=== PATIENT | female | born 1955 | race Caucasian/White ===

== ENCOUNTER 2020-03-28 12:29 | Outpatient (REF) | payer MEDICARE, MEDICAID, SELFPAY | END 2020-03-28 12:30 | disposition home or self-care (01) | LOC: HO.LAB 12:29 | PROVIDERS: Visit Provider Internal Medicine | DX: Z20.828 Contact with and (suspected) exposure to other viral communicable diseases (principal) | CPT/HCPCS: 87635 ==

== ENCOUNTER 2020-07-10 12:52 | Outpatient (REF) | payer MEDICARE, MEDICAID, SELFPAY ==
--- NOTE | ~2020-07-10 | US_ITS ---
EXAMINATION: COLOR-FLOW DUPLEX IMAGING OF THE BILATERAL LOWER EXTREMITY ARTERIAL SYSTEM. VELOCITY MEASUREMENTS THROUGHOUT THE FEMORAL ARTERIES WITH ANKLE-BRACHIAL PERIPHERAL ARTERIAL TESTING. CLINICAL INFORMATION: This is a 65-year-old female with hypertension, diabetes, peripheral vascular disease. Interventional Radiologist: Enzo Mcdonald M.D., F.S.I.R., FTrC.R. RIGHT FEMORAL RUNOFF VELOCITIES: The right common femoral artery measures 101 cm/s and monophasic. The right profunda femoral artery is 370 cm/s and is biphasic with a hemodynamically significant stenosis.. Right proximal superficial femoral artery measures 290 cm/s and monophasic with a severe hemodynamically significant stenosis.. Mid superficial femoral artery is occluded. Distal right superficial femoral artery is occluded. Right popliteal velocity measures 59 cm/s and is monophasic with moderate stenosis.. The posterior tibial artery velocity measures 62 cm/s and was monophasic with moderate stenosis.. The right ankle-brachial index is 0.56. Incidental note is made of free fluid adjacent to the knee joint. LEFT FEMORAL RUNOFF VELOCITIES: The left common femoral artery measures 165 cm/s and triphasic. The left profunda femoral artery is 299 cm/s and is triphasic with a moderate stenosis. Left proximal superficial femoral artery measures 147 cm/s and monophasic with moderate stenosis. Mid superficial femoral artery is 250 cm/s and monophasic with a severe stenosis.. Distal left superficial femoral artery measures 122 cm/s and is monophasic with a moderate stenosis.. Left popliteal velocity measures 126 cm/s and is monophasic with moderate stenosis. The posterior tibial artery velocity measures 56 cm/s and was monophasic with mild stenosis. The left ankle-brachial index is 0.60. US/US STEPHEN complete IMPRESSION: 1. There is a high-grade stenosis in the proximal right superficial femoral artery. There is a high-grade stenosis in the right profunda femoral artery. The mid and distal right superficial femoral artery are occluded. There is collateral reconstitution of the popliteal artery. Free fluid is seen adjacent to the right knee joint. 2. There is a hemodynamically significant high-grade stenosis in the left profunda femoral artery. There is a high-grade hemodynamically significant stenosis in the mid left superficial femoral artery.
--- NOTE | ~2020-07-10 | US_ITS ---
EXAMINATION: COLOR-FLOW DUPLEX IMAGING OF THE BILATERAL LOWER EXTREMITY ARTERIAL SYSTEM. VELOCITY MEASUREMENTS THROUGHOUT THE FEMORAL ARTERIES WITH ANKLE-BRACHIAL PERIPHERAL ARTERIAL TESTING. CLINICAL INFORMATION: This is a 65-year-old female with hypertension, diabetes, peripheral vascular disease. Interventional Radiologist: Enzo Mcdonald M.D., F.S.I.R., FYumiko.[email or web address]. RIGHT FEMORAL RUNOFF VELOCITIES: The right common femoral artery measures 101 cm/s and monophasic. The right profunda femoral artery is 370 cm/s and is biphasic with a hemodynamically significant stenosis.. Right proximal superficial femoral artery measures 290 cm/s and monophasic with a severe hemodynamically significant stenosis.. Mid superficial femoral artery is occluded. Distal right superficial femoral artery is occluded. Right popliteal velocity measures 59 cm/s and is monophasic with moderate stenosis.. The posterior tibial artery velocity measures 62 cm/s and was monophasic with moderate stenosis.. The right ankle-brachial index is 0.56. Incidental note is made of free fluid adjacent to the knee joint. LEFT FEMORAL RUNOFF VELOCITIES: The left common femoral artery measures 165 cm/s and triphasic. The left profunda femoral artery is 299 cm/s and is triphasic with a moderate stenosis. Left proximal superficial femoral artery measures 147 cm/s and monophasic with moderate stenosis. Mid superficial femoral artery is 250 cm/s and monophasic with a severe stenosis.. Distal left superficial femoral artery measures 122 cm/s and is monophasic with a moderate stenosis.. Left popliteal velocity measures 126 cm/s and is monophasic with moderate stenosis. The posterior tibial artery velocity measures 56 cm/s and was monophasic with mild stenosis. The left ankle-brachial index is 0.60. US/US arterial duplex LE BI IMPRESSION: 1. There is a high-grade stenosis in the proximal right superficial femoral artery. There is a high-grade stenosis in the right profunda femoral artery. The mid and distal right superficial femoral artery are occluded. There is collateral reconstitution of the popliteal artery. Free fluid is seen adjacent to the right knee joint. 2. There is a hemodynamically significant high-grade stenosis in the left profunda femoral artery. There is a high-grade hemodynamically significant stenosis in the mid left superficial femoral artery.
== END 2020-07-10 12:53 | disposition home or self-care (01) ==
LOC: HO.US 12:52
PROVIDERS: PCP Family Medicine; Visit Provider Surgery Vascular Surgery
DX: I73.9 Peripheral vascular disease, unspecified (principal)
CPT/HCPCS: 93923; 93925

== ENCOUNTER 2020-07-26 14:29 | Outpatient (REF) | payer MEDICARE, MEDICAID, SELFPAY | END 2020-07-26 14:30 | disposition home or self-care (01) | LOC: HO.LAB 14:29 | PROVIDERS: Visit Provider Internal Medicine | DX: Z20.822 Contact with and (suspected) exposure to COVID-19 (principal) | CPT/HCPCS: 36415; C9803; U0003; U0005 ==

== ENCOUNTER → 2020-08-01 09:52 | Outpatient (BNVA) | payer MEDICARE, MEDICAID, SELFPAY | PROVIDERS: Visit Provider Surgery Vascular Surgery | DX: I73.9 Peripheral vascular disease, unspecified (principal) | CPT/HCPCS: 99212 ==

== ENCOUNTER 2020-08-03 13:34 | Outpatient (REF) | payer MEDICARE, MEDICAID, SELFPAY | END 2020-08-03 13:35 | disposition home or self-care (01) | LOC: HO.LAB 13:34 | PROVIDERS: Visit Provider Internal Medicine | DX: Z20.822 Contact with and (suspected) exposure to COVID-19 (principal) | CPT/HCPCS: 36415; C9803; U0003; U0005 ==

== ENCOUNTER 2020-09-08 09:34 | Emergency (ER) | payer MEDICARE, MEDICAID, SELFPAY ==
--- NOTE | ~2020-09-08 | CT_ITS ---
EXAMINATION: CT ABDOMEN AND PELVIS WITHOUT CONTRAST CLINICAL INFORMATION: Leg pain lower abdominal pain. Kidney stones. COMPARISON: CT scan the abdomen and pelvis September 2017 TECHNIQUE: Multidetector volumetric imaging was performed from the superior aspect of the liver through the pubic symphysis. Sagittal and coronal reformatted images were obtained on the technologist's workstation. This CT examination was performed using dose optimization techniques as appropriate, variously including the following: *Automated exposure control *Adjustment of mA and/or kV according to patient size (this includes techniques or standardized protocols for targeted exams where dose is matched to indication/reason for exam; i.e. extremities or head) *Use of iterative reconstruction technique DLP: 475 mGy-cm FINDINGS: LUNG BASES: The visualized lung bases are unremarkable. LIVER, GALLBLADDER, AND BILIARY TREE: The liver is normal in size, shape, and attenuation. No focal hepatic lesion or biliary ductal dilatation is present. The gallbladder is unremarkable with no evidence of radiopaque gallstones, gallbladder wall thickening, or obvious pericholecystic inflammatory changes. PANCREAS: Unremarkable. SPLEEN: Unremarkable. ADRENAL GLANDS: Unremarkable. KIDNEYS AND URETERS: There is no hydronephrosis no masses. BLADDER: Unremarkable. GASTROINTESTINAL TRACT: The small and large bowel are unremarkable. The appendix is unremarkable. ABDOMINAL WALL: No significant hernia is appreciated. LYMPH NODES: Normal. VASCULAR: There is prominent calcific atherosclerotic changes throughout unchanged. PELVIC VISCERA: Unremarkable. OSSEOUS STRUCTURES: Multilevel spondylosis of lumbar sacral spine unchanged. There is calcification of the hamstring tendons likely reflecting hydroxyapatite deposition disease unchanged. CT/CT abdomen pelvis wo con IMPRESSION: No acute abnormality or change. Small right renal calculi versus vascular calcification unchanged. Calcific atherosclerotic disease. Spondylosis of lumbar sacral spine. 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
[2020-09-08 10:59] LABS: MANUAL DIFF FLAG NO
[2020-09-08 11:00] LABS: Basophils Percent Auto 0.5 % (0-2); Eosinophils Absolute Auto 0.1 X10*3/uL (0.0-0.4); Eosinophils Percent Auto 1.3 % (0-4); Hemoglobin 12.7 g/dl (12.0-16.0); Imm Gran Abs Auto 0.03 X10*3/uL (0.00-0.03); Imm Gran Pct Auto 0.5 % (0.0-0.4); Lymphocytes Absolute Auto 1.9 X10*3/uL (1.2-4.9); Lymphocytes Percent Auto 29.6 % (20-40); Mean Corpuscular HGB Conc 33.4 g/dl (31.0-35.0); Mean Corpuscular Hemoglobin 30.6 pg (27.0-33.0); Mean Corpuscular Volume 91.6 fL (80-98); Mean Platelet Volume 10.4 fL (9.4-12.3); Monocytes Absolute Auto 0.6 X10*3/uL (0.1-1.2); Monocytes Percent Auto 8.6 % (2-11); Neutrophils Absolute Auto 3.8 X10*3/uL (2.0-8.3); Neutrophils Percent Auto 59.5 % (45-73); Platelet Count 216 X10*3/uL (160-400); Red Blood Count 4.15 X10*6/uL (4.20-5.50); Red Cell Distribution Width 12.4 % (11.0-16.0); White Blood Count 6.4 X10*3/uL (4.8-10.8)
--- NOTE | 2020-09-08 11:07 | ED_ITS ---
HPI - Abdominal Pain General Chief Complaint: Abdominal Pain Stated Complaint: BACK AND LOWER ABD PAIN Time Seen by Provider: 09/08/20 11:03 Source: patient Mode of arrival: ambulatory Limitations: no limitations History of Present Illness HPI narrative: 65 y/o female with history of HTN, PAD, history of kidney stones in the past who presents with 4 days of low back pain, flank pain that radiates to her bilateral lower abdomen and suprpubic area. She denies urinary symptoms, fever, chills, nausea, vomiting, diarrhea or constipation. She had a BM today that was normal. She just returned from [place] 4 days ago. She denies heavy lifting or injury to her back. She last had a kidney stone several years ago and states this does not feel the same. She has called her doctor 3 days in a row for advise with no return call so she came to the ER for further evaluation. MD elicited complaint: abdominal pain and flank pain Pertinent past history: kidney stones Onset (ago): day(s) (4) Location: RLQ, LLQ, L flank, R flank and suprapubic Severity: moderate Quality: aching Radiation: LLQ, RLQ and suprapubic Exacerbating factors: movement Relieving factors: rest Context: foreign travel and history of similar episodes Associated symptoms: denies other symptoms Related Data Home Medications Medication Instructions Recorded Confirmed aspirin 81 mg tablet,delayed 81 mg PO DAILY 08/01/20 release atorvastatin 20 mg tablet 20 mg PO DAILY 08/01/20 fenofibrate 160 mg tablet 160 mg PO DAILY 08/01/20 glipizide 5 mg tablet 5 mg PO DAILY 08/01/20 hydrochlorothiazide 25 mg tablet 25 mg PO DAILY 08/01/20 omeprazole magnesium 20 mg 20 mg PO DAILY 08/01/20 tablet,delayed release cyanocobalamin (vitamin B-12) 1 tab PO DAILY 09/08/20 hydralazine 25 mg PO BID 09/08/20 losartan 100 mg PO DAILY 09/08/20 metformin 1,000 mg PO BID 09/08/20 nifedipine 30 mg PO BID 09/08/20 potassium citrate 1 tab PO BID 09/08/20 propranolol 120 mg PO DAILY 09/08/20 Allergies Allergy/AdvReac Type Severity Reaction Status Date / Time No Known Allergies Allergy Mild NOT Verified 08/01/20 09:54 APPLICABLE Review of Systems Review of Systems Constitutional: No Fever, No Chills ENT/Mouth: No sore throat, No Rhinorrhea, No Swallowing Difficulty Cardiovascular: No Chest Pain, No SOB, No Orthopnea, No Edema Respiratory: No Cough, No Sputum, No Wheezing, No dyspnea Gastrointestinal: No Nausea, No Vomiting, No Diarrhea, + abdominal Pain, No Hematochezia, No Melena Genitourinary: No Dysuria, No Urinary Frequency, No Hematuria Musculoskeletal: No joint pain, + Myalgias Skin: No Skin Lesions, No rash Neuro: No Weakness, No Numbness, No Dizziness, No Headache Psych: No Anxiety/Panic, No Depression Heme/Lymph: No Bruising, No Lymphadenopathy Endocrine: No Polyuria, No Polydipsia Physical Exam Vital Signs: Vital Signs: Last Vital Signs Temp 97.9 F 09/08/20 11:08 Pulse 79 09/08/20 11:41 Resp 14 09/08/20 11:41 BP 134/74 09/08/20 11:41 Pulse Ox 98 09/08/20 11:41 Body Mass Index 13.2 Appearance: Alert. Oriented X3. No acute distress. Eyes: Pupils equal, round and reactive to light. ENT: Pharynx normal. Neck: Normal inspection. Neck supple. CVS: Normal heart rate and rhythm. Pulses normal. Respiratory: No respiratory distress. Breath sounds normal. Abdomen: Soft with bilateral lower abdominal tenderness, suprapubic tenderness. +BS x4. Bilateral CVA and flank tenderness L>R Skin: Skin warm and dry. Normal skin color. Normal skin turgor. No rashes. Extremities: No lower extremity edema. Negative Ministerio's sign. Neuro: Oriented X 3. No motor deficit. No sensory deficit. Course Course Course Narrative: 65 y/o female presenting with 4 days of lower back pain that radiates to the lower abdomen. No urinary symptoms, fever, chills, no nausea, vomiting or diarrhea. Will get basic lab workup and urinalysis. Concern for possible kidney stones, UTI, pyelonephritis, verses musculoskeletal pain. She is asymptomatically hypertensive with BP 200/80's on arrival. She denies chest pain, headache, vision changes. She states her BP is always high and she took her BP meds this morning, she does not know what she is on. Will hold off on treating for now given she is asympomatic. Will repeat BP soon. Reevaluation(s) Reevaluation #1: BP repeated 1/2 hour after patient in the ER and significantly improved. Lab workup is unremarkable, possible mild vs early UTI. With her suprapubic tenderness will plan to treat until urine culture returns. CT scan did not show any abnormalities to explain her back pain - likely musculoskeletal in nature. Management discussed and pateint encouraged to f/u with her PCP on Friday. She is stable for discharge. MDM - Abdominal Pain Lab Data Result diagrams: 09/08/20 10:42 09/08/20 10:42 Labs: Lab Results 09/08/20 09/08/20 09/08/20 Range/Units 10:42 10:42 10:42 WBC 6.4 (4.8-10.8) X10*3/uL RBC 4.15 L (4.20-5.50) X10*6/uL Hgb 12.7 (12.0-16.0) g/dl Hct 38.0 (37-47) % MCV 91.6 (80-98) fL MCH 30.6 (27.0-33.0) pg MCHC 33.4 (31.0-35.0) g/dl RDW 12.4 (11.0-16.0) % Plt Count 216 (160-400) X10*3/uL MPV 10.4 (9.4-12.3) fL Immature Gran % (Auto) 0.5 H (0.0-0.4) % Neut % (Auto) 59.5 (45-73) % Lymph % (Auto) 29.6 (20-40) % [place] % (Auto) 8.6 (2-11) % Eos % (Auto) 1.3 (0-4) % Baso % (Auto) 0.5 (0-2) % Lymph # (Auto) 1.9 (1.2-4.9) X10*3/uL [place] # (Auto) 0.6 (0.1-1.2) X10*3/uL Eos # (Auto) 0.1 (0.0-0.4) X10*3/uL Baso # (Auto) 0.0 (0.0-0.2) X10*3/uL Abs Immat Gran (auto) 0.03 (0.00-0.03) X10*3/uL Absolute Neuts (auto) 3.8 (2.0-8.3) X10*3/uL Absolute Nucleated RBC 0.000 (0.0-0.012) X10*3/uL Nucleated RBC % (auto) 0.0 (0.0-0.2) /100WBC Sodium 137 (135-145) mmol/L Potassium 4.3 (3.3-5.1) mmol/L Chloride 99 (96-108) mmol/L Carbon Dioxide 28 (22-29) mmol/L Anion Gap 14 (12-20) BUN 18 H (9-16) mg/dL Creatinine 0.68 (0.5-1.4) mg/dL Estim Creat Clear Calc 39.6 Estimated GFR > 60 Random Glucose 232 H (60-115) mg/dL Calcium 9.4 (8.4-10.2) mg/dL Urine Color YELLOW Urine Appearance CLEAR Urine pH 5.5 (5.0-8.0) Ur Specific [place] 1.025 (1.005-1.025) Urine Protein NEG (NEG-TRACE) MG/DL Urine Glucose (UA) 250 H (NEG) MG/DL Urine Ketones NEG (NEG) MG/DL Urine Blood NEG (NEG) Urine Nitrite NEG (NEG) Ur Leukocyte Esterase TRACE H (NEG) Urine RBC 0 (0) /HPF Urine WBC 1-4 (0-4) /HPF Ur Squamous Epith Cells TRACE /LPF Urine Bacteria NONE /LPF Urine Mucus TRACE /LPF Discharge Plan Discharge Clinical Impression: Acute UTI Back strain Qualifiers: Encounter type: initial encounter Qualified Code(s): S39.012A - Strain of muscle, fascia and tendon of lower back, initial encounter Patient Disposition: Home, Self-Care Instructions: Urinary Tract Infection in Women (ED), Low Back Strain (ED), Lower Back Exercises (ED) Additional Instructions: Your urine tested showed possible infection, you are being started on ant ibiotics until your urine culture returns. Your CT scan did not show any causes of your back pain - your pain is likely muscular in nature. No bending, lifting or twisting. Use ice several times per day for 20 minutes at a time for the next 48 hours and then change to heat. Take medications as prescribed to help with pain and discomfort. Follow up with your Primary Care Doctor this week. If your pain worsens, if you develop new numbness, tingling, weakness, loss of function or incontinence call 911 or come back to the ER right away for evaluation. Prescriptions: No Action nifedipine 30 mg tablet extended release 24hr 30 mg PO BID RF: 0 cyanocobalamin (vitamin B-12) 1,000 mcg tablet 1 tab PO DAILY RF: 0 hydralazine 25 mg tablet 25 mg PO BID RF: 0 propranolol 120 mg capsule,extended release 24 hr 120 mg PO DAILY RF: 0 losartan 100 mg tablet 100 mg PO DAILY RF: 0 metformin 500 mg tablet extended release 24 hr 1,000 mg PO BID RF: 0 potassium citrate 15 mEq tablet extended release 1 tab PO BID RF: 0 PMFSH Past Medical History Attestation statement: The following information was validated with the patient. Medical History Cerebrovascular accident HTN (hypertension) Non-cardiac chest pain Type 2 diabetes mellitus Surgical History History of hysterectomy Hx of colonoscopy Status post angioplasty Family History Family History Father No problems noted. Mother Diabetes Brother Diabetes Brother Diabetes Sister Diabetes Daughter No problems noted. Daughter No problems noted. Son No problems noted. Son No problems noted. Social History Social History Alcohol intake: never Smoking Status: Former smoker Tobacco Type: Cigarette Smoked in Last 30 Days: No Use of substances other than those prescribed or required for medical reasons: No Advance Directives: Yes Advance Directives Information Provided: Yes Advance Directives on File: No
[2020-09-08 11:08] VITALS: BP 204/83; PULSE 90; RESP 16; TEMP 36.6; O2SAT 99; BMI 13.2
[2020-09-08 11:11] LABS: Glucose Urine UA 250 MG/DL (NEG); Leukocyte Esterase Urine TRACE (NEG); Nitrite Urine NEG (NEG); PH 5.5 (5.0-8.0); Specific Gravity - Urine 1.025 (1.005-1.025); UACC Culture Trigger YES; Urine Blood NEG (NEG); Urine Ketones NEG (NEG); Urine Protein NEG (NEG-TRACE)
[2020-09-08 11:15] LABS: Color Urine YELLOW
[2020-09-08 11:16] LABS: Appearance Urine CLEAR
[2020-09-08 11:23] LABS: Mucus Urine TRACE /LPF; RBC Urine 0 /HPF (0); Squamous Epithelial Cell Urine TRACE /LPF
[2020-09-08 11:29] LABS: Anion Gap 14 (12-20); Blood Urea Nitrogen 18 mg/dL (9-16); Calcium 9.4 mg/dL (8.4-10.2); Carbon Dioxide 28 mmol/L (22-29); Chloride 99 mmol/L (96-108); Creatinine Clr Calc Pharmacy 39.6; Estimated Glomerular Filt Rate > 60; Glucose Random 232 mg/dL (60-115); Potassium 4.3 mmol/L (3.3-5.1); Sodium 137 mmol/L (135-145)
[2020-09-08] MEDS: Acetaminophen 325 MG TABLET 975 MG PO (11:34)
[2020-09-08 11:41] VITALS: BP 134/74; PULSE 79; RESP 14; O2SAT 98
== END 2020-09-08 13:41 | disposition home or self-care (01) ==
PROVIDERS: Emergency Provider Emergency Medicine; PCP Family Medicine
DX: S39.012A Strain of muscle, fascia and tendon of lower back, initial encounter (principal); R10.32 Left lower quadrant pain; N39.0 Urinary tract infection, site not specified; I10 Essential (primary) hypertension; X58.XXXA Exposure to other specified factors, initial encounter; Y93.9 Activity, unspecified; Y92.9 Unspecified place or not applicable; Y99.9 Unspecified external cause status; Z79.899 Other long term (current) drug therapy; Z79.82 Long term (current) use of aspirin; Z87.891 Personal history of nicotine dependence
CPT/HCPCS: 36415; 74176; 80048; 81001; 81003; 85025; 87086; 99284

== ENCOUNTER → 2020-10-16 12:40 | Outpatient (BNVA) | payer MEDICARE, MEDICAID, SELFPAY | PROVIDERS: PCP Family Medicine; Visit Provider Internal Medicine | DX: Z13.89 Encounter for screening for other disorder (principal) | CPT/HCPCS: Q3014 ==

== ENCOUNTER 2020-10-17 11:54 | Outpatient (REF) | payer MEDICARE, MEDICAID, SELFPAY | END 2020-10-17 11:55 | disposition home or self-care (01) | LOC: HO.LAB 11:54 | PROVIDERS: Visit Provider Internal Medicine | DX: Z20.822 Contact with and (suspected) exposure to COVID-19 (principal) | CPT/HCPCS: C9803; U0003; U0005 ==

== ENCOUNTER → 2020-12-14 08:42 | Outpatient (BNVA) | payer MEDICARE, MEDICAID, SELFPAY | PROVIDERS: PCP Family Medicine; Visit Provider Internal Medicine | DX: E11.65 Type 2 diabetes mellitus with hyperglycemia (principal); E78.1 Pure hyperglyceridemia; I10 Essential (primary) hypertension; E78.5 Hyperlipidemia, unspecified; Z79.84 Long term (current) use of oral hypoglycemic drugs; Z79.899 Other long term (current) drug therapy | CPT/HCPCS: 82947; 83036; 99212 ==

== ENCOUNTER 2021-01-16 15:28 | Emergency (ER) | payer MEDICARE, MEDICAID, SELFPAY ==
[2021-01-16 16:43] VITALS: BP 117/71; PULSE 87; RESP 18; TEMP 36.4; O2SAT 97; BMI 29.2
--- NOTE | 2021-01-16 17:27 | ED_ITS ---
HPI - Extremity Problem General Chief complaint: Extremity Injury, Upper Stated complaint: shoulder pain Time Seen by Provider: 01/16/21 17:27 Source: patient Mode of arrival: ambulatory Limitations: no limitations History of Present Illness HPI Narrative: 65 y/o female presenting to the ER from home c/o acute on chronic nontraumatic left sided posterior shoulder pain. She reports this is a chronic problem and she usually takes Flexeril for the pain but she ran out of it. She denies any new injury. No chest pain, SOB or radiation of pain. The pain is aching in nature and in the back of her left shoulder, worse with movement. She still has full ROM of her shoulder it is just painful to row backward. MD Complaint: joint paint Onset (ago): day(s) Pain Consistency: intermittent Location: left and upper extremity Severity scale (1-10): 5 Quality: aching Radiation: none Relieving factors: medication Exacerbating factors: range of motion Associated symptoms: denies other symptoms Related Data Home Medications Medication Instructions Recorded Confirmed aspirin 81 mg tablet,delayed 81 mg PO DAILY 08/01/20 12/14/20 release atorvastatin 20 mg tablet (Lipitor) 20 mg PO BEDTIME 08/01/20 12/14/20 fenofibrate 160 mg tablet 160 mg PO BEDTIME 08/01/20 12/14/20 glipizide 5 mg tablet 5 mg PO DAILY 08/01/20 12/14/20 hydrochlorothiazide 25 mg tablet 25 mg PO DAILY 08/01/20 12/14/20 omeprazole magnesium 20 mg 20 mg PO DAILY 08/01/20 12/14/20 tablet,delayed release (Prilosec OTC) cyanocobalamin (vitamin B-12) 1 tab PO DAILY 09/08/20 12/14/20 1,000 mcg tablet hydralazine 25 mg tablet 25 mg PO BID 09/08/20 12/14/20 losartan 100 mg tablet 100 mg PO DAILY 09/08/20 12/14/20 metformin 500 mg tablet,extended 1,000 mg PO BID 09/08/20 12/14/20 release 24 hr nifedipine 30 mg tablet,extended 30 mg PO BID 09/08/20 12/14/20 release 24 hr potassium citrate 15 mEq (1,620 1 tab PO BID 09/08/20 12/14/20 mg) tablet,extended release propranolol 120 mg capsule,24 120 mg PO DAILY 09/08/20 12/14/20 hr,extended release blood sugar diagnostic (FreeStyle #10 ea 12/14/20 12/14/20 Lite Strips) blood-glucose meter (FreeStyle #1 ea 12/14/20 12/14/20 Lite Meter) lancets 28 gauge (FreeStyle #100 ea 12/14/20 12/14/20 Lancets) Previous Rx's Medication Instructions Recorded cefuroxime axetil 250 mg tablet 250 mg PO BID #10 tab 09/08/20 ibuprofen 600 mg tablet 600 mg PO Q8H PRN #10 tab 09/08/20 cyclobenzaprine 10 mg tablet 10 mg PO TID PRN #14 tab 01/16/21 ibuprofen 600 mg tablet 600 mg PO Q8H PRN #14 tab 01/16/21 lidocaine 5 % topical patch 1 patch TOPICAL DAILY #15 ea 01/16/21 (Lidoderm) Allergies Allergy/AdvReac Type Severity Reaction Status Date / Time No Known Allergies Allergy Mild NOT Verified 01/16/21 16:43 APPLICABLE Review of Systems Review of Systems: Constitutional: No Fever, No Chills Cardiovascular: No Chest Pain, No SOB Respiratory: No Cough Gastrointestinal: No Nausea, No Vomiting Musculoskeletal: + joint pain, + Myalgias Skin: No Skin Lesions, No rash Neuro: No Weakness, No Numbness Heme/Lymph: No Bruising PMFSH Past Medical History Medical History Cerebrovascular accident HLD (hyperlipidemia) HTN (hypertension) Hypertriglyceridemia Non-cardiac chest pain Type 2 diabetes mellitus Vitamin D deficiency Surgical History History of hysterectomy Hx of colonoscopy Status post angioplasty Family History Family History Father Heart disease Mother Diabetes Hypertension High cholesterol Renal failure Brother Diabetes Brother Diabetes Sister Diabetes Social History Social History Alcohol intake: never Patient Tobacco Use Status: Former Tobacco user Advance Directives: No Advance Directives Information Provided: No Physical Exam 2 Vital Signs: Vital Signs: Last Vital Signs Temp 97.6 F 01/16/21 16:43 Pulse 87 01/16/21 16:43 Resp 18 01/16/21 16:43 BP 117/71 01/16/21 16:43 Pulse Ox 97 01/16/21 16:43 Body Mass Index 29.2 Appearance: Alert. Oriented X3. No acute distress. HEENT: normal inspection CVS: Normal heart rate and rhythm. Pulses normal. Respiratory: No respiratory distress. Lung CTAB Skin: Skin warm and dry. Normal skin color. Normal skin turgor. No rashes. Extremities: normal left shoulder inspection. mild tenderness posteriorly, normal palpation of the AC joint, normal passive ROM. no crepitus palpable. Neuro: Oriented X 3. No motor deficit. No sensory deficit. Course Course Course Narrative: 65 y/o female presenting wtih acute on chronic posterior left sided shoulder pain, worse with movement. No SOB or chest pain. She has been trying to f/u with her PCP but no answer. Will give short course of flexeril re- fill and have her follow up with PCP. Stable for d/c home with supportive care. Critical Care Time Critical Care Time Critical Care Time: No Discharge Plan Discharge Clinical Impression: Chronic left shoulder pain Patient Disposition: Home, Self-Care Instructions: Shoulder Pain (ED) Additional Instructions: Take the prescribed medications as needed for pain. Continue to follow up with your doctor. If you develop new or worsening symptoms call 911 or come back to the ER for further evaluation. Prescriptions: New cyclobenzaprine 10 mg tablet 10 mg PO TID PRN (Reason: muscle spasm) Qty: 14 RF: 0 ibuprofen 600 mg tablet 600 mg PO Q8H PRN (Reason: pain) Qty: 14 RF: 0 lidocaine [Lidoderm] 5 % adhesive patch,medicated 1 patch topical DAILY Qty: 15 RF: 0 No Action nifedipine 30 mg tablet extended release 24hr 30 mg PO BID RF: 0 cyanocobalamin (vitamin B-12) 1,000 mcg tablet 1 tab PO DAILY RF: 0 hydralazine 25 mg tablet 25 mg PO BID RF: 0 propranolol 120 mg capsule,extended release 24 hr 120 mg PO DAILY RF: 0 losartan 100 mg tablet 100 mg PO DAILY RF: 0 metformin 500 mg tablet extended release 24 hr 1,000 mg PO BID RF: 0 potassium citrate 15 mEq tablet extended release 1 tab PO BID RF: 0 cefuroxime axetil 250 mg tablet 250 mg PO BID Qty: 10 RF: 0 ibuprofen 600 mg tablet 600 mg PO Q8H PRN (Reason: pain) Qty: 10 RF: 0 (DME) blood-glucose meter [FreeStyle Lite Meter] Kit See Rx Instructions .ROUTE .MEDSUPPLY Qty: 1 RF: 0 (DME) FreeStyle Lite Strips Strip See Rx Instructions .ROUTE .MEDSUPPLY Qty: 10 RF: 0 (DME) lancets [FreeStyle Lancets] 28 gauge misc See Rx Instructions .ROUTE .MEDSUPPLY Qty: 100 RF: 0 aspirin 81 mg tablet,delayed release (DR/EC) 81 mg PO DAILY RF: 0 omeprazole magnesium [Prilosec OTC] 20 mg tablet,delayed release (DR/EC) 20 mg PO DAILY RF: 0 atorvastatin [Lipitor] 20 mg tablet 20 mg PO BEDTIME RF: 0 fenofibrate 160 mg tablet 160 mg PO BEDTIME RF: 0 hydrochlorothiazide 25 mg tablet 25 mg PO DAILY RF: 0 glipizide 5 mg tablet 5 mg PO DAILY RF: 0 Interventions: ED Discharge Assessment Last Done: 01/16/21 18:47 Discharge Date/Time: 01/16/21 18:48
== END 2021-01-16 18:48 | disposition home or self-care (01) ==
PROVIDERS: Emergency Provider Emergency Medicine; PCP Family Medicine
DX: G89.29 Other chronic pain (principal); M25.512 Pain in left shoulder; E11.9 Type 2 diabetes mellitus without complications; I10 Essential (primary) hypertension; E78.5 Hyperlipidemia, unspecified; Z79.82 Long term (current) use of aspirin; Z79.899 Other long term (current) drug therapy; Z79.84 Long term (current) use of oral hypoglycemic drugs; Z79.02 Long term (current) use of antithrombotics/antiplatelets
CPT/HCPCS: 99281; 99282; 99283

== ENCOUNTER 2021-01-25 08:48 | Outpatient (REF) | payer MEDICARE, MEDICAID, SELFPAY ==
--- NOTE | ~2021-01-25 | US_ITS ---
EXAMINATION: NONINVASIVE ASSESSMENT OF THE ARTERIES OF BOTH LOWER EXTREMITIES WITH PVR EXAM AND BILATERAL LOWER EXTREMITY DUPLEX CLINICAL INFORMATION: Peripheral vascular disease. TECHNIQUE: Ankle pulse volume recordings, ankle pressure measurements and ankle brachial indices were obtained of the lower extremity arterial system bilaterally in addition to duplex Doppler techniques with wave form analysis and measurement of velocities in the common femoral, profunda femoral, superficial femoral, popliteal and tibial arteries. The study was performed only at rest. COMPARISON: None FINDINGS: a) AT REST: RIGHT LE. The right ankle-brachial index is: 0.57 2. Right ankle pressure: Decreased 3. Right ankle PVR waveform: Dampened 4. Right direct duplex Doppler findings: There is atherosclerotic disease with vessel wall calcification. There is diffuse narrowing of the SFA. The right mid SFA is occluded. The right distal SFA reconstitutes via collateral. * Common femoral artery: 101 cm/s, Diastolic flow reversal: No. Monophasic. * Superficial femoral artery (proximal, mid, distal): 319, occluded, 61 cm/s, Diastolic flow reversal: No. Monophasic. Increased peak systolic velocity in the proximal profunda measuring 608 and severe proximal profunda stenosis. * Popliteal artery: 50 cm/s, Diastolic flow reversal: No. Monophasic. * Posterior tibial artery: 23 cm/s, Diastolic flow reversal: No. Monophasic. * There is a small right Chisholm's cyst measures 1.7 x 3.5 x 1.2 cm. LEFT LE. The left ankle-brachial index is: 0.65 2. Left ankle pressure: Decreased 3. Left ankle PVR waveform: Dampened 4. Left direct duplex Doppler findings: There is atherosclerotic disease with vessel wall calcification. The left SFA is diffusely narrowed. There are multiple collateral vessels seen adjacent to the left SFA. The popliteal artery is diffusely narrowed. * Common femoral artery: 154 cm/s, Diastolic flow reversal: Yes. Biphasic. * Superficial femoral artery (proximal, mid, distal): 195, 93 and 91 cm/s, Diastolic flow reversal: No. Monophasic. * Popliteal artery: 91 cm/s, Diastolic flow reversal: No. Monophasic. * Posterior tibial artery: 24 cm/s, Diastolic flow reversal: No. Monophasic. STEPHEN Reference: * >0.97-1.25 = normal - no significant arterial disease * 0.75-0.96 = mild peripheral arterial disease * 0.5-0.74 = moderate peripheral arterial disease * <0.50 = severe peripheral arterial disease US/US arterial duplex LE BI IMPRESSION: Right: Diffusely narrowed right SFA. Right mid SFA occlusion. Reconstituted right distal SFA via collateral. Right proximal profunda stenosis. The right STEPHEN is 0.57 suggestive of moderate obstructive atherosclerotic disease. Right Chisholm's cyst. Left: Diffusely narrowed left SFA and multiple adjacent collateral vessels with monophasic flow. Diffusely narrowed popliteal artery with monophasic flow. The left STEPHEN is 0.65 suggestive of moderate obstructive atherosclerotic disease.
== END 2021-01-25 08:49 | disposition home or self-care (01) ==
LOC: HO.US 08:48
PROVIDERS: Visit Provider Surgery Vascular Surgery
DX: I70.213 Atherosclerosis of native arteries of extremities with intermittent claudication, bilateral legs (principal)
CPT/HCPCS: 93923; 93925

== ENCOUNTER → 2021-02-01 09:41 | Outpatient (BNVA) | payer MEDICARE, MEDICAID, SELFPAY | PROVIDERS: PCP Family Medicine; Visit Provider Surgery Vascular Surgery | DX: I73.9 Peripheral vascular disease, unspecified (principal) | CPT/HCPCS: 99212 ==

== ENCOUNTER 2021-08-27 08:47 | Outpatient (REF) | payer MEDICARE, MEDICAID, SELFPAY ==
--- NOTE | 2021-08-27 16:53 | MHC.AU.ANR ---
Adult Audiological Evaluation Date of Visit: 08/27/21 [employer] Head Used: Cambodian- By Phone Reason for Appointment: Audiological evaluation due to concern for decreased hearing. Ms. Vega states that she noticed a decrease in her hearing in her right ear over the past few months. She was recently seen by her PCP and was found to have impacted cerumen in the right ear that was removed with irrigation and Debrox earwax drops. Ms. Vega states that her hearing has improved since cerumen was removed. She denies any further concerns for her ears or hearing. Does patient feel they have a hearing loss?: No, not currently. Has hearing been tested previously?: No Ear History: Family History of Hearing Loss?: Yes: [place] (sobrinas) History of Ear Wax Buildup: Right Ear Bothersome Tinnitus/Ringing/Noises in Ears: Right Ear Medical History: Medical History: Diabetes, High Blood Pressure, Stroke Medical History (Other): Tremor, hypercholesterolemia, osteoporosis, PVD Medication List: nifedipine, hydralazine HCl, potassium citrate, Lovaza, aspirin, amlodipine besylate, acetaminophen, hydrochlorothiazide, Inderal [place], losartan potassium, Lipitor, cyanocobalamin, glipizide, metformin HCl, omeprazole, fenofibrate Otoscopy: Right Ear: Unremarkable Left Ear: Unremarkable Tympanometry: Tympanometry performed due to: To assess integrity of the middle ear system Right Ear: Normal Middle Ear System (Type A) Left Ear: Normal Middle Ear System (Type A) Hearing Evaluation: Transducer(s) Used: Insert Earphones Method: Conventional Audiometry Stimuli Used: Pure Tones Right Ear: Description of Hearing: Normal hearing from 250-8000 Hz. Left Ear: Description of Hearing: Normal hearing from 250-8000 Hz. Speech Recognition Threshold (SRT): Method Used: Recorded Lists Stimuli Used: Cambodian Trisyllable Words Right Ear: 25 dBHL Left Ear: 25 dBHL Word Discrimination: Method: Recorded Lists Word Lists Used: NU-6 Right Ear: 92% at 65 dBHL Left Ear: 96% at 65 dBHL Interpretation of Results: Today's evaluation indicates normal hearing bilaterally in the presence of clear ear canals and normal middle-ear function. Recommendations: No further audiological action is indicated at this time. Audiological re-evaluation if changes are noted. Diagnosis: Primary Diagnosis: H93.293 Abnormal Auditory Perception Services Performed: Services Performed: Pure Tone- Air (CPT 24376) Speech Audiometry Threshold, with Speech Recognition (CPT 69320) Tympanometry (CPT 31878) Signature: Provider: Marija De Los Santos, CCC-A
== END 2021-08-27 08:48 | disposition home or self-care (01) ==
LOC: HO.SH 08:47
PROVIDERS: Visit Provider Family Medicine
DX: Z01.118 Encounter for examination of ears and hearing with other abnormal findings (principal); H93.293 Other abnormal auditory perceptions, bilateral
CPT/HCPCS: 92552; 92556; 92567

== ENCOUNTER 2021-09-11 07:31 | Outpatient (REF) | payer MEDICARE, MEDICAID, SELFPAY ==
--- NOTE | ~2021-09-11 | MM_ITS ---
EXAMINATION: BONE DENSITOMETRY CLINICAL INDICATION: Osteoporosis. COMPARISON: Previous BD dated 10/21/2014 and baseline BD dated 02/17/2009. TECHNIQUE: Using a [employer] DXA System (software version: 13.1) manufactured by [employer], dual-energy x-ray absorptiometry was performed of the lumbar spine and left hip. The images are of good technical quality. Summary results are attached. FINDINGS: AP SPINE L1-L4: Current: BMD 0.735 g/cm2, Z-score -2.1, T-score -3.7, osteoporosis, 3.7% increase from previous, 9.6% decrease from baseline (<5% change is not significant). Prior: BMD 0.709 g/cm2. Baseline: BMD 0.813 g/cm2. LEFT FEMUR, NECK: Current: BMD 0.533 g/cm2, Z-score -2.1, T-score -3.6, osteoporosis. Prior: BMD 0.748 g/cm2. Baseline: BMD 0.788 g/cm2. LEFT FEMUR, TOTAL: Current: BMD 0.711 g/cm2, Z-score -1.1, T-score -2.4, osteopenia, 16.8% decrease from previous, 21.8% decrease from baseline (<5% change is not significant). Prior: BMD 0.855 g/cm2. Baseline: BMD 0.909 g/cm2. IDENTIFIED RISK FACTORS: Early menopause, osteoporosis, rheumatoid arthritis, secondary osteoporosis, Thiazide. HISTORY OF FRACTURE: None listed. MEDICATIONS: Calcium, vitamin D. MM/XR DEXA axial skeleton IMPRESSION: 1. DIAGNOSIS: Osteoporosis based on the lowest T-score value of -3.7 in the lumbar spine applying World Health Organization criteria. 2. 10-YEAR FRACTURE RISK PREDICTION, FRAX: According to the guidelines, FRAX calculation should only be performed on patients in the osteopenia bone density category. Therefore, FRAX was not performed on this patient. 3. Treatment Recommendations: NOF guidelines recommend consideration for treatment in postmenopausal women and men age 50 and older presenting with the following: -A hip or vertebral (clinical or morphometric) fracture. -T-score less than or equal to -2.5 at the femoral neck or spine after appropriate evaluation to exclude secondary causes. -Low bone mass at the hip or spine and a 10-year fracture probability by FRAX of greater than or equal to 3% for hip fracture or greater than or equal to 20% for major osteoporotic fracture based on the [place] adapted WHO algorithm. 4. Other Recommendations: All treatment decisions require clinical judgment and consideration of individual patient factors, including patient preferences, comorbidities, previous drug use, risk factors not captured in the FRAX model (e.g. frailty, falls, vitamin D deficiency, increased bone turnover, interval significant decline in bone density) and possible under or overestimation of fracture risk by FRAX. Additional medical evaluation for secondary cause of low bone mineral density may be appropriate. FUTURE SCAN RECOMMENDATION: People with diagnosed cases of osteoporosis or at high risk for fracture should have regular bone mineral density tests. For patients eligible for Medicare, routine testing is allowed once every 2 years. The testing frequency can be increased to one year for patients who have rapidly progressing disease, those who are receiving or discontinuing medical therapy to restore bone mass, or have additional risk factors.
--- NOTE | ~2021-09-11 | MM_ITS ---
EXAMINATION: MM SCREENING DIGITAL BREAST TOMOSYNTHESIS, BILATERAL CLINICAL INFORMATION: Screening. Asymptomatic. The lifetime risk of breast cancer based on the Tyrer-Cuzick Model is 5%. COMPARISON: Mammography: 04/16/2018, 04/21/2017 TECHNIQUE: Digital breast tomosynthesis is performed in both the craniocaudal and mediolateral oblique views along with computer-aided detection (CAD). Synthesized 2D images are generated from the tomosynthesis. FINDINGS: There are scattered areas of fibroglandular density (ACR BI-RADS breast composition Category b). There are no significant masses, abnormal calcifications, or other abnormalities. Breast tissue borders on predominantly fatty. Parenchymal pattern is similar to prior exams. No significant changes. MM/MM tomosynthesis screening BI IMPRESSION: No mammographic evidence of malignancy. ASSESSMENT: BI-RADS 1: Negative RECOMMENDATION: Routine annual mammography screening. This patient's information was entered into a reminder system with a target due date for their next mammogram.
== END 2021-09-11 07:32 | disposition home or self-care (01) ==
LOC: HO.MAMMO 07:31
PROVIDERS: Visit Provider Family Medicine
DX: Z12.31 Encounter for screening mammogram for malignant neoplasm of breast (principal); Z13.820 Encounter for screening for osteoporosis; M81.0 Age-related osteoporosis without current pathological fracture; Z78.0 Asymptomatic menopausal state
CPT/HCPCS: 77063; 77067; 77080

== ENCOUNTER 2021-09-14 10:28 | Outpatient (REF) | payer MEDICARE, MEDICAID, SELFPAY ==
--- NOTE | ~2021-09-14 | XR_ITS ---
EXAMINATION: XR CERVICAL SPINE XR SHOULDER, RIGHT XR SHOULDER, LEFT CLINICAL INFORMATION: Pain. COMPARISON: 10/21/2016 and 10/06/2014. TECHNIQUE: 2 views of the left shoulder, 2 views of the right shoulder, and 5-view cervical spine. FINDINGS: 2 views of the right shoulder do not demonstrate any evidence of acute fracture or dislocation. Glenohumeral joint is maintained with mild spurring. There are pit erosions seen about the site of insertion of suprascapular ligament. There is question of a few calcifications versus artifact on AP view just lateral to the acromium and which could be related to calcific tendinitis or bursitis. There is mild degenerative change of the acromioclavicular joint. On the 2 provided views of the left shoulder no definite acute fracture or dislocation is seen, however, there appears to be some deformity of the left humeral head on axillary view as well as what appears to be a possible healed fracture of the greater tuberosity and an old fracture is not excluded. There is some spurring of the glenohumeral joint. There is some mild degenerative change involving the left acromioclavicular joint. No abnormal prevertebral soft tissue swelling is seen with the cervical spine. No acute cervical spine fracture is seen. There is spurring seen anteriorly C3 through C7. There is some narrowing of the C5-C6 disc space. No significant bony encroachment on the neural foramina seen. XR/XR shoulder LT min 2V IMPRESSION: No acute cervical spine fracture. Spondylosis as described. Mild degenerative change of the right shoulder with question of calcific tendinitis or bursitis as described. Degenerative change of the left shoulder with question old greater tuberosity fracture. This is a limited two-view study.
--- NOTE | ~2021-09-14 | XR_ITS ---
EXAMINATION: XR CERVICAL SPINE XR SHOULDER, RIGHT XR SHOULDER, LEFT CLINICAL INFORMATION: Pain. COMPARISON: 10/21/2016 and 10/06/2014. TECHNIQUE: 2 views of the left shoulder, 2 views of the right shoulder, and 5-view cervical spine. FINDINGS: 2 views of the right shoulder do not demonstrate any evidence of acute fracture or dislocation. Glenohumeral joint is maintained with mild spurring. There are pit erosions seen about the site of insertion of suprascapular ligament. There is question of a few calcifications versus artifact on AP view just lateral to the acromium and which could be related to calcific tendinitis or bursitis. There is mild degenerative change of the acromioclavicular joint. On the 2 provided views of the left shoulder no definite acute fracture or dislocation is seen, however, there appears to be some deformity of the left humeral head on axillary view as well as what appears to be a possible healed fracture of the greater tuberosity and an old fracture is not excluded. There is some spurring of the glenohumeral joint. There is some mild degenerative change involving the left acromioclavicular joint. No abnormal prevertebral soft tissue swelling is seen with the cervical spine. No acute cervical spine fracture is seen. There is spurring seen anteriorly C3 through C7. There is some narrowing of the C5-C6 disc space. No significant bony encroachment on the neural foramina seen. XR/XR cervical spine min 6V IMPRESSION: No acute cervical spine fracture. Spondylosis as described. Mild degenerative change of the right shoulder with question of calcific tendinitis or bursitis as described. Degenerative change of the left shoulder with question old greater tuberosity fracture. This is a limited two-view study.
== END 2021-09-14 10:29 | disposition home or self-care (01) ==
LOC: HO.LAB 10:28
PROVIDERS: PCP Family Medicine; Visit Provider Family Medicine
DX: G89.29 Other chronic pain (principal); M54.2 Cervicalgia; M25.511 Pain in right shoulder; M25.512 Pain in left shoulder
CPT/HCPCS: 72052; 73030

== ENCOUNTER 2021-10-02 07:36 | Emergency (ER) | payer MEDICARE, MEDICAID, SELFPAY ==
--- NOTE | ~2021-10-02 | XR_ITS ---
EXAMINATION: XR CHEST CLINICAL INFORMATION: COVID positive. COMPARISON: 09/11/2018 chest radiographs. TECHNIQUE: Frontal view of the chest was obtained. FINDINGS: Mild increased markings are seen in the right infrahilar region. The lungs otherwise clear. The heart and mediastinal structures are unremarkable. XR/XR chest 1V IMPRESSION: Mild increased markings in right infrahilar region have the appearance of normal vasculature, similar to the previous study. No definitive acute abnormality. If symptoms persist or worsen, short-term repeat follow-up, preferably with PA and lateral views is recommended to assess for more acute change.
[2021-10-02 07:40] VITALS: BP 178/93; PULSE 113; RESP 20; TEMP 37.8; O2SAT 98; BMI 28.3
[2021-10-02 08:10] LABS: IDNOW Serial# 16C4AD1C; Influenza A Negative (Negative)
[2021-10-02 08:11] LABS: COVID-19 Test Positive (Negative); Influenza B2 Negative (Negative)
[2021-10-02] MEDS: Acetaminophen 325 MG TABLET 650 MG PO (09:19)
--- NOTE | 2021-10-02 09:29 | ED_ITS ---
HPI - General Adult General Chief complaint: General Medical Stated complaint: Fever/Body aches/Headache Time Seen by Provider: 10/02/21 08:26 Source: patient Mode of arrival: ambulatory History of Present Illness HPI narrative: 66-year-old female with a past medical history of CVA, HLD, HTN, dm, vitamin-D deficiency, presenting to the ED complaining of subjective fever, chills, body aches, myalgias, & dry cough x2 days. Admits to sick contacts. Denies CP, SOB, ear pain, sore throat, pedal edema, calf pain, recent travel Onset (ago): day(s) Related Data Home Medications Medication Instructions Recorded Confirmed aspirin 81 mg tablet,delayed 81 mg PO DAILY 08/01/20 12/14/20 release atorvastatin 20 mg tablet (Lipitor) 20 mg PO BEDTIME 08/01/20 12/14/20 fenofibrate 160 mg tablet 160 mg PO BEDTIME 08/01/20 12/14/20 glipizide 5 mg tablet 5 mg PO DAILY 08/01/20 12/14/20 hydrochlorothiazide 25 mg tablet 25 mg PO DAILY 08/01/20 12/14/20 omeprazole magnesium 20 mg 20 mg PO DAILY 08/01/20 12/14/20 tablet,delayed release (Prilosec OTC) cyanocobalamin (vitamin B-12) 1 tab PO DAILY 09/08/20 12/14/20 1,000 mcg tablet hydralazine 25 mg tablet 25 mg PO BID 09/08/20 12/14/20 losartan 100 mg tablet 100 mg PO DAILY 09/08/20 12/14/20 metformin 500 mg tablet,extended 1,000 mg PO BID 09/08/20 12/14/20 release 24 hr nifedipine 30 mg tablet,extended 30 mg PO BID 09/08/20 12/14/20 release 24 hr potassium citrate 15 mEq (1,620 1 tab PO BID 09/08/20 12/14/20 mg) tablet,extended release propranolol 120 mg capsule,24 120 mg PO DAILY 09/08/20 12/14/20 hr,extended release blood sugar diagnostic (FreeStyle #10 ea 12/14/20 12/14/20 Lite Strips) blood-glucose meter (FreeStyle #1 ea 12/14/20 12/14/20 Lite Meter) lancets 28 gauge (FreeStyle #100 ea 12/14/20 12/14/20 Lancets) Previous Rx's Medication Instructions Recorded cefuroxime axetil 250 mg tablet 250 mg PO BID #10 tab 09/08/20 ibuprofen 600 mg tablet 600 mg PO Q8H PRN #10 tab 09/08/20 cyclobenzaprine 10 mg tablet 10 mg PO TID PRN #14 tab 01/16/21 ibuprofen 600 mg tablet 600 mg PO Q8H PRN #14 tab 01/16/21 lidocaine 5 % topical patch 1 patch TOPICAL DAILY #15 ea 01/16/21 (Lidoderm) Allergies Allergy/AdvReac Type Severity Reaction Status Date / Time No Known Allergies Allergy Mild NOT Verified 02/01/21 09:59 APPLICABLE Review of Systems Review of Systems: Constitutional: + Fever, No Chills ENT/Mouth: No Ear Pain, No Nasal Congestion, No Sinus Pain, No Hoarseness, No sore throat, No Rhinorrhea, No Swallowing Difficulty Cardiovascular: No Chest Pain, No SOB Respiratory: + Cough, No Sputum, No Wheezing Gastrointestinal: No Nausea, No Vomiting, No Diarrhea, No Constipation, No Abdominal pain Genitourinary: No Dysuria, No Urinary Frequency, No Hematuria, No Flank Pain Musculoskeletal: No joint pain, + Myalgias, No Joint Swelling Skin: No Skin Lesions, No rash Neuro: No Weakness, No Numbness, No Paresthesias Yes all other systems are reviewed and are negative [facility] Past Medical History Attestation statement: The following information was validated with the patient. Medical History Cerebrovascular accident HLD (hyperlipidemia) HTN (hypertension) Hypertriglyceridemia Non-cardiac chest pain Type 2 diabetes mellitus Vitamin D deficiency Surgical History History of hysterectomy Hx of colonoscopy Status post angioplasty Family History Family History Father Heart disease Mother Diabetes Hypertension High cholesterol Renal failure Brother Diabetes Brother Diabetes Sister Diabetes Social History Social History Alcohol intake: never Patient Tobacco Use Status: Former Tobacco user Advance Directives: No Physical Exam ED Vital Signs: Vital Signs - 24 hr 10/02/21 07:40 10/02/21 10:15 Temperature 100.1 F 97.4 F Pulse Rate 113 H 102 H Respiratory Rate 20 16 Blood Pressure 178/93 H 150/70 H Pulse Oximetry 98 97 BMI result Body Mass Index 28.3 Const General: cooperative, healthy appearing and no acute distress Orientation/consciousness: patient oriented x3 Limitations: no limitations HENMT Head: Yes normal to inspection and Yes atraumatic Ears: hearing grossly normal bilaterally General nose exam: Normal external nose present Face and sinus: Yes normal facial exam Eyes General: appearance normal, both eyes and all related structures EOM: EOMs intact bilaterally Neck Neck: Yes normal visual inspection and Yes no meningeal signs Resp Effort & Inspection: normal respiratory effort and no respiratory distress Auscultation: clear to auscultation bilaterally, no crackles, no rales, no rhonchi and no wheezes Cardio Rate: regular rate Heart sounds: S1 normal heart sound present and S2 normal heart sound present GI Inspection: Yes normal to inspection Skin Rashes: no rashes Wounds: no wounds Neuro General: patient oriented x3, tone normal and no meningeal signs Gait exam (Neuro): Normal gait present Extrem General: Yes normal to inspection, Yes no pedal edema and Yes no calf tenderness Course Course Course Narrative: -COVID-19 positive XR chest 1V IMPRESSION: Mild increased markings in right infrahilar region have the appearance of normal vasculature, similar to the previous study. No definitive acute abnormality. If symptoms persist or worsen, short-term repeat follow-up, preferably with PA and lateral views is recommended to assess for more acute change. > results discussed with patient in reference librarian including worrisome signs and symptoms and strict return precautions -heart rate improved to 102 with fever reduction. Medical Decision Making [facility] [place] Narrative Medical decision making narrative: 66-year-old female with a past medical history of CVA, HLD, HTN, dm, vitamin-D deficiency, presenting to the ED complaining of subjective fever, chills, body aches, myalgias, & dry cough x2 days. On exam low-grade temp 100.1 degrees, tachycardic likely from fever, NAD/nontoxic appearing, lungs CTA, no pedal edema. Concern for viral syndrome including COVID-19 versus influenza. Rule out pneumonia. Symptoms atypical for ACS or PE Plan: COVID-19/influenza testing, PO Tylenol, CXR Medical Records Medical records reviewed: Yes I reviewed the patient's medical records. Lab Data Lab results reviewed: Yes I reviewed the patient's lab results. Labs: Lab Results 10/02/21 10/02/21 Range/Units 07:45 07:45 COVID-19 (BRIA) Positive A (Negative) COVID-19 Clin Com See Note Influenza Type A (OSCAR) Negative (Negative) Influenza Type B (OSCAR) Negative (Negative) Influenza A & B Note See Note Discharge Plan Discharge Clinical Impression: COVID-19 Patient Disposition: Home, Self-Care Instructions: COVID-19 (Coronavirus Disease 2019) (ED) Additional Instructions: At this time you will be okay for discharge. Please self isolate for 10-14 days. Do not expose yourself to others. You may not go to work or school. Please continue to follow cold instructions and wash your hands frequently. You may take Tylenol / Motrin as directed on the bottle for pain or fever. If you have constant or persistent shortness of breath, fever unresolved with medications, chest pain, or your unable to eat or drink please return to the ED CDC Guidelines for home isolation: - Stay away from others - WEAR A MASK if you are sick AND STAY HOME - Cover your mouth and nose with a tissue when you cough or sneeze. Dispose of tissues in a lined trash can and wash your hands immediately with soap and water for at least 20 seconds. If soap and water are not available, clean hands with alcohol-based hand uptwister tender that contains at least 60% alcohol. - Clean your hands often with soap and water for at least 20 seconds - Avoid touching your eyes, nose and mouth with unwashed hands - Do not share dishes, drinking glasses, cups, eating utensils, towels, or bedding with other people in your home. After using these items, wash them thoroughly with soap and water or put in the stretcher leveler operator. - Clean high-touch surfaces in your isolation area ( sick room and bathroom) every day; let a caregiver clean and disinfect high-touch surfaces in other areas of the home. Clean the area or item with soap and water or another detergent if it is dirty. Then, use a household disinfectant. - Limit contact with pets and animals: If you must care for a pet, wash your hands before and after interacting with them) En joseph momento estar? liza para el chantale. A?slese renzo 10-14 d?as. No te expongas a los dem?s. Es posible que no vaya al trabajo ni a la escuela. Contin?e siguiendo las instrucciones en fr?o y l?vese las manas con frecuencia. Puede abiodun Tylenol/Motrin paula se indica en el frasco para el dolor o la fiebre. Si tiene dificultad para respirar axel o persistente, fiebre que no se resuelve con medicamentos, dolor en el pecho o no puede comer o beber, regrese al servicio de urgencias. Pautas de los CDC para el aislamiento en el hogar: - Mant?ngase alejado de los dem?s. - USE HI MASCARILLA si est? enfermo Y QU?DESE EN CASA - C?brase la boca y la nariz con un pa?uelo desechable al toser o estornudar. Deseche los pa?uelos en un bote de basura forrado y l?vese las manas inmediatamente con agua y jab?n renzo al menos 20 segundos. Si no hay agua y jab?n disponibles, l?vese las manas con un desinfectante para manas a base de alcohol que contenga al menos un 60 % de alcohol. - L?vese las manas con frecuencia con agua y jab?n renzo al menos 20 segundos. - Evite tocarse los ojos, la nariz y la boca con las manas sin hua - No comparta platos, vasos, tazas, utensilios para comer, toallas o ropa de cam a con otras personas en root hogar. Despu?s de usar estos art?culos, l?velos liza con agua y jab?n o col?quelos en el lavavajillas. - Limpie las superficies de alto contacto en root ?nisha de aislamiento ( cuarto de enfermos y ba?o) todos los d?as; permita que un cuidador limpie y desinfecte las superficies de alto contacto en otras ?reas del hogar. Limpie el ?nisha o art?culo con agua y jab?n u otro detergente si est? sucio. Luego, use un desinfectante dom?stico. - Limite el contacto con mascotas y animales: si debe cuidar hi mascota, l?vese las manas antes y despu?s de interactuar con ellos) Prescriptions: No Action cyclobenzaprine 10 mg tablet 10 mg PO TID PRN (Reason: muscle spasm) Qty: 14 0RF ibuprofen 600 mg tablet 600 mg PO Q8H PRN (Reason: pain) Qty: 14 0RF lidocaine [Lidoderm] 5 % adhesive patch,medicated 1 patch topical DAILY Qty: 15 0RF Rx Instructions: leave on most painful area for up to 12 hrs nifedipine 30 mg tablet extended release 24hr 30 mg PO BID 0RF cyanocobalamin (vitamin B-12) 1,000 mcg tablet 1 tab PO DAILY 0RF hydralazine 25 mg tablet 25 mg PO BID 0RF propranolol 120 mg capsule,extended release 24 hr 120 mg PO DAILY 0RF losartan 100 mg tablet 100 mg PO DAILY 0RF metformin 500 mg tablet extended release 24 hr 1,000 mg PO BID 0RF potassium citrate 15 mEq tablet extended release 1 tab PO BID 0RF cefuroxime axetil 250 mg tablet 250 mg PO BID Qty: 10 0RF ibuprofen 600 mg tablet 600 mg PO Q8H PRN (Reason: pain) Qty: 10 0RF (DME) blood-glucose meter [FreeStyle Lite Meter] Kit See Rx Instructions .ROUTE .MEDSUPPLY Qty: 1 0RF Rx Instructions: As directed (DME) FreeStyle Lite Strips Strip See Rx Instructions .ROUTE .MEDSUPPLY Qty: 10 0RF Rx Instructions: As directed (DME) lancets [FreeStyle Lancets] 28 gauge misc See Rx Instructions .ROUTE .MEDSUPPLY Qty: 100 0RF Rx Instructions: As directed aspirin 81 mg tablet,delayed release (DR/EC) 81 mg PO DAILY 0RF omeprazole magnesium [Prilosec OTC] 20 mg tablet,delayed release (DR/EC) 20 mg PO DAILY 0RF atorvastatin [Lipitor] 20 mg tablet 20 mg PO BEDTIME 0RF fenofibrate 160 mg tablet 160 mg PO BEDTIME 0RF hydrochlorothiazide 25 mg tablet 25 mg PO DAILY 0RF glipizide 5 mg tablet 5 mg PO DAILY 0RF Referrals: Mitzi Cantu MD [Primary Care Provider] - 2 weeks (call first) Print Language: Wolof
[2021-10-02 10:15] VITALS: BP 150/70; PULSE 102; RESP 16; TEMP 36.3; O2SAT 97
== END 2021-10-02 11:00 | disposition home or self-care (01) ==
PROVIDERS: Emergency Provider Emergency Medicine; PCP Family Medicine
DX: U07.1 COVID-19 (principal); R50.9 Fever, unspecified; M79.10 Myalgia, unspecified site; I10 Essential (primary) hypertension; R05.9 Cough, unspecified; Z79.899 Other long term (current) drug therapy; Z87.891 Personal history of nicotine dependence
CPT/HCPCS: 71045; 87502; 87635; 99284

== ENCOUNTER 2021-11-02 07:06 | Outpatient (REF) | payer MEDICARE, MEDICAID, SELFPAY ==
--- NOTE | ~2021-11-02 | XR_ITS ---
EXAMINATION: BILATERAL SHOULDER X-RAY CLINICAL INFORMATION: Pain COMPARISON: Previous x-ray August 2021 TECHNIQUE: 3 views of each shoulder FINDINGS: Right: Bone alignment is normal. No fracture or dislocation is seen. There are degenerative changes at the acromioclavicular joint. There are degenerative changes of the greater tuberosity and question of faint adjacent soft tissue calcifications. Left: Bone alignment is normal. No fracture or dislocation is seen. There are degenerative changes at the acromioclavicular joint. There are degenerative changes of the greater tuberosity. Soft tissues are unremarkable. 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 Degenerative changes of the greater tuberosities and question faint adjacent soft tissue calcifications on the right.
--- NOTE | ~2021-11-02 | XR_ITS ---
EXAMINATION: BILATERAL SHOULDER X-RAY CLINICAL INFORMATION: Pain COMPARISON: Previous x-ray August 2021 TECHNIQUE: 3 views of each shoulder FINDINGS: Right: Bone alignment is normal. No fracture or dislocation is seen. There are degenerative changes at the acromioclavicular joint. There are degenerative changes of the greater tuberosity and question of faint adjacent soft tissue calcifications. Left: Bone alignment is normal. No fracture or dislocation is seen. There are degenerative changes at the acromioclavicular joint. There are degenerative changes of the greater tuberosity. Soft tissues are unremarkable. 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 Degenerative changes of the greater tuberosities and question faint adjacent soft tissue calcifications on the right.
== END 2021-11-02 07:07 | disposition home or self-care (01) ==
LOC: HO.HOSX 07:06
PROVIDERS: Visit Provider Physician Assistant
DX: M19.012 Primary osteoarthritis, left shoulder (principal); M75.31 Calcific tendinitis of right shoulder
CPT/HCPCS: 20610; 73030; 99202; J1020

== ENCOUNTER 2022-02-18 09:40 | Outpatient (REF) | payer MEDICARE, MEDICAID, SELFPAY ==
--- NOTE | ~2022-02-18 | US_ITS ---
EXAMINATION: Noninvasive assessment of the bilateral lower extremities with ARTERIAL DUPLEX and ANKLE BRACHIAL INDICES (ABIs). CLINICAL INFORMATION: Peripheral vascular disease TECHNIQUE: Duplex Doppler techniques with waveform analysis and measurement of velocities in the bilateral common femoral, profunda femoris, superficial femoral, popliteal and tibial arteries were performed. Additionally, ankle pulse volume recordings, ankle pressure measurements and ankle brachial indices were obtained of the lower extremity arterial system bilaterally. The study was performed only at rest. COMPARISON: 01/25/2021 FINDINGS: DIRECT DUPLEX DOPPLER FINDINGS: RIGHT LEG: Common femoral artery: 83.8 cm/s, phasicity: Monophasic Profunda femoris artery: 156 cm/s, phasicity: Monophasic Superficial femoral artery (proximal): 105 cm/s, phasicity: Monophasic Superficial femoral artery (mid): Occluded Superficial femoral artery (distal): 68 cm/s, phasicity: Monophasic Popliteal artery: 58.5 cm/s, phasicity: Monophasic Posterior tibial artery: 42.4 cm/s, phasicity: Monophasic Peroneal artery: 41.3 cm/s, phasicity: Monophasic LEFT LEG: Common femoral artery: 165 cm/s, phasicity: Biphasic Profunda femoris artery: 339 cm/s, phasicity: Biphasic Superficial femoral artery (proximal): 70.7 cm/s, phasicity: Monophasic Superficial femoral artery (mid): Occluded Superficial femoral artery (distal): 14.3 cm/s, phasicity: Monophasic Popliteal artery: 118 cm/s, phasicity: Monophasic Posterior tibial artery: 83.1 cm/s, phasicity: Monophasic Peroneal artery: 12.0 cm/s, phasicity: Monophasic ANKLE-BRACHIAL INDEX: Right: 0.6, previously 0.57? Left: 0.52, previously 0.65 ANKLE PRESSURES: Right: PT 99, DP 91 Left: PT?83, DP?85 ANKLE PVR WAVEFORMS: Right: Markedly dampened Left: Markedly dampened US/US arterial duplex LE BI IMPRESSION: Right leg: Stable moderately decreased ankle brachial index. Occlusion of the mid superficial femoral artery which is unchanged compared the prior exam. Reconstituted flow seen in the distal superficial femoral artery via collateral vessels Left leg: Moderately decreased ankle brachial index which is slightly decreased compared to the prior exam. There is no occlusion of the mid to superficial femoral artery. Reconstituted flow seen in the distal superficial femoral artery via collateral vessels STEPHEN Reference: - >1.4 = calcified vessels - 0.9 - 1.4 = normal - no significant arterial disease - 0.7 - 0.89 = mild peripheral arterial disease - 0.51 - 0.69 = moderate peripheral arterial disease - ? 0.50 = severe peripheral arterial disease - < .30 = critical arterial disease
== END 2022-02-18 09:41 | disposition home or self-care (01) ==
LOC: HO.US 09:40
PROVIDERS: Visit Provider Surgery Vascular Surgery
DX: I73.9 Peripheral vascular disease, unspecified (principal)
CPT/HCPCS: 93923; 93925

== ENCOUNTER → 2022-04-02 14:49 | Outpatient (BNVA) | payer MEDICARE, MEDICAID, SELFPAY | PROVIDERS: PCP Family Medicine; Visit Provider Surgery Vascular Surgery | DX: I73.9 Peripheral vascular disease, unspecified (principal) | CPT/HCPCS: 99212 ==

== ENCOUNTER → 2022-07-01 12:27 | Outpatient (BNVA) | payer MEDICARE, MEDICAID, SELFPAY | PROVIDERS: PCP Family Medicine; Visit Provider Physician Assistant | DX: M19.012 Primary osteoarthritis, left shoulder (principal); M75.31 Calcific tendinitis of right shoulder | CPT/HCPCS: 20610; 99212; J1020 ==

== ENCOUNTER 2022-09-25 11:26 | Outpatient (REF) | payer MEDICARE, MEDICAID, SELFPAY ==
--- NOTE | ~2022-09-25 | MM_ITS ---
EXAMINATION: MM SCREENING DIGITAL BREAST TOMOSYNTHESIS, BILATERAL CLINICAL INFORMATION: Screening. Asymptomatic. The lifetime risk of breast cancer based on the Tyrer-Cuzick Model is 5%. COMPARISON: Mammography: 09/11/2021, 04/16/2018, 03/21/2017 TECHNIQUE: Digital breast tomosynthesis is performed in both the craniocaudal and mediolateral oblique views along with computer-aided detection (CAD). Synthesized 2D images are generated from the tomosynthesis. FINDINGS: There are scattered areas of fibroglandular density (ACR BI-RADS breast composition Category b). Breast tissue composition borders on predominantly fatty. Background stromal and fibroglandular densities are similar to prior exams. No developing density or architectural abnormality. There are no significant masses, abnormal calcifications, or other abnormalities. The axilla and skin contours are unremarkable. MM/MM tomosynthesis screening BI IMPRESSION: No mammographic evidence of malignancy. ASSESSMENT: BI-RADS 1: Negative RECOMMENDATION: Routine annual mammography screening. This patient's information was entered into a reminder system with a target due date for their next mammogram.
== END 2022-09-25 11:27 | disposition home or self-care (01) ==
LOC: HO.MAMMO 11:26
PROVIDERS: PCP Family Medicine; Visit Provider Family Medicine
DX: Z12.31 Encounter for screening mammogram for malignant neoplasm of breast (principal)
CPT/HCPCS: 77063; 77067

== ENCOUNTER 2023-02-26 08:26 | Outpatient (AMB) | payer MEDICARE, MEDICAID, SELFPAY ==
--- NOTE | 2023-02-26 08:31 | MHC.OFFVIS ---
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 Intake Note: NPV w/ EKG Personal Insurance Advisor Required: No Accompanied by: Daughter Allergies No Known Allergies Allergy (Mild, Verified 02/26/23 08:34) NOT APPLICABLE Medication List - Last Reconciled 02/26/23 by Gamal Quiñonez MD aspirin 81 mg PO DAILY atorvastatin (Lipitor) 20 mg PO BEDTIME blood sugar diagnostic (FreeStyle Lite Strips) As directed blood-glucose meter (FreeStyle Lite Meter kit) As directed cefuroxime axetil 250 mg PO BID cyanocobalamin (vitamin B-12) 1 tab PO DAILY cyclobenzaprine 10 mg PO TID PRN dulaglutide (Trulicity) mg subcut escitalopram oxalate mg PO fenofibrate 160 mg PO BEDTIME glipizide 5 mg PO DAILY hydralazine 25 mg PO BID hydrochlorothiazide 25 mg PO DAILY ibuprofen 600 mg PO Q8H PRN ibuprofen 600 mg PO Q8H PRN lancets (FreeStyle Lancets) As directed losartan 100 mg PO DAILY metformin ER 1,000 mg PO BID nifedipine ER 30 mg PO BID omeprazole 20 mg PO omeprazole magnesium (Prilosec OTC) 20 mg PO DAILY potassium citrate ER 1 tab PO BID propranolol ER 120 mg PO DAILY HPI HPI Comments History of Present Illness Details Armida has been referred regarding her lipids. She apparently has high triglycerides but we do not have any recent levels to review. Any case, from cardiac she has no history of any coronary disease myocardial infarction or cardiomyopathy. Within limits of her activity, does not have any clear chest pains or shortness of breath or any cardiac symptoms. Seems to have numerous cardiovascular risk factors including diabetes, hypertension and dyslipidemia. She also has peripheral vascular disease involving her lower extremities and goes to vascular surgery. [facility] Medical History Cerebrovascular accident HLD (hyperlipidemia) HTN (hypertension) Hypertriglyceridemia Non-cardiac chest pain Type 2 diabetes mellitus Vitamin D deficiency Surgical History Status post angioplasty Hx of colonoscopy History of hysterectomy Family History Father Heart disease Mother Diabetes Hypertension High cholesterol Renal failure Brother Diabetes Brother Diabetes Sister Diabetes Social History Alcohol intake: never Patient Tobacco Use Status: Former Tobacco user Physical Exam Vital Signs: Last Vital Signs Pulse 87 02/26/23 08:33 BP 112/60 02/26/23 08:33 BMI result Body Mass Index 29.1 Const General: comfortable and no acute distress Orientation/consciousness: patient oriented x3 HEENT Other: Unremarkable Head: Yes normal to inspection Neck Neck: Yes normal visual inspection Chest Chest palpation & inspection: normal inspection of the chest Resp Auscultation: clear to auscultation bilaterally Cardio Palpation: normal PMI Heart sounds: S1 normal heart sound present, S2 normal heart sound present, no gallops, no murmurs and no rubs GI Palpation (GI): Soft to palpation Back/Spine/Pelvis Other: unremarkable Skin General skin exam: no rashes or lesions noted Neuro General: patient oriented x3 Extrem General: Yes normal to inspection Psych Mental Status: mental status grossly normal Office Procedures EKG Details: EKG with sinus rhythm at 87/Min; no significant ST-T changes and otherwise unremarkable. [place]. [id number], Complete Assessment & Plan Assessment & Plan (1) PAD (peripheral artery disease): Comment: Angiogram 01/05/2020- total right SFA occlusion will need fem-pop bypass if clinically required Code(s): I73.9 - Peripheral vascular disease, unspecified (2) Type 2 diabetes mellitus: Code(s): E11.9 - Type 2 diabetes mellitus without complications Qualifiers: Diabetes mellitus snf insulin use: without buttermaker helper use Diabetes mellitus complication status: with hyperglycemia Qualified Code(s): E11.65 - Type 2 diabetes mellitus with hyperglycemia (3) HTN (hypertension): Code(s): I10 - Essential (primary) hypertension Qualifiers: Hypertension type: unspecified Qualified Code(s): I10 - Essential (primary) hypertension (4) HLD (hyperlipidemia): Code(s): E78.5 - Hyperlipidemia, unspecified Qualifiers: Hyperlipidemia type: unspecified Qualified Code(s): E78.5 - Hyperlipidemia, unspecified Plan Baseline EKG unremarkable. Echocardiogram from [facility] 2021 with LVEF of 70-75%; no wall motion abnormalities; no significant valvular pathology. Per vascular note, history of total right SFA occlusion. Multiple vascular risk factors. Will screen her for hemodynamically significant coronary disease with a stress test. Per patient, unable to exercise on the treadmill and hence we can do a pharmacological stress test with Lexiscan. With regard to the question of high triglycerides, will need to be addressed through Endocrine. [facility], she has been followed there till 2020, per last endocrine note. Discussed with daughter who came for appointment. Orders: Orders CA lexiscan stress w yecenia Today I20.9 - Angina pectoris, unspecified NM cardiolite stress test Today R07.2 - Precordial pain Coding Level of Care Code New Pt Level 3 (40539) Diagnoses PAD (peripheral artery disease) I73.9 Type 2 diabetes mellitus with hyperglycemia, without long-term current use of insulin E11.65 Diabetes mellitus buttermaker helper insulin use: without buttermaker helper use Diabetes mellitus complication status: with hyperglycemia Hypertension, unspecified type I10 Hypertension type: unspecified Hyperlipidemia, unspecified hyperlipidemia type E78.5 Hyperlipidemia type: unspecified CPT Codes EKG - CPT: 60851-[id number], Complete ([id number])
[2023-02-26 08:33] VITALS: BP 112/60; PULSE 87; BMI 29.1
== END 2023-02-26 08:56 | disposition home or self-care (01) ==
PROVIDERS: PCP Family Medicine; Visit Provider Internal Medicine
DX: I73.9 Peripheral vascular disease, unspecified (principal); E11.65 Type 2 diabetes mellitus with hyperglycemia; I10 Essential (primary) hypertension; E78.5 Hyperlipidemia, unspecified
CPT/HCPCS: 93010; 99203

== ENCOUNTER → 2023-02-26 08:26 | Outpatient (BNVA) | payer MEDICARE, MEDICAID, SELFPAY | PROVIDERS: PCP Family Medicine; Visit Provider Internal Medicine | DX: I73.9 Peripheral vascular disease, unspecified (principal); I10 Essential (primary) hypertension; E11.65 Type 2 diabetes mellitus with hyperglycemia; E78.5 Hyperlipidemia, unspecified | CPT/HCPCS: 93005 ==

== ENCOUNTER 2023-05-06 13:54 | Outpatient (REF) | payer MEDICARE, MEDICAID, SELFPAY ==
--- NOTE | ~2023-05-06 | US_ITS ---
EXAMINATION: Noninvasive assessment of the bilateral lower extremities with ARTERIAL DUPLEX and ANKLE BRACHIAL INDICES (ABIs). ULTRASOUND AORTA CLINICAL INFORMATION: Peripheral vascular disease TECHNIQUE: Duplex Doppler techniques with waveform analysis and measurement of velocities in the aorta, bilateral common iliac, external iliac common femoral, profunda femoris, superficial femoral, popliteal and tibial arteries were performed. Additionally, ankle pulse volume recordings, ankle pressure measurements and ankle brachial indices were obtained of the lower extremity arterial system bilaterally. The study was performed only at rest. COMPARISON: None FINDINGS: DIRECT DUPLEX DOPPLER FINDINGS: AORTA: Proximal: 2.3 cm in AP diameter, 57 cm/s, biphasic Mid: 1.6 cm in AP diameter, 98 cm/s, biphasic Distal: 1.3 cm in AP diameter, 71 cm/s, biphasic RIGHT LEG: Common iliac artery: 171 cm/s, phasicity: Monophasic External iliac artery: 117 cm/s, phasicity: Monophasic Common femoral artery: 75 cm/s, phasicity: Monophasic Profunda femoris artery: 70 cm/s, phasicity: Monophasic Superficial femoral artery (proximal): 23 cm/s, phasicity: Monophasic Superficial femoral artery (mid): 38 cm/s, phasicity: Monophasic Superficial femoral artery (distal): 23 cm/s, phasicity: Monophasic Popliteal artery: 39 cm/s, phasicity: Monophasic Posterior tibial artery: 17 cm/s, phasicity: Monophasic Peroneal artery: 22 cm/s, phasicity: Monophasic Anterior tibial artery: 24 cm/s, phasicity: Monophasic Dorsalis pedis artery: 17 cm/s, phasicity:Monophasic LEFT LEG: Common femoral artery: 133 cm/s, phasicity: Triphasic Profunda femoris artery: 62 cm/s, phasicity: Biphasic Superficial femoral artery (proximal): 22 cm/s, phasicity: Monophasic Superficial femoral artery (mid): 20 cm/s, phasicity: Monophasic Superficial femoral artery (distal): 42 cm/s, phasicity: Monophasic Popliteal artery: Proximal segment is occluded. Reconstituted flow seen in the distal segment measuring 39 cm/s, phasicity: Monophasic Posterior tibial artery: 17 cm/s, phasicity: Monophasic Peroneal artery: 10 cm/s, phasicity: Monophasic Anterior tibial artery: 28 cm/s, phasicity: Monophasic Dorsalis pedis artery: 16 cm/s, phasicity: Monophasic ANKLE-BRACHIAL INDEX: Right: 0.57, previously 0.6? Left: 0.57, previously 0.52 ANKLE PRESSURES: Right: PT 79, DP 56 Left: PT?79, DP?58 ANKLE PVR WAVEFORMS: Right: Abnormal Left: Abnormal US/US abdominal aortic aneurysm IMPRESSION: Aorta/iliac: Elevated velocity in the right common iliac artery with a dampened arterial waveforms seen distally which could represent a moderate stenosis. Right leg: Severely dampened monophasic waveforms and decreased velocity seen throughout the superficial femoral artery with extensive atherosclerotic plaque likely representing diffuse severe stenosis. Patent but markedly dampened waveforms throughout the runoff vessels. Stable ankle brachial index Left leg: Severely dampened monophasic waveforms decrease velocities throughout the superficial femoral artery with extensive atherosclerotic plaque likely representing diffuse severe stenosis. Short segment occlusion of the proximal popliteal artery with reconstituted flow in the distal segment. Patent but markedly dampened waveforms throughout the runoff vessels. Stable ankle brachial index STEPHEN Reference: - >1.4 = calcified vessels - 0.9 - 1.4 = normal - no significant arterial disease - 0.7 - 0.89 = mild peripheral arterial disease - 0.51 - 0.69 = moderate peripheral arterial disease - ? 0.50 = severe peripheral arterial disease - < .30 = critical arterial disease
== END 2023-05-06 13:55 | disposition home or self-care (01) ==
LOC: HO.US 13:54
PROVIDERS: PCP Family Medicine; Visit Provider Surgery Vascular Surgery
DX: I70.213 Atherosclerosis of native arteries of extremities with intermittent claudication, bilateral legs (principal)
CPT/HCPCS: 76706; 93923; 93925

== ENCOUNTER 2023-10-01 11:48 | Outpatient (REF) | payer MEDICARE, MEDICAID, SELFPAY | END 2023-10-01 11:49 | disposition home or self-care (01) | LOC: HO.MAMMO 11:48 | PROVIDERS: PCP Family Medicine; Visit Provider Family Medicine | DX: Z12.31 Encounter for screening mammogram for malignant neoplasm of breast (principal) | CPT/HCPCS: 77063; 77067 ==

== ENCOUNTER → 2023-10-01 12:00 | Outpatient (BNV) | payer MEDICARE, MEDICAID, SELFPAY | PROVIDERS: PCP Family Medicine; Visit Provider Radiology Diagnostic Radiology | DX: Z12.31 Encounter for screening mammogram for malignant neoplasm of breast (principal) | CPT/HCPCS: 77063; 77067 ==

== ENCOUNTER 2023-10-21 10:02 | Outpatient (REF) | payer MEDICARE, MEDICAID, SELFPAY ==
[2023-10-21 12:10] LABS: Alanine Aminotransferase 17 U/L (0-31); Albumin Level 4.3 g/dL (3.5-5.0); Alkaline Phosphatase 86 U/L (39-117); Anion Gap 16 (12-20); Aspartate Amino Transferase 15 U/L (5-31); Bilirubin Direct 0.1 mg/dL (0.0-0.5); Bilirubin Total 0.3 mg/dL (0.0-1.0); Blood Urea Nitrogen 17 mg/dL (9-16); Calcium 10.2 mg/dL (8.4-10.2); Carbon Dioxide 27 mmol/L (22-29); Chloride 102 mmol/L (96-108); Cholesterol 262 mg/dL (<200); Estimated Glomerular Filt Rate > 60; Glucose Random 218 mg/dL (60-115); HDL Cholesterol 34 mg/dL (>40); Potassium 4.4 mmol/L (3.3-5.1); Sodium 141 mmol/L (135-145); Total Protein 7.8 g/dL (6.5-8.0); Triglycerides 689 mg/dL (<150)
== END 2023-10-21 10:03 | disposition home or self-care (01) ==
LOC: HO.HHCL 10:02
PROVIDERS: Visit Provider Family Medicine
DX: E78.00 Pure hypercholesterolemia, unspecified (principal); I10 Essential (primary) hypertension
CPT/HCPCS: 36415; 80048; 80061; 80076

== ENCOUNTER 2023-10-30 10:34 | Outpatient (AMB) | payer MEDICARE, MEDICAID, SELFPAY ==
--- NOTE | 2023-10-30 10:50 | MHC.OFFVIS ---
Intake Visit Reasons: Overdue Arterial US follow up Intake Note: Patient presens for arterial ultrasound follow up. Performed on 05/06/23. She has no complaints. Accompanied by: Daughter Allergies No Known Allergies Allergy (Mild, Verified 10/30/23 10:52) NOT APPLICABLE HPI HPI Overdue Arterial US follow up: Details: Pleasant 68-year-old female presents for follow-up regarding peripheral vascular disease. She would actually seen us back in 2021 and was scheduled for annual surveillance. She was lost to follow-up. She has known bilateral SFA occlusions. Upon discussion with her she is able to walk 1-2 blocks. She is able to carry out her daily activities. Of note she is being maintained on aspirin and statin PFSH Medical History Vitamin D deficiency Hypertriglyceridemia HLD (hyperlipidemia) Non-cardiac chest pain Cerebrovascular accident HTN (hypertension) Type 2 diabetes mellitus Surgical History Status post angioplasty Hx of colonoscopy History of hysterectomy Family History Father Heart disease Mother Diabetes Hypertension High cholesterol Renal failure Brother Diabetes Brother Diabetes Sister Diabetes Social History Alcohol intake: never Patient Tobacco Use Status: Former Tobacco user Review of Systems Const All systems reviewed & are unremarkable except as noted in HPI and below Reports no additional complaints ENT Reports Normal hearing present Card Denies chest pain, Denies chest pain at rest, Denies chest pain with activity and Denies pedal edema Resp Denies cough GI Denies abdominal pain Musc Denies abnormal gait, Denies muscle cramps and Denies radiating pain into limb Skin/Breast Denies skin ulcer and Denies wounds Neuro Reports Normal hearing present and Denies abnormal gait Psych Reports no additional complaints Physical Exam Const General: cooperative, healthy appearing and comfortable Orientation/consciousness: oriented to person, oriented to place and oriented to time HEENT Head: Yes normal to inspection Neck Neck: Yes normal visual inspection Carotids: no bruits Chest Chest palpation & inspection: normal inspection of the chest Resp Effort & Inspection: normal respiratory effort and able to speak in complete sentences Auscultation: clear to auscultation bilaterally, no crackles, no rales, no rhonchi and no wheezes Cardio Other: Bilateral DP signals Rate: regular rate Rhythm: regular rhythm Heart sounds: S1 normal heart sound present and S2 normal heart sound present Bruits: no carotid bruits Peripheral pulses: Peripheral pulses 2+ throughout GI Inspection: Yes normal to inspection Skin Wounds: no wounds Hair: normal Neuro General: oriented to person, oriented to place and oriented to time Cranial nerves: Yes CN's II-XII intact bilaterally and Yes Normal hearing present Cognition (Neuro): normal cognition Motor exam (neuro): 5/5 motor strength present throughout Extrem Other: venous exam: No significant superficial varicosities or spider telangiectasias, minimal edema General: No clubbing, No cyanosis and No edema Psych Appearance: grossly normal Mental Status: mental status grossly normal Speech and movement: Normal speech and movement present Results Reviewed Results Reviewed: Noninvasive arterial testing dated 05/06/2023 demonstrates bilateral ABIs of 0.57. Written report and images were reviewed. Assessment & Plan Assessment & Plan (1) PAD (peripheral artery disease): Comment: Angiogram 01/05/2020- total right SFA occlusion will need fem-pop bypass if clinically required Code(s): I73.9 - Peripheral vascular disease, unspecified Category: Medical Plan: In short her arterial status appears to be stable at the current time. Will schedule for annual surveillance. We did discuss risk factor modification. Thank you for allowing us to assist in her care. If there are any questions or concerns please do not hesitate to contact us. Orders: Orders US arterial duplex LE BI 1 Year I73.9 - Peripheral vascular disease, unspecified Coding Level of Care Code Est Pt Level 4 (78047) Diagnoses PAD (peripheral artery disease) I73.9
== END 2023-10-30 11:03 | disposition home or self-care (01) ==
PROVIDERS: PCP Family Medicine; Visit Provider Surgery Vascular Surgery
DX: I73.9 Peripheral vascular disease, unspecified (principal)
CPT/HCPCS: 99213

== ENCOUNTER → 2023-10-30 10:34 | Outpatient (BNVA) | payer MEDICARE, MEDICAID, SELFPAY | PROVIDERS: PCP Family Medicine; Visit Provider Surgery Vascular Surgery | DX: I73.9 Peripheral vascular disease, unspecified (principal) | CPT/HCPCS: 99212 ==

== ENCOUNTER 2023-12-17 08:50 | Emergency (ER) | payer MEDICARE, MEDICAID, SELFPAY ==
[2023-12-17] VITALS (7 sets, daily range): BP systolic 128–161; BP diastolic 60–79; PULSE 68–83; RESP 16–18; TEMP 35.4; O2SAT 98; BMI 28.4
--- NOTE | 2023-12-17 | ECG_ITS ---
Test Reason : fall/ dissiness Blood Pressure : / mmHG Vent. Rate : 077 BPM Atrial Rate : 077 BPM P-R Int : 138 ms QRS Dur : 070 ms QT Int : 390 ms P-R-T Axes : 033 -10 016 degrees QTc Int : 441 ms Normal sinus rhythm Normal ECG When compared with ECG of 19-JAN-2015 12:26, No significant change was found Referred By: Generic ED Physician Electronically Signed By:SAÚL INFANTE MD
--- NOTE | 2023-12-17 10:21 | ED_ITS ---
HPI - Fall General Chief Complaint: Fall Stated Complaint: fall Time Seen by Provider: 12/17/23 10:14 Source: patient, RN notes reviewed, old records reviewed and bilingual interpreter (paraguayan) Mode of arrival: ambulatory Limitations: language barrier (paraguayan) History of Present Illness ED Provider: DEVEN PRICE PA-C HPI Narrative: 68-year-old female with past medical history significant for vertigo, hypertension, type 2 diabetes, PID, HDL presents to the emergency department today for evaluation of dizziness which began at 11:00 p.m. last night. She reports getting up out of her bed at 11:00 p.m. to use the bathroom and upon standing up out of bed, suddenly became dizzy. She did not fall to the ground or lose consciousness. She was able to make it to the bathroom and back to her bed. She reports another episode of dizziness upon standing out of bed this morning. Reports walking over to her closet and gently falling to the ground into a pile of clothes. Admits to head strike on a pile of clothes. Denies LOC. Not on AC. Takes 81mg aspirin daily. Patient ambulates with cane at [facility] however was not using her cane at the time of the fall. Her daughter was able to help her up. Denies difficulty ambulating since fall. Admits to history of vertigo and states this feels similar. Dizziness is occasionally exacerbated with head movements. She does not currently take any medications for vertigo. Denies new medications or medication adjustments. Denies headache, vision changes, chest pain, palpitations, sob, calf pain, LE swelling, N/V, abdominal pain, dysuria, hematuria. Denies recent travel or long car rides. seismic interpreter utilized throughout visit to communicate with patient. Related Data Home Medications ?Medication ?Instructions ?Recorded ?Confirmed aspirin 81 mg tablet,delayed 81 mg PO DAILY 08/01/20 02/26/23 release atorvastatin 20 mg tablet (Lipitor) 20 mg PO BEDTIME 08/01/20 02/26/23 fenofibrate 160 mg tablet 160 mg PO BEDTIME 08/01/20 02/26/23 glipizide 5 mg tablet 5 mg PO DAILY 08/01/20 02/26/23 hydrochlorothiazide 25 mg tablet 25 mg PO DAILY 08/01/20 02/26/23 omeprazole magnesium 20 mg 20 mg PO DAILY 08/01/20 02/26/23 tablet,delayed release (Prilosec OTC) cyanocobalamin (vitamin B-12) 1 tab PO DAILY 09/08/20 02/26/23 1,000 mcg tablet hydralazine 25 mg tablet 25 mg PO BID 09/08/20 02/26/23 losartan 100 mg tablet 100 mg PO DAILY 09/08/20 02/26/23 metformin 500 mg tablet,extended 1,000 mg PO BID 09/08/20 02/26/23 release 24 hr nifedipine 30 mg tablet,extended 30 mg PO BID 09/08/20 02/26/23 release 24 hr potassium citrate 15 mEq (1,620 1 tab PO BID 09/08/20 02/26/23 mg) tablet,extended release propranolol 120 mg capsule,24 120 mg PO DAILY 09/08/20 02/26/23 hr,extended release blood sugar diagnostic (FreeStyle #10 ea 12/14/20 12/14/20 Lite Strips) blood-glucose meter (FreeStyle #1 ea 12/14/20 12/14/20 Lite Meter kit) lancets 28 gauge (FreeStyle #100 ea 12/14/20 12/14/20 Lancets) dulaglutide 0.75 mg/0.5 mL mg subcut 04/02/22 02/26/23 subcutaneous pen injector ([facility]) escitalopram oxalate 5 mg tablet mg PO 04/02/22 02/26/23 omeprazole 20 mg capsule,delayed 20 mg PO 02/26/23 02/26/23 release Previous Rx's ?Medication ?Instructions ?Recorded cefuroxime axetil 250 mg tablet 250 mg PO BID #10 tabs 09/08/20 ibuprofen 600 mg tablet 600 mg PO Q8H PRN pain #10 tabs 09/08/20 cyclobenzaprine 10 mg tablet 10 mg PO TID PRN muscle spasm #14 01/16/21 tabs ibuprofen 600 mg tablet 600 mg PO Q8H PRN pain #14 tabs 01/16/21 meclizine 25 mg tablet 25 mg PO BID PRN dizziness 14 days 12/17/23 #28 tabs Allergies Allergy/AdvReac Type Severity Reaction Status Date / Time No Known Allergies Allergy Mild NOT Verified 12/17/23 08:58 APPLICABLE Review of Systems 2 Review of Systems: Constitutional: No fever, chills, fatigue, night sweats, weight changes ENT/Mouth: No ear pain, hearing loss, nasal congestion, sinus pain, rhinorrhea, sore throat Eyes: No eye pain, swelling, redness, vision changes, discharge Cardio: No chest pain, palpitations, WOODSON, orthopnea, peripheral edema Pulm: No SOB, cough, sputum, wheezing, dyspnea, hemoptysis GI: No nausea, vomiting, hematemesis, abdominal pain, diarrhea, constipation, hematochezia, melena : No irregular bleeding, dysuria, frequency, urgency, hesitancy, hematuria, flank pain, urinary flow changes, urinary incontinence or retention MSK: No back pain, neck pain, joint pain, myalgias Skin: No lesions, rashes Neuro: No weakness, numbness, paresthesias, LOC, headache, +dizziness Psych: No anxiety/panic, depression, SI/HI, AH/VH All other systems reviewed and are negative. [facility] Past Medical History Attestation statement: The following information was validated with the patient. Source: old records reviewed and nursing notes reviewed Medical History Vitamin D deficiency Hypertriglyceridemia HLD (hyperlipidemia) Non-cardiac chest pain Cerebrovascular accident HTN (hypertension) Type 2 diabetes mellitus Surgical History Status post angioplasty Hx of colonoscopy History of hysterectomy Family History Family History Father Heart disease Mother Diabetes Hypertension High cholesterol Renal failure Brother Diabetes Brother Diabetes Sister Diabetes Social History Social History Alcohol intake: never Patient Tobacco Use Status: Former Tobacco user Advance Directives: No Advance Directives Information Provided: Yes Physical Exam 2 Vital Signs: Vital Signs: Last Vital Signs Temp 95.8 F L 12/17/23 08:56 Pulse 72 12/17/23 11:55 Resp 16 12/17/23 11:45 BP 161/79 H 12/17/23 11:55 Pulse Ox 98 12/17/23 11:45 O2 Del Method Room Air 12/17/23 11:45 BMI result Body Mass Index 28.4 Patient hypertensive, vitals otherwise WNL. Const: General: cooperative, healthy appearing, comfortable and no acute distress Orientation/consciousness: patient oriented x3 Limitations: no limitations HEENT: Head: Yes normal to inspection, Yes No palpable skull fracture present, Yes normocephalic and Yes atraumatic Ears: hearing grossly normal bilaterally, external ears normal, TM's normal bilaterally, EAC's normal, mastoids normal and no periauricular adenopathy Eyes: General: appearance normal, both eyes and all related structures P upils: Equal, round and reactive pupils present EOM: EOMs intact bilaterally Neck: Neck: Yes normal visual inspection, Yes full ROM, Yes no lymphadenopathy and Yes no meningeal signs Chest: Chest palpation & inspection: normal inspection of the chest and normal palpation of entire chest wall Resp: Effort & Inspection: normal respiratory effort and able to speak in complete sentences Auscultation: clear to auscultation bilaterally Cardio: Rate: regular rate Rhythm: regular rhythm GI: Inspection: Yes normal to inspection Palpation (GI): Soft to palpation and nontender : General: Yes no CVA tenderness Back/Spine/Pelvis: Back: no CVA tenderness Skin: General skin exam: no rashes or lesions noted Neuro: General: patient oriented x3, gait normal, tone normal, moves all extremities, no meningeal signs and no focal motor deficits Cranial nerves: Y es Equal, round and reactive pupils present Gait exam (Neuro): Normal gait present Motor exam (neuro): 5/5 motor strength present throughout and Pronator motor function not present Coordination: [id number] test normal, [id number] test normal and Normal rapid alternating movements of the distal upper extremity present (Neuro) Pupils: Normal pupillary reactivity/response: bilateral Extrem: General: Yes normal to inspection Course Course Course Narrative: 1526-- CBC without leukocytosis or left shift. No anemia. H&H stable. Chemistry without acute electrolyte abnormality requiring intervention. Troponin undetectable. ACS unlikely. EKG showing normal sinus rhythm with a rate of 77 beats per minute, QT 390, QTC 441, no acute ischemic changes or ST elevations. Orthostatic vital signs negative. UA without infection. > on re-evaluation, patient reports improvement in dizziness after recieiving IVF and meclizine. She is ambulating with steady gait to the bathroom. Presentation consistent with vertigo and patient states this feels like her typical vertigo. Plan to discharge her home with meclizine and PCP follow-up. She is agreeable to this. Patient has remained stable throughout ED visit today. Discussed worrisome signs and symptoms and when to return to the ED. All questions answered at this time. Patient is agreeable with disposition and stable for discharge. Medications Administered Discontinued Medications Generic Name Dose Route Start Last Admin Trade Name Freq PRN Reason Stop Dose Admin Sodium Chloride 1,000 mls @ 999 mls/hr 12/17/23 11:00 12/17/23 14:35 Ns IV 12/17/23 12:00 Infused .Q1H1M DANIELE Infusion Meclizine HCl 25 mg 12/17/23 11:16 12/17/23 11:58 Meclizine Hcl 25 Mg Tablet PO 12/17/23 11:17 25 mg ONCE ONE Administration Medical Decision Making Medical Decision Making [facility] Narrative: 68-year-old female with past medical history significant for vertigo, hypertension, type 2 diabetes, PID, HDL presents to the emergency department today for evaluation of dizziness which began at 11:00 p.m. last night. Vital signs stable. She is nontoxic-appearing and in no acute distress. Lying comfortably on exam bed. PERRLA. No palpable skull fracture. Exam nonfocal. Cerebellum intact. RRR. Lungs are CTA bilaterally. No calf tenderness bilaterally. No peripheral edema or JVD. Reproducible dizziness with head movements. no nystagmus noted. Differential diagnosis includes anemia, electrolyte abnormality, orthostatic hypotension, vertigo. Lower suspicion for ACS, arrhythmia. Unlikely PE, DKA, hyper/ hypoglycemia, ICH, CVA/TIA, cerebellar stroke. Plan for labs, UA, trop, ekg, IVF, meclizine, ortho vitals, and re-evaluation. Differential Diagnosis Differential Diagnoses: The differential diagnosis associated with the presentation includes As above Admission/Observation Not indicated Lab Data [facility] Lab Attestation statement: I reviewed the patient's lab results. As above 12/17/23 10:53 12/17/23 10:53 Labs: Lab Results 12/17/23 12/17/23 Range/Units 10:53 14:54 WBC 7.4 (4.8-10.8) X10*3/uL RBC 4.30 (4.20-5.50) X10*6/uL Hgb 13.1 (12.0-16.0) g/dl Hct 38.3 (37.0-47.0) % MCV 89.1 (80.0-98.0) fL MCH 30.5 (27.0-33.0) pg MCHC 34.2 (31.0-35.0) g/dl RDW 12.1 (11.0-16.0) % Plt Count 237 (160-400) X10*3/uL MPV 10.0 (9.4-12.3) fL Immature Gran % (Auto) 0.5 H (0.0-0.4) % Neut % (Auto) 56.0 (45-73) % Lymph % (Auto) 32.6 (20-40) % [place] % (Auto) 8.6 (2-11) % Eos % (Auto) 1.8 (0-4) % Baso % (Auto) 0.5 (0-2) % Lymph # (Auto) 2.4 (1.2-4.9) X10*3/uL [place] # (Auto) 0.6 (0.1-1.2) X10*3/uL Eos # (Auto) 0.1 (0.0-0.4) X10*3/uL Baso # (Auto) 0.0 (0.0-0.2) X10*3/uL Abs Immat Gran (auto) 0.04 H (0.00-0.03) X10*3/uL Absolute Neuts (auto) 4.1 (2.0-8.3) x10*3/uL Absolute Nucleated RBC 0.000 (0.0-0.012) X10*3/uL Nucleated RBC % (auto) 0.0 (0.0-0.2) /100WBC Sodium 135 (135-145) mmol/L Potassium 4.4 (3.3-5.1) mmol/L Chloride 101 (96-108) mmol/L Carbon Dioxide 26 (22-29) mmol/L Anion Gap 12 (12-20) BUN 14 (9-16) mg/dL Creatinine 0.60 (0.5-1.4) mg/dL Estim Creat Clear Calc 71.7 Estimated GFR > 60 Random Glucose 217 H (60-115) mg/dL Calcium 9.5 D (8.4-10.2) mg/dL Total Bilirubin 0.3 (0.0-1.0) mg/dL AST 21 (5-31) U/L ALT 18 (0-31) U/L Alkaline Phosphatase 87 (39-117) U/L Troponin I High Sens < 2.7 (<3.5-17.0) ng/L Total Protein 7.4 (6.5-8.0) g/dL Albumin 4.1 (3.5-5.0) g/dL Urine Color Yellow Urine Appearance Clear Urine pH 6.0 (5.0-9.0) Ur Specific [place] 1.010 (1.005-1.025) Urine Protein Negative (Neg-Trace) mg/dL Urine Glucose (UA) 100 H (Negative) mg/dL Urine Ketones Negative (Negative) mg/dL Urine Blood Negative (Negative) Urine Nitrite Negative (Negative) Ur Leukocyte Esterase Trace H (Negative) Urine RBC 0-2 (0-2) /HPF Urine WBC 0-5 (0-5) /HPF Ur Squamous Epith Cells 0-2 (0-2) /HPF Urine Bacteria None Seen (None Seen) Hyaline Casts 0-2 (0-2) /LPF Independent Interpretation I performed an independent interpretation of an: EKG Interpretation: EKG showing normal sinus rhythm at a rate of 77 beats per minute, QT 390, QTC 441, no acute ischemic changes or ST elevations. Radiology Impression Discussion of test interpretation with radiology: I have reviewed the radiologist's reading. Prescription Management I considered prescription management with: Other (Meclizine) Chronic Conditions Patient?s care impacted by: Other (Vertigo) Social Determinants Patient?s care significantly limited by Social Determinants of Health including: Other Social Determinant of Health Critical Care Time Critical Care Time Critical Care Time: No Discharge Plan Discharge Clinical Impression: Vertigo Patient Disposition: Home, Self-Care Instructions: Vertigo (ED), Dizziness (ED) Additional Instructions: Your blood work today is reassuring. Your urine is negative for infection. Meclizine is a medication that has been sent to your pharmacy to take as needed for dizziness. Make sure you are drinking enough water. Limit sudden head movements as this can worsen dizziness. Follow up with your PCP. Return with new or worsening symptoms. In the case of an emergency call 911. Prescriptions: New meclizine 25 mg tablet 25 mg PO BID PRN (Reason: dizziness) 14 Days Qty: 28 0RF No Action cyclobenzaprine 10 mg tablet 10 mg PO TID PRN (Reason: muscle spasm) Qty: 14 0RF ibuprofen 600 mg tablet 600 mg PO Q8H PRN (Reason: pain) Qty: 14 0RF nifedipine 30 mg tablet extended release 24hr 30 mg PO BID cyanocobalamin (vitamin B-12) 1,000 mcg tablet 1 tab PO DAILY hydralazine 25 mg tablet 25 mg PO BID propranolol 120 mg capsule,extended release 24 hr 120 mg PO DAILY losartan 100 mg tablet 100 mg PO DAILY metformin 500 mg tablet extended release 24 hr 1,000 mg PO BID potassium citrate 15 mEq tablet extended release 1 tab PO BID cefuroxime axetil 250 mg tablet 250 mg PO BID Qty: 10 0RF ibuprofen 600 mg tablet 600 mg PO Q8H PRN (Reason: pain) Qty: 10 0RF (DME) blood-glucose meter [FreeStyle Lite Meter] Kit See Rx Instructions .ROUTE .MEDSUPPLY Qty: 1 Rx Instructions: As directed (DME) FreeStyle Lite Strips Strip See Rx Instructions .ROUTE .MEDSUPPLY Qty: 10 Rx Instructions: As directed (DME) lancets [FreeStyle Lancets] 28 gauge misc See Rx Instructions .ROUTE .MEDSUPPLY Qty: 100 Rx Instructions: As directed aspirin 81 mg tablet,delayed release (DR/EC) 81 mg PO DAILY omeprazole magnesium [Prilosec OTC] 20 mg tablet,delayed release (DR/EC) 20 mg PO DAILY atorvastatin [Lipitor] 20 mg tablet 20 mg PO BEDTIME fenofibrate 160 mg tablet 160 mg PO BEDTIME hydrochlorothiazide 25 mg tablet 25 mg PO DAILY glipizide 5 mg tablet 5 mg PO DAILY escitalopram oxalate 5 mg tablet PO Trulicity 0.75 mg/0.5 mL pen injector subcut omeprazole 20 mg capsule,delayed release(DR/EC) 20 mg PO Referrals: Mitzi Cantu MD [Primary Care Provider] - Print Language: Trinidadian
[2023-12-17 10:59] LABS: MANUAL DIFF FLAG NO
[2023-12-17 11:01] LABS: Basophils Percent Auto 0.5 % (0-2); Eosinophils Absolute Auto 0.1 X10*3/uL (0.0-0.4); Eosinophils Percent Auto 1.8 % (0-4); Hematocrit 38.3 % (37.0-47.0); Hemoglobin 13.1 g/dl (12.0-16.0); Imm Gran Abs Auto 0.04 X10*3/uL (0.00-0.03); Imm Gran Pct Auto 0.5 % (0.0-0.4); Lymphocytes Absolute Auto 2.4 X10*3/uL (1.2-4.9); Lymphocytes Percent Auto 32.6 % (20-40); Mean Corpuscular HGB Conc 34.2 g/dl (31.0-35.0); Mean Corpuscular Hemoglobin 30.5 pg (27.0-33.0); Mean Corpuscular Volume 89.1 fL (80.0-98.0); Monocytes Absolute Auto 0.6 X10*3/uL (0.1-1.2); Monocytes Percent Auto 8.6 % (2-11); Neutrophils Absolute Auto 4.1 x10*3/uL (2.0-8.3); Platelet Count 237 X10*3/uL (160-400); Red Cell Distribution Width 12.1 % (11.0-16.0); White Blood Count 7.4 X10*3/uL (4.8-10.8)
[2023-12-17 11:22] LABS: Alanine Aminotransferase 18 U/L (0-31); Albumin Level 4.1 g/dL (3.5-5.0); Alkaline Phosphatase 87 U/L (39-117); Anion Gap 12 (12-20); Aspartate Amino Transferase 21 U/L (5-31); Bilirubin Total 0.3 mg/dL (0.0-1.0); Blood Urea Nitrogen 14 mg/dL (9-16); Calcium 9.5 mg/dL (8.4-10.2); Carbon Dioxide 26 mmol/L (22-29); Chloride 101 mmol/L (96-108); Creatinine Clr Calc Pharmacy 71.7; Estimated Glomerular Filt Rate > 60; Glucose Random 217 mg/dL (60-115); Potassium 4.4 mmol/L (3.3-5.1); Sodium 135 mmol/L (135-145); Total Protein 7.4 g/dL (6.5-8.0)
[2023-12-17] MEDS: Meclizine HCl 25 MG TABLET PO (11:58)
[2023-12-17] MEDS: 0.9 % Sodium Chloride 1,000 ML 999 ML IV (11:58)
[2023-12-17 14:25] LABS: Troponin-I High Sensitivity < 2.7 ng/L (<3.5-17.0)
[2023-12-17 15:01] LABS: Appearance Urine Clear; Color Urine Yellow; Glucose Urine UA 100 mg/dL (Negative); Leukocyte Esterase Urine Trace (Negative); Nitrite Urine Negative (Negative); UMIC TRIGGER UACC YES; Urine Blood Negative (Negative); Urine Ketones Negative (Negative); Urine Protein Negative (Neg-Trace)
[2023-12-17 15:18] LABS: Bacteria Urine None Seen (None Seen); Hyaline Casts Urine 0-2 /LPF (0-2); RBC Urine 0-2 /HPF (0-2); Squamous Epithelial Cell Urine 0-2 /HPF (0-2); WBC Urine 0-5 /HPF (0-5)
== END 2023-12-17 15:43 | disposition home or self-care (01) ==
PROVIDERS: Physician Assistant Medical; Emergency Provider Emergency Medicine; PCP Family Medicine
DX: R42 Dizziness and giddiness (principal); E11.9 Type 2 diabetes mellitus without complications; I10 Essential (primary) hypertension; E78.5 Hyperlipidemia, unspecified; Z79.82 Long term (current) use of aspirin; Z79.02 Long term (current) use of antithrombotics/antiplatelets; Z79.899 Other long term (current) drug therapy
CPT/HCPCS: 36415; 80053; 81001; 81003; 84484; 85025; 93005; 96360; 96361; 99284

== ENCOUNTER → 2023-12-17 09:03 | Outpatient (BNV) | payer MEDICARE, MEDICAID, SELFPAY | PROVIDERS: Emergency Provider Emergency Medicine; PCP Family Medicine; Visit Provider Internal Medicine Cardiovascular Disease | DX: R42 Dizziness and giddiness (principal) | CPT/HCPCS: 93010 ==

== ENCOUNTER 2024-05-05 10:10 | Outpatient (REF) | payer MEDICARE, MEDICAID, SELFPAY ==
[2024-05-05 11:45] LABS: Alanine Aminotransferase 29 U/L (0-31); Albumin Level 4.2 g/dL (3.5-5.0); Alkaline Phosphatase 92 U/L (39-117); Anion Gap 13 (12-20); Aspartate Amino Transferase 23 U/L (5-31); Bilirubin Direct 0.1 mg/dL (0.0-0.5); Bilirubin Total 0.4 mg/dL (0.0-1.0); Blood Urea Nitrogen 16 mg/dL (9-16); Calcium 9.7 mg/dL (8.4-10.2); Carbon Dioxide 27 mmol/L (22-29); Chloride 98 mmol/L (96-108); Cholesterol 436 mg/dL (<200); Estimated Glomerular Filt Rate > 60; Glucose Random 198 mg/dL (60-115); HDL Cholesterol 33 mg/dL (>40); Potassium 4.2 mmol/L (3.3-5.1); Sodium 134 mmol/L (135-145); Total Protein 7.9 g/dL (6.5-8.0)
[2024-05-05 11:56] LABS: Triglycerides 2296 mg/dL (<150)
[2024-05-05 12:04] LABS: Creatinine Urine 108.59 mg/dL; Microalbum/Creatinine Ratio Ur 105.9 ug/mg cr (<30)
[2024-05-05 12:08] LABS: Estimated Average Glucose 203 mg/dL; Hemoglobin A1C 244.3047 umol/L; Hemoglobin A1c % 8.7 % (<6.0); Total Hemoglobin (HGBA1C) 3431.4194 umol/L
== END 2024-05-05 10:11 | disposition home or self-care (01) ==
LOC: HO.HHCL 10:10
PROVIDERS: Visit Provider Family Medicine
DX: E11.22 Type 2 diabetes mellitus with diabetic chronic kidney disease (principal); N18.30 Chronic kidney disease, stage 3 unspecified; Z79.4 Long term (current) use of insulin
CPT/HCPCS: 36415; 80048; 80061; 80076; 82043; 82570; 83036

== ENCOUNTER 2024-06-08 06:03 | Outpatient (REF) | payer MEDICARE, MEDICAID, SELFPAY ==
--- NOTE | 2024-06-08 | EMG_ITS ---
Left median and ulnar motor and sensory studies were performed. Left radial and sensory study was performed and paraspinal muscles were tested with a needle. IMPRESSION: 1. [id number] left median neuropathy across carpal tunnel. 2. Mild left ulnar neuropathy across cubital tunnel. MD VERONICA Wong/TAVO / [id number]
== END 2024-06-08 06:04 | disposition home or self-care (01) ==
LOC: HO.NEURO 06:03
PROVIDERS: PCP Family Medicine; Visit Provider Family Medicine
DX: R20.0 Anesthesia of skin (principal); E11.22 Type 2 diabetes mellitus with diabetic chronic kidney disease; N18.9 Chronic kidney disease, unspecified
CPT/HCPCS: 95886; 95909

== ENCOUNTER 2024-08-04 10:35 | Outpatient (REF) | payer MEDICARE, MEDICAID, SELFPAY ==
--- OUTSIDE RECORDS SUMMARY | 2024-08-04 12:34 | XMS_ITS | Encounter Summary ---
Author Organization [facility] Address [address] [facility] 7t [place] [address] Care Team Providers Care Plug Making Operator Name Role Phone Mitzi Cantu MD Primary Care Provider +- [phone] Christa Kwan PharmD Unavailable [phone] Zi Cotton MD Unavailable Gamal Quiñonez MD Unavailable [phone] Encounter Details Date Type Department Care Team (Late st Contact Info) Description 02/05/2023 Orders Only [facility] [address] [place] [address] Mitzi Cantu MD [address] [place], [place] [phone] Social History Tobacco Use Types Packs/Day Years Used Date Smoking Tobacco: Never Smokeless Tobacco: Never Alcohol Use Standard Drinks/Week Comments Never 0 (1 standard drink = 0.6 oz pur e alcohol) Depression Answer Date Recorded Patient Health Questionnaire-9 Score 15 12/23/2022 Depression Answer Date Recorded Patient Health Questionnaire-2 Score 6 12/23/2022 Comments Unknown Sex and Gender Information Value Date Recorded Sex Assigned at Female 04/01/2022 10:14 AM EDT Legal Sex Female 10:14 AM EDT Gender Identity Female 04/01/2022 10:14 AM EDT Sexual Orientation Straight 04/01/2022 10 :14 AM EDT documented as of this encounter Plan of Treatment Upcoming Encounters Date Type Department Care Team (Late st Contact Info) Description 11/04/2024 9:30 AM EDT Office Visit [facility] [address] [place] [address], [place] [address] Mitzi Cantu MD [address] [place] [address] documented as of this encounter Goals Goal Patient Goal Type Associated Problems Recent Progress Patient-Stated? Author Hemoglobin A1c < 7 Result Component 9.7(08/04/2024 10:13 AM EST) No Christa Kwan, PharmD documented as of this encounter Visit Diagnoses Not on filedocumented in this encounter Additional Health Concerns Assessment Noted Time PHQ-9 Depression Total Score: 15 023 9:31 AM EDT documented as of this encounter Care Teams Plug Making Operator Relationship Specialty Start Date End Date Mitzi Cantu MD [address] [place] [address] PCP - General Family Medicine 06/02/18 Christa Kwan, PharmD [address] [place] [address] Pharmacist Internal Medicine 07/16/22 Zi Cotton MD [address] [place] [address] Vascular Surgery 04/22/24 Gamal uQiñonez MD [address] 3rd [place] [address] Cardiology 04/28/24 documented as of this encounter
--- OUTSIDE RECORDS SUMMARY | 2024-08-04 12:34 | XMS_ITS | Encounter Summary ---
Author Organization [facility] Address [address] [facility] 7t [place] [address] Care Team Providers Care Assembler Musical Equipment Name Role Phone Mitzi Cantu MD Primary Care Provider +- [phone] Christa Kwan PharmD Unavailable [phone] Zi Cotton MD Unavailable Gamal Quiñonez MD Unavailable [phone] Reason for Visit * Reason Comments Follow-up A1c Encounter Details Date Type Department Care Team (Latest Contact Info) Description 08/04/2024 9:30 AM EST Office Visit [facility] [address] [place], [place] [phone] Mitzi Cantu MD [address] [place], [place] [phone] Hypercholesterolemia (Primary Dx); Type 2 diabetes mellitus with stage 3 chronic kidney disease, with long-term current use of insulin, unspecified whether stage 3a or 3b CKD (CMS/HCC); Stage 2 hypertension; Peripheral vascular disease (CMS/HCC); Major depressive disorder, single episode with psychotic features (CMS/HCC); Overweight; Dietary counseling; Exercise counseling; Type II diabetes mellitus with neurological manifestations (CMS/HCC); Other specified health status Social History Tobacco Use Types Packs/Day Years Used Date Smoking Tobacco: Some Days Cigarettes Passive Smoke Exposure: Never Smokeless Tobacco: Never Alcohol Use Standard Drinks/Week Comments Never 0 (1 standard drink = 0.6 oz pur e alcohol) Depression Answer Date Recorded Patient Health Questionnaire-9 Score 0 02/09/2024 Patient Health Questionnaire-9 Score 0 02/09/2024 Last PHQ-9: Questionnaire Data Not on file 0 02/09/2024 Housing Stability Answer Date Recorded What is your housing situation today? I have herman burks 06/23/[address] you li ve. Do you have problems with any of the following? None of the above 06/23/2023 Food Insecurity Answer Date Recorded Within the past 12 months, y ou worried that your food would run out before you got money to buy more: Never True 06/23/2023 Within the past 12 months,th e food you bought just didn't last and you didn't have enough money to get more: Never True Transportation Answer Date Recorded In the past 12 months, has l ack of transportation kept you from medical appts, meetings, work or from getting things needed for daily living? No 06/23/2023 Utilities Answer Date Recorded In the past 12 months, has t he electric, gas, oil or water company threatened to shut off services in your home? No 06/23/2023 Depression Answer Date Recorded Patient Health Questionnaire-2 Score 0 02/09/2024 Internet Access Answer Date Recorded Internet Access Q1 Yes 07/27/2024 Internet Access Q2 Not on file 07/27/2024 Comments Unknown Sex and Gender Information Value Date Recorded Sex Assigned at Female 04/01/2022 10:14 AM EDT Legal Sex Female 10:14 AM EDT Gender Identity Female 04/01/2022 10:14 AM EDT Sexual Orientation Straight 04/01/2022 10 :14 AM EDT documented as of this encounter Last Filed Vital Signs Vital Sign Reading Time Taken Comments Blood Pressure 134/82 08/04/2024 9:49 AM EST Pulse 99 08/04/2024 9:49 AM EST Temperature 37.2 ??C (98.9 ??F) 08/04/2024 9:49 AM ES T Respiratory Rate 20 08/04/2024 9:49 AM EST Oxygen Saturation 99% 08/04/2024 9:49 AM EST Inhaled Oxygen Concentration - - Weight 65 kg (143 lb 6.4 oz) 08/04/2024 9:49 AM EST Height - - Body Mass Index 28.96 02/09/2024 9:51 AM EDT documented in this encounter Plan of Treatment Upcoming Encounters Date Type Department Care Team (Late st Contact Info) Description 11/04/2024 9:30 AM EDT Office Visit [facility] [address] [place] [address] Mitzi Cantu MD [address] [place] [address] Scheduled Orders Name Type Priority Associated Diagnoses Orde r Schedule Lipid Panel, Standard Lab Routine Hypercholesterolemia Expected: 08/04/2024 (Approximate), Expires: 08/04/2025 Hepatic Function Panel Lab Routine Hypercholesterolemia Expected: 08/04/2024 (Approximate), Expires: 08/04/2025 documented as of this encounter Goals Goal Patient Goal Type Associated Problems Recent Progress Patient-Stated? Author Hemoglobin A1c < 7 Result Component 9.7(08/04/2024 10:13 AM EST) No Christa Kwan, PharmD documented as of this encounter Procedures Procedure Name Priority Date/Time Associated Diagnosis Comments POCT GLYCOSYLATED HEMOGLOBIN (HGB A1C) Routine 08/04/2024 10:13 AM EST Type 2 diabetes mellitus with stage 3 chronic kidney disease, with long-term current use of insulin, unspecified whether stage 3a or 3b CKD (CMS/[facility]) POCT GLUCOSE Routine 08/04/2024 10:13 AM EST Type 2 diabetes mellitus with stage 3 chronic kidney disease, with long-term current use of insulin, unspecified whether stage 3a or 3b CKD ([facility]) documented in this encounter Results * (ABNORMAL) POCT glycosylated hemoglobin (Hgb A1c) (08/04/2024 10:13 AM EST) Hemoglobin A1C 9.7(A) 4.0 - 6.0 % QC Media Lot # [id number] Lot# Expiration Date Blood Capillary blood specimen / Unknown 08/04/2024 10:13 AM EST Mitzi Cantu MD POINT OF CARE TEST ENTER/E DIT ORDERABLES Final Result * (ABNORMAL) POCT glucose manually resulted (08/04/2024 10:13 AM EST) Glucose Blood, POC 206(A) 60 - 200 mg/dL QC Media Lot # [id number] Lot# Expiration Date [id number] Blood Capillary blood specimen / Unknown 08/04/2024 10:13 AM EST Mitzi Cantu MD POINT OF CARE TEST ENTER/E DIT ORDERABLES Final Result documented in this encounter Visit Diagnoses Diagnosis Hypercholesterolemia- Primary Pure hypercholesterolemia Type 2 diabetes mellitus with stage 3 chronic kidney disease, with long-term current use of insulin, unspecified whether stage 3a or 3b CKD ([facility]/HCC) Stage 2 hypertension Peripheral vascular disease ([facility]) Unspecified peripheral vascular disease Major depressive disorder, single episode with psychotic features ([facility]) Overweight Dietary counseling Dietary surveillance and counseling Exercise counseling Type II diabetes mellitus with neurological manifestations ([facility]) Type II or unspecified type diabetes mellitus with neurological manifestations, not stated as uncontrolled Other specified health status documented in this encounter Additional Health Concerns Assessment Noted Time PHQ-9 Depression Total Score: 0 02/09/20 24 9:53 AM EDT documented as of this encounter Care Teams Assembler Musical Equipment Relationship Specialty Start Date End Date Mitzi Cantu MD [address] [place] [address] PCP - General Family Medicine 06/02/18 Christa Kwan PharmD [address] [place] [address] Pharmacist Internal Medicine 07/16/22 Zi Cotton MD [address] [place] [address] Vascular Surgery 04/22/24 Gamal Quiñonez MD [address] 3rd [place] [address] Cardiology 04/28/24 documented as of this encounter
--- OUTSIDE RECORDS SUMMARY | 2024-08-04 12:34 | XMS_ITS | Encounter Summary ---
Author Organization [employer] Address [address] [facility] 7t [place] [address] Care Team Providers Care Ceramic Research Engineer Name Role Phone Mitzi Cantu MD Primary Care Provider +- [phone] Christa Kwan PharmD Unavailable [phone] Zi Cotton MD Unavailable Gamal Quiñonez MD Unavailable [phone] Encounter Details Date Type Department Care Team (Latest Contact Info) Description 08/04/2024 Travel Social History Tobacco Use Types Packs/Day Years [...] Description 11/04/2024 9:30 AM EDT Office Visit [facility] [address] [place] [address] Mitzi Cantu MD [address] [place] [address] documented as of this encounter Goals Goal Patient Goal Type Associated Problems Recent Progress Patient-Stated? Author Hemoglobin A1c < 7 Result Component 9.7(08/04/2024 10:13 AM EST) No Christa Kwan PharmD documented as of this encounter Visit Diagnoses Not on filedocumented in this encounter Additional Health Concerns Assessment Noted Time PHQ-9 Depression Total Score: 0 02/09/20 24 9:53 AM EDT documented as of this encounter Care Teams Ceramic Research Engineer Relationship Specialty Start Date End Date Mitzi Cantu MD [address] [place] [address] PCP - General Family Medicine 06/02/18 Christa Kwan, CrisD [address] [place] [address] Pharmacist Internal Medicine 07/16/22 Zi Cotton MD [address] [place] [address] Vascular Surgery 04/22/24 Gamal Quiñonez MD [address] [place] [address] Cardiology 04/28/24 documented as of this encounter
--- OUTSIDE RECORDS SUMMARY | 2024-08-04 12:34 | XMS_ITS | Encounter Summary ---
Author Organization [facility], Address [address] [facility] [address] [place] [address] Phone Care Team Providers Care Retail Loan Originator Name Role Phone Mitzi Cantu MD Primary Care Provider U christiana Reason for Visit * Reason Comments Med Refill Encounter Details Date Type Department Care Team (Late st Contact Info) Description 02/28/2022 Refill [facility] [address] [place] [phone] Josafat Colón MD [address] [place] [address] Social History Tobacco Use Types Packs/Day Years Used Date Smoking Tobacco: Former Cigarettes Q uit: 11/12/2015 Comments:Smoking History Inf o:Every day Alcohol Use Standard Drinks/Week Comments Yes 0 (1 standard drink = 0.6 oz pure alcohol) Alcoholic Drinks/day: Occasional social drink Comments Unknown Sex and Gender Information Value Date Recorded Sex Assigned at Not on file Legal Sex Female 4:30 PM EST Gender Identity Not on file Sexual Orientation Not on file documented as of this encounter Plan of Treatment Not on file documented as of this encounter Visit Diagnoses Not on filedocumented in this encounter Care Teams Retail Loan Originator Relationship Specialty Start Date End Date Mitzi Cantu MD PCP - General 04/06/19 documented as of this encounter
--- OUTSIDE RECORDS SUMMARY | 2024-08-04 12:34 | XMS_ITS | Clinical Summary ---
Author Organization [facility], Address [address] [place] [address] [place] [address] Phone Care Team Providers Care Fastener Technologist Name Role Phone Mitzi Cantu MD Primary Care Provider U navailable Allergies No known active allergies Medications acetaminophen (TYLENOL) 500 MG tablet Take 1 tablet by mouth 3 (three) times a day Active ASPIRIN 81 PO Take 1 tablet by mouth 1 (one) time each day Active atorvastatin (Lipitor) 20 MG tablet Take 1 tablet by mouth 1 (one) time each day in the evening Active cyclobenzaprin e (FLEXERIL) 10 MG tablet Take 1 tablet by mouth Active fenofibrate (TRIGLIDE) 160 MG tablet Take 1 tablet by mouth 1 (one) time each day Active glipiZIDE (GLUCOTROL) 5 MG tablet Take 1 tablet by mouth 1 (one) time each day Active hydroCHLOROthi azide (HYDRODIURIL) 25 MG tablet Comments: Filled Date: Oct 14 2017 12:00AM Patient Notes: TAKE 1 TABLET EVERY MORNING Duration: 30 8 Active losartan (COZAAR) 100 MG tablet Comments: Filled Date: Oct 14 2017 12:00AM Patient Notes: TAKE 1 TABLET EVERY EVENING Duration: 30 7 Active metFORMIN (GLUCOPHAGE) 500 MG tablet Take 2 tablets by mouth 2 (two) times a day Active omega-3 acid ethyl esters (Lovaza) 1 g capsule Take 1 capsule by mouth 1 (one) time each day Active propranolol XL (InnoPran XL) 120 MG 24 hr capsule Take 1 capsule by mouth 1 (one) time each day Active Omeprazole 20 MG tablet delayed-releas e Comments: Filled Date: Oct 14 2017 12:00AM Patient Notes: TAKE 1 CAPSULE EVERY MORNING NEEDED Duration: 8 Active propranolol LA (Inderal LA) 120 MG 24 hr capsule Take 1 capsule by mouth 1 (one) time each day Active ASPIRIN ADULT LOW STRENGTH 81 MG EC tablet Take 81 mg by mouth 0 Active Cyanocobalamin (B-12) 1000 MCG tablet TAKE 1 TABLET BY MOUTH EVERYDAY AT NOON 0 Active GLIPIZIDE XL 5 MG 24 hr tablet Take 5 mg by mouth 1 (one) time each day with breakfast 0 Active metFORMIN XR (GLUCOPHATE-XR ) 500 MG 24 hr tablet TAKE 2 TABLETS TWICE DAILY IN THE MORNING AND EVENING 0 Active omeprazole (PriLOSEC) [address] capsule Take 20 mg by mouth 0 Active amoxicillin (AMOXIL) 875 MG tablet Take 875 mg by mouth as directed 0 Active NIFEdipine XL (PROCARDIA XL) 30 MG 24 hr tablet Take 1 tablet (30 mg total) by mouth twice a day Do not crush, chew, or split. 60 tablet 11 1 Active hydrALAZINE 25 MG tablet Take 1 tablet (25 mg total) by mouth 2 (two) times a day 60 tablet 11 1 Active Potassium Citrate ER 15 MEQ (1620 MG) tablet controlled-rel ease Take 1 tablet by mouth every morning and evening 60 tablet 5 2 Active atorvastatin (LIPITOR) 80 MG tablet Take 80 mg by mouth at bed time 3 Active Calcium Carb-Cholecalc iferol 600-10 MG-MCG tablet Take 1 tablet by mouth every morning and evening 3 Active Vitamin D High Potency 25 MCG (1000 UT) capsule Take 1,000 Units by mouth 3 Active Trulicity 0.75 MG/0.5ML solution pen-injector INJECT ONE PEN (=0.75MG) SUBCUTANEOUSLY ONCE A WEEK DIRECTED 3 Active escitalopram (LEXAPRO) 5 MG tablet Take 5 mg by mouth 3 Active omega-3 (FISH OIL) 1200 MG capsule Take 2,400 mg by mouth in the morning and 2,400 mg in the evening. 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/06/2019 Essential hypertension 10/06/2019 Family History Medical History Relation Comments Heart disease Father Hypertension Father Diabetes Mother Hypertension Mother Kidney disease Mother Relation Status Comments Father Mother Social History Tobacco Use Types Packs/Day Years [...] on file Sexual Orientation Not on file Last Filed Vital Signs Vital Sign Reading Time Taken Comments Blood Pressure 144/84 12/09/2017 12:00 PM EDT Pulse - - Temperature - - Respiratory Rate - - Oxygen Saturation - - Inhaled Oxygen Concentration - - Weight 68.9 kg (151 lb 12.8 oz) 018 12:00 PM EDT Height 149.9 cm (4' 11 ) 12/09/2017 12: 00 PM EDT Body Mass Index 30.66 12/09/2017 12:00 PM EDT Plan of Treatment Health Maintenance Due Date Last Done Comments Breast Cancer Screening 1954 Colorectal Cancer Screening: Annual FOBT 2003 Colorectal Cancer Screening: Colonoscopy 2003 Colorectal Cancer Screening: Sigmoidoscopy 2003 Pneumococcal Vaccine: 65+ Ye ars (1 of 1 - PCV) 2019 Diabetes: Hemoglobin A1C 08/23/2019 Diabetes: Ophthalmology Exam 08/23/2019 Diabetes: Pedal Pulse Checked 08/23/2019 Diabetes: Sensory Foot Exam 08/23/2019 Diabetes: Visual Foot Exam 08/23/2019 Influenza Vaccine (#1) 2024 Hepatitis B Vaccine Aged Out No longe r eligible based on patient's age to complete this topic Insurance [address] [place] [phone] [place]ICA[place] MEDICARE Care Teams Fastener Technologist Relationship Specialty Start Date End Date Pierce, Mitzi Okeefe MD PCP - General 04/06/19
--- OUTSIDE RECORDS SUMMARY | 2024-08-04 12:34 | XMS_ITS | Encounter Summary ---
Author Organization [employer] Address [address] [facility] 7t [place] [address] Care Team Providers Care Director Of Elementary Education Name Role Phone Mitzi Cantu MD Primary Care Provider + [phone] Christa Kwan PharmD Unavailable [phone] Zi Cotton MD Unavailable Gamal Quiñonez MD Unavailable [phone] Reason for Visit * Reason Onset Date Comments Nurse Triage 07/28/2024 Encounter Details Date Type Department Care Team (Late st Contact Info) Description 07/28/2024 Telephone [facility] MEDICINE [address] [place], [place] [phone] Mitzi Cantu MD [address] [place], [place] [phone] Nurse Triage Social History Tobacco Use Types Packs/Day Years [...] AM EDT documented as of this encounter Miscellaneous Notes * Telephone Encounter - Aury Banuelos RN - 07/28/2024 9:40 AM EST No cinder snapper needed as this abstract writer speaks Guatemalan. Call returned to Armida Menjivar to triage below. Reports having sx of Cough, Sore Throat, Chest Congestion x 1 day. Denies any fever or earpain. Mild APPIAH. Pt has not done home kit for COVID-19. Pt has used OTC tylenol for pain and fever. Per pt BS this morning was in 190s this morning fasting. Has not checked BP. Pt has home kit for COVID-19 and will be doing test later. Pt advised to return call if testkit is positive for telehealth. To seek WIC if wants testing in office along with Flu/RSV to rule out. Reviewed home care measures of rest, pushing fluids and using OTC pain relievers PRN. TO seek ER if having CP, SOB or high fever.Pt agrees. Reviewed WIC operating hours and that wait times vary. Protocol Used: COVID-19 - Diagnosed or Suspected (Adult) Protocol-Based Disposition: Discuss with PCP and Callback by Nurse within 1 Hour Video visit offer not recorded Positive Triage Question: * HIGH RISK patient (e.g., weak immune system, age > 64 years, obesity with BMI of 30 or higher,, chronic lung disease) and COVID symptoms (e.g., cough, fever) (Exceptions: Already seen by doctor or AIR ROUTE CONTROLLER/PA and no new or worsening symptoms.) * All higher-acuity triage questions were negative Care Advice Discussed: * Reassurance and Education - Suspected COVID-19 and Testing Needed * Cough Medicines * Coughing Spells * Pain and Fever Medicines * Reasons To Call Back - Fever over 103 F (39.4 C) - Chest pain or difficulty breathing occurs - You become worse * Telephone Encounter - Nicole Elias - 07/28/2024 9:16 AM EST Symptoms: Cough, Sore Throat, Chest Congestion Outcome: Schedule an urgent appointment (within 4 hours) or talk to a nurse or provider soon Reason: Trouble drinking The caller accepted this outcome. [phone] denied cinder snapper. States my daughter it's here documented in this encounter Plan of Treatment Upcoming Encounters Date Type Department Care Team (Late st Contact Info) Description 11/04/2024 9:30 AM EDT Office Visit [facility] MEDICINE [address] [place] [address] Mitzi Cantu MD [address] [place] [address] documented as of this encounter Goals Goal [...] documented as of this encounter Care Teams Director Of Elementary Education Relationship Specialty Start Date End Date Mitzi Cantu MD [address] [place] [address] PCP - General Family Medicine 06/02/18 Christa Kwan PharmD [address] [place] [address] Pharmacist Internal Medicine 07/16/22 Zi Cotton MD [address] [place] [address] Vascular Surgery 04/22/24 Gamal Quiñonez MD [address] 3rd [place] [address] Cardiology 04/28/24 documented as of this encounter
--- OUTSIDE RECORDS SUMMARY | 2024-08-04 12:34 | XMS_ITS | Encounter Summary ---
Author Organization [employer] Address [address] [facility] 7t [place] [address] Care Team Providers Care Account Review Specialist Name Role Phone Barren, Mitzi RODAS Primary Care Provider +- [phone] Christa Kwan PharmD Unavailable [phone] Zi Cotton MD Unavailable Gamal Quiñonez MD Unavailable [phone] Reason for Visit * Reason Comments Med Refill Encounter Details Date Type Department Care Team (Late st Contact Info) Description 07/15/[address] [facility] MEDICINE [address] [place], [place] [phone] Kailee Velarde MD [address] [place], [place] [phone] History of cardioembolic cerebrovascular accident (CVA); B12 deficiency Social History Tobacco Use Types Packs/Day Years [...] the past 12 months, has t he [employer], gas, oil or water [employer] threatened to shut off services in your home? No 06/23/2023 Depression Answer Date Recorded Patient Health Questionnaire-2 Score 0 02/09/2024 Internet Access Answer Date Recorded Internet Access Q1 I am not sure 02/09/2024 Internet Access Q2 Not on file 02/09/2024 Comments Unknown Sex and Gender Information Value [...] Description 11/04/2024 9:30 AM EDT Office Visit [facility] MEDICINE [address] [place] [address] Mitzi Cantu MD [address] [place] [address] documented as of this encounter Goals Goal Patient Goal Type Associated Problems Recent Progress Patient-Stated? Author Hemoglobin A1c < 7 Result Component 9.7(08/04/2024 10:13 AM EST) No Christa Kwan, PharmD documented as of this encounter Visit Diagnoses Diagnosis History of cardioembolic cerebrovascular accident (CVA) B12 deficiency documented in this encounter Additional Health Concerns Assessment Noted Time PHQ-9 Depression Total Score: 0 02/09/20 24 9:53 AM EDT documented as of this encounter Care Teams Account Review Specialist Relationship Specialty Start Date End Date Mitzi Cantu MD [address] [place] [address] PCP - General Family Medicine 06/02/18 Christa Kwan PharmD [address] [place] [address] Pharmacist Internal Medicine 07/16/22 Zi Cotton MD [address] [place] [address] Vascular Surgery 04/22/24 Gamal Quiñonez MD [address] 3rd [place] [address] Cardiology 04/28/24 documented as of this encounter
--- OUTSIDE RECORDS SUMMARY | 2024-08-04 12:34 | XMS_ITS | Encounter Summary ---
Author Organization [employer] Address [address] [facility] 7t [place] [address] Care Team Providers Care Telecommunicator Name Role Phone [place], Mitzi RODAS Primary Care Provider + [phone] Christa Kwan PharmD Unavailable +[phone]- [phone] Zi Cotton MD Unavailable Gamal Quiñonez MD Unavailable +[phone] Reason for Visit * Reason Comments Med Refill Encounter Details Date Type Department Care Team (Late st Contact Info) Description 05/11/2024 Refill [facility] [address] [place], [place] [phone] Christa Kwan, PharmD [address] [place] [address] Social History Tobacco Use Types Packs/Day Years [...] Description 11/04/2024 9:30 AM EDT Office Visit [facility] [address] [place] [address] Mitzi Cantu MD [address] [place] [address] documented as of this encounter Goals Goal [...] documented as of this encounter Care Teams Telecommunicator Relationship Specialty Start Date End Date Mitzi Cantu MD [address] [place] [address] PCP - General Family Medicine 06/02/18 Christa Kwan, CrisD [address] [place] [address] Pharmacist Internal Medicine 07/16/22 Zi Cotton MD [address] [place] [address] Vascular Surgery 04/22/24 Gamal Quiñonez MD [address] 3rd [place] [address] Cardiology 04/28/24 documented as of this encounter
--- OUTSIDE RECORDS SUMMARY | 2024-08-04 12:34 | XMS_ITS | Encounter Summary ---
Author Organization [employer] Address [address] [facility] 7t [place] [address] Care Team Providers Care Curing Room Worker Name Role Phone Mitzi Cantu MD Primary Care Provider +- [phone] Christa Kwan PharmD Unavailable +1- [phone] Zi Cotton MD Unavailable Gamal Quiñonez MD Unavailable +[phone] Reason for Visit * Reason Comments Pre-visit Planning SDOH Screening negat anamika and Tobacco screening negative Encounter Details Date Type Department Care Team (Late st Contact Info) Description 07/27/2024 Patient Outreach [facility] [address] [place], [place] [phone] Mitzi Cantu MD [address] [place], [place] [phone] Pre-visit Planning (SDOH Screening negative and Tobacco screening negative) Social History Tobacco Use Types Packs/Day Years [...] AM EDT documented as of this encounter Progress Notes * Trixie Gupta - 07/27/2024 10:42 AM EST RODGER De La Torre placed successful outbound call to patient for pre-visit planning. Patient name and confirmed. Patient confirms appt date and time, and has transportation arrangements. Biggest concern for appointment at this time is no concerns. Patient advised to bring to appointment a photo id and insurance card. Appropriate screenings completed in anticipation of appointment. documented in this encounter Plan of Treatment Upcoming Encounters Date Type Department Care Team (Late st Contact Info) Description 11/04/2024 9:30 AM EDT Office Visit [facility] [address] [place] [address] Mitzi Cantu MD [address] [place] [address] documented as of this encounter Goals Goal [...] documented as of this encounter Care Teams Curing Room Worker Relationship Specialty Start Date End Date Mitzi Cantu MD 230 [place] [address] PCP - General Family Medicine 06/02/18 Christa Kwan, PharmD 230 [place] [address] Pharmacist Internal Medicine 07/16/22 Zi Cotton MD [address] [place] [address] Vascular Surgery 04/22/24 Gamal Quiñonez MD [address] 3rd [place] [address] Cardiology 04/28/24 documented as of this encounter
--- OUTSIDE RECORDS SUMMARY | 2024-08-04 12:34 | XMS_ITS | Encounter Summary ---
Author Organization [facility], Address [address] [address] Phone Care Team Providers Care Glass Lined Tank Repairer Name Role Phone Mitzi Cantu MD Primary Care Provider U navailsteven Reason for Visit * Reason Comments Med Refill Encounter Details Date Type Department Care Team (Late st Contact Info) Description 11/30/2021 Refill [facility] [address] [place] [address] Josafat Colón MD [address] [place] [address] [place] [address] Social History Tobacco Use Types [...] on filedocumented in this encounter Care Teams Glass Lined Tank Repairer Relationship Specialty Start Date End Date Mitzi Cantu MD PCP - General 04/06/19 documented as of this encounter
--- OUTSIDE RECORDS SUMMARY | 2024-08-04 12:34 | XMS_ITS | Encounter Summary ---
Author Organization [employer] Address [address] [facility] 7t [place] [address] Care Team Providers Care Internet Marketing Analyst Name Role Phone Mitzi Cantu MD Primary Care Provider + [phone] Christa Kwan PharmD Unavailable [phone]- [phone] Zi Cotton MD Unavailable Gamal Quiñonez MD Unavailable [phone] Reason for Visit * Reason Onset Date Comments Med Refill 08/04/2024 Encounter Details Date Type Department Care Team (Late st Contact Info) Description 08/04/2024 Refill [facility] MED[facility]INE 230 [place], [place] [phone] Mitzi Cantu MD 230 [place], [place] [phone] Stage 2 hypertension Social History Tobacco Use Types Packs/Day Years [...] the past 12 months, has t he [employer] gas, oil or water company threatened to [...] Description 11/04/2024 9:30 AM EDT Office Visit [facility] [address] [place] [address] Mitzi Cantu MD [address] [place] [address] documented as of this encounter Goals Goal Patient Goal Type Associated Problems Recent Progress Patient-Stated? Author Hemoglobin A1c < 7 Result Component 9.7(08/04/2024 10:13 AM EST) No Christa Kwan, PharmD documented as of this encounter Visit Diagnoses Diagnosis Stage 2 hypertension documented in this encounter Additional Health Concerns Assessment Noted Time PHQ-9 Depression Total Score: 0 02/09/20 24 9:53 AM EDT documented as of this encounter Care Teams Internet Marketing Analyst Relationship Specialty Start Date End Date Mitzi Cantu MD [address] [place] [address] PCP - General Family Medicine 1/1/19 Christa Kwan, CrisD [address] [place] [address] Pharmacist Internal Medicine 07/16/22 Zi Cotton MD [address] [place] [address] Vascular Surgery 04/22/24 Gamal Quiñonez MD [address] 3rd [place] [address] Cardiology 04/28/24 documented as of this encounter
--- OUTSIDE RECORDS SUMMARY | 2024-08-04 12:34 | XMS_ITS | Encounter Summary ---
Author Organization [facility], Address [address] [facility] [address] [place] [address] Phone Care Team Providers Care Carpenter Form Name Role Phone Mitzi Cantu MD Primary Care Provider U christiana Reason for Visit * Reason Comments Med Refill Encounter Details Date Type Department Care Team (Late st Contact Info) Description 08/23/2021 Refill [facility] [address] [place] [phone] Josafat Colón MD [address] [place] [address] Social History Tobacco Use Types [...] on filedocumented in this encounter Care Teams Carpenter Form Relationship Specialty Start Date End Date Mitzi Cantu MD PCP - General 04/06/19 documented as of this encounter
--- OUTSIDE RECORDS SUMMARY | 2024-08-04 12:34 | XMS_ITS | Encounter Summary ---
Author Organization [employer] Address 75 [facility] 7t [place] [address] Care Team Providers Care Used Car Make Ready Mechanic Name Role Phone Mitzi Cantu MD Primary Care Provider +- [phone] Christa Kwan PharmD Unavailable [phone]- [phone] Zi Cotton MD Unavailable Gamal Quiñonez MD Unavailable [phone] Encounter Details Date Type Department Care Team (Late st Contact Info) Description 07/21/2024 Telephone [facility] 230 [place], [place] [phone] Mitzi Cantu MD [address] [place] [address] Social History Tobacco Use Types Packs/Day Years [...] encounter Miscellaneous Notes * Telephone Encounter - Latanya Robin - 07/21/2024 10:51 AM EST Placed outbound call to patient for Annual Wellness Visit outreach. Patient's name and were confirmed. Patient educated on the purpose of Medicare Annual Wellness Visits and is agreeable to an appointment with provider. Insurance verified prior to scheduling. Patient scheduled for [facility] appointment on 09/06/24 at 1 PM with Ericka. Patient advised to bring to appointment a photo id and insurance card. Also advised to bring in all medications, including [id number], vitamins, or supplements and any copies of Advance Directives and Health Care Proxy forms. Patient provided with education on contacting the Health Center with any questions or concerns prior to the scheduled appointment. Patient provided with after-hours line for [facility], , which offer night time triage service and option to transfer to application specialist provider if needed. documented in this encounter Plan of Treatment Upcoming Encounters Date Type Department Care Team ([facility] st Contact Info) Description 11/04/2024 9:30 AM EDT Office Visit [facility] [address] [place] [address] Mitzi Cantu MD [address] [place] [address] documented as of this encounter Goals Goal [...] documented as of this encounter Care Teams Used Car Make Ready Mechanic Relationship Specialty Start Date End Date Mitzi Cantu MD [address] [place] [address] PCP - General Family Medicine 06/02/18 Christa Kwan, PharmD [address] [place] [address] Pharmacist Internal Medicine 07/16/22 Zi Cotton MD [address] [place] [address] Vascular Surgery 04/22/24 Gamal Quiñonez MD [address] 3rd [place] [address] Cardiology 04/28/24 documented as of this encounter
--- OUTSIDE RECORDS SUMMARY | 2024-08-04 12:35 | XMS_ITS | Clinical Summary ---
Author Organization [facility] Address [address] [place] [address] Care Team Providers Care Android Ios Developer Name Role Phone Unavailable Primary Care Provider Unavailabl e Social History Tobacco Use Types Packs/Day Years Used Date Smoking Tobacco: Never Assessed Sex and Gender Information Value Date Recorded Sex Assigned at Not on file Gender Identity Not on file Sexual Orientation Not on file Plan of Treatment Not on file
--- OUTSIDE RECORDS SUMMARY | 2024-08-04 12:35 | XMS_ITS | Encounter Summary ---
Author Organization [employer] Address [address] [facility] 7t [place] [address] Care Team Providers Care Drafter Mechanical Name Role Phone Mitzi Cantu MD Primary Care Provider +- [phone] Christa Kwan PharmD Unavailable [phone] Zi Cotton MD Unavailable Gamal Quiñonez MD Unavailable [phone] Reason for Visit * Reason Onset Date Comments Pre-op Exam 11/20/2023 Encounter Details Date Type Department Care Team (Late st Contact Info) Description 11/20/2023 Telephone [facility] MED[facility]INE 230 [place], [place] [phone] Mitzi Cantu MD [address] [place], [place] [phone] Pre-op Exam Social History Tobacco Use Types Packs/Day Years Used Date Smoking Tobacco: Never Smokeless Tobacco: Never Alcohol Use Standard Drinks/Week Comments Never 0 (1 standard drink = 0.6 oz pur e alcohol) Depression Answer Date Recorded Patient Health Questionnaire-9 Score 15 12/23/2022 Housing Stability Answer Date Recorded What is your housing situation today? I have herman sing 06/23/[address] you li [...] encounter Miscellaneous Notes * Telephone Encounter - Kylie Yousif - 11/21/2023 9:48 AM EDT Pt scheduled for pre op appointment on 01/15/24 at 09:30AM with . Appointment reminder letter mailed. * Telephone Encounter - Olinda Hensley - 11/20/2023 8:36 AM EDT Date of Surgery: 02/03/24 Surgical procedure being done: cataract to left eye Type of anesthesia: Local/topical Lab needed: no EKG: no Surgeon's name: Dr. Nora Galicia Facility name: [facility] Surgeon's office number: [phone] Surgeon's office fax number: [phone] Contact name (person you spoke with): Janki Last office note from surgeon requested: Pre-Op notes documented in this encounter Plan of Treatment Upcoming Encounters Date Type Department Care Team ([facility] st Contact Info) Description 11/04/2024 9:30 AM EDT Office Visit [facility] 230 [place] [address] Mitzi Cantu MD [address] [place] [address] documented as of this encounter Goals Goal [...] documented as of this encounter Care Teams Drafter Mechanical Relationship Specialty Start Date End Date Mitzi Cantu MD [address] [place] [address] PCP - General Family Medicine 06/02/18 Christa Kwan, PharmD [address] [place] [address] Pharmacist Internal Medicine 07/16/22 Zi Cotton MD [address] [place] [address] Vascular Surgery 04/22/24 Gamal Quiñonez MD [address] 3rd [place] [address] Cardiology 04/28/24 documented as of this encounter
--- OUTSIDE RECORDS SUMMARY | 2024-08-04 12:35 | XMS_ITS | Encounter Summary ---
Author Organization [facility] Address [address] [facility] 7t [place] [address] Care Team Providers Care Manager Country Name Role Phone Bartholomew, Mitzi RODAS Primary Care Provider + [phone] Christa Kwan PharmD Unavailable Zi Cotton MD Unavailable Gamal Quiñonez MD Unavailable [phone] Reason for Visit * Reason Comments Med Refill Encounter Details Date Type Department Care Team (Late st Contact Info) Description 01/03/2023 Refill [facility]INE 230 [place], [place] [phone] Christa Kwan, PharmD [address] [place] [address] Type II diabetes mellitus with neurological manifestations (CMS/HCC) Social History Tobacco Use Types Packs/Day Years [...] Description 11/04/2024 9:30 AM EDT Office Visit [facility] [address] [facility] [place] [address] Mitzi Cantu MD [address] [facility] [place] [address] documented as of this encounter Goals Goal Patient Goal Type Associated Problems Recent Progress Patient-Stated? Author Hemoglobin A1c < 7 Result Component 9.7(08/04/2024 10:13 AM EST) No Christa Kwan, PharmD documented as of this encounter Visit Diagnoses Diagnosis Type II diabetes mellitus with neurological manifestations ([facility]) Type II or unspecified type diabetes mellitus with neurological manifestations, not stated as uncontrolled documented in this encounter Additional Health Concerns Assessment Noted Time PHQ-9 Depression Total Score: 15 023 9:31 AM EDT documented as of this encounter Care Teams Manager Country Relationship Specialty Start Date End Date Mitzi Cantu MD [address] [facility] [address] PCP - General Family Medicine 06/02/18 Christa Kwan, PharmD [address] [facility] [address] Pharmacist Internal Medicine 07/16/22 Zi Cotton MD [address] [place] [address] Vascular Surgery 04/22/24 Gamal Quiñonez MD [address] 3rd [place] [address] Cardiology 04/28/24 documented as of this encounter
--- OUTSIDE RECORDS SUMMARY | 2024-08-04 12:35 | XMS_ITS | Encounter Summary ---
Author Organization [facility], Address [address] [facility] [address] [place] [address] Phone Care Team Providers Care Statistical Programmer Name Role Phone Mitzi Cantu MD Primary Care Provider U christiana Reason for Visit * Reason Comments Med Refill Encounter Details Date Type Department Care Team (Late st Contact Info) Description 08/19/2021 Refill [facility] [address] [facility] [place] [phone] Josafat Colón MD [address] [place] [address] Social History Tobacco Use Types [...] on filedocumented in this encounter Care Teams Statistical Programmer Relationship Specialty Start Date End Date Mitzi Cantu MD PCP - General 04/06/19 documented as of this encounter
--- OUTSIDE RECORDS SUMMARY | 2024-08-04 12:35 | XMS_ITS | Encounter Summary ---
Author Organization [employer] Address [address] [facility] 7t [place] [address] Care Team Providers Care Safety Attendant Name Role Phone Mitzi Cantu MD Primary Care Provider +- [phone] Christa Kwan PharmD Unavailable [phone]- [phone] Zi Cotton MD Unavailable Gamal Quiñonez MD Unavailable [phone] Encounter Details Date Type Department Care Team (Late st Contact Info) Description 02/06/2024 Abstract [facility] MEDICINE [address] [place], [place] [phone] Mitzi Cantu MD [address] [place], [place] [phone] Social History Tobacco Use Types Packs/Day Years [...] your housing situation today? I have herman vitaliy 06/23/[address] you li [...] Description 11/04/2024 9:30 AM EDT Office Visit [facility] [address] [place] [address] Mitzi Cantu MD [address] [place] [address] documented as of this encounter Goals Goal Patient Goal Type Associated Problems Recent Progress Patient-Stated? Author Hemoglobin A1c < 7 Result Component 9.7(08/04/2024 10:13 AM EST) No Christa Kwan, PharmD documented as of this encounter Procedures Procedure Name Priority Date/Time Associated Diagnosis Comments MAMMOGRAPHY Routine 02/06/2024 3:02 PM EDT documented in this encounter Results * Mammography (02/06/2024 3:02 PM EDT) Mammogram BIRADS 1 Normal, Abnormal, BIRADS 1 , BIRADS 2 Comment:routine annual mamma graphy screening Anatomical Region Laterality Modality Other Historical Provider HEALTH MAINTENANCE Final Result documented in this encounter Visit Diagnoses Not on filedocumented in this encounter Additional Health Concerns Assessment Noted Time PHQ-9 Depression Total Score: 15 023 9:31 AM EDT documented as of this encounter Care Teams Safety Attendant Relationship Specialty Start Date End Date Mitzi Cantu MD [address] [place] [address] PCP - General Family Medicine 06/02/18 Christa Kwan, CrisD [address] [place] [address] Pharmacist Internal Medicine 07/16/22 Zi Cotton MD [address] [place] [address] Vascular Surgery 04/22/24 Gamal Quiñonez MD [address] 3rd [place] [address] Cardiology 04/28/24 documented as of this encounter
--- OUTSIDE RECORDS SUMMARY | 2024-08-04 12:35 | XMS_ITS | Encounter Summary ---
Author Organization [employer] Address [address] [facility] 7t [place] [address] Care Team Providers Care Bus Washer Name Role Phone Mitzi Cantu MD Primary Care Provider + [phone] Christa Kwan PharmD Unavailable [phone] Zi Cotton MD Unavailable Gamal Quiñonez MD Unavailable [phone] Encounter Details Date Type Department Care Team (Late st Contact Info) Description 05/20/2022 Orders Only [facility] [address] [place], [place] [phone] Deepa Henao LPN Social History Tobacco Use Types Packs/Day Years Used Date Smoking Tobacco: Never Assessed Comments Unknown Sex and Gender Information Value [...] 9:30 AM EDT Office Visit [facility] MEDICINE [address] [place] [address] Mitzi Cantu MD [address] [place] [address] documented as of this encounter Visit Diagnoses Not on filedocumented in this encounter Care Teams Bus Washer Relationship Specialty Start Date End Date Mitzi Cantu MD [address] [place] [address] PCP - General Family Medicine 06/02/18 Christa Kwan, Bindu [address] [place] [address] Pharmacist Internal Medicine 07/16/22 Zi Cotton MD [address] [place] [address] Vascular Surgery 04/22/24 Gamal Quiñonez MD [address]rd [place] [address] Cardiology 04/28/24 documented as of this encounter
--- OUTSIDE RECORDS SUMMARY | 2024-08-04 12:35 | XMS_ITS | Encounter Summary ---
Author Organization [employer] Address [address] [facility] 7t [place] [address] Care Team Providers Care Surveillance Agent Name Role Phone Mitzi Cantu MD Primary Care Provider +- [phone] Christa Kwan PharmD Unavailable [phone]- [phone] Zi Cotton MD Unavailable Gamal Quiñonez MD Unavailable [phone] Encounter Details Date Type Department Care Team (Latest Contact Info) Description 12/02/2022 Orders Only [facility] MEDICINE [address] [place], [place] [phone] Mitzi Cantu MD [address] [place] [address] Hypercholesterolemia (Primary Dx) Social History Tobacco Use Types Packs/Day Years Used Date Smoking Tobacco: Never Smokeless Tobacco: Never Alcohol Use Standard Drinks/Week Comments Never 0 (1 standard drink = 0.6 oz pur e alcohol) PHQ-2 Answer Date Recorded Patient Health Questionnaire-2 Score 2 06/11/2022 Comments Unknown Sex and Gender Information Value Date Recorded Sex Assigned at Female 04/01/2022 10:14 AM EDT Legal Sex Female 10:14 AM EDT Gender Identity Female 04/01/2022 10:14 AM EDT Sexual Orientation Straight 04/01/2022 10 :14 AM EDT COVID-19 Exposure Response Date Recorded In the last 10 days, have yo u been in contact with someone who was confirmed or suspected to have Coronavirus/COVID-19? No / Unsure 11/07/2022 9:50 AM EDT documented as of this encounter Plan of Treatment Upcoming Encounters Date Type Department Care Team (Late st Contact Info) Description 11/04/2024 9:30 AM EDT Office Visit [facility] MEDICINE [address] [place] [address] Mitzi Cantu MD [address] [place] [address] documented as of this encounter Goals Goal Patient Goal Type Associated Problems Recent Progress Patient-Stated? Author Hemoglobin A1c < 7 Result Component 9.7(08/04/2024 10:13 AM EST) No Christa Kwan, PharmD documented as of this encounter Visit Diagnoses Diagnosis Hypercholesterolemia- Primary Pure hypercholesterolemia documented in this encounter Additional Health Concerns Assessment Noted Time PHQ-9 Depression Total Score: 5 06/11/19 23 10:23 AM EST documented as of this encounter Care Teams Surveillance Agent Relationship Specialty Start Date End Date Mitzi Cantu MD [address] [place] [address] PCP - General Family Medicine 06/02/18 Christa Kwan, PharmD [address] [place] [address] Pharmacist Internal Medicine 07/16/22 Zi Cotton MD [address] [place] [address] Vascular Surgery 04/22/24 Gamal Quiñonez MD [address]rd [place] [address] Cardiology 04/28/24 documented as of this encounter
--- OUTSIDE RECORDS SUMMARY | 2024-08-04 12:35 | XMS_ITS | Clinical Summary ---
Author Organization [employer] Address [address] [place] [address] [address] [place] [address] Care Team Providers Care Marine Engineering Professor Name Role Phone Mitzi Cantu MD Primary Care Provider [phone] Christa Kwan PharmD Unavailable [phone] Zi Cotton MD Unavailable Gamal Quiñonez MD Unavailable [phone] Allergies Active Allergy Reactions Criticality Noted Date Comments Gregor Inhibitors Cough 08/02/2010 Medications * This document contains information received from the source organization and may not represent a complete record from that organization. NIFEdipine XL (Procardia XL) 30 MG 24 hr tabletIndications: Stage 2 hypertension TAKE 1 TABLET BY MOUTH TWICE DAILY IN THE MORNING AND IN THE EVENING 180 tablet 3 12/11/19 24 Active Calcium Carb-Cholecalcifer ol 600-10 MG-MCG tabletIndications: Age related osteoporosis, unspecified pathological fracture presence TAKE 1 TABLET BY MOUTH TWICE DAILY IN THE MORNING AND IN THE EVENING 60 tablet 11 01/07/20 24 Active hydrALAZINE (Apresoline) 25 MG tabletIndications: Stage 2 hypertension TAKE 1 TABLET BY MOUTH TWICE DAILY IN THE MORNING AND IN THE EVENING WITH FOOD 60 tablet 11 02/04/20 24 Active potassium citrate CR (Urocit-K-15) 15 mEq ER tabletIndications: Hypokalemia TAKE 1 TABLET BY MOUTH TWICE DAILY IN THE MORNING AND IN THE EVENING WITH FOOD 60 tablet 11 03/01/20 24 Active cholecalciferol (D3-1000) 25 MCG (1000 UT) capsuleIndications :Vitamin D deficiency TAKE 1 CAPSULE BY MOUTH EVERY MORNING 90 capsule 3 03/31/20 24 Active hydroCHLOROthiazid e (HYDRODiuril) 25 MG tabletIndications: Stage 2 hypertension Take 1 tablet (25 mg) by mouth Once per day. 90 tablet 3 05/05/20 24 Active losartan (Cozaar) 100 MG tabletIndications: Stage 2 hypertension Take 1 tablet (100 mg) by mouth in the morning. 30 tablet 7 05/05/20 24 Active propranolol LA (Inderal LA) 120 MG 24 hr capsuleIndications :Stage 2 hypertension Take 1 capsule (120 mg) by mouth in the morning. Do not crush, chew, or split. 90 capsule 3 05/05/20 24 Active insulin glargine (Basaglar KwikPen) 100 UNIT/ML penIndications:Typ e 2 diabetes mellitus with stage 3 chronic kidney disease, with long-term current use of insulin, unspecified whether stage 3a or 3b CKD (CMS/HCC) Inject 10 Units under the skin at bedtime. 3 mL 12 05/05/20 24 2024 Active Dulaglutide 1.5 MG/0.5ML solution auto-injectorIndic ations:Type 2 diabetes mellitus with stage 3 chronic kidney disease, with long-term current use of insulin, unspecified whether stage 3a or 3b CKD (CMS/HCC) Inject 0.5 mL (1.5 mg) under the skin 1 (one) time per week. 2 mL 11 05/05/20 24 Active metFORMIN XR (Glucophage-XR) 500 MG 24 hr tabletIndications: Type 2 diabetes mellitus with stage 3 chronic kidney disease, with long-term current use of insulin, unspecified whether stage 3a or 3b CKD (CMS/HCC) Take 2 tablets (1,000 mg) by mouth with evening meal. Do not crush, chew, or split. 120 tablet 11 05/05/20 24 Active latanoprost (Xalatan) 0.005 % ophthalmic solutionIndication s:Dry eyes INSTILL 1 DROP IN EACH EYE EVERY EVENING 03/16/20 24 Active escitalopram (Lexapro) 5 MG tabletIndications: Major depressive disorder, single episode with psychotic features (CMS/HCC) Take 1 tablet (5 mg) by mouth in the morning. 90 tablet 05/05/20 24 Active omeprazole (PriLOSEC) [address] capsuleIndications :Gastroesophageal reflux disease without esophagitis TAKE 1 CAPSULE BY MOUTH EVERY MORNING 30 capsule 11 /16/20 24 Active pen needle 33G x 4 mm miscIndications:Ty pe 2 diabetes mellitus with stage 3 chronic kidney disease, with long-term current use of insulin, unspecified whether stage 3a or 3b CKD (CMS/HCC) USE WITH LANTUS SOLOSTAR ONCE DAILY 100 each 06/15/192025 Active Aspirin Adult Low Strength 81 MG EC tabletIndications: History of cardioembolic cerebrovascular accident (CVA) TAKE 1 TABLET BY MOUTH EVERY MORNING 90 tablet 07/15/19 25 Active cyanocobalamin (Vitamin B-12) 1000 MCG tabletIndications: B12 deficiency TAKE 1 TABLET BY MOUTH EVERYDAY AT NOON 90 tablet 07/15/19 25 Active atorvastatin (Lipitor) 80 MG tabletIndications: Hypercholesterolem ia TAKE 1 TABLET BY MOUTH AT BEDTIME 30 tablet 11 08/05/19 25 Active Icosapent Ethyl (Vascepa) 1 g capsuleIndications :Hypercholesterole michelle TAKE 2 CAPSULES BY MOUTH TWICE DAILY IN THE MORNING AND EVENING WITH MEALS 120 capsule 08/05/19 25 Active fenofibrate (Triglide) 160 MG tabletIndications: Hypercholesterolem ia Take 1 tablet (160 mg) by mouth at bedtime. 30 tablet 08/05/19 25 Active Aspirin Adult Low Strength 81 MG EC tabletIndications: History of cardioembolic cerebrovascular accident (CVA) TAKE 1 TABLET BY MOUTH EVERY MORNING 90 tablet 3 07/23/19 24 2024 Discontinued cyanocobalamin (Vitamin B-12) 1000 MCG tabletIndications: B12 deficiency TAKE 1 TABLET BY MOUTH EVERYDAY AT NOON 90 tablet 07/23/19 24 2024 Discontinued Icosapent Ethyl (Vascepa) 1 g capsuleIndications :Hypercholesterole michelle TAKE 2 CAPSULES BY MOUTH TWICE DAILY IN THE MORNING AND EVENING WITH MEALS 120 capsule 01/07/20 24 2024 Discontinued(R eorder (will not trigger notification to Pharmacy)) fenofibrate (Triglide) 160 MG tabletIndications: Hypercholesterolem ia TAKE 1 TABLET BY MOUTH EVERY EVENING 30 tablet 11 05/17/20 24 2024 Discontinued(R eorder (will not trigger notification to Pharmacy)) atorvastatin (Lipitor) 80 MG tabletIndications: Type II diabetes mellitus with neurological manifestations (CMS/HCC),Hypercho lesterolemia TAKE 1 TABLET BY MOUTH AT BEDTIME 30 tablet 11 06/23/19 25 2024 Discontinued(R eorder (will not trigger notification to Pharmacy)) Active Problems Problem Noted Date Diagnosed Date Exercise counseling 08/04/2024 Dietary counseling 08/04/2024 Bilateral carpal tunnel syndrome 06/14/2024 Overview (06/14/2024): -nerve conduction study 06/2024 IMPRESSION: [id number] left median neuropathy across carpal tunnel. Mild left ulnar neuropathy across cubital tunnel. Encounter for screening mamm ogram for malignant neoplasm of breast 05/05/2024 Overview (05/05/2024): 02/06/24 BIRADS 1, continue routine annual screening -next due 02/05/26 Calcific tendinitis of right shoulder 02/09/2024 Cardiac risk counseling 02/09/2024 Overview (05/05/2024): The 10-year ASCVD risk score (Jerri RENEE, et al., 2019) is: 36.4% Values used to calculate the score: Age: 69 years Sex: Female Is Non- : No Diabetic: Yes Tobacco smoker: Yes Systolic Blood Pressure: 120 mmHg Is BP treated: Yes HDL Cholesterol: 34 mg/dL Total Cholesterol: 262 mg/dL Pt is at severely high risk for cardiac event due to uncontrolled diabetes, familial hypercholesterolemia, hypertension and tobacco use. Will refer to cardiology for further intervention. -referred to Cardiology 02/09/24 -continue atorvastatin 40mg -smoking cessation encouraged Assessment & Plan (05/05/2024 10:04 AM EST): The 10-year ASCVD risk score (Jerri RENEE, et al., 2019) is: 36.4% Values used to calculate the score: Age: 69 years Sex: Female Is Non- : No Diabetic: Yes Tobacco smoker: Yes Systolic Blood Pressure: 120 mmHg Is BP treated: Yes HDL Cholesterol: 34 mg/dL Total Cholesterol: 262 mg/dL Pt is at severely high risk for cardiac event due to uncontrolled diabetes, familial hypercholesterolemia, hypertension and tobacco use. Will refer to cardiology for further intervention. -referred to Cardiology 02/09/24 -continue atorvastatin 40mg -smoking cessation encouraged Assessment & Plan (02/09/2024 10:28 AM EDT): The 10-year ASCVD risk score (Jerri RENEE, et al., 2019) is: 34.8% Values used to calculate the score: Age: 68 years Sex: Female Is Non- : No Diabetic: Yes Tobacco smoker: Yes Systolic Blood Pressure: 120 mmHg Is BP treated: Yes HDL Cholesterol: 34 mg/dL Total Cholesterol: 262 mg/dL Pt is at severely high risk for cardiac event due to uncontrolled diabetes, familial hypercholesterolemia, hypertension and tobacco use. Will refer to cardiology for further intervention. -referred to Cardiology 02/09/24 Numbness of left hand 10/21/2023 Overview (08/04/2024): Had a nerve conduction study ordered in the past for suspected CTS. Still having left hand numbness. -re-ordered nerve conduction study 05/05/24 -nerve conduction study 06/2024 IMPRESSION: [id number] left median neuropathy across carpal tunnel. Mild left ulnar neuropathy across cubital tunnel. Assessment & Plan (05/05/2024 9:56 AM EST): Had a nerve conduction study ordered in the past for suspected CTS. Still having left hand numbness. -re-ordered nerve conduction study 05/05/24 Assessment & Plan (10/21/2023 11:24 AM EDT): CTS? Physical exam positive phalen test I will give her a wrist splint she needs to use it at bed time and during the day as much as possible Nerve test ordered Other specified health status 03/20/2023 Overview (08/04/2024): -next physical exam due after 08/04/2025 -eye care facilitated by mike shields -health care proxy given and filed 02/09/24 Assessment & Plan (02/09/2024 10:20 AM EDT): -next physical exam due after 06/26/2023 -eye care facilitated by mike -dental home is -health care proxy given and filed 02/09/24 Assessment & Plan (04/30/2023 3:36 PM EST): -next physical exam due after 06/26/2023 -eye care facilitated by mike -dental home is Stage 2 hypertension 06/06/2022 Overview (05/05/2024): -Blood pressure is not at goal 05/05/24. Has not taken medications today. -Continue lifestyle modifications -Continue current medications -Last Nephrology note is from 12/09/17. At that time, 24 hour urine collection was normal. Metanephrine came back slightly elevated. They increased Hydralazine to 25 bid. - Renal Doppler US showed some degree of renal artery stenosis. -ordered labs 05/05/24 Assessment & Plan (02/09/2024 10:24 AM EDT): -Blood pressure is at goal. -Continue lifestyle modifications -Continue current medications - Followed by Nephrology. -Last Nephrology note is from 12/09/17. At that time, 24 hour urine collection was normal. Metanephrine came back slightly elevated. They increased Hydralazine to 25 bid. - Renal Doppler US showed some degree of renal artery stenosis. Assessment & Plan (01/15/2024 6:27 PM EDT): - BP not at goal, patient states she did not her morning BP med - advised to take her medications as prescribed - continue working on lifestyle modifications Assessment & Plan (04/30/2023 3:32 PM EST): - Followed by Nephrology. -Last Nephrology note is from 12/09/17. At that time, 24 hour urine collection was normal. Metanephrine came back slightly elevated. They increased Hydralazine to 25 bid. - Renal Doppler US showed some degree of renal artery stenosis. Assessment & Plan (06/06/2022 12:32 PM EST): - Followed by Nephrology. -Last Nephrology note is from 12/09/17. At that time, 24 hour urine collection was normal. Metanephrine came back slightly elevated. They increased Hydralazine to 25 bid. - Renal Doppler US showed some degree of renal artery stenosis. History of cardioembolic cerebrovascular acciden t (CVA) 06/06/2022 Overview (06/06/2022): MRI in 2007 revealed a R lacunar infarct without enhancement. -continue statin, atorvastatin 40mg -continue ASA Assessment & Plan (02/09/2024 9:59 AM EDT): MRI in 2007 revealed a R lacunar infarct without enhancement. -continue statin, atorvastatin 40mg -continue ASA Assessment & Plan (04/30/2023 2:52 PM EST): MRI in 2007 revealed a R lacunar infarct without enhancement. -continue statin, atorvastatin 40mg -continue ASA Assessment & Plan (06/06/2022 12:34 PM EST): MRI in 2007 revealed a R lacunar infarct without enhancement. -continue statin, atorvastatin 40mg -continue ASA Chronic pain of both shoulders 05/31/2022 Overview (02/09/2024): -Chornic -She declined physical therapy, she doesn't want orthopedics for any injections, and she doesn't want anything stronger than Tylenol or a muscle relaxer. -We recommended light stretching. -X-ray on 09/14/21 showed spondylosis , mild degenerative changes of the right shoulder w/ question of calcific tendonitis or brusitis, degenerative changes of the left should w/ question with old tuberosity fracture. -Ortho shceduled 11/02/21 Assessment & Plan (04/30/2023 3:33 PM EST): -She is complaining of bilateral sholuder and neck pain x 4 days. She did not have any injury. -She declined physical therapy, she doesn't want orthopedics for any injections, and she doesn't want anything stronger than Tylenol or a muscle relaxer. -We recommended light stretching. -X-ray on 09/14/21 showed spondylosis , mild degenerative changes of the right shoulder w/ question of calcific tendonitis or brusitis, degenerative changes of the left should w/ question with old tuberosity fracture. -Ortho shceduled 11/02/21 Assessment & Plan (09/26/2022 9:44 AM EDT): -She is complaining of bilateral sholuder and neck pain x 4 days. She did not have any injury. -She declined physical therapy, she doesn't want orthopedics for any injections, and she doesn't want anything stronger than Tylenol or a muscle relaxer. -We recommended light stretching. -X-ray on 09/14/21 showed spondylosis , mild degenerative changes of the right shoulder w/ question of calcific tendonitis or brusitis, degenerative changes of the left should w/ question with old tuberosity fracture. -Ortho shceduled 11/02/21 Vitamin D deficiency 05/31/2022 Major depressive disorder, s tamar episode with psychotic features 05/10/2022 Overview (05/05/2024): Hx Anxiety, poor sleep, mood-congruent hallucinations (door knocking, felt presence of her [id number]). Anxious about medication side effects. After initial diarrhea and APPIAH (r/t anxiety?), she is now tolerating the Lexapro 5 mg once daily with improved mood. Did not discuss hallucinations today. Not sleeping well, might benefit from addition of low-dose melatonin, but deferring any changes for today. Assessment & Plan (02/09/2024 10:29 AM EDT): PMH: DM with neuropathy, severe hypertriglyceridemia, hearing loss, tremor s/p stroke many years ago. Anxiety, poor sleep, mood-congruent hallucinations (door knocking, felt presence of her [id number]-[id number]). Anxious about medication side effects. After initial diarrhea and APPIAH (r/t anxiety?), she is now tolerating the Lexapro 5 mg once daily with improved mood. Did not discuss hallucinations today. Not sleeping well, might benefit from addition of low-dose melatonin, but deferring any changes for today. Assessment & Plan (04/30/2023 2:50 PM EST): PMH: DM with neuropathy, severe hypertriglyceridemia, hearing loss, tremor s/p stroke many years ago. Anxiety, poor sleep, mood-congruent hallucinations (door knocking, felt presence of her fjorzb-ui-tuw). Anxious about medication side effects. After initial diarrhea and APPIAH (r/t anxiety?), she is now tolerating the Lexapro 5 mg once daily with improved mood. Did not discuss hallucinations today. Not sleeping well, might benefit from addition of low-dose melatonin, but deferring any changes for today. Assessment & Plan (09/26/2022 9:43 AM EDT): PMH: DM with neuropathy, severe hypertriglyceridemia, hearing loss, tremor s/p stroke many years ago. Anxiety, poor sleep, mood-congruent hallucinations (door knocking, felt presence of her [id number]-tta). Anxious about medication side effects. After initial diarrhea and APPIAH (r/t anxiety?), she is now tolerating the Lexapro 5 mg once daily with improved mood. Did not discuss hallucinations today. Not sleeping well, might benefit from addition of low-dose melatonin, but deferring any changes for today. Assessment & Plan (06/11/2022 11:48 AM EST): PMH: DM with neuropathy, severe hypertriglyceridemia, hearing loss, tremor s/p stroke many years ago. Presented with Anxiety, poor sleep, mood-congruent hallucinations (door knocking, felt presence of her qcsfwo-fe-hro). She is much improved, depression in remission. At this time she will be referred back to her PCP for further medication management. I would be happy to see her again in the future as needed. She agrees with the plan. B12 deficiency 08/03/2021 Gastroesophageal reflux disease 08/03/2021 Osteoporosis 08/03/2021 Peripheral vascular disease 10/06/2019 Overview (10/31/2023): ABIs 05/06/23 with Zi Cotton MD Aorta/iliac: Elevated velocity in the right common iliac artery with a dampened arterial waveforms seen distally which could represent a moderate stenosis. Right leg: Severely dampened monophasic waveforms and decreased velocity seen throughout the superficial femoral artery with extensive atherosclerotic plaque likely representing diffuse severe stenosis. Patent but markedly dampened waveforms throughout the runoff vessels. Stable ankle brachial index Left leg: Severely dampened monophasic waveforms decrease velocities throughout the superficial femoral artery with extensive atherosclerotic plaque likely representing diffuse severe stenosis. Short segment occlusion of the proximal popliteal artery with reconstituted flow in the distal segment. Patent but markedly dampened waveforms throughout the runoff vessels. Stable ankle brachial index Angiogram 01/05/2020- total right SFA occlusion will need fem-pop bypass if clinically required Seen by [facility] 10/30/23: In short her arterial status appears to be stable at the current time. Will schedule for annual surveillance. We did discuss risk factor modification. Thank you for allowing us to assist in her care. If there are any questions or concerns please do not hesitate to contact us. US arterial duplex LE BI 1 Year I Assessment & Plan (02/09/2024 10:19 AM EDT): ABIs 05/06/23 with Zi Cotton MD Aorta/iliac: Elevated velocity in the right common iliac artery with a dampened arterial waveforms seen distally which could represent a moderate stenosis. Right leg: Severely dampened monophasic waveforms and decreased velocity seen throughout the superficial femoral artery with extensive atherosclerotic plaque likely representing diffuse severe stenosis. Patent but markedly dampened waveforms throughout the runoff vessels. Stable ankle brachial index Left leg: Severely dampened monophasic waveforms decrease velocities throughout the superficial femoral artery with extensive atherosclerotic plaque likely representing diffuse severe stenosis. Short segment occlusion of the proximal popliteal artery with reconstituted flow in the distal segment. Patent but markedly dampened waveforms throughout the runoff vessels. Stable ankle brachial index Angiogram 01/05/2020- total right SFA occlusion will need fem-pop bypass if clinically required Seen by [facility] 10/30/23: In short her arterial status appears to be stable at the current time. Will schedule for annual surveillance. We did discuss risk factor modification. Thank you for allowing us to assist in her care. If there are any questions or concerns please do not hesitate to contact us. US arterial duplex LE BI 1 Year I Mitral valve regurgitation 05/08/2012 Tremor 05/05/2012 Type 2 diabetes mellitus wit h hyperglycemia, with long-term current use of insulin 04/01/2012 Overview (06/14/2024): Diabetes is not controlled. A1C is worse than it was a month ago.(See below) Lab Results Component Value Date HGBA1C 8.7 (H) 05/05/2024 HGBA1C 10.3 (A) 02/09/2024 HGBA1C 10.0 (A) 01/15/2024 Lab Results Component Value Date CREATININE 0.62 05/05/2024 EGFR >60 05/05/2024 MICROALBCREU 105.9 (H) 05/05/2024 LDLCHOLCAL TNP 05/05/2024 -Gregor/Arb: Cozaar 100mg -Statin therapy: Atorvastatin 80mg -Diabetic eye exam: [facility] 11/14/23, preop. -Diabetic foot exam: 02/09/24 -Continue lifestyle modifications -Continue current medications - Metformin ER 500mg take 2 tablets twice daily - Dulaglutide 1.5 MG/0.5ML solution auto-injector Self discontinued Triseba x3 weeks(05/05/24) due to skin irritation. Spoke with [facility] pharmacist and will change Triseba to Basaglar. -Start insulin glargine (Basaglar KwikPen) 100 UNIT/ML pen, nightly 05/05/24 -ordered labs 05/05/24 Assessment & Plan (05/05/2024 10:04 AM EST): Diabetes is not controlled. A1C is worse than it was a month ago.(See below) - Lab Results Component Value Date HGBA1C 10.3 (A) 02/09/2024 HGBA1C 10.0 (A) 01/15/2024 HGBA1C 7.7 (A) 04/30/2023 - Lab Results Component Value Date CREATININE 0.60 12/17/2023 EGFR >60 12/17/2023 LDLCHOLCAL TNP 10/21/2023 -Gregor/Arb: Cozaar 100mg -Statin therapy: Atorvastatin 80mg -Diabetic eye exam: [facility] 11/14/23, preop. -Diabetic foot exam: 02/09/24 -Continue lifestyle modifications -Continue current medications - Metformin ER 500mg take 2 tablets twice daily - Dulaglutide 1.5 MG/0.5ML solution auto-injector Self discontinued Triseba x3 weeks(05/05/24) due to skin irritation. Spoke with [facility] pharmacist and will change Triseba to Basaglar. -Start insulin glargine (Basaglar PremikPen) 100 UNIT/ML pen, nightly 05/05/24 -ordered labs 05/05/24 Assessment & Plan (02/09/2024 10:23 AM EDT): Diabetes is not controlled. A1C is worse than it was a month ago.(See below) - Lab Results Component Value Date HGBA1C 10.3 (A) 02/09/2024 HGBA1C 10.0 (A) 01/15/2024 HGBA1C 7.7 (A) 04/30/2023 - Lab Results Component Value Date CREATININE 0.60 12/17/2023 EGFR >60 12/17/2023 LDLCHOLCAL TNP 10/21/2023 -Gregor/Arb: Cozaar 100mg -Statin therapy: Atorvastatin 80mg -Diabetic eye exam: [facility] 11/14/23, preop. -Diabetic foot exam: 02/09/24 -Continue lifestyle modifications -Continue current medications - Metformin ER 500mg take 2 tablets twice daily - Glipizide ER 5mg once daily - Increase Trulicity from 0.75mg to 1.5mg once weekly 02/09/24 Assessment & Plan (01/15/2024 6:30 PM EDT): - A1C has worsened significantly - Encouraged her to monitor her BG and continue working on lifestyle modifications - Continue current medications as prescribed - Follow up with PCP as scheduled Assessment & Plan (04/30/2023 3:28 PM EST): Diabetes is controlled. - Lab Results Component Value Date HGBA1C 7.7 (H) 11/29/2022 HGBA1C 7.6 (H) 09/13/2022 HGBA1C 7.9 (A) 06/06/2022 -No results found for: POCA1C - Lab Results Component Value Date MICROALBUR 6.8 08/14/2021 CREATININE 0.49 (L) 06/24/2022 -Gregor/Arb: Cozaar 100mg -Statin therapy: Atorvastatin 80mg -Diabetic eye exam: -Diabetic foot exam: 4/17/23 -Continue lifestyle modifications -Continue current medications - Metformin ER 500mg take 2 tablets twice daily - Glipizide ER 5mg once daily - Trulicity 0.75mg once weekly Assessment & Plan (09/26/2022 10:19 AM EDT): Diabetes is controlled. - Lab Results Component Value Date HGBA1C 7.6 (H) 09/13/2022 HGBA1C 7.9 (A) 06/06/2022 - Lab Results Component Value Date MICROALBUR 6.8 08/14/2021 CREATININE 0.49 (L) 06/24/2022 -Changes: -Gregor/Arb: Cozaar 100mg -Statin therapy: Atorvastatin 80mg -Diabetic eye exam: -Diabetic foot exam: 09/26/22 -Continue lifestyle modifications -Continue current medications Hypercholesterolemia 01/08/2012 Overview (08/04/2024): Pt has history of severe hyper triglycerides (>2000) currently we got it as low as 300s but she is not back to 1,550 range. -Seen by geography instructor on 12/14/2020 but referred back to PCP because patient didn't get her labs drawn Lab Results Component Value Date CHOL 436 (H) 05/05/2024 CHOL 262 (H) 10/21/2023 TRIG 2,296 (H) 05/05/2024 TRIG 689 (H) 10/21/2023 TRIG 1,077 (H) 11/29/2022 TRIG 629 (H) 06/24/2022 HDL 33 (L) 05/05/2024 HDL 34 (L) 10/21/2023 LDLCHOLCAL TNP 05/05/2024 LDLCHOLCAL TNP 10/21/2023 -continue lifestyle modification -continue fenofibrate 160mg daily -atorvastatin 80 -Lovaza 1gm 2 tabs bid restarted 08/17/2021 but per pharmacy last filled 2019; will restart 10/31/2021 Assessment & Plan (05/05/2024 10:05 AM EST): Pt has history of severe hyper triglycerides (>2000) currently we got it as low as 300s but she is not back to 1,550 range. -Seen by geography instructor on 12/14/2020 but referred back to PCP because patient didn't get her labs drawn Lab Results Component Value Date CHOL 262 (H) 10/21/2023 TRIG 689 (H) 10/21/2023 TRIG 1,077 (H) 11/29/2022 TRIG 629 (H) 06/24/2022 HDL 34 (L) 10/21/2023 LDLCHOLCAL TNP 10/21/2023 -continue lifestyle modification -continue fenofibrate 160mg daily -atorvastatin increased to 40mg 08/17/2021 -Lovaza 1gm 2 tabs bid restarted 08/17/2021 but per pharmacy last filled 2019; will restart 10/31/2021 Assessment & Plan (02/09/2024 12:05 PM EDT): Pt has history of severe hyper triglycerides (>2000) currently we got it as low as 300s but she is not back to 1,550 range. -Seen by geography instructor on 12/14/2020 but referred back to PCP because patient didn't get her labs drawn Lab Results Component Value Date CHOL 262 (H) 10/21/2023 TRIG 689 (H) 10/21/2023 TRIG 1,077 (H) 11/29/2022 TRIG 629 (H) 06/24/2022 HDL 34 (L) 10/21/2023 LDLCHOLCAL TNP 10/21/2023 -continue lifestyle modification -continue fenofibrate 160mg daily -atorvastatin increased to 40mg 08/17/2021 -Lovaza 1gm 2 tabs bid restarted 08/17/2021 but per pharmacy last filled 2019; will restart 10/31/2021 Assessment & Plan (04/30/2023 5:08 PM EST): Pt has history of severe hyper triglycerides (>2000) currently we got it as low as 300s but she is not back to 1,550 range. -Seen by geography instructor on 12/14/2020 but referred back to PCP because patient didn't get her labs drawn -08/14/21; TC 301; HDL 35; TG 1,282; LDL unable to calculate due to TG being elevated. -continue fenofibrate 160mg daily -atorvastatin increased to 40mg 08/17/2021 -Lovaza 1gm 2 tabs bid restarted 08/17/2021 but per pharmacy last filled 2019; will restart 10/31/2021 Assessment & Plan (06/06/2022 12:33 PM EST): Pt has history of severe hyper triglycerides (>2000) currently we got it as low as 300s but she is not back to 1,550 range. -Seen by geography instructor on 12/14/2020 but referred back to PCP because patient didn't get her labs drawn -08/14/21; TC 301; HDL 35; TG 1,282; LDL unable to calculate due to TG being elevated. -continue fenofibrate 160mg daily -atorvastatin increased to 40mg 08/17/2021 -Lovaza 1gm 2 tabs bid restarted 08/17/2021 but per pharmacy last filled 2019; will restart 10/31/2021 Resolved Problems Problem Noted Date Diagnosed Date Resolved Date Type 2 diabetes mellitus wit h hyperglycemia, without long-term current use of insulin 06/15/2024 06/15/2024 Type 2 diabetes mellitus wit h stage 3 chronic kidney disease, with long-term current use of insulin, unspecified whether stage 3a or 3b CKD 06/15/2024 06/15/2024 Diabetes due to underlying c ondition w oth circulatory comp 04/30/2023 02/09/2024 Cerumen debris on tympanic m embrane of right ear 04/30/2023 02/09/2024 Overview (04/30/2023): ear wax drops for left ear Assessment & Plan (04/30/2023 4:00 PM EST): ear wax drops for left ear Hypertrophic toe 09/26/2022 05/05/2024 Assessment & Plan (09/26/2022 10:17 AM EDT): Toenails cut today. 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 Therapist and psychiatrist offered. Assessment & Plan (02/09/2024 12:07 PM EDT): Denies suicidial or homacidial ideation. Therapist and psychiatrist offered. Assessment & Plan (12/23/2022 10:08 AM EDT): Assessment: Armida was engaged with active reflective listening and open-ended questions. Assessed symptoms, risks, and social supports with direct questions. Discussed current symptoms intensity and frequency. Emotions were normalized and validated. She was not able to identified coping mechanisms But identify her son as protective factors. Provided psychoeducation around Coping mechanisms to manage depression and anxiety sxs. Discussed OP therapy and Medication Management. Provided education around integrated medicine and the options of follow up BE's as needed. Provided contact information should questions or concerns arise. Plan: Armida will engage in effective coping mechanisms to manage anxiety and depressive sxs. She will be referred to OP services. Patient with lack of motivation, feeling depressed, insomnia, over eating at times, low self-esteem, passive thoughts w/o plan or intention, feeling anxious, trouble relaxing, restlessness, irritability and fearfulness, nightmares, avoidance of people and topics. She denies SI, HI, AVH or self-harm at this time. Armida lives with her son, who is currently hospitalized. She reported hx of trauma in childhood, but didn't want to talk about it. Hx of MH services at [facility], case ws closed because she missed appts.. Patient will benefit from Ind. Therapy and Med. management. At this time Armida Vega meets criteria for Visit Diagnoses: Problem List Items Addressed This Visit Other Depression, unspecified Patient ready to address current needs Yes Strengths include willing to seek help PLAN: 1. Follow up with [facility]: Not recommended for follow-up 2. Patient goal is to engage in MH services 3. Behavioral Recommendations a. Ind. Therapy b. Med. Management c. Use of coping Mechanisms provided. Encounters Date Type Department Care Team Description 08/04/2024 9:30 AM EST Office Visit [facility] [address] [place] [phone] Mitzi Cantu MD Hypercholesterolemia (Primary Dx); Type 2 diabetes mellitus with stage 3 chronic kidney disease, with long-term current use of insulin, unspecified whether stage 3a or 3b CKD ([facility]); Stage 2 hypertension; Peripheral vascular disease ([facility]); Major depressive disorder, single episode with psychotic features ([facility]); Overweight; Dietary counseling; Exercise counseling; Type II diabetes mellitus with neurological manifestations ([facility]); Other specified health status 08/04/2024 Refill [facility] [address] [place] [address] Mitzi Cantu MD Stage 2 hypertension 08/04/2024 Travel 07/28/2024 Telephone [facility] [address] [place] [address] Mitzi Cantu MD Nurse Triage 07/27/2024 Patient Outreach [address] [address] Mitzi Cantu MD Pre-visit Planning (SDOH Screening negative and Tobacco screening negative) 07/21/2024 Telephone [facility] [address] [place] [phone] Mitzi Cantu MD 07/15/2024 Refill [facility] [address] [place] [address] Kailee Velarde MD History of cardioembolic cerebrovascular accident (CVA); B12 deficiency 06/23/2024 Refill [facility] [address] [place] [address] Mitzi Cantu MD Type II diabetes mellitus with neurological manifestations ([facility]); Hypercholesterolemia 06/10/2024 Telephone [facility] [address] [place] [phone] Stepan Alex MA July05/16/2024 Refill [facility] [address] [place] [address] Mitzi Cantu MD Hypercholesterolemia; Gastroesophageal reflux disease without esophagitis 05/11/2024 Refill [facility] [address] [place] [address] Christa Kwan, PharmD 05/11/2024 Telephone [facility] [address] [place] [address] Mitzi Cantu MD NERVE CONDUCTION ORDER 05/11/2024 Refill [facility] [address] [place] [address] Christa Kwan, PharmD from Last 3 Months Immunizations Name Administration Dates Next Due Influenza High-dose Quadriva lent Preservative Free 03/08/2022 Influenza Injectable Quadriv alant Preservative Free IIV4 MDCK 10/31/2021 Influenza injectable quadriv alent IIV4 with preservative 04/16/2018 Influenza injectable quadriv alent preservative free 03/13/2017,03/26/2016,03/16/2015,10/06 Influenza, IIV3, injectable 10/25/2009, 9,02/27/2007 Influenza, Split (incl. karen fied surface antigen) 02/17/2013,04/01/2012 Pneumococcal Conjugate PCV 20 01/09/2022 Pneumococcal Polysaccharide PPSV23 03/16/2015, TD (adult), 2 Lf tetanus tox oid, preservative free, adsorbed 10/25/2009 Tdap 04/01/2012 Zoster, Recombinant 01/09/2022,10/31/2021 Zoster, live 10/06/2014 Family History Medical History Relation Name Comments Heart disease Father Alcohol abuse Son Hyperlipidemia Son Pancreatitis Son traumatic brain injury Son Relation Name Status Comments Father Son Social History Tobacco Use Types Packs/Day Years Used Date Smoking Tobacco: Some Days Cigarettes Passive Smoke Exposure: Never Smokeless Tobacco: Never Tobacco Cessation:Ready to Q uit: Not Asked; Counseling Given: Not Answered Alcohol Use Standard Drinks/Week Comments Never 0 [...] Orientation Straight 04/01/2022 10 :14 AM EDT Last Filed Vital Signs Vital Sign Reading [...] 6.4 oz) 08/04/2024 9:49 AM EST Height 149.9 cm (4' 11 ) 02/09/2024 9:51 AM EDT Body Mass Index 28.96 02/09/2024 9:51 AM EDT Plan of Treatment Upcoming Encounters Date Type Department Care Team (Late st Contact Info) Description 11/04/2024 9:30 AM EDT Office Visit [facility] [address] [place] [address] Mitzi Cantu MD [address] [place] [address] Health Maintenance Due Date Last Done Comments CT Colonography 1954 FIT DNA/Cologuard 1954 FIT 1954 FOBT 1955 Sigmoidoscopy 1954 Diabetes: Hemoglobin A1C 11/04/2024 025, 05/05/2024, 02/09/2024, Additional history exists Influenza Vaccine (#1) 2024 , 10/31/2021, 04/16/2018, Additional history exists Postponed from 02/01/2024 (Patient Refused) DTaP/Tdap/Td Vaccines (2 - Td or Tdap) 02/08/2025 04/01/2012, 10/25/2009 Postponed from 04/01/2022 (Patient Refused) Depression Screening 02/08/2025 02/09/2024, 02/09/20 24 Diabetes: Foot Exam 02/08/2025 02/09/2024, 02/09/2024, 02/09/2024, Additional history exists RSV Patients and Patients Aged 60 years or older (1 - Risk 60-74 years 1-dose series) 02/08/2025 Postponed from 2014 (Patient Refused) Lipid Panel 05/05/2025 05/05/2024, 05/2 06/2023, 11/29/2022, Additional history exists Tobacco Screening 05/05/2025 05/05/2024 SDOH Screening 07/27/2025 07/27/2024 Alcohol/Substance Use Screening 08/04/2025 08/04/2024 Eye Exam 11/13/2025 11/14/2023 Mammogram 02/05/2026 02/06/2024, 05/0 06/2023, 09/25/2022, Additional history exists Colonoscopy 10/31/2028 10/31/2018 Colorectal Cancer Screening 10/31/2028 COVID-19 Vaccine Discontinued 05/16/2021, , 08/04/2020 Pneumococcal Vaccine: 50+ Years Completed 01/09/2022, 03/16/2015, 02/24/2006 Zoster Vaccines Completed 01/09/2022, 06/06/2021, 10/06/2014 Hepatitis C Screening Completed 06/24/2022 HIB Vaccines Aged Out No longer eligi ble based on patient's age to complete this topic HPV Vaccines Aged Out No longer eligi ble based on patient's age to complete this topic Hepatitis A Vaccines Aged Out No long er eligible based on patient's age to complete this topic Hepatitis B Vaccines Aged Out No long er eligible based on patient's age to complete this topic IPV Vaccines Aged Out No longer eligi ble based on patient's age to complete this topic Meningococcal Vaccine Aged Out No oneyda sandra eligible based on patient's age to complete this topic RSV under 20 months Aged Out No longe r eligible based on patient's age to complete this topic Rotavirus Vaccines Aged Out No longer eligible based on patient's age to complete this topic Goals Goal Patient Goal Type Associated Problems Recent Progress Patient-Stated? Author Hemoglobin A1c < 7 Result Component 9.7(08/04/2024 10:13 AM EST) Christa Snow, Bindu Procedures Procedure Name Priority Date/Time Associated Diagnosis Comments POCT GLYCOSYLATED HEMOGLOBIN (HGB A1C) Routine 08/04/2024 10:13 AM EST Type 2 diabetes mellitus with stage 3 chronic kidney disease, with long-term current use of insulin, unspecified whether stage 3a or 3b CKD (CMS/HCC) POCT GLUCOSE Routine 08/04/2024 10:13 AM EST Type 2 diabetes mellitus with stage 3 chronic kidney disease, with long-term current use of insulin, unspecified whether stage 3a or 3b CKD (CMS/HCC) LIPID PANEL, STANDARD Routine 05/05/2024 10:15 AM EST Type 2 diabetes mellitus with stage 3 chronic kidney disease, with long-term current use of insulin, unspecified whether stage 3a or 3b CKD (CMS/HCC) MAMMOGRAPHY Routine 02/06/2024 3:02 PM EDT DIABETES EYE EXAM Routine 11/14/2023 3:26 PM EDT HEPATITIS C VIRAL RNA, QUANTITATIVE, REAL-TIME PCR Routine 06/24/2022 8:19 AM EST Routine screening for STI (sexually transmitted infection) HM COLONOSCOPY Routine 10/31/2018 12:37 PM EDT from Last 3 Months or Most Recently Relevant to Health Maintenance Results * (ABNORMAL) POCT glycosylated hemoglobin (Hgb A1c) (08/04/2024 10:13 AM EST) Hemoglobin A1C 9.7(A) 4.0 - 6.0 % QC Media Lot # [id number] Lot# Expiration Date Blood Capillary blood specimen / Unknown 08/04/2024 10:13 AM EST Mitzi Cantu MD POINT OF CARE TEST ENTER/E DIT ORDERABLES Final Result * (ABNORMAL) POCT glucose manually resulted (08/04/2024 10:13 AM EST) Pathologist [facility] Glucose Blood, POC 206(A) 60 - 200 mg/dL QC Media Lot # [id number] Lot# Expiration Date [id number] Blood Capillary blood specimen / Unknown 08/04/2024 10:13 AM EST Mitzi Cantu MD POINT OF CARE TEST ENTER/E DIT ORDERABLES Final Result * (ABNORMAL) Lipid Panel, Standard (05/05/2024 10:15 AM EST) Triglycerides 2,296(H) <150 mg/dL [facility] Comment:Slight Lipemia.Thor able Triglyceride: less than 150 mg/dLBorderline High Triglyceride 150-199 mg/dLHigh Triglyceride: 200-499 mg/dLVery High Triglyceride: greater than or equal to 5OO mg/dL Cholesterol 436(H) <200 mg/dL [facility] Comment:Desirable Cholestero l: less than 200 mg/dLBorderline High Cholesterol: 200-239 mg/dLHigh Cholesterol: greater than 239 mg/dL LDL Cholesterol Calculated TNP <100 mg/dL [facility] Comment:Unable to calculate the LDL. The formula of Friedwald,Negrete, and Ruddy is only valid if the triglycerides areless than 400 mg/dl. HDL Cholesterol 33(L) >40 mg/dL [facility] Comment:Desirable HDL: great er than 40 mg/dL Note: This HDL assay may give artificially low results in patients with liver disease. Blood Venous blood specimen / Unknown 05/05/2024 10:15 AM EST 05/05/2024 11:09 AM EST Mitzi Cantu MD LAB BLOOD ORDERABLES Final Result [facility] [address] [place] [phone] * Mammography (02/06/2024 3:02 PM EDT) Pathologist [facility] Mammogram BIRADS 1 Normal, Abnormal, BIRADS 1 , BIRADS 2 Comment:routine annual mamma graphy screening Anatomical Region Laterality Modality Other Historical Provider MD HEALTH MAINTENANCE Final Result * Diabetes Eye Exam (11/14/2023 3:26 PM EDT) [facility] Eye Exam Normal Normal Comment:follow up one year Historical Provider MD HEALTH MAINTENANCE Final Result * Hepatitis C Viral RNA, Quantitative, Real-Time PC (06/24/2022 8:19 AM EST) [facility] HCV RNA, QN Real Time PCR <15 NOT DETECTED NOT DETECTED IU/mL [email or web address] [facility] HCV RNA QN Real Time PCR <1.18 NOT DETECTED NOT DETECTED Log IU/mL [email or web address] Comment: This test was performed using Real-Time Polymerase Chain Reaction. Reportable Range: 15 IU/mL to 100,000,000 IU/mL (1.18 Log IU/mL to 8.00 Log IU/mL). ?? The analytical performance characteristics of this assay have been determined by [email or web address]. The modifications have not been cleared or approved by the FDA. This assay has been validated pursuant to the CLIA regulations and is used for clinical purposes. ?? For more information on this test, go to: http://education.[employer].Loku/faq/TKS63x1 (This link is being provided for informational/ educational purposes only.) 06/24/2022 8:19 AM EST 06/24/2022 8:19 AM EST Narrative [facility] - 06/27/2022 5:25 PM EST FASTING:YES FASTING: YES Mitzi Cantu MD LAB BLOOD ORDERABLES Final Result [facility] [address], [place] [address] [email or web address] [facility] [address] [facility], ([address]) [place] [address] * Hm Colonoscopy (10/31/2018 12:37 PM EDT) Mitzi Cantu MD HEALTH MAINTENANCE Final R esult from Last 3 Months or Most Recently Relevant to Health Maintenance Insurance STANDARD MEDICARE * Guarantor: Armida Olmstead Account Type Relation to Patient Date of Phone Billing Address Personal/Family Self [address] Advance Directives Documents on File Type Date Recorded Patient Crew Leader Expl anation Advance Directives and Living Will 02/09/2024 Health Care Proxy 02/09/24 Care Teams Marine Engineering Professor Relationship Specialty Start Date End Date [place], MD Mitzi [address] [place] [address] PCP - General Family Medicine 06/02/18 Christa Kwan, CrisD [address] [place] [phone] Pharmacist Internal Medicine 07/16/22 Zi Cotton MD [address] [place] [address] Vascular Surgery 04/22/24 Gamal Quiñonez MD [address] [place] [address] Cardiology 04/28/24
--- OUTSIDE RECORDS SUMMARY | 2024-08-04 12:35 | XMS_ITS | Encounter Summary ---
Author Organization [facility] Address [address] [facility] [facility] [address] [place] [address] Care Team Providers Care Carpentry Specialist Name Role Phone OsborneMitzi layne MD Primary Care Provider + [phone] Christa Kwan PharmD Unavailable Zi Cottno MD Unavailable Gamal Quiñonez MD Unavailable [phone] Reason for Visit * Reason Comments Med Refill Encounter Details Date Type Department Care Team (Late st Contact Info) Description 05/20/2022 Refill [facility] [address] [place], [place] [phone] Christa Kwan PharmD [address] [place] [address] Type II diabetes mellitus with neurological manifestations (CMS/HCC) (Primary Dx) Social History Tobacco Use Types [...] encounter Miscellaneous Notes * Telephone Encounter - Christa Kwan PharmD - 05/21/2022 12:58 PM EST Approving, but needs appt for additional refills. documented in this encounter Plan of Treatment Upcoming Encounters Date Type Department Care Team (Late st Contact Info) Description 11/04/2024 9:30 AM EDT Office Visit [facility] [address] [place] [address] Mitzi Cantu MD [address] [place] [address] documented as of this encounter Visit Diagnoses Diagnosis Type II diabetes mellitus with neurological manifestations (CMS/HCC)- Primary Type II or unspecified type diabetes mellitus with neurological manifestations, not stated as uncontrolled documented in this encounter Care Teams Carpentry Specialist Relationship Specialty Start Date End Date Mitzi Cantu MD [address] [place] [address] PCP - General Family Medicine 06/02/18 Christa Kwan PharmD [address] [place] [address] Pharmacist Internal Medicine 07/16/22 Zi Cotton MD [address] [place] [address] Vascular Surgery 04/22/24 Gamal Quiñonez MD [address] [place] [address] Cardiology 04/28/24 documented as of this encounter
[2024-08-04 12:55] LABS: Alanine Aminotransferase 31 U/L (0-31); Albumin Level 4.2 g/dL (3.5-5.0); Alkaline Phosphatase 101 U/L (39-117); Aspartate Amino Transferase 22 U/L (5-31); Bilirubin Direct < 0.2 mg/dL (0.0-0.5); Bilirubin Total 0.2 mg/dL (0.0-1.0); Cholesterol 318 mg/dL (<200); HDL Cholesterol 28 mg/dL (>40); Total Protein 8.2 g/dL (6.5-8.0)
[2024-08-04 13:05] LABS: Triglycerides 1575 mg/dL (<150)
== END 2024-08-04 10:36 | disposition home or self-care (01) ==
LOC: HO.HHCL 10:35
PROVIDERS: Visit Provider Family Medicine
DX: E78.00 Pure hypercholesterolemia, unspecified (principal)
CPT/HCPCS: 36415; 80061; 80076

== ENCOUNTER 2024-11-01 10:46 | Outpatient (REF) | payer MEDICARE, MEDICAID, SELFPAY ==
--- NOTE | ~2024-11-01 | US_ITS ---
EXAMINATION: US NONINVASIVE ASSESSMENT OF THE LOWER EXTREMITY WITH ARTERIAL DUPLEX AND ANKLE BRACHIAL INDICES (ABIS) CLINICAL INFORMATION: COMPARISON: None available. TECHNIQUE: Duplex Doppler techniques with waveform analysis and measurement of velocities in the common femoral, profunda femoris, superficial femoral, popliteal and tibial arteries were performed. In addition, ankle pulse volume recordings, ankle pressure measurements and ankle brachial indices were obtained of the lower extremity arterial system. The study was performed only at rest. FINDINGS: NONINVASIVE ASSESSMENT OF THE ARTERIES OF BILATERAL LOWER EXTREMITIES WITH ABIs: RIGHT LEG: Ankle-brachial index: 0.58 Segmental BP: PT = 89 DP = 95 Ankle PVR: Abnormal monophasic waveforms. LEFT LEG: Ankle-brachial index: 0.52 Segmental DAP: PT = 86 DP = 75 Left ankle PVR: Abnormal, monophasic waveforms. STEPHEN Reference: 0.9 - 1.4 = normal - no significant arterial disease 0.7 - 0.89 = mild peripheral arterial disease 0.51 - 0.69 = moderate peripheral arterial disease 0.50 = severe peripheral arterial disease FINDINGS: Atheromatous Plaque: Extensive bilateral atheromatous plaque identified. RIGHT FEMORAL RUNOFF VELOCITIES: The right common femoral artery measures 41 cm/s and monophasic. (Findings suggest right iliac inflow stenosis) The right profunda femoral artery is 614 cm/s and is monophasic. (High-grade stenosis) The right proximal superficial femoral artery measures 19.4 cm/s and monophasic. The right mid superficial femoral artery is occluded. The right distal right superficial femoral artery is occluded. The right popliteal velocity measures 23.7 cm/s and is monophasic. More distally it is occluded. The right posterior tibial artery velocity measures 15 cm/s and is monophasic. LEFT FEMORAL RUNOFF VELOCITIES: The left common femoral artery measures 125 cm/s and biphasic. (Possible left iliac inflow stenosis) The left profunda femoral artery is 236 cm/s and is biphasic. (High-grade stenosis) The left proximal superficial femoral artery is occluded. The left mid superficial femoral artery is occluded. The left distal right superficial femoral artery is occluded. The left popliteal velocity measures 110 cm/s and is monophasic. The left posterior tibial artery velocity measures 20.1 cm/s and is monophasic. US/US arterial duplex BI w/ STEPHEN IMPRESSION: 1. Findings suggesting inflow disease into the RIGHT common femoral artery. 2. High-grade stenosis at the proximal superficial femoral/profunda femoral artery junction, with newly acquired occlusion of the mid and distal RIGHT superficial femoral artery. It appears the RIGHT profunda femoral artery is supplying the more distal popliteal and tibial arteries. The distal RIGHT popliteal artery appears occluded as well. 3. Abnormal bilateral ABIs, with abnormal monophasic waveforms bilaterally. 4. The LEFT proximal, mid, and distal superficial femoral artery are newly occluded. It appears the left profunda femoral artery is supplying the more distal popliteal and tibial arteries. Electronically signed by: Brien Noel MD 11/09/2024 09:46 AM EDT
--- OUTSIDE RECORDS SUMMARY | 2024-11-01 11:50 | XMS_ITS | Encounter Summary ---
Author Organization [facility], Address [address] [address] Phone Care Team Providers Care Assistant Professor Of Biology Name Role Phone Mitzi Cantu MD Primary Care Provider U navailsteven Reason for Visit * Reason Comments Med Refill Encounter Details Date Type Department Care Team (Late st Contact Info) Description 11/30/2021 Refill [facility] [address] [place] [address] Josafat Colón MD [address] [place] [address] [place] [address] Social History Tobacco Use Types [...] on filedocumented in this encounter Care Teams Assistant Professor Of Biology Relationship Specialty Start Date End Date Mitzi Cantu MD PCP - General 04/06/19 documented as of this encounter
== END 2024-11-01 10:47 | disposition home or self-care (01) ==
LOC: HO.US 10:46
PROVIDERS: PCP Family Medicine; Visit Provider Surgery Vascular Surgery
DX: I73.9 Peripheral vascular disease, unspecified (principal)
CPT/HCPCS: 93922; 93925

== ENCOUNTER → 2024-11-01 10:48 | Outpatient (BNV) | payer MEDICARE, MEDICAID, SELFPAY | PROVIDERS: PCP Family Medicine; Visit Provider Radiology Diagnostic Radiology | DX: I73.9 Peripheral vascular disease, unspecified (principal) | CPT/HCPCS: 93922; 93925 ==

== ENCOUNTER 2024-11-22 09:42 | Emergency (ER) | payer MEDICARE, MEDICAID, SELFPAY ==
--- NOTE | ~2024-11-22 | US_ITS ---
EXAMINATION: Noninvasive assessment of the left lower extremity. CLINICAL INFORMATION: Occluded left superficial femoral artery. Status post angioplasty dated 01/05/2020. TECHNIQUE: Duplex Doppler techniques with waveform analysis and measurement of velocities in the left common femoral, profunda femoris, superficial femoral, popliteal and tibial arteries were performed. The study was performed only at rest. COMPARISON: November 01, 2024. FINDINGS: DIRECT DUPLEX DOPPLER FINDINGS: Calcified plaques. LEFT LEG: Common femoral artery: 169 cm/s, phasicity: Biphasic Profunda femoris artery: 295 cm/s, phasicity: Biphasic. Superficial femoral artery (proximal): No color Doppler flow. Superficial femoral artery (mid): No color Doppler flow. Superficial femoral artery (distal): No color Doppler flow. Popliteal artery: 173 cm/s, phasicity: Monophasic. Posterior tibial artery: 16 cm/s, phasicity: Monophasic. Peroneal artery: 9 cm/s, phasicity: Monophasic. Anterior tibial artery: 10 cm/s, phasicity: Monophasic. Dorsalis pedis artery: 14 cm/s, phasicity: Monophasic. US/US arterial duplex LE LT IMPRESSION: Left leg: Chronic/old occluded superficial femoral artery. Severe Inflow disease from the popliteal to the dorsalis pedis arteries. No gross change. Electronically signed by: David Floyd MD 11/22/2024 12:56 PM EDT
--- NOTE | ~2024-11-22 | US_ITS ---
EXAMINATION: US TRIPLEX LOWER EXTREMITY, LEFT CLINICAL INFORMATION: Left calf pain. COMPARISON: None available. TECHNIQUE: Color-flow triplex imaging with spectral analysis and compression Doppler were performed on the left lower extremity. FINDINGS: Respiratory variation, normal compression and augmented flow are noted throughout the left lower extremity. The visualized common femoral vein, superficial femoral vein, profunda femoral vein, popliteal vein and midcalf peroneal and posterior tibial venous segments show no evidence of deep venous thrombosis. There is no Chisholm's cyst. Reactive appearing left groin lymph node noted. US/US venous duplex LE LT IMPRESSION: No evidence of deep venous thrombosis involving the left lower extremity. Electronically signed by: Brien Noel MD 11/22/2024 12:40 PM EDT
[2024-11-22 09:47] VITALS: BP 147/69; PULSE 110; RESP 18; TEMP 36.3; O2SAT 98; BMI 27.7
--- OUTSIDE RECORDS SUMMARY | 2024-11-22 10:53 | XMS_ITS | Encounter Summary ---
Author Organization [employer] Address [address] [place] [address] 7[address] [place] [address] Care Team Providers Care Gas Appliance Servicer Helper Name Role Phone Mitzi Cantu MD Primary Care Provider [phone]- [phone] Christa Kawn PharmD Unavailable [phone] Zi Cotton MD Unavailable Gamal Quiñonez MD Unavailable [phone] Encounter Details Date Type Department Care Team (Late st Contact Info) Description 02/05/2023 Orders Only [facility] [address] [place] [id number] Mitzi Cantu MD [address] [place] [id number] Social History Tobacco Use Types Packs/Day Years [...] Care Team (Late st Contact Info) Description 11/29/2024 9:30 AM EDT Medication Management [facility] [address] [place] [address], [place] [address] Christa Kwan PharmD [address] [place] [address] documented as of this encounter Goals Goal Patient Goal Type Associated Problems Recent Progress Patient-Stated? Author Hemoglobin A1c < 7 Result Component 9.7(11/04/2024 9:25 AM EDT) No Christa Kwan, PharmD documented as of this encounter Visit Diagnoses Not on filedocumented in this encounter Additional Health Concerns Assessment Noted Time PHQ-9 Depression Total Score: 15 023 9:31 AM EDT documented as of this encounter Care Teams Gas Appliance Servicer Helper Relationship Specialty Start Date End Date Mitzi Cantu MD [address] [place] [address] PCP - General Family Medicine 06/02/18 Christa Kwan, PharmD [address] [place] [address] Pharmacist Internal Medicine 07/16/22 Zi Cotton MD [address] [place] [address] Vascular Surgery 04/22/24 Gamal Quiñonez MD [address] [place] [address] Cardiology 04/28/24 documented as of this encounter
--- NOTE | 2024-11-22 11:21 | ED.GENADULT ---
HPI - General Adult General Chief complaint: Extremity Injury, Lower Stated complaint: L Leg Pain Time Seen by Provider: 11/22/24 10:27 Source: patient Mode of arrival: ambulatory Limitations: no limitations History of Present Illness ED Provider: Jaren Gibson HPI narrative: 6-year-old female history of diabetes, hypertension high cholesterol presents to ED for chronic left hip to left foot pain, whole extremity pain that has been off and on for awhile. Yesterday she had another pain exacerbation. Patient denies any falling, swelling, redness, back pain, urinary/bowel incontinence, fever, chills, recent long travel, recent trauma, chest pain, or shortness of breath Related Data Home Medications ?Medication ?Instructions ?Recorded ?Confirmed aspirin 81 mg tablet,delayed 81 mg PO DAILY 08/01/20 02/26/23 release atorvastatin 20 mg tablet (Lipitor) 20 mg PO BEDTIME 08/01/20 02/26/23 fenofibrate 160 mg tablet 160 mg PO BEDTIME 08/01/20 02/26/23 glipizide 5 mg tablet 5 mg PO DAILY 08/01/20 02/26/23 hydrochlorothiazide 25 mg tablet 25 mg PO DAILY 08/01/20 02/26/23 omeprazole magnesium 20 mg 20 mg PO DAILY 08/01/20 02/26/23 tablet,delayed release (Prilosec OTC) cyanocobalamin (vitamin B-12) 1 tab PO DAILY 09/08/20 02/26/23 1,000 mcg tablet hydralazine 25 mg tablet 25 mg PO BID 09/08/20 02/26/23 losartan 100 mg tablet 100 mg PO DAILY 09/08/20 02/26/23 metformin 500 mg tablet,extended 1,000 mg PO BID 09/08/20 02/26/23 release 24 hr nifedipine 30 mg tablet,extended 30 mg PO BID 09/08/20 02/26/23 release 24 hr potassium citrate 15 mEq (1,620 1 tab PO BID 09/08/20 02/26/23 mg) tablet,extended release propranolol 120 mg capsule,24 120 mg PO DAILY 09/08/20 02/26/23 hr,extended release blood sugar diagnostic (FreeStyle #10 ea 12/14/20 12/14/20 Lite Strips) blood-glucose meter (FreeStyle #1 ea 12/14/20 12/14/20 Lite Meter kit) lancets 28 gauge (FreeStyle #100 ea 12/14/20 12/14/20 Lancets) dulaglutide 0.75 mg/0.5 mL mg subcut 04/02/22 02/26/23 subcutaneous [facility] escitalopram oxalate 5 mg tablet mg PO 04/02/22 02/26/23 omeprazole 20 mg capsule,delayed 20 mg PO 02/26/23 02/26/23 release Previous Rx's ?Medication ?Instructions ?Recorded cefuroxime axetil 250 mg tablet 250 mg PO BID #10 tabs 09/08/20 ibuprofen 600 mg tablet 600 mg PO Q8H PRN pain #10 tabs 09/08/20 cyclobenzaprine 10 mg tablet 10 mg PO TID PRN muscle spasm #14 01/16/21 tabs ibuprofen 600 mg tablet 600 mg PO Q8H PRN pain #14 tabs 01/16/21 meclizine 25 mg tablet 25 mg PO BID PRN dizziness 14 days 12/17/23 #28 tabs Allergies Allergy/AdvReac Type Severity Reaction Status Date / Time No Known Allergies Allergy Mild NOT Verified 11/22/24 09:49 APPLICABLE Review of Systems Review of Systems: left lower extremity pain Yes all other systems are reviewed and are negative PMFSH Past Medical History Medical History Vitamin D deficiency Hypertriglyceridemia HLD (hyperlipidemia) Non-cardiac chest pain Cerebrovascular accident HTN (hypertension) Type 2 diabetes mellitus Surgical History Status post angioplasty Hx of colonoscopy History of hysterectomy Family History Family History Father Heart disease Mother Diabetes Hypertension High cholesterol Renal failure Brother Diabetes Brother Diabetes Sister Diabetes Social History Social History Alcohol intake: never Patient Tobacco Use Status: Former Tobacco user Physical Exam ED Vital Signs: Vital Signs - 24 hr 11/22/24 09:47 11/22/24 12:32 11/22/24 15:01 Temperature 97.3 F 98.2 F 98.5 F Pulse Rate 110 H 92 96 Respiratory Rate 18 18 18 Blood Pressure 147/69 H 143/76 H 140/71 H Pulse Oximetry 98 96 97 Oxygen Delivery Method Room Air Room Air Room Air 11/22/24 15:07 Temperature 98.5 F Pulse Rate 96 Respiratory Rate 18 Blood Pressure 140/71 H Pulse Oximetry 97 Oxygen Delivery Method Room Air BMI result Body Mass Index 27.7 Const General: cooperative, healthy appearing, comfortable, no acute distress, well developed, alert, awake and Physically active Orientation/consciousness: patient oriented x3 [facility] Head: Yes normal to inspection, Yes No palpable skull fracture present, Yes normocephalic and Yes atraumatic Eyes General: appearance normal, both eyes and all related structures Neck Neck: Yes normal visual inspection, Yes full ROM, Yes no lymphadenopathy, Yes no meningeal signs, Yes trachea midline, Yes supple, No anterior neck swelling and No tender Chest Chest palpation & inspection: normal inspection of the chest and normal palpation of entire chest wall Resp Effort & Inspection: normal respiratory effort and able to speak in complete sentences Auscultation: clear to auscultation bilaterally Cardio Jugular venous distension: no JVD Heart sounds: S1 normal heart sound present and S2 normal heart sound present GI Inspection: Yes normal to inspection Palpation (GI): Soft to palpation, not firm, nontender, no guarding and not rigid General: Yes no CVA tenderness Back/Spine/Pelvis Back: no CVA tenderness and No back tenderness Skin General skin exam: no rashes or lesions noted and elasticity normal Neuro General: patient oriented x3, gait normal, tone normal, moves all extremities, Normal light touch and pain sensation, no meningeal signs, no focal motor deficits, CN's II-XI intact bilaterally and normal sensation to monofilament Extrem General: Yes normal to inspection, Yes full ROM and Yes capillary refill normal Upper/lower leg/hip images:  1. positive for tenderness on palpation. Negative for ecchymosis, crepitus, erythema, swelling, abrasion, red streaks, or deformity. Rest of extremity normal. Motor/neuro/vascular exam intact Ankle/foot/toe images:  1. Positive for tenderness on palpation. Negative for erythema, ecchymosis, crepitus, red streaks, bluish black discoloration, rash, lesions, or deformity. Rest of extremity normal. Motor/neuro/vascular exam intact Psych Appearance: grossly normal, well kempt and not disheveled Medical Decision Making Medical Decision Making MDM Narrative: 6-year-old female history of diabetes hypertension presents to ED for chronic left lower extremity exacerbation solids as cramping pain. Pulmonary review his chart patient has history of peripheral arterial disease and had a left lower extremity ultrasound shows some new arterial occlusion. Will send patient for repeat ultrasound left lower extremity to make sure there is no worsening signs of peripheral arterial disease. Also some venous ultrasound shows no DVT. No need for x-ray not suspecting any fracture no ecchymosis deformity or recent trauma. Presently no labs indicated. 1:17pm: Patient's venous ultrasound negative for DVT. 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 Case, physical exam and images were discussed with Dr. Cotton of vascular surgery who states patient can be discharged and follow-up outpatient. Patient informed to continue taking her aspirin and atorvastatin as recommended by Dr. Cotton. Presently no signs of arterial occlusion or emboli. Patient leg is not cold and vascular motor neuro exam intact. Once again Dr. Cotton was informed of this and states patient can be discharged. Patient explained worrisome signs and informed to return to the ED immediately. Not suspecting osteomyelitis, compartment syndrome, fracture, dislocation, lymphangitis, osteomyelitis, necrotizing fasciitis or any other life threatenig etiology.. Differential Diagnosis Differential Diagnoses: The differential diagnosis associated with the presentation includes (Arterial occlusion, peripheral arterial disease) Admission/Observation Consideration of admission/observation: Escalation of care including admission/observation considered Consult Healthcare Provider Management of the patient was discussed with: Head Athletic Trainer (Dr. Cotton) Independent Interpretation I performed an independent interpretation of an: Ultrasound Radiology Impression Discussion of test interpretation with radiology: I have reviewed the radiologist's reading. Independent Historian Clinical information obtained from an independent historian. History obtained from or confirmed by: Other (patient) Prescription Management I considered prescription management with: Pain Medication Discharge Plan Discharge Clinical Impression: Peripheral arterial disease Patient Disposition: Home, Self-Care Instructions: Peripheral Artery Disease (ED) Additional Instructions: Your ultrasound shows occlusion of the left femoral artery. Recommend outpatient follow-up for further evaluation and planning with Dr. Cotton of vascular surgery. Return to the ED immediately for worsening pain, coldness, numbness/tingling, inability to walk, or any other concerning symptoms. Due to being on blood thinner and allergy to percocet you can only take tylenol for pain. EXAMINATION: Noninvasive assessment of the left lower extremity. CLINICAL INFORMATION: Occluded left superficial femoral artery. Status post angioplasty dated 01/05/2020. TECHNIQUE: Duplex Doppler techniques with waveform analysis and measurement of velocities in the left common femoral, profunda femoris, superficial femoral, popliteal and tibial arteries were performed. The study was performed only at rest. COMPARISON: November 01, 2024. FINDINGS: DIRECT DUPLEX DOPPLER FINDINGS: Calcified plaques. LEFT LEG: Common femoral artery: 169 cm/s, phasicity: Biphasic Profunda femoris artery: 295 cm/s, phasicity: Biphasic. Superficial femoral artery (proximal): No color Doppler flow. Superficial femoral artery (mid): No color Doppler flow. Superficial femoral artery (distal): No color Doppler flow. Popliteal artery: 173 cm/s, phasicity: Monophasic. Posterior tibial artery: 16 cm/s, phasicity: Monophasic. Peroneal artery: 9 cm/s, phasicity: Monophasic. Anterior tibial artery: 10 cm/s, phasicity: Monophasic. Dorsalis pedis artery: 14 cm/s, phasicity: Monophasic. US/US arterial duplex LE LT IMPRESSION: Left leg: Chronic/old occluded superficial femoral artery. Severe Inflow disease from the popliteal to the dorsalis pedis arteries. No gross change. Electronically signed by: David Floyd MD 11/22/2024 12:56 PM EDT Prescriptions: No Action cyclobenzaprine 10 mg tablet 10 mg PO TID PRN (Reason: muscle spasm) Qty: 14 0RF ibuprofen 600 mg tablet 600 mg PO Q8H PRN (Reason: pain) Qty: 14 0RF nifedipine 30 mg tablet extended release 24hr 30 mg PO BID cyanocobalamin (vitamin B-12) 1,000 mcg tablet 1 tab PO DAILY hydralazine 25 mg tablet 25 mg PO BID propranolol 120 mg capsule,extended release 24 hr 120 mg PO DAILY losartan 100 mg tablet 100 mg PO DAILY metformin 500 mg tablet extended release 24 hr 1,000 mg PO BID potassium citrate 15 mEq tablet extended release 1 tab PO BID cefuroxime axetil 250 mg tablet 250 mg PO BID Qty: 10 0RF ibuprofen 600 mg tablet 600 mg PO Q8H PRN (Reason: pain) Qty: 10 0RF meclizine 25 mg tablet 25 mg PO BID PRN (Reason: dizziness) 14 Days Qty: 28 0RF (DME) blood-glucose meter [FreeStyle Lite Meter] Kit See Rx Instructions .ROUTE .MEDSUPPLY Qty: 1 Rx Instructions: As directed (DME) FreeStyle Lite Strips Strip See Rx Instructions .ROUTE .MEDSUPPLY Qty: 10 Rx Instructions: As directed (DME) lancets [FreeStyle Lancets] 28 gauge misc See Rx Instructions .ROUTE .MEDSUPPLY Qty: 100 Rx Instructions: As directed aspirin 81 mg tablet,delayed release (DR/EC) 81 mg PO DAILY omeprazole magnesium [Prilosec OTC] 20 mg tablet,delayed release (DR/EC) 20 mg PO DAILY atorvastatin [Lipitor] 20 mg tablet 20 mg PO BEDTIME fenofibrate 160 mg tablet 160 mg PO BEDTIME hydrochlorothiazide 25 mg tablet 25 mg PO DAILY glipizide 5 mg tablet 5 mg PO DAILY escitalopram oxalate 5 mg tablet PO Trulicity 0.75 mg/0.5 mL pen injector subcut omeprazole 20 mg capsule,delayed release(DR/EC) 20 mg PO Referrals: Zi Cotton MD [Physician, Vascular Surgery] - 2 days Referral Note: Chronic left lower extremity pain claudication. Ultrasound shows old femoral artery occlusion. Clinical Impression: Peripheral arterial disease Interventions: ED Discharge Assessment Last Done: 11/22/24 15:07 Discharge Date/Time: 11/22/24 15:08 Print Language: Hungarian
[2024-11-22 12:32] VITALS: BP 143/76; PULSE 92; RESP 18; TEMP 36.8; O2SAT 96
[2024-11-22 15:01] VITALS: BP 140/71; PULSE 96; RESP 18; TEMP 36.9; O2SAT 97
[2024-11-22 15:07] VITALS: BP 140/71; PULSE 96; RESP 18; TEMP 36.9; O2SAT 97
== END 2024-11-22 15:08 | disposition home or self-care (01) ==
PROVIDERS: Emergency Provider Emergency Medicine; PCP Family Medicine
DX: I73.9 Peripheral vascular disease, unspecified (principal); R60.0 Localized edema; M79.605 Pain in left leg; M25.552 Pain in left hip; Z79.899 Other long term (current) drug therapy; Z87.891 Personal history of nicotine dependence
CPT/HCPCS: 93926; 93971; 99284

== ENCOUNTER → 2024-11-22 10:54 | Outpatient (BNV) | payer MEDICARE, MEDICAID, SELFPAY | PROVIDERS: Emergency Provider Emergency Medicine; PCP Family Medicine; Visit Provider Radiology Diagnostic Radiology | DX: M79.662 Pain in left lower leg (principal) | CPT/HCPCS: 93971 ==

== ENCOUNTER 2024-12-09 09:37 | Outpatient (AMB) | payer MEDICARE, MEDICAID, SELFPAY ==
--- NOTE | 2024-12-09 09:42 | A.OFFVIS_ITS ---
Intake Visit Reasons: 1y follow up s/p Arterial US 11/01/24 Intake Note: Patient presents for follow up arterial US performed on 11/01/24. Patient states her left leg hurts. Accompanied by: Daughter Allergies No Known Allergies Allergy (Mild, Verified 12/09/24 09:45) NOT APPLICABLE HPI HPI 1y follow up s/p Arterial US 11/01/24: Details: The patient is a 69-year-old female presenting for follow-up of lower extremity arterial issues. She has known bilateral superficial femoral artery (SFA) occlusions and was most recently seen in the emergency room on November 22 due to severe pain in her legs. The pain is not constant but occurs intermittently, particularly when she is lying down, necessitating elevation of her leg for relief. She can walk a proximally a half a block prior to any significant discomfort. She reports it is left more so than right. Concern here is that it is more of a persistent intermittent pain and she does not note that it is always related to ambulation. The patient has a history of diabetes mellitus for approximately 20 years, which may contribute to her vascular issues. She also has a history of smoking, having quit over 25 years ago, which is relevant to her vascular health. [facility] Medical History Vitamin D deficiency Hypertriglyceridemia HLD (hyperlipidemia) Non-cardiac chest pain Cerebrovascular accident HTN (hypertension) Type 2 diabetes mellitus Surgical History Status post angioplasty Hx of colonoscopy History of hysterectomy Family History Father Heart disease Mother Diabetes Hypertension High cholesterol Renal failure Brother Diabetes Brother Diabetes Sister Diabetes Social History Alcohol intake: never Patient Tobacco Use Status: Former Tobacco user Review of Systems Const All systems reviewed & are unremarkable except as noted in HPI and below Reports no additional complaints ENT Reports Normal hearing present Card Denies chest pain, Denies chest pain at rest, Denies chest pain with activity and Denies pedal edema Resp Denies cough GI Denies abdominal pain Musc Denies abnormal gait, Denies muscle cramps and Denies radiating pain into limb Skin/Breast Denies skin ulcer and Denies wounds Neuro Reports Normal hearing present and Denies abnormal gait Psych Reports no additional complaints Physical Exam Const General: cooperative, healthy appearing and comfortable Orientation/consciousness: oriented to person, oriented to place and oriented to time HEENT Head: Yes normal to inspection Neck Neck: Yes normal visual inspection Carotids: no bruits Chest Chest palpation & inspection: normal inspection of the chest Resp Effort & Inspection: normal respiratory effort and able to speak in complete sentences Auscultation: clear to auscultation bilaterally, no crackles, no rales, no rhonchi and no wheezes Cardio Other: Bilateral DP signals Rate: regular rate Rhythm: regular rhythm Heart sounds: S1 normal heart sound present and S2 normal heart sound present Bruits: no carotid bruits Peripheral pulses: Peripheral pulses 2+ throughout GI Inspection: Yes normal to inspection Skin Wounds: no wounds Hair: normal Neuro General: oriented to person, oriented to place and oriented to time Cranial nerves: Yes CN's II-XII intact bilaterally and Yes Normal hearing present Cognition (Neuro): normal cognition Motor exam (neuro): 5/5 motor strength present throughout Extrem Other: venous exam: No significant superficial varicosities or spider telangiectasias, minimal edema General: No clubbing, No cyanosis and No edema Psych Appearance: grossly normal Mental Status: mental status grossly normal Speech and movement: Normal speech and movement present Results Reviewed Results Reviewed: Noninvasive arterial testing dated 11/22/2024 demonstrates known SFA occlusion. Assessment & Plan Assessment & Plan (1) PAD (peripheral artery disease): Comment: Angiogram 01/05/2020- total right SFA occlusion will need fem-pop bypass if clinically required Code(s): I73.9 - Peripheral vascular disease, unspecified Category: Medical Plan: I discussed with the patient the need for a CT scan to better visualize the blockages in her legs and explained that this would help in planning further treatment. We talked about the scan covering from her abdomen to both legs and the importance of this comprehensive imaging. I also informed her that we would schedule a follow-up appointment to review the scan results and decide on the next steps. Plan Patient was informed and verbally consented to the use of an ambient scribe for clinic note documentation during this visit. Orders: Orders Creatinine Today I73.9 - Peripheral vascular disease, unspecified Blood Urea Nitrogen Today I73.9 - Peripheral vascular disease, unspecified CT angio abd aorta runoff 1 Week I73.9 - Peripheral vascular disease, unspecified Patient Instructions: - Await a call to schedule the CT scan. - Attend the follow-up appointment to discuss the scan results. Coding Level of Care Code Est Pt Level 4 (88652) Complex EM visit Add On G2211 Diagnoses PAD (peripheral artery disease) I73.9
--- OUTSIDE RECORDS SUMMARY | 2024-12-09 10:09 | XMS_ITS | Encounter Summary ---
Author Organization [facility], Address [address] [facility] [address] [place] [address] Phone Care Team Providers Care Mechanical Engineering Advisor Name Role Phone Mitzi Cantu MD Primary Care Provider U christiana Reason for Visit * Reason Comments Med Refill Encounter Details Date Type Department Care Team (Late st Contact Info) Description 02/28/2022 Refill [facility] [address] [place] [id number] Josafat Colón MD [address] [place] [place] [address] Social History Tobacco Use Types [...] on filedocumented in this encounter Care Teams Mechanical Engineering Advisor Relationship Specialty Start Date End Date Mitzi Cantu MD PCP - General 04/06/19 documented as of this encounter
--- OUTSIDE RECORDS SUMMARY | 2024-12-09 10:09 | XMS_ITS | Patient Health Record ---
Author Organization [facility] Address [address] [place] [address] Care Team Providers Care Wood Repatcher Name Role Phone Mitzi Cantu MD Primary Care Provider Coleen Shaheen Shannon Jr Unavailable [phone] Reason For Referral No Information Plan Of Treatment No Information Insurance Providers Payer Name Payer Address Payer Phone Subscriber Number Group Number Insured Name Patient Relationship to Insured Coverage Start Date Coverage End Date MEDICAID OF [facility] [address] [place] [phone] [id number] REMY BALDWIN Self - patient is the insured
--- OUTSIDE RECORDS SUMMARY | 2024-12-09 10:09 | XMS_ITS | Clinical Summary ---
Author Organization [facility] Address [address] [place] [address] Care Team Providers Care Service Advocate Contact Name Role Phone Unavailable Primary Care Provider Unavailabl e Social History Tobacco Use Types Packs/Day Years Used Date Smoking Tobacco: Never Assessed Sex and Gender Information Value Date Recorded Sex Assigned at Not on file Gender Identity Not on file Sexual Orientation Not on file Plan of Treatment Not on file
--- OUTSIDE RECORDS SUMMARY | 2024-12-09 10:09 | XMS_ITS | Encounter Summary ---
Author Organization [employer] Address [address] [place] [address] 7[address] [place] [address] Care Team Providers Care Marine Structural Designer Name Role Phone Mitzi Cantu MD Primary Care Provider [phone]- [phone] Christa Kwan PharmD Unavailable [phone] Zi Cotton MD Unavailable Gamal Quiñonez MD Unavailable [phone] Encounter Details Date Type Department Care Team (Late st Contact Info) Description 02/05/2023 Orders Only [facility] [address] [place], [place] [id number] Mitzi Cantu MD [address] [place] [address] Social History Tobacco Use Types Packs/Day Years [...] on file documented as of this encounter Goals Goal [...] documented as of this encounter Care Teams Marine Structural Designer Relationship Specialty Start Date End Date Mitzi Cantu MD [address] [place] [address] PCP - General Family Medicine 06/02/18 Christa Kwan, PharmD [address] [place] [address] Pharmacist Internal Medicine 07/16/22 Zi Cotton MD [address] [place] [address] Vascular Surgery 04/22/24 Gamal Quiñonez MD [address] [place] [address] Cardiology 04/28/24 documented as of this encounter
== END 2024-12-09 10:02 | disposition home or self-care (01) ==
LOC: HO.HVS 09:38
PROVIDERS: PCP Family Medicine; Visit Provider Surgery Vascular Surgery
DX: I73.9 Peripheral vascular disease, unspecified (principal)
CPT/HCPCS: 99214; G2211

== ENCOUNTER → 2024-12-09 09:37 | Outpatient (BNVA) | payer MEDICARE, MEDICAID, SELFPAY | PROVIDERS: PCP Family Medicine; Visit Provider Surgery Vascular Surgery | DX: I73.9 Peripheral vascular disease, unspecified (principal) | CPT/HCPCS: 99212 ==

== ENCOUNTER 2024-12-14 10:49 | Emergency (ER) | payer MEDICARE, MEDICAID, SELFPAY ==
[2024-12-14] VITALS (8 sets, daily range): BP systolic 132–161; BP diastolic 64–83; PULSE 67–102; RESP 14–18; TEMP 36.3–36.9; O2SAT 94–98; BMI 28.0
--- NOTE | ~2024-12-14 | CT_ITS ---
CLINICAL HISTORY: Bilateral lower extremity pain R O arterial obstru CT angiogram of the abdomen and pelvis and bilateral lower extremities. 3D/MIP post processing reconstructions were performed. COMPARISON: None provided. FINDINGS: Minimal calcified plaque present along the nonaneurysmal abdominal aorta without significant stenosis. Celiac trunk and visualized branches appear patent. SMA appears widely patent. Calcified plaque present at the origin of the right renal artery causing approximately 50 percent short-segment stenosis. Minimal calcified plaque present at the origin of the left renal artery without significant stenosis. Visualized portions of the DEVORA are patent. Calcified plaque present along the right common, and external iliac arteries without significant stenosis. Multifocal calcified plaque present along the right common femoral artery without significant stenosis. There is occlusion of the mid to distal aspect of the right superficial femoral artery with reconstitution of the popliteal artery, likely through retrograde flow. Right tibioperoneal trunk is patent. There is three-vessel runoff at the level of the right ankle. Visualized portions of the dorsalis pedis artery appears patent. Atherosclerotic plaque present along the left common and external iliac arteries without significant stenosis. Atherosclerotic calcified plaque present along the left common femoral artery without significant stenosis. Left superficial femoral artery is occluded shortly after its origin and throughout its course. There is reconstitution of the left popliteal artery likely through retrograde flow. Tibioperoneal trunk is patent. There is two-vessel runoff of the level of the left ankle of the anterior and posterior tibial arteries. Visualized portions of the dorsalis pedis artery appears patent. Minimal atelectasis along the lung bases. Hepatic steatosis. Normal gallbladder. Normal spleen. Normal pancreas. Normal adrenal glands. Symmetric renal enhancement. No hydronephrosis. Nonobstructing 5 mm right renal calculus. Normal appendix. No bowel obstruction. No mesenteric or retroperitoneal lymphadenopathy. Normal appearance of the urinary bladder. No adnexal mass. [id number] spondylosis. No acute fracture or suspicious bone lesion. IMPRESSION: 1. Occlusion of the left superficial femoral artery throughout its course with reconstitution of the left popliteal artery, likely through retrograde/collateral flow. There is two-vessel runoff of the level of the left ankle. 2. Occlusion of the mid to distal aspect of the right superficial femoral artery with reconstitution of the popliteal artery, likely through retrograde/collateral flow. There is three-vessel runoff at the level of the right ankle. This document has been electronically signed by: Derrick Collazo MD on 12/14/2024 19:20:48
--- NOTE | ~2024-12-14 | XR_ITS ---
EXAMINATION: XR HIP, RIGHT CLINICAL INFORMATION: atraumatic R hip pain COMPARISON: March 13, 2017. TECHNIQUE: AP and oblique views of the right hip. AP pelvis. FINDINGS: Bony pelvis intact. Degenerative changes in the sacroiliac joints and symphysis bodies. Sclerosis along the articular surface of the right acetabulum with asymmetric joint space narrowing. No acute cortical disruption or malalignment, right coxofemoral joint. XR/XR hip RT w [id number] IMPRESSION: Mild osteoarthrosis, right hip. Electronically signed by: David Floyd MD 12/14/2024 12:06 PM EDT
--- NOTE | 2024-12-14 11:08 | ED.GENADULT ---
HPI - General Adult General Chief complaint: Back Pain/Injury Stated complaint: R side back/leg pain Time Seen by Provider: 12/14/24 14:16 Source: patient and family (Daughter) Mode of arrival: ambulatory Limitations: language barrier (The patient is Egyptian-speaking only, daughter speaks Egyptian and Ukrainian. [facility] aerial photograph interpreter was used) History of Present Illness ED Provider: Dr. Gal Good HPI narrative: 69-year-old female with a history of hypertriglyceridemia, hyperlipidemia, noncardiac chest pain, CVA, hypertension, type 2 diabetes mellitus, peripheral artery disease with known bilateral superficial femoral artery occlusions who presents emergency department for evaluation of acute right buttock/hip pain with the pain radiating down her leg to her feet and toes. The pain is constant, sharp in his 03/11. Patient had only minimal relief of her pain with Tylenol. She denied loss of bowel control and states she has had urinary incontinence. She denied weakness but states she is having difficulty walking secondary to the pain in both lower extremities. The patient was seen in the department previously on 11/23/2023 for left hip pain and leg pain. She had a duplex Doppler ultrasound of left lower extremities which revealed chronic/ old occlusions of the superficial femoral artery with severe inflow disease from the popliteal to the dorsal pedis arteries on the left. The patient has since followed up with Dr. Cotton on 12/09/2024 who ordered an outpatient CT aortic angiogram with lower extremity runoff. Related Data Home Medications ?Medication ?Instructions ?Recorded ?Confirmed aspirin 81 mg tablet,delayed 81 mg PO DAILY 08/01/20 02/26/23 release atorvastatin 20 mg tablet (Lipitor) 20 mg PO BEDTIME 08/01/20 02/26/23 fenofibrate 160 mg tablet 160 mg PO BEDTIME 08/01/20 02/26/23 glipizide 5 mg tablet 5 mg PO DAILY 08/01/20 02/26/23 hydrochlorothiazide 25 mg tablet 25 mg PO DAILY 08/01/20 02/26/23 omeprazole magnesium 20 mg 20 mg PO DAILY 08/01/20 02/26/23 tablet,delayed release (Prilosec OTC) cyanocobalamin (vitamin B-12) 1 tab PO DAILY 09/08/20 02/26/23 1,000 mcg tablet hydralazine 25 mg tablet 25 mg PO BID 09/08/20 02/26/23 losartan 100 mg tablet 100 mg PO DAILY 09/08/20 02/26/23 metformin 500 mg tablet,extended 1,000 mg PO BID 09/08/20 02/26/23 release 24 hr nifedipine 30 mg tablet,extended 30 mg PO BID 09/08/20 02/26/23 release 24 hr potassium citrate 15 mEq (1,620 1 tab PO BID 09/08/20 02/26/23 mg) tablet,extended release propranolol 120 mg capsule,24 120 mg PO DAILY 09/08/20 02/26/23 hr,extended release blood sugar diagnostic (FreeStyle #10 ea 12/14/20 12/14/20 Lite Strips) blood-glucose meter (FreeStyle #1 ea 12/14/20 12/14/20 Lite Meter kit) lancets 28 gauge (FreeStyle #100 ea 12/14/20 12/14/20 Lancets) dulaglutide 0.75 mg/0.5 mL mg subcut 04/02/22 02/26/23 subcutaneous pen injector ([facility]) escitalopram oxalate 5 mg tablet mg PO 04/02/22 02/26/23 omeprazole 20 mg capsule,delayed 20 mg PO 02/26/23 02/26/23 release Previous Rx's ?Medication ?Instructions ?Recorded cefuroxime axetil 250 mg tablet 250 mg PO BID #10 tabs 09/08/20 ibuprofen 600 mg tablet 600 mg PO Q8H PRN pain #10 tabs 09/08/20 cyclobenzaprine 10 mg tablet 10 mg PO TID PRN muscle spasm #14 01/16/21 tabs ibuprofen 600 mg tablet 600 mg PO Q8H PRN pain #14 tabs 01/16/21 meclizine 25 mg tablet 25 mg PO BID PRN dizziness 14 days 12/17/23 #28 tabs lidocaine 4 % topical patch 1 patch topical DAILY PRN pain #10 12/14/24 ea morphine 15 mg immediate release 15 mg PO Q6H PRN pain #10 tabs 12/14/24 tablet Allergies Allergy/AdvReac Type Severity Reaction Status Date / Time No Known Allergies Allergy Mild NOT Verified 12/14/24 11:11 APPLICABLE Review of Systems Review of Systems: Yes all other systems are reviewed and are negative [facility] Past Medical History [facility] Narrative: Social history: Patient denies tobacco use but has a former smoker and stopped 10 years ago. She denied alcohol use. Medical History Vitamin D deficiency Hypertriglyceridemia HLD (hyperlipidemia) Non-cardiac chest pain Cerebrovascular accident HTN (hypertension) Type 2 diabetes mellitus Surgical History Status post angioplasty Hx of colonoscopy History of hysterectomy Family History Family History Father Heart disease Mother Diabetes Hypertension High cholesterol Renal failure Brother Diabetes Brother Diabetes Sister Diabetes Social History Social History Alcohol intake: never Patient Tobacco Use Status: Former Tobacco user Smoked in Last 30 Days: Yes Use of substances other than those prescribed or required for medical reasons: No Advance Directives: No Advance Directives Information Provided: Yes Do you have a plan to hurt others: No Plan Physical Exam ED Vital Signs: Vital Signs - 24 hr 12/14/24 11:07 12/14/24 14:07 12/14/24 16:54 Temperature 98.4 F 97.4 F Pulse Rate 102 H 92 Respiratory Rate 18 16 14 Blood Pressure 161/71 H 133/83 Pulse Oximetry 98 97 Oxygen Delivery Method Room Air Room Air 12/14/24 17:56 12/14/24 18:00 12/14/24 18:34 Temperature 97.4 F Pulse Rate 67 79 Respiratory Rate 14 15 14 Blood Pressure 132/64 149/76 H Pulse Oximetry 98 95 Oxygen Delivery Method Room Air Room Air 12/14/24 19:19 Temperature Pulse Rate 85 Respiratory Rate 16 Blood Pressure 148/73 H Pulse Oximetry 94 Oxygen Delivery Method Room Air BMI result Body Mass Index 28.0 Vital signs revealed an elevated heart rate of 106 and elevated blood pressure of 161/70 Exam: General: Awake, alert in no distress Head: Normocephalic, atraumatic EENT: PERRL, Lids normal, sclera normal, conjunctiva normal, nose normal , ears normal, throat without erythema or exudates Neck: Supple, no adenopathy Lung: breath sounds symmetric, no wheezing, rales or rhonchi Chest: symmetric movement, nontender Heart: regular rate and rhythm, normal S1, S2 no murmurs or rubs Abdomen: soft, non-tender, nondistended, normal bowel sounds Back: Tenderness palpation of the right lumbar/sacral paraspinal muscles with no spasm of these muscles. She has no point tenderness over her vertebrae. Patient has negative straight leg raises bilaterally Extremities: no deformities, moves all extremities symmetrically Neuro: Awake, alert, oriented, normal speech, cranial nerves intact, moves all extremities symmetrically Psych: Pleasant, cooperative Course Course Course Narrative: 12/14/24 1109 SHAHNAZ Jacobs This is a Rapid Medical Examination (RME) performed by Petra Castellano PA-C in triage. Full HPI, ROS, assessment and treatment plan per primary provider in the Main ED. Hx: 69 yo F x HTN, HLD, T2DM, PAD here for eval of sharp right hip/buttock pain with numbness down right leg to foot x2 days. no injury/trauma/falls. no back pain red flags. Plan: xrs Medications Administered Discontinued Medications Generic Name Dose Route Start Last Admin Trade Name Freq PRN Reason Stop Dose Admin Sodium Chloride 1,000 mls @ 999 mls/hr 12/14/24 16:06 12/14/24 17:57 Ns IV 12/14/24 17:06 Infused .Q1H1M STA Infusion Iohexol 100 ml 12/14/24 17:59 12/14/24 17:59 Iohexol 350 Mg/Ml 100 Ml Infus..Btl IV 12/14/24 18:00 100 ml ONCE ONE Administration Morphine Sulfate 2 mg 12/14/24 16:06 12/14/24 16:54 Morphine Sulfate 4 Mg/Ml Cartridge IVPUSH 12/14/24 16:07 2 mg ONCE STA Administration Protocol Morphine Sulfate 4 mg 12/14/24 18:13 12/14/24 18:34 Morphine Sulfate 4 Mg/Ml Cartridge IVPUSH 12/14/24 18:14 4 mg ONCE ONE Administration Protocol Medical Decision Making Medical Decision Making [facility] Narrative: 69-year-old female with a history of hypertriglyceridemia, hyperlipidemia, noncardiac chest pain, CVA, hypertension, type 2 diabetes mellitus, peripheral artery disease with known bilateral superficial femoral artery occlusions who presents emergency department for evaluation of acute right buttock/hip pain with the pain radiating down her leg to her feet and toes x2 days. The pain is constant, sharp in his 1010. Patient had only minimal relief of her pain with Tylenol. She denied loss of bowel control and states she has had urinary incontinence. She denied weakness but states she is having difficulty walking secondary to the pain in both lower extremities.The patient was seen in the department previously on 11/23/2023 for left hip pain and leg pain. She had a duplex Doppler ultrasound of left lower extremities which revealed chronic/ old occlusions of the superficial femoral artery with severe inflow disease from the popliteal to the dorsal pedis arteries on the left. The patient has since followed up with Dr. Cotton on 12/09/2024 who ordered an outpatient CT aortic angiogram with lower extremity runoff. Vital signs revealed an elevated heart rate elevated blood pressure. Exam revealed tenderness palpation of the right paraspinal muscles in the lumbar sacral area with a negative straight leg raises bilaterally. Differential diagnosis: ?Includes but is not limited to musculoskeletal pain, sciatica, peripheral artery disease/occlusive disease, urinary tract infection, anemia, electrolyte abnormalities Course: 16:21 Given the patient's negative straight leg raises I am concerned that the patient has pain in her lower extremities secondary to occlusive peripheral artery disease. Therefore I ordered CBC, CMP, CRP, ESR, lactic acid, lipase, PT/INR, PTT, urinalysis, CT angiogram of the abdomen pelvis with lower extremity runoff. Patient is concerned about getting side effects from IV morphine for pain therefore she was ordered to get morphine 2 mg IV . Also ordered normal saline IV x1 L. 18:20 hours My independent interpretation patient's laboratory evaluation is as follows: CBC was normal. Coags were normal. CMP was unremarkable except for an elevated glucose of 215. CRP is elevated at 9.68. CRP was elevated at 56. 20:06 CT angiogram of the abdomen with runoff studies did reveal obstructive disease but no severe obstruction to explain the patient's right leg pain. I did discuss the findings with the patient and the patient's daughter. I did discuss the radiology reading over tiger text with the patient's vascular surgeon, Dr. Cotton and he felt that the findings did not correlate with the patient's lower back pain and right leg findings. He will follow the patient up as an outpatient to discuss further treatment of her PAD. CT scan did reveal [id number] spondylosis. No acute fracture or suspicious bone lesion. This time I suspect that the patient may have inflammation of her spinal nerves causing lumbar radiculopathy. The patient is feeling better after receiving his 2nd dose of morphine 4 mg IV. Patient will be treated for possible lower back pain and sciatica with lidocaine patches, Tylenol and morphine. Patient's was also advised to apply ice for 15 minutes 4 to 6 times a day to try to help reduce the pain. She was given printed and verbal instructions and discharged home. I did emphasize the need for the patient to follow-up with Dr. Cotton. Admission/Observation Consideration of admission/observation: Escalation of care including admission/observation considered (Yes) Lab Data MDM Lab Attestation statement: I reviewed the patient's lab results. 12/14/24 16:39 12/14/24 16:39 Labs: Lab Results 12/14/24 12/14/24 12/14/24 Range/Units 15:30 16:39 18:14 WBC 8.5 (4.8-10.8) X10*3/uL RBC 4.24 (4.20-5.50) X10*6/uL Hgb 12.6 (12.0-16.0) g/dl Hct 35.7 L (37.0-47.0) % MCV 84.2 (80.0-98.0) fL MCH 29.7 (27.0-33.0) pg MCHC 35.3 H (31.0-35.0) g/dl RDW 12.3 (11.0-16.0) % Plt Count 244 (160-400) X10*3/uL MPV 10.0 (9.4-12.3) fL Immature Gran % (Auto) 0.2 (0.0-0.4) % Neut % (Auto) 59.2 (45-73) % Lymph % (Auto) 30.6 (20-40) % Dade % (Auto) 8.7 (2-11) % Eos % (Auto) 0.9 (0-4) % Baso % (Auto) 0.4 (0-2) % Lymph # (Auto) 2.6 (1.2-4.9) X10*3/uL Dade # (Auto) 0.7 (0.1-1.2) X10*3/uL Eos # (Auto) 0.1 (0.0-0.4) X10*3/uL Baso # (Auto) 0.0 (0.0-0.2) X10*3/uL Abs Immat Gran (auto) 0.02 (0.00-0.03) X10*3/uL Absolute Neuts (auto) 5.1 (2.0-8.3) x10*3/uL Absolute Nucleated RBC 0.000 (0.0-0.012) X10*3/uL Nucleated RBC % (auto) 0.0 (0.0-0.2) /100WBC ESR 59 H (0-20) MM/HR PT 12.4 (10.9-12.4) SEC INR 1.1 (0.9-1.1) APTT 30.2 (26.0-36.8) SEC Sodium 138 (135-145) mmol/L Potassium 3.4 (3.3-5.1) mmol/L Chloride 101 (96-108) mmol/L Carbon Dioxide 27 (22-29) mmol/L Anion Gap 13 (12-20) BUN 14 (9-16) mg/dL Creatinine 0.48 L (0.5-1.4) mg/dL Estim Creat Clear Calc 88.0 Estimated GFR > 60 POC Glucose 212 H 189 H (60-115) mg/dL Random Glucose 215 H (60-115) mg/dL Lactic Acid 1.0 (0.5-2.0) mmol/L Calcium 9.4 (8.4-10.2) mg/dL Total Bilirubin 0.2 (0.0-1.0) mg/dL AST 13 (5-31) U/L ALT 19 (0-31) U/L Alkaline Phosphatase 89 (39-117) U/L C-Reactive Protein 9.68 H (< or = 0.50) mg/dL Total Protein 7.2 (6.5-8.0) g/dL Albumin 4.2 (3.5-5.0) g/dL Lipase 47 (8-78) U/L Hold Red Top See Note Independent Interpretation I performed an independent interpretation of an: Plain X-Ray Interpretation: My independent interpretation patient's right hip and pelvis x-ray is as follows: No acute fracture seen Radiology Impression Discussion of test interpretation with radiology: I have reviewed the radiologist's reading. Radiologist Impression: CT angiogram of the abdomen and pelvis and bilateral lower extremities. 3D/MIP post processing reconstructions were performed. IMPRESSION: 1. Occlusion of the left superficial femoral artery throughout its course with reconstitution of the left popliteal artery, likely through retrograde/collateral flow. There is two-vessel runoff of the level of the left ankle. 2. Occlusion of the mid to distal aspect of the right superficial femoral artery with reconstitution of the popliteal artery, likely through retrograde/collateral flow. There is three-vessel runoff at the level of the right ankle. This document has been electronically signed by: Derrick Collazo MD on 12/14/2024 19:20:48 XR hip RT w [id number] IMPRESSION: Mild osteoarthrosis, right hip. Electronically signed by: David Floyd MD 12/14/2024 12:06 PM Critical Care Time Critical Care Time Critical Care Time: Yes Total Critical Care Time: 35 Attestation: Critical Care: The patient was critically ill with a high probability of imminent or life threatening deterioration. I spent greater than 30 minutes of discontinuous time evaluating the patient,delivering critical care at the bedside, discussing and evaluating pertinent data with consultants. Critical care time does not include time spent performing separately billable procedures or teaching. Total time spent performing critical care was 35 minutes. Discharge Plan Discharge Clinical Impression: Acute right lumbar radiculopathy, Peripheral artery disease Patient Disposition: Home, Self-Care Instructions: Peripheral Artery Disease (ED), Lumbar Radiculopathy (ED) Additional Instructions: The x-ray of your hip did reveal mild arthritis of the hip. The CT scan of your abdomen pelvis did reveal narrowing of your arteries in your legs which is consistent with peripheral arterial disease. I did discuss these findings with your vascular surgeon, Dr. Cotton and he did not think that these findings explain your factory in your right leg pain. You most likely have inflammation of the nerves coming on the your right lower back causing the pain that has traveling down your legs. Take Tylenol (acetaminophen) 2 pills every 6 hours as needed for pain. For pain not relieved by ibuprofen or Tylenol take morphine 15 mg pills, 1 pill every 6 hours as needed for pain. This medication will make you sleepy, do not drive or work while taking this medication. Morphine is a narcotic medication and can be addicting. If you are concerned about addiction you can ask the pharmacist for less pills or do not get this prescription filled. Apply a lidocaine patch to your lower back for 12 hours Apply ice for 15 minutes 4 to 6 times a day to your lower back to see if this helps with the pain as well. Continue taking your other pain medications as prescribed by your providers Follow-up with your doctor in [address] Cotton's office for follow-up evaluation to discuss your CT abdominal angiogram results Please return to the emergency department if your symptoms get worse or if you develop any symptoms that are concerning to you. Prescriptions: New morphine 15 mg tablet 15 mg PO Q6H PRN (Reason: pain) Qty: 10 0RF Rx Instructions: Partial Fill upon patient request. lidocaine 4 % adhesive patch,medicated 1 patch topical DAILY PRN (Reason: pain) Qty: 10 0RF No Action cyclobenzaprine 10 mg tablet 10 mg PO TID PRN (Reason: muscle spasm) Qty: 14 0RF ibuprofen 600 mg tablet 600 mg PO Q8H PRN (Reason: pain) Qty: 14 0RF nifedipine 30 mg tablet extended release 24hr 30 mg PO BID cyanocobalamin (vitamin B-12) 1,000 mcg tablet 1 tab PO DAILY hydralazine 25 mg tablet 25 mg PO BID propranolol 120 mg capsule,extended release 24 hr 120 mg PO DAILY losartan 100 mg tablet 100 mg PO DAILY metformin 500 mg tablet extended release 24 hr 1,000 mg PO BID potassium citrate 15 mEq tablet extended release 1 tab PO BID cefuroxime axetil 250 mg tablet 250 mg PO BID Qty: 10 0RF ibuprofen 600 mg tablet 600 mg PO Q8H PRN (Reason: pain) Qty: 10 0RF meclizine 25 mg tablet 25 mg PO BID PRN (Reason: dizziness) 14 Days Qty: 28 0RF (DME) blood-glucose meter [FreeStyle Lite Meter] Kit See Rx Instructions .ROUTE .MEDSUPPLY Qty: 1 Rx Instructions: As directed (DME) FreeStyle Lite Strips Strip See Rx Instructions .ROUTE .MEDSUPPLY Qty: 10 Rx Instructions: As directed (DME) lancets [FreeStyle Lancets] 28 gauge misc See Rx Instructions .ROUTE .MEDSUPPLY Qty: 100 Rx Instructions: As directed aspirin 81 mg tablet,delayed release (DR/EC) 81 mg PO DAILY omeprazole magnesium [Prilosec OTC] 20 mg tablet,delayed release (DR/EC) 20 mg PO DAILY atorvastatin [Lipitor] 20 mg tablet 20 mg PO BEDTIME fenofibrate 160 mg tablet 160 mg PO BEDTIME hydrochlorothiazide 25 mg tablet 25 mg PO DAILY glipizide 5 mg tablet 5 mg PO DAILY escitalopram oxalate 5 mg tablet PO Trulicity 0.75 mg/0.5 mL pen injector subcut omeprazole 20 mg capsule,delayed release(DR/EC) 20 mg PO Print Language: Egyptian
--- NOTE | 2024-12-14 14:23 | PC.NURSE ---
PAtient maori speaking but speaks some andorran. [employer] services utilized. Patient presents to ED c/o right hip pain rated 9/10 non radiating but numbness noted in right toes. Pain started 3 days ago and has become progressively worse. Patient denies injury but states I felt a tear in my right hip . No edema noted, +CMS +ROM although hip is painful on movement. Xray of right hip reveals some osteoarthritis. VSS and up to date. Provider to see patient. Plan of care on going
--- OUTSIDE RECORDS SUMMARY | 2024-12-14 15:26 | XMS_ITS | Encounter Summary ---
Author Organization [facility], Address [address] [facility] [address] [place] [address] Phone Care Team Providers Care General Service Officer Name Role Phone Mitzi Cantu MD Primary Care Provider U christiana Reason for Visit * Reason Comments Med Refill Encounter Details Date Type Department Care Team (Late st Contact Info) Description 02/28/2022 Refill [facility] [address] [id number] Josafat Colón MD [address] [place] [address] Social History Tobacco Use Types [...] on filedocumented in this encounter Care Teams General Service Officer Relationship Specialty Start Date End Date Mitzi Cantu MD PCP - General 04/06/19 documented as of this encounter
--- OUTSIDE RECORDS SUMMARY | 2024-12-14 15:26 | XMS_ITS | Encounter Summary ---
Author Organization [employer] Address [address] [place] [address] [address] [place] [address] Care Team Providers Care Separator Inserter Name Role Phone Mitzi Cantu MD Primary Care Provider [phone]- [phone] Christa Kwan PharmD Unavailable [phone] Zi Cotton MD Unavailable Gamal Quiñonez MD Unavailable [phone] Encounter Details Date Type Department Care Team (Late st Contact Info) Description 02/05/2023 Orders Only [facility] [address] [place], [place] [phone] Mitzi Cantu MD [address] [place] [address] Social History Tobacco Use Types Packs/Day Years [...] documented as of this encounter Care Teams Separator Inserter Relationship Specialty Start Date End Date Mitzi Cantu MD [address] [place] [address] PCP - General Family Medicine 06/02/18 Christa Kwan, PharmD [address] [place] [address] Pharmacist Internal Medicine 07/16/22 Zi Cotton MD [address] [place] [address] Vascular Surgery 04/22/24 Gamal Quiñonez MD [address] [place] [address] Cardiology 04/28/24 documented as of this encounter
--- OUTSIDE RECORDS SUMMARY | 2024-12-14 15:26 | XMS_ITS | Patient Health Record ---
Author Organization [facility] Address [address] [place] [address] Care Team Providers Care Director Mission Name Role Phone Mitzi Cantu MD Primary Care Provider Coleen Shaheen Shannon Jr Unavailable Reason For Referral No Information Plan Of Treatment No Information Insurance Providers Payer Name Payer Address Payer Phone Subscriber Number Group Number Insured Name Patient Relationship to Insured Coverage Start Date Coverage End Date MEDICAID OF [facility] [address] [place] [address] [id number] REMY BALDWIN Self - patient is the insured
--- OUTSIDE RECORDS SUMMARY | 2024-12-14 15:26 | XMS_ITS | Clinical Summary ---
Author Organization [facility] Address [address] [place] [address] Care Team Providers Care Kai [place] Name Role Phone Unavailable Primary Care Provider Unavailabl e Social History Tobacco Use Types Packs/Day Years Used Date Smoking Tobacco: Never Assessed Sex and Gender Information Value Date Recorded Sex Assigned at Not on file Gender Identity Not on file Sexual Orientation Not on file Plan of Treatment Not on file
[2024-12-14 15:34] LABS: Glucose, Whole Blood 212 mg/dL (60-115)
[2024-12-14 16:46] LABS: MANUAL DIFF FLAG NO
[2024-12-14 16:52] LABS: Hematocrit 35.7 % (37.0-47.0); Hemoglobin 12.6 g/dl (12.0-16.0); Imm Gran Abs Auto 0.02 X10*3/uL (0.00-0.03); Imm Gran Pct Auto 0.2 % (0.0-0.4); Lymphocytes Absolute Auto 2.6 X10*3/uL (1.2-4.9); Mean Corpuscular HGB Conc 35.3 g/dl (31.0-35.0); Mean Corpuscular Hemoglobin 29.7 pg (27.0-33.0); Mean Corpuscular Volume 84.2 fL (80.0-98.0); NRBC Abs Auto 0.000 X10*3/uL (0.0-0.012); NRBC Pct Auto 0.0 /100WBC (0.0-0.2); Platelet Count 244 X10*3/uL (160-400); Red Blood Count 4.24 X10*6/uL (4.20-5.50); White Blood Count 8.5 X10*3/uL (4.8-10.8)
[2024-12-14 16:55] LABS: INTERNATIONAL NORM RATIO 1.1 (0.9-1.1); Prothrombin Time 12.4 SEC (10.9-12.4)
[2024-12-14 16:58] LABS: Partial Thromboplastin Time 30.2 SEC (26.0-36.8)
[2024-12-14 17:04] LABS: Alanine Aminotransferase 19 U/L (0-31); Albumin Level 4.2 g/dL (3.5-5.0); Alkaline Phosphatase 89 U/L (39-117); Anion Gap 13 (12-20); Aspartate Amino Transferase 13 U/L (5-31); Blood Urea Nitrogen 14 mg/dL (9-16); Calcium 9.4 mg/dL (8.4-10.2); Carbon Dioxide 27 mmol/L (22-29); Chloride 101 mmol/L (96-108); Creatinine Clr Calc Pharmacy 88.0; Estimated Glomerular Filt Rate > 60; Lipase 47 U/L (8-78); Potassium 3.4 mmol/L (3.3-5.1); Sodium 138 mmol/L (135-145); Total Protein 7.2 g/dL (6.5-8.0)
--- NOTE | 2024-12-14 17:55 | PC.NURSE ---
PAtient at CT scan, awaiting results
[2024-12-14] MEDS: iohexoL 350 MG/ML 100 ML INFUS..BTL IV (17:59)
[2024-12-14 18:19] LABS: Glucose, Whole Blood 189 mg/dL (60-115)
== END 2024-12-14 20:55 | disposition home or self-care (01) ==
PROVIDERS: Emergency Provider Emergency Medicine Emergency Medical Services; PCP Family Medicine
DX: M54.16 Radiculopathy, lumbar region (principal); I73.9 Peripheral vascular disease, unspecified; M25.551 Pain in right hip; R07.9 Chest pain, unspecified; E78.5 Hyperlipidemia, unspecified; E11.9 Type 2 diabetes mellitus without complications; M79.605 Pain in left leg; Z86.73 Personal history of transient ischemic attack (TIA), and cerebral infarction without residual deficits; Z79.899 Other long term (current) drug therapy
CPT/HCPCS: 36415; 73502; 75635; 80053; 82947; 83605; 83690; 85025; 85610; 85652; 85730; 86140; 96361; 96374; 96376; 99285; 99291; J2270; Q9967

== ENCOUNTER → 2024-12-14 11:10 | Outpatient (BNV) | payer MEDICARE, MEDICAID, SELFPAY | PROVIDERS: PCP Family Medicine; Visit Provider Radiology Diagnostic Radiology | DX: I70.203 Unspecified atherosclerosis of native arteries of extremities, bilateral legs (principal); M25.551 Pain in right hip | CPT/HCPCS: 73502 ==

== ENCOUNTER 2024-12-28 08:25 | Outpatient (AMB) | payer MEDICARE, MEDICAID, SELFPAY ==
--- OUTSIDE RECORDS SUMMARY | 2024-12-28 08:37 | XMS_ITS | Clinical Summary ---
Author Organization [facility] Address [address] [place] [address] Care Team Providers Care Tab Machine Operator Name Role Phone Unavailable Primary Care Provider Unavailabl e Social History Tobacco Use Types Packs/Day Years Used Date Smoking Tobacco: Never Assessed Sex and Gender Information Value Date Recorded Sex Assigned at Not on file Gender Identity Not on file Sexual Orientation Not on file Plan of Treatment Not on file
--- OUTSIDE RECORDS SUMMARY | 2024-12-28 08:37 | XMS_ITS | Patient Health Record ---
Author Organization [facility] Address [address] [place] [address] Care Team Providers Care Unload Associate Name Role Phone Mitzi Cantu MD Primary Care Provider Coleen Shaheen Shannon Jr Unavailable Reason For Referral No Information Plan Of Treatment No Information Insurance Providers Payer Name Payer Address Payer Phone Subscriber Number Group Number Insured Name Patient Relationship to Insured Coverage Start Date Coverage End Date MEDICA[employer] OF [facility] [address] [place] [phone] [id number] REMY BALDWIN Self - patient is the insured
--- OUTSIDE RECORDS SUMMARY | 2024-12-28 08:37 | XMS_ITS | Encounter Summary ---
Author Organization [facility], Address [address] [facility] [address] [place] [address] Phone Care Team Providers Care Life Sciences Director Name Role Phone Mitzi Cantu MD Primary Care Provider U christiana Reason for Visit * Reason Comments Med Refill Encounter Details Date Type Department Care Team (Late st Contact Info) Description 02/28/2022 Refill [facility] [address] [place] [phone] Josafat Colón MD [address] [place] [address] Social History Tobacco Use Types [...] on filedocumented in this encounter Care Teams Life Sciences Director Relationship Specialty Start Date End Date Mitzi Cantu MD PCP - General 04/06/19 documented as of this encounter
--- OUTSIDE RECORDS SUMMARY | 2024-12-28 08:37 | XMS_ITS | Encounter Summary ---
Author Organization [facility] [employer] Address [address] [place] [address] [address] [place] [address] Care Team Providers Care Electronic Integrated Systems Mechanic Name Role Phone Mitzi Cantu MD Primary Care Provider [phone]- [phone] Christa Kwan PharmD Unavailable [phone] Zi Cotton MD Unavailable Gamal Quiñonez MD Unavailable [phone] Encounter Details Date Type Department Care Team (Late st Contact Info) Description 02/05/2023 Orders Only [facility] [address] [place] [id number] Mitzi Cantu MD [address] [place] [place] [phone] Social History Tobacco Use Types Packs/Day Years [...] Care Team (Late st Contact Info) Description 03/07/2025 9:45 AM EDT Office Visit [facility] [address] [place] [address], [place] [address] Mitzi Cantu MD [address] [place] [address] documented as of this encounter Goals Goal [...] documented as of this encounter Care Teams Electronic Integrated Systems Mechanic Relationship Specialty Start Date End Date Mitzi Cantu MD [address] [place] [id number] PCP - General Family Medicine 06/02/18 Christa Kwan, PharmD [address] [place] [place] [phone] Pharmacist Internal Medicine 07/16/22 Zi Cotton MD [address] [place] [address] Vascular Surgery 04/22/24 Gamal Quiñonez MD [address] [place] [address] Cardiology 04/28/24 documented as of this encounter
--- NOTE | 2024-12-28 08:58 | MHC.OFFVIS ---
Intake Visit Reasons: Hosp follow up/ CTA follow up 12/14/24 Intake Note: Patient presents for follow up CTA performed on 12/14/24. No complaints. Accompanied by: Daughter Allergies No Known Allergies Allergy (Mild, Verified 12/28/24 08:59) NOT APPLICABLE HPI HPI Hosp follow up/ CTA follow up 12/14/24: Details: The patient is a 69-year-old female presenting for follow-up after an emergency room visit due to severe leg pain. She has known bilateral superficial femoral artery (SFA) occlusions, which were identified during an angiogram performed in 2019. The patient experienced severe pain primarily in the left leg, which later affected the right leg and was associated with back pain. During the emergency room visit, a CT angiogram was performed, and she was discharged with pain medication, although she faced issues obtaining it due to insurance problems. She managed her pain with Tylenol and Advil, and the symptoms improved significantly over a week and a half. The patient has a history of angiograms revealing arterial blockages, and now presents for vascular follow-up. [facility] Medical History Vitamin D deficiency Hypertriglyceridemia HLD (hyperlipidemia) Non-cardiac chest pain Cerebrovascular accident HTN (hypertension) Type 2 diabetes mellitus Surgical History Status post angioplasty Hx of colonoscopy History of hysterectomy Family History Father Heart disease Mother Diabetes Hypertension High cholesterol Renal failure Brother Diabetes Brother Diabetes Sister Diabetes Social History Alcohol intake: never Patient Tobacco Use Status: Former Tobacco user Review of Systems Const All systems reviewed & are unremarkable except as noted in HPI and below Reports no additional complaints ENT Reports Normal hearing present Card Denies chest pain, Denies chest pain at rest, Denies chest pain with activity and Denies pedal edema Resp Denies cough GI Denies abdominal pain Musc Denies abnormal gait, Denies muscle cramps and Denies radiating pain into limb Skin/Breast Denies skin ulcer and Denies wounds Neuro Reports Normal hearing present and Denies abnormal gait Psych Reports no additional complaints Physical Exam Const General: cooperative, healthy appearing and comfortable Orientation/consciousness: oriented to person, oriented to place and oriented to time HEENT Head: Yes normal to inspection Neck Neck: Yes normal visual inspection Carotids: no bruits Chest Chest palpation & inspection: normal inspection of the chest Resp Effort & Inspection: normal respiratory effort and able to speak in complete sentences Auscultation: clear to auscultation bilaterally, no crackles, no rales, no rhonchi and no wheezes Cardio Other: Bilateral DP signals Rate: regular rate Rhythm: regular rhythm Heart sounds: S1 normal heart sound present and S2 normal heart sound present Bruits: no carotid bruits Peripheral pulses: Peripheral pulses 2+ throughout GI Inspection: Yes normal to inspection Skin Wounds: no wounds Hair: normal Neuro General: oriented to person, oriented to place and oriented to time Cranial nerves: Yes CN's II-XII intact bilaterally and Yes Normal hearing present Cognition (Neuro): normal cognition Motor exam (neuro): 5/5 motor strength present throughout Extrem Other: venous exam: No significant superficial varicosities or spider telangiectasias, minimal edema General: No clubbing, No cyanosis and No edema Psych Appearance: grossly normal Mental Status: mental status grossly normal Speech and movement: Normal speech and movement present Results Reviewed Results Reviewed: CT angiogram dated 12/14/2024 was reviewed Assessment & Plan Assessment & Plan (1) PAD (peripheral artery disease): Comment: Angiogram 01/05/2020- total right SFA occlusion will need fem-pop bypass if clinically required Code(s): I73.9 - Peripheral vascular disease, unspecified Category: Medical Plan: At the current time her pain appears to be more musculoskeletal in nature as it did improve with [id number] pain meds. I did review her CT angiogram findings in the progression of arterial disease. At the current time she is stable from a peripheral vascular standpoint. We did discuss risk factor modification. In addition we reviewed her pain management strategy, emphasizing use of Tylenol and Advil, and the need to report any worsening symptoms. In particular I did request that if she is having difficulty ambulating distances we need to know about that. I have taken the liberty of ordering 6 month arterial surveillance ultrasound for her. Thank you for allowing us to assist in her care. If there are any questions or concerns please do not hesitate to contact us. Plan Patient was informed and verbally consented to the use of an ambient scribe for clinic note documentation during this visit. Orders: Orders US arterial duplex LE BI 6 Months I73.9 - Peripheral vascular disease, unspecified Patient Instructions: - Continue taking Tylenol and Advil as needed for pain management. - Schedule a follow-up ultrasound in six months. - Report any worsening of symptoms immediately. Coding Level of Care Code Est Pt Level 4 (37605) Complex EM visit Add On G2211 Diagnoses PAD (peripheral artery disease) I73.9
== END 2024-12-28 09:22 | disposition home or self-care (01) ==
LOC: HO.HVS 08:25
PROVIDERS: PCP Family Medicine; Visit Provider Surgery Vascular Surgery
DX: I73.9 Peripheral vascular disease, unspecified (principal)
CPT/HCPCS: 99214; G2211

== ENCOUNTER → 2024-12-28 08:25 | Outpatient (BNVA) | payer MEDICARE, MEDICAID, SELFPAY | PROVIDERS: PCP Family Medicine; Visit Provider Surgery Vascular Surgery | DX: I73.9 Peripheral vascular disease, unspecified (principal) | CPT/HCPCS: 99212 ==

== ENCOUNTER 2025-01-20 09:22 | Emergency (ER) | payer OTHER, SELFPAY ==
--- NOTE | ~2025-01-20 | US_ITS ---
EXAMINATION: US TRIPLEX LOWER EXTREMITY, LEFT CLINICAL INFORMATION: Calf pain, left lower extremity COMPARISON: None available. TECHNIQUE: Color-flow triplex imaging with spectral analysis and compression Doppler were performed on the left lower extremity. FINDINGS: Respiratory variation, normal compression and augmented flow are demonstrated in the interrogated left common femoral vein, superficial femoral vein, profunda femoral vein, popliteal vein and midcalf peroneal and posterior tibial venous segments . There is no Chisholm's cyst. US/US venous duplex LE IMPRESSION: No acute deep venous thrombosis interrogated veins, left lower extremity. Negative for DVT. Electronically signed by: David Floyd MD 01/20/2025 12:48 PM EDT
--- NOTE | ~2025-01-20 | XR_ITS ---
EXAMINATION: XR HIP, LEFT CLINICAL INFORMATION: pain COMPARISON: None available. TECHNIQUE: AP upright, AP supine, and frog-leg lateral views of the left hip. FINDINGS: Marginal ossified is are present involving both acetabular roofs. There is subtle axial joint space narrowing of both hip joints, greater on the right. There is mild sclerosis involving pubic symphysis joint and pyrophosphate deposition in the pubic symphysis disc SI joints are unremarkable. XR/XR hip LT w PEL1V IMPRESSION: Mild degenerative changes of both hip joints, greater on the right. Pyrophosphate deposition is present in the pubic symphysis joint. Electronically signed by: Bud Rubio MD 01/20/2025 01:13 PM EDT
--- NOTE | ~2025-01-20 | US_ITS ---
EXAMINATION: US NONINVASIVE ASSESSMENT OF THE LEFT LOWER EXTREMITY WITHOUT ARTERIAL DUPLEX AND ANKLE BRACHIAL INDICES (ABIS) CLINICAL INFORMATION: Calf pain, left lower extremity COMPARISON: November 22, 2024 reported chronic/old occluded superficial femoral artery and severe inflow disease. TECHNIQUE: Duplex Doppler techniques with waveform analysis and measurement of velocities in the left common femoral, profunda femoris, superficial femoral, popliteal and tibial arteries were performed. . The study was performed only at rest. FINDINGS: LEFT LOWER EXTREMITY DUPLEX ULTRASOUND: Common femoral artery: No color Doppler flow. Profunda femoris artery: No color Doppler flow. Superficial femoral artery (proximal): No color Doppler flow. Superficial femoral artery (mid): No color Doppler flow.. Superficial femoral artery (distal): No color Doppler flow. Popliteal artery: 55 cm/s. Monophasic waveform. Posterior tibial artery: 18 cm/s. Monophasic waveform. Anterior tibialis artery: 17 cm/s. Monophasic waveform. Peroneal artery: 8 cm/s. Monophasic waveform. Dorsalis base artery: 16 cm/s. Monophasic waveform. US/US arterial duplex LE LT IMPRESSION: Occlusion, left common femoral artery, left superficial femoral artery and likely profunda artery. 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 Overall worsening/new since November 22, 2024. Electronically signed by: David Floyd MD 01/20/2025 12:54 PM EDT
[2025-01-20 09:26] VITALS: BP 140/63; PULSE 101; RESP 18; TEMP 36.3; O2SAT 99; BMI 27.3
--- NOTE | 2025-01-20 10:14 | ED_ITS ---
HPI - General Adult General Chief complaint: Extremity Injury, Lower Stated complaint: l leg pain Time Seen by Provider: 01/20/25 09:49 Source: patient Mode of arrival: ambulatory Limitations: no limitations History of Present Illness ED Provider: Jaren Gibson HPI narrative: 69 yold female with pmh of PAD, Diabies, HTN, and hyperlidemia presents to the ED left lower extremity pain without any trauma. patient states having and thigh pain. Patient denies any swelling, redness, deformity, or stiffness. Patient denies abdominal pain, nausea, vomiting, dysuria, or hematuria. Related Data Home Medications ?Medication ?Instructions ?Recorded ?Confirmed aspirin 81 mg tablet,delayed 81 mg PO DAILY 08/01/20 0 02/26/23 release atorvastatin 20 mg tablet (Lipitor) 20 mg PO BEDTIME 0 08/01/20 02/26/23 fenofibrate 160 mg tablet 160 mg PO BEDTIME 08/01/20 0 02/26/23 glipizide 5 mg tablet 5 mg PO DAILY 08/01/2002/26 hydrochlorothiazide 25 mg tablet 25 mg PO DAILY 02/26/23 omeprazole magnesium 20 mg 20 mg PO DAILY 08/01/20 tablet,delayed release (Prilosec OTC) cyanocobalamin (vitamin B-12) 1 tab PO DAILY 09/08/20 02/26/23 1,000 mcg tablet hydralazine 25 mg tablet 25 mg PO BID 09/08/20 losartan 100 mg tablet 100 mg PO DAILY 09/08/20 metformin 500 mg tablet,extended 1,000 mg PO BID 09/0802/26/23 release 24 hr nifedipine 30 mg tablet,extended 30 mg PO BID 09/08/20 02/26/23 release 24 hr potassium citrate 15 mEq (1,620 1 tab PO BID 09/08/20 02/26/23 mg) tablet,extended release propranolol 120 mg capsule,24 120 mg PO DAILY 09/08/20 02/26/23 hr,extended release blood sugar diagnostic (FreeStyle #10 ea 12/14/20 07/10/20 Lite Strips) blood-glucose meter (FreeStyle #1 ea 12/14/20 12/14/20 Lite Meter kit) lancets 28 gauge (FreeStyle #100 ea 12/14/20 12/14/20 Lancets) dulaglutide 0.75 mg/0.5 mL mg subcut 04/02/22 02/26/23 [facility] escitalopram oxalate 5 mg tablet mg PO 04/02/22 omeprazole 20 mg capsule,delayed 20 mg PO 02/26/23 release Previous Rx's ?Medication ?Instructions ?Recorded cefuroxime axetil 250 mg tablet 250 mg PO BID #10 tabs 09/08/20 ibuprofen 600 mg tablet 600 mg PO Q8H PRN pain #10 t abs 09/08/20 cyclobenzaprine 10 mg tablet 10 mg PO TID PRN muscle s pasm #14 01/16/21 tabs ibuprofen 600 mg tablet 600 mg PO Q8H PRN pain #14 t abs 01/16/21 meclizine 25 mg tablet 25 mg PO BID PRN dizziness 1 4 days 12/17/23 #28 tabs lidocaine 4 % topical patch 1 patch topical DAILY PRN pain #10 12/15/24 ea morphine 15 mg immediate release 15 mg PO Q6H PRN pain #14 tabs 12/15/24 tablet oxycodone 5 mg tablet 5 mg PO TID PRN pain #9 tabs 01/20/25 prednisone 20 mg tablet 40 mg (2 x 20 mg) PO DAILY 5 days 01/20/25 #10 tabs Allergies Allergy/AdvReac Type Severity Reaction Status Date / Time No Known Allergies Allergy Mild NOT Verified 01/20/25 09:26 APPLICABLE Review of Systems 2 Review of Systems: Left lower extremity pain Yes all other systems are reviewed and are negative [facility] Past Medical History Medical History Vitamin D deficiency Hypertriglyceridemia HLD (hyperlipidemia) Non-cardiac chest pain Cerebrovascular accident HTN (hypertension) Type 2 diabetes mellitus Surgical History Status post angioplasty Hx of colonoscopy History of hysterectomy Family History Family History Father Heart disease Mother Diabetes Hypertension High cholesterol Renal failure Brother Diabetes Brother Diabetes Sister Diabetes Social History Social History Alcohol intake: never Patient Tobacco Use Status: Former Tobacco user Physical Exam ED Vital Signs: Vital Signs - 24 hr 01/20/25 09:26 01/20/25 15:51 01/20/25 17:08 Temperature 97.4 F 97.4 F Pulse Rate 101 H 90 90 Respiratory Rate 18 18 18 Blood Pressure 140/63 H 141/72 H 141/72 H Pulse Oximetry 99 97 97 Oxygen Delivery Method Room Air Room Air Room Air BMI result Body Mass Index 27.3 Const General: cooperative, healthy appearing, comfortable, no acute distress, well developed, alert, awake and Physically active [facility] Head: Yes normal to inspection, Yes No palpable skull fracture present, Yes normocephalic and Yes atraumatic Eyes General: appearance normal, both eyes and all related structures Neck Neck: Yes normal visual inspection, Yes full ROM, Yes no lymphadenopathy, Yes no meningeal signs, Yes trachea midline, Yes supple, No anterior neck swelling and No tender Chest Chest palpation & inspection: normal inspection of the chest and normal palpation of entire chest wall Resp Effort & Inspection: normal respiratory effort and able to speak in complete sentences Auscultation: clear to auscultation bilaterally Neuro General: no meningeal signs Medications Administered Discontinued Medications Generic Name Dose Route Start Last Admin Trade Name Freq PRN Reason Stop Dose Admin Acetaminophen 975 mg 01/20/25 10:15 01/20/25 10:40 Acetaminophen 325 Mg Tablet PO 01/20/25 10:16 975 mg ONCE ONE Administration Oxycodone HCl 5 mg 01/20/25 10:15 01/20/25 10:39 Oxycodone Hcl Immed Release 5 Mg Tablet PO 01/20/25 10:16 5 mg ONCE ONE Administration Medical Decision Making Medical Decision Making [facility] Narrative: 6-year-old female presents to ED for left lower extremity pain without any trauma. Patient states some thigh and calf pain. Patient denies any recent long travel recent surgery chest pain shortness of breath or coughing up blood. Labs x-ray arterial venous ultrasound ordered. Venous ultrasound negative for DVT. X-ray showed osteoarthritis. Patient's lower extremity normal temperature and palpable pulses. Arterial ultrasound shows worsening occlusions, but no aterial thrombus. Case was discussed with Dr. Cotton of vascular surgery who states patient can be discharged. Patient will be discharged with narcotics. Not suspecting compartment syndrome, osteomyelitis, cellulitis, thrombus, or any other life-threatening etiology. Patient explained worrisome signs and informed to return to the ED immediately Differential Diagnosis Differential Diagnoses: The differential diagnosis associated with the presentation includes (DVT, arterial occlusion, fracture,) Admission/Observation Consideration of admission/observation: Escalation of care including admission/observation considered Lab Data MDM Lab Attestation statement: I reviewed the patient's lab results. 01/20/25 10:36 01/20/25 10:36 Labs: Lab Results 01/20/25 Range/Units 10:36 WBC 6.1 (4.8-10.8) X10*3/uL RBC 4.24 (4.20-5.50) X10*6/uL Hgb 12.5 (12.0-16.0) g/dl Hct 35.7 L (37.0-47.0) % MCV 84.2 (80.0-98.0) fL MCH 29.5 (27.0-33.0) pg MCHC 35.0 (31.0-35.0) g/dl RDW 12.2 (11.0-16.0) % Plt Count 236 (160-400) X10*3/uL MPV 9.9 (9.4-12.3) fL Immature Gran % (Auto) 0.3 (0.0-0.4) % Neut % (Auto) 57.4 (45-73) % Lymph % (Auto) 31.9 (20-40) % [place] % (Auto) 7.6 (2-11) % Eos % (Auto) 2.1 (0-4) % Baso % (Auto) 0.7 (0-2) % Lymph # (Auto) 1.9 (1.2-4.9) X10*3/uL [place] # (Auto) 0.5 (0.1-1.2) X10*3/uL Eos # (Auto) 0.1 (0.0-0.4) X10*3/uL Baso # (Auto) 0.0 (0.0-0.2) X10*3/uL Abs Immat Gran (auto) 0.02 (0.00-0.03) X10*3/uL Absolute Neuts (auto) 3.5 (2.0-8.3) x10*3/uL Absolute Nucleated RBC 0.000 (0.0-0.012) X10*3/uL Nucleated RBC % (auto) 0.0 (0.0-0.2) /100WBC PT 11.4 (10.9-12.4) SEC INR 1.0 (0.9-1.1) APTT 28.3 (26.7-34.1) SEC Sodium 137 (135-145) mmol/L Potassium 3.5 (3.3-5.1) mmol/L Chloride 99 (96-108) mmol/L Carbon Dioxide 27 (22-29) mmol/L Anion Gap 15 (12-20) BUN 13 (9-16) mg/dL Creatinine 0.53 (0.5-1.4) mg/dL Estim Creat Clear Calc 78.5 Estimated GFR > 60 Random Glucose 196 H (60-115) mg/dL Calcium 9.3 (8.4-10.2) mg/dL Total Bilirubin 0.3 (0.0-1.0) mg/dL AST 17 (5-31) U/L ALT 18 (0-31) U/L Alkaline Phosphatase 86 (39-117) U/L Total Creatine Kinase 23 L (26-140) U/L Total Protein 7.5 (6.5-8.0) g/dL Albumin 4.4 (3.5-5.0) g/dL Independent Interpretation I performed an independent interpretation of an: Plain X-Ray and Ultrasound Radiology Impression Discussion of test interpretation with radiology: I have reviewed the radiologist's reading. Independent Historian Clinical information obtained from an independent historian. History obtained from or confirmed by: Other (patient) Prescription Management I considered prescription management with: Pain Medication Discharge Plan Discharge Clinical Impression: Osteoarthritis, PAD (peripheral artery disease) Patient Disposition: Home, Self-Care Instructions: Osteoarthritis (ED), Peripheral Artery Disease (ED) Additional Instructions: Recommend follow up with the primary care provider and vascular surgeon. Return to the ED immediately for worsening pain of lower extremity, coldness, hotness, swelling, bluish black discoloration, numbness/tingling, paralysis, or any other concerning symptoms. Ordering Physician: Jaren Gibson Date of Service: 01/20/25 Procedure(s): US arterial duplex LE LT Accession Number(s): [id number] cc: Jaren Gibson; Mitzi Cantu MD~ EXAMINATION: US NONINVASIVE ASSESSMENT OF THE LEFT LOWER EXTREMITY WITHOUT ARTERIAL DUPLEX AND ANKLE BRACHIAL INDICES (ABIS) CLINICAL INFORMATION: Calf pain, left lower extremity COMPARISON: November 22, 2024 reported chronic/old occluded superficial femoral artery and severe inflow disease. TECHNIQUE: Duplex Doppler techniques with waveform analysis and measurement of velocities in the left common femoral, profunda femoris, superficial femoral, popliteal and tibial arteries were performed. . The study was performed only at rest. FINDINGS: LEFT LOWER EXTREMITY DUPLEX ULTRASOUND: Common femoral artery: No color Doppler flow. Profunda femoris artery: No color Doppler flow. Superficial femoral artery (proximal): No color Doppler flow. Superficial femoral artery (mid): No color Doppler flow.. Superficial femoral artery (distal): No color Doppler flow. Popliteal artery: 55 cm/s. Monophasic waveform. Posterior tibial artery: 18 cm/s. Monophasic waveform. Anterior tibialis artery: 17 cm/s. Monophasic waveform. Peroneal artery: 8 cm/s. Monophasic waveform. Dorsalis base artery: 16 cm/s. Monophasic waveform. US/US arterial duplex LE LT IMPRESSION: Occlusion, left common femoral artery, left superficial femoral artery and likely profunda artery. 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 Overall worsening/new since November 22, 2024. Electronically signed by: David Floyd MD 01/20/2025 12:54 PM EDT Ordering Physician: Jaren Gibson Date of Service: 01/20/25 Procedure(s): XR hip LT w PEL1V Accession Number(s): [id number] cc: Jaren Gibson; Mitzi Cantu MD~ EXAMINATION: XR HIP, LEFT CLINICAL INFORMATION: pain COMPARISON: None available. TECHNIQUE: AP upright, AP supine, and frog-leg lateral views of the left hip. FINDINGS: Marginal ossified is are present involving both acetabular roofs. There is subtle axial joint space narrowing of both hip joints, greater on the right. There is mild sclerosis involving pubic symphysis joint and pyrophosphate deposition in the pubic symphysis disc SI joints are unremarkable. XR/XR hip LT w PEL1V IMPRESSION: Mild degenerative changes of both hip joints, greater on the right. Pyrophosphate deposition is present in the pubic symphysis joint. Electronically signed by: Bud Rubio MD 01/20/2025 01:13 PM EDT RP Ordering Physician: Jaren Gibson Date of Service: 01/20/25 Procedure(s): US venous duplex LE LT Accession Number(s): [id number] cc: Jaren Gibson; Mitzi Cantu MD~ EXAMINATION: US TRIPLEX LOWER EXTREMITY, LEFT CLINICAL INFORMATION: Calf pain, left lower extremity COMPARISON: None available. TECHNIQUE: Color-flow triplex imaging with spectral analysis and compression Doppler were performed on the left lower extremity. FINDINGS: Respiratory variation, normal compression and augmented flow are demonstrated in the interrogated left common femoral vein, superficial femoral vein, profunda femoral vein, popliteal vein and midcalf peroneal and posterior tibial venous segments . There is no Chisholm's cyst. US/US venous duplex LE LT IMPRESSION: No acute deep venous thrombosis interrogated veins, left lower extremity. Negative for DVT. Electronically signed by: David Floyd MD 01/20/2025 12:48 PM EDT RP Prescriptions: New oxycodone 5 mg tablet 5 mg PO TID PRN (Reason: pain) Qty: 9 0RF Rx Instructions: Partial Fill upon patient request. prednisone 20 mg tablet 40 mg PO DAILY 5 Days Qty: 10 0RF No Action cyclobenzaprine 10 mg tablet 10 mg PO TID PRN (Reason: muscle spasm) Qty: 14 0RF ibuprofen 600 mg tablet 600 mg PO Q8H PRN (Reason: pain) Qty: 14 0RF nifedipine 30 mg tablet extended release 24hr 30 mg PO BID cyanocobalamin (vitamin B-12) 1,000 mcg tablet 1 tab PO DAILY hydralazine 25 mg tablet 25 mg PO BID propranolol 120 mg capsule,extended release 24 hr 120 mg PO DAILY losartan 100 mg tablet 100 mg PO DAILY metformin 500 mg tablet extended release 24 hr 1,000 mg PO BID potassium citrate 15 mEq tablet extended release 1 tab PO BID cefuroxime axetil 250 mg tablet 250 mg PO BID Qty: 10 0RF ibuprofen 600 mg tablet 600 mg PO Q8H PRN (Reason: pain) Qty: 10 0RF meclizine 25 mg tablet 25 mg PO BID PRN (Reason: dizziness) 14 Days Qty: 28 0RF morphine 15 mg tablet 15 mg PO Q6H PRN (Reason: pain) Qty: 14 0RF Rx Instructions: Partial Fill upon patient request. lidocaine 4 % adhesive patch,medicated 1 patch topical DAILY PRN (Reason: pain) Qty: 10 0RF (DME) blood-glucose meter [FreeStyle Lite Meter] Kit See Rx Instructions .ROUTE .MEDSUPPLY Qty: 1 Rx Instructions: As directed (DME) FreeStyle Lite Strips Strip See Rx Instructions .ROUTE .MEDSUPPLY Qty: 10 Rx Instructions: As directed (DME) lancets [FreeStyle Lancets] 28 gauge misc See Rx Instructions .ROUTE .MEDSUPPLY Qty: 100 Rx Instructions: As directed aspirin 81 mg tablet,delayed release (DR/EC) 81 mg PO DAILY omeprazole magnesium [Prilosec OTC] 20 mg tablet,delayed release (DR/EC) 20 mg PO DAILY atorvastatin [Lipitor] 20 mg tablet 20 mg PO BEDTIME fenofibrate 160 mg tablet 160 mg PO BEDTIME hydrochlorothiazide 25 mg tablet 25 mg PO DAILY glipizide 5 mg tablet 5 mg PO DAILY escitalopram oxalate 5 mg tablet PO Trulicity 0.75 mg/0.5 mL pen injector subcut omeprazole 20 mg capsule,delayed release(DR/EC) 20 mg PO Ref[place]: [facility] [Provider Group, Vascular Surgery] - 2 days Referral Note: Claudication ultrasound shows worsening occlusion Clinical Impression: PAD (peripheral artery disease) Mitzi Cantu MD [Primary Care Provider, Family Practice] - 2 days Referral Note: Bilateral hip osteoarthritis, claudication Clinical Impression: Osteoarthritis; PAD (peripheral artery disease) Interventions: ED Discharge Assessment Last Done: 01/20/25 17:08 Discharge Date/Time: 01/20/25 17:11 Print Language: Yi
[2025-01-20] MEDS: oxyCODONE HCl Immed Release 5 MG TABLET PO (10:39)
[2025-01-20 10:41] LABS: MANUAL DIFF FLAG NO
[2025-01-20 10:45] LABS: Hematocrit 35.7 % (37.0-47.0); Hemoglobin 12.5 g/dl (12.0-16.0); Imm Gran Abs Auto 0.02 X10*3/uL (0.00-0.03); Imm Gran Pct Auto 0.3 % (0.0-0.4); Lymphocytes Absolute Auto 1.9 X10*3/uL (1.2-4.9); Mean Corpuscular HGB Conc 35.0 g/dl (31.0-35.0); Mean Corpuscular Hemoglobin 29.5 pg (27.0-33.0); Mean Corpuscular Volume 84.2 fL (80.0-98.0); NRBC Abs Auto 0.000 X10*3/uL (0.0-0.012); NRBC Pct Auto 0.0 /100WBC (0.0-0.2); Platelet Count 236 X10*3/uL (160-400); Red Blood Count 4.24 X10*6/uL (4.20-5.50); White Blood Count 6.1 X10*3/uL (4.8-10.8)
[2025-01-20 10:49] LABS: INTERNATIONAL NORM RATIO 1.0 (0.9-1.1); Prothrombin Time 11.4 SEC (10.9-12.4)
[2025-01-20 10:52] LABS: Partial Thromboplastin Time 28.3 SEC (26.7-34.1)
--- OUTSIDE RECORDS SUMMARY | 2025-01-20 10:56 | XMS_ITS | Clinical Summary ---
Author Organization [facility] Address [address] [place] [address] Care Team Providers Care Cell Reliner Name Role Phone Unavailable Primary Care Provider Unavailabl e Social History Tobacco Use Types Packs/Day Years Used Date Smoking Tobacco: Never Assessed Sex and Gender Information Value Date Recorded Sex Assigned at Not on file Gender Identity Not on file Sexual Orientation Not on file Plan of Treatment Not on file
--- OUTSIDE RECORDS SUMMARY | 2025-01-20 10:56 | XMS_ITS | Patient Health Record ---
Author Organization [facility] Address [address] [place] [address] Care Team Providers Care Medical Claims Specialist Name Role Phone Mitzi Cantu MD Primary Care Provider Coleen Shaheen Shannon Jr Unavailable Reason For Referral No Information Plan Of Treatment No Information Insurance Providers Payer Name Payer Address Payer Phone Subscriber Number Group Number Insured Name Patient Relationship to Insured Coverage Start Date Coverage End Date MEDICAID OF [facility] [address] [place] [phone] [id number] REMY BALDWIN Self - patient is the insured
--- OUTSIDE RECORDS SUMMARY | 2025-01-20 10:56 | XMS_ITS | Encounter Summary ---
Author Organization [facility] Address [address] [place] [address] Care Team Providers Care Flow Coordinator Name Role Phone Mitzi Cantu MD Primary Care Provider [phone]- [phone] Christa Kwan PharmD Unavailable [phone] Zi Cotton MD Unavailable Gamal Quiñonez MD Unavailable [phone] Encounter Details Date Type Department Care Team (Late st Contact Info) Description 01/20/2025 Orders Only GENERIC EXTERNAL DATA DEPARTMENT Provider, Generic External Data Social History Tobacco Use Types Packs/Day Years [...] Description 03/07/2025 9:45 AM EDT Office Visit [facility] [address] [place] [address] Mitzi Cantu MD [address] [place] [address] documented as of this encounter Goals Goal Patient Goal Type Associated Problems Recent Progress Patient-Stated? Author Hemoglobin A1c < 7 Result Component 9.7(11/04/2024 9:25 AM EDT) No Christa Kwan, CrisD documented as of this encounter Procedures Procedure Name Priority Date/Time Associated Diagnosis Comments CBC WITH AUTO DIFFERENTIAL Routine 01/20/2025 10:36 AM EDT APTT Routine 01/20/2025 10:36 AM EDT PROTHROMBIN TIME-INR Routine 01/20/2025 10:36 AM EDT documented in this encounter Results * Partial Thromboplastin Time, Activated (APTT) (01/20/2025 10:36 AM EDT) Partial Thromboplastin Time 28.3 26.7 - 34.1 SEC [facility] 01/20/2025 10:3 6 AM EDT 01/20/2025 10:39 AM EDT Generic External Data Provider LAB BLOOD ORDERAB LES Final Result Performing Organization Address [facility] Co de Phone Number [facility] [address] [place] [phone] * Prothrombin Time-INR (01/20/2025 10:36 AM EDT) Prothrombin Time 11.4 10.9 - 12.4 SEC [facility] INTERNATIONAL NORM RATIO 1.0 0.9 - 1.1 [facility] Comment:INTERNATIONAL NORMAL IZED RATIO (INR) REFERENCE RANGES Reference RangeFor patients not on anticoagulant therapy: 0.9 - 1.1INR ranges for oral anticoagulanttherapy:For prevention and treatment of venous thrombosis and pulmonary embolism: 2.0 - 3.0For acute myocardial infarction with aspirin therapy: 2.0 - 3.0For acute myocardial infarction without aspirin therapy: 3.0 - 4.0For patients with mechanical prosthetic heart valves: 2.5 - 3.5 01/20/2025 10:3 6 AM EDT 01/20/2025 10:39 AM EDT Generic External Data Provider LAB BLOOD ORDERAB LES Final Result Performing Organization Address [facility] de Phone Number [facility] [address] [place] [phone] * (ABNORMAL) CBC auto differential (01/20/2025 10:36 AM EDT) White Blood Count 6.1 4.8 - 10.8 X10*3/uL [facility] Red Blood Count 4.24 4.20 - 5.50 X10*6/uL [facility] Hemoglobin 12.5 12.0 - 16.0 g/dl [facility] Hematocrit 35.7(L) 37.0 - 47.0 % [facility] Mean Corpuscular Volume 84.2 80.0 - 98.0 fL [facility] Mean Corpuscular Hemoglobin 29.5 27.0 - 33.0 pg [facility] Mean Corpuscular HGB Conc 35.0 31.0 - 35.0 g/dl [facility] Red Cell Distribution Width 12.2 11.0 - 16.0 % [facility] Platelet Count 236 160 - 400 X10*3/uL [facility] Mean Platelet Volume 9.9 9.4 - 12.3 fL [facility] Neutrophils Percent Auto 57.4 45 - 73 % [facility] Imm Gran Pct Auto 0.3 0.0 - 0.4 % [facility] Lymphocytes Percent Auto 31.9 20 - 40 % [facility] Monocytes Percent Auto 7.6 2 - 11 % [facility] Eosinophils Percent Auto 2.1 0 - 4 % [facility] Basophils Percent Auto 0.7 0 - 2 % [facility] NRBC Pct Auto 0.0 0.0 - 0.2 /100WBC [facility] Neutrophils Absolute Auto 3.5 2.0 - 8.3 x10*3/uL [facility] Imm Gran Abs Auto 0.02 0.00 - 0.03 X10*3/uL [facility] Lymphocytes Absolute Auto 1.9 1.2 - 4.9 X10*3/uL [facility] Monocytes Absolute Auto 0.5 0.1 - 1.2 X10*3/uL [facility] Eosinophils Absolute Auto 0.1 0.0 - 0.4 X10*3/uL [facility] Basophils Absolute Auto 0.0 0.0 - 0.2 X10*3/uL [facility] NRBC Abs Auto 0.000 0.0 - 0.012 X10*3/uL [facility] 01/20/2025 10:3 6 AM EDT 01/20/2025 10:39 AM EDT us Generic External Data Provider LAB BLOOD ORDERAB LES Final Result [facility] [address] [place] [phone] documented in this encounter Visit Diagnoses Not on filedocumented in this encounter Additional Health Concerns Assessment Noted Time PHQ-9 Depression Total Score: 0 02/09/20 24 9:53 AM EDT documented as of this encounter Care Teams Flow Coordinator Relationship Specialty Start Date End Date Mitzi Cantu MD [address] [place] [address] PCP - General Family Medicine 06/02/18 Christa Kwan, CrisD [address] [place] [address] Pharmacist Internal Medicine 07/16/22 Zi Cotton MD [address] [place] [address] Vascular Surgery 04/22/24 Gamal Quiñonez MD [address] [place] [address] Cardiology 04/28/24 documented as of this encounter
--- OUTSIDE RECORDS SUMMARY | 2025-01-20 10:56 | XMS_ITS | Encounter Summary ---
Author Organization [facility], Address [address] [facility] [address] [place] [address] Phone Care Team Providers Care [employer] [address] Name Role Phone Mitzi Cantu MD Primary Care Provider U christiana Reason for Visit * Reason Comments Med Refill Encounter Details Date Type Department Care Team (Late st Contact Info) Description 02/28/2022 Refill [facility] [address] [place] [phone] Josafat Colón MD [address] [place] [address] Social History Tobacco Use Types [...] on filedocumented in this encounter Care Teams [employer] Relationship Specialty Start Date End Date Mitzi Cantu MD PCP - General 04/06/19 documented as of this encounter
[2025-01-20 11:00] LABS: Alanine Aminotransferase 18 U/L (0-31); Albumin Level 4.4 g/dL (3.5-5.0); Alkaline Phosphatase 86 U/L (39-117); Anion Gap 15 (12-20); Aspartate Amino Transferase 17 U/L (5-31); Blood Urea Nitrogen 13 mg/dL (9-16); Calcium 9.3 mg/dL (8.4-10.2); Carbon Dioxide 27 mmol/L (22-29); Chloride 99 mmol/L (96-108); Creatinine Clr Calc Pharmacy 78.5; Estimated Glomerular Filt Rate > 60; Potassium 3.5 mmol/L (3.3-5.1); Sodium 137 mmol/L (135-145); Total Protein 7.5 g/dL (6.5-8.0)
[2025-01-20 15:51] VITALS: BP 141/72; PULSE 90; RESP 18; O2SAT 97
[2025-01-20 17:08] VITALS: BP 141/72; PULSE 90; RESP 18; TEMP 36.3; O2SAT 97
== END 2025-01-20 17:11 | disposition home or self-care (01) ==
PROVIDERS: Physician Assistant; Emergency Provider Emergency Medicine; PCP Family Medicine
DX: M79.605 Pain in left leg (principal); M19.90 Unspecified osteoarthritis, unspecified site; I10 Essential (primary) hypertension; E11.9 Type 2 diabetes mellitus without complications; I73.9 Peripheral vascular disease, unspecified; Z79.899 Other long term (current) drug therapy
CPT/HCPCS: 36415; 73502; 80053; 82550; 85025; 85610; 85730; 93926; 93971; 99284

== ENCOUNTER → 2025-01-20 10:15 | Outpatient (BNV) | payer MEDICARE, MEDICAID, SELFPAY | PROVIDERS: Emergency Provider Emergency Medicine; PCP Family Medicine; Visit Provider Radiology Diagnostic Radiology | DX: I70.212 Atherosclerosis of native arteries of extremities with intermittent claudication, left leg (principal); I70.92 Chronic total occlusion of artery of the extremities; M79.662 Pain in left lower leg | CPT/HCPCS: 93926; 93971 ==

== ENCOUNTER 2025-02-03 12:50 | Outpatient (AMB) | payer MEDICARE, MEDICAID, SELFPAY ==
--- NOTE | 2025-02-03 12:57 | MHC.OFFVIS ---
Vital Signs 02/03/25 13:00 Height 4 ft 11 in Weight 135 lb BMI 27.3 Intake Visit Reasons: Follow Up ED, PVD Intake Note: Pt is an ED follow up for worsening Left LE pain. Was seen in November 2024, was told to reach out if trouble ambulating. Pain w/ or w/o ambulation. Pain while sleeping. Has cramping in Left LE. Self Pay Representative Required: Yes Accompanied by: Daughter Allergies No Known Allergies Allergy (Mild, Verified 02/03/25 13:05) NOT APPLICABLE HPI HPI Follow Up ED, PVD: Details: Very pleasant 69-year-old female presents for follow-up. She had actually seen us the end of November at that time she was doing fairly well. She has bilateral total SFA occlusions. It seemed to progress shortly thereafter. She has had difficulty ambulating and actually presented to the emergency room on 01/20/2025. She had undergone some noninvasive testing but in general has had significant difficulty walking left more so than right. [facility] Medical History Vitamin D deficiency Hypertriglyceridemia HLD (hyperlipidemia) Non-cardiac chest pain Cerebrovascular accident HTN (hypertension) Type 2 diabetes mellitus Surgical History Status post angioplasty Hx of colonoscopy History of hysterectomy Family History Father Heart disease Mother Diabetes Hypertension High cholesterol Renal failure Brother Diabetes Brother Diabetes Sister Diabetes Social History Alcohol intake: never Patient Tobacco Use Status: Former Tobacco user Review of Systems Const All systems reviewed & are unremarkable except as noted in HPI and below Reports no additional complaints ENT Reports Normal hearing present Card Denies chest pain, Denies chest pain at rest, Denies chest pain with activity and Denies pedal edema Resp Denies cough GI Denies abdominal pain Musc Denies abnormal gait, Denies muscle cramps and Denies radiating pain into limb Skin/Breast Denies skin ulcer and Denies wounds Neuro Reports Normal hearing present and Denies abnormal gait Psych Reports no additional complaints Physical Exam Vital Signs: BMI result Body Mass Index 27.3 Const General: cooperative, healthy appearing and comfortable Orientation/consciousness: oriented to person, oriented to place and oriented to time HEENT Head: Yes normal to inspection Neck Neck: Yes normal visual inspection Carotids: no bruits Chest Chest palpation & inspection: normal inspection of the chest Resp Effort & Inspection: normal respiratory effort and able to speak in complete sentences Auscultation: clear to auscultation bilaterally, no crackles, no rales, no rhonchi and no wheezes Cardio Other: Bilateral DP signals Rate: regular rate Rhythm: regular rhythm Heart sounds: S1 normal heart sound present and S2 normal heart sound present Bruits: no carotid bruits Peripheral pulses: Peripheral pulses 2+ throughout GI Inspection: Yes normal to inspection Skin Wounds: no wounds Hair: normal Neuro General: oriented to person, oriented to place and oriented to time Cranial nerves: Yes CN's II-XII intact bilaterally and Yes Normal hearing present Cognition (Neuro): normal cognition Motor exam (neuro): 5/5 motor strength present throughout Extrem Other: Motor and sensation intact in bilateral lower extremity General: No clubbing, No cyanosis and No edema Psych Appearance: grossly normal Mental Status: mental status grossly normal Speech and movement: Normal speech and movement present Results Reviewed Results Reviewed: Noninvasive testing from 01/20/2025 was reviewed Assessment & Plan Assessment & Plan (1) PAD (peripheral artery disease): Comment: Angiogram 01/05/2020 Code(s): I73.9 - Peripheral vascular disease, unspecified Category: Medical Plan: Patient notes leg pain when walking distances. It appears that her claudication has significantly worsened. Last diagnostic angiogram was 01/05/2020 and will need repeat. I have discussed the pathophysiology of peripheral vascular disease with the patient. I have also discussed risk factor modification. I have reviewed the patient's arterial testing which reveals SFA disease. the patient would benefit from a left leg endovascular peripheral angiogram with possible angioplasty, stent, and/or atherectomy. This has been discussed in detail with the patient along with risks, benefits, and complications. This includes but is not limited to bleeding, infection, heart attack, need for emergent surgical repair, limb ischemia, blood vessel damage, bleeding, puncture, kidney injury, bruising, allergic reaction, and skin reaction. The patient demonstrates a clear understanding. We will schedule for the next appropriate time. Thank you for allowing us to assist in this patient's care. Coding Level of Care Code Est Pt Level 4 (50932) Complex EM visit Add On G2211 Diagnoses PAD (peripheral artery disease) I73.9
[2025-02-03 13:00] VITALS: BMI 27.3
--- OUTSIDE RECORDS SUMMARY | 2025-02-03 14:06 | XMS_ITS | Encounter Summary ---
Author Organization [employer] Address [address] [facility] 7t [place] [address] Care Team Providers Care Utility Mechanic Supervisor Name Role Phone Mitzi Cantu MD Primary Care Provider + [phone] Christa Kwan PharmD Unavailable [phone] Zi Cotton MD Unavailable Gamal Quiñonez MD Unavailable [phone] Encounter Details Date Type Department Care Team (Late st Contact Info) Description 02/02/[address] [facility] [address] [place], [place] [phone] Mitzi Cantu MD [address] [place] [address] Social History Tobacco Use Types Packs/Day Years [...] encounter Miscellaneous Notes * Telephone Encounter - Susi Ly - 02/02/2025 1:42 PM EDT Pharmacy [facility] attempted outreach call on 02/02/25 for CDTM - Diabetes appointment; however, unable to reach patient. LVM for patient to contact Susi Ly at [phone]. documented in this encounter Plan of Treatment Upcoming Encounters Date Type Department Care Team (Late st Contact Info) Description 03/07/2025 9:45 AM EDT Office Visit [facility] [address] [place] [address] Mitzi Cantu MD [address] [place] [address] documented as of this encounter Goals Goal [...] documented as of this encounter Care Teams Utility Mechanic Supervisor Relationship Specialty Start Date End Date Mitzi Cantu MD [address] [place] [address] PCP - General Family Medicine 06/02/18 Christa Kwan, CrisD [address] [place] [address] Pharmacist Internal Medicine 07/16/22 Zi Cotton MD [address] [place] [address] Vascular Surgery 04/22/24 Gamal Quiñonez MD [address] 3rd [place] [address] Cardiology 04/28/24 documented as of this encounter
--- OUTSIDE RECORDS SUMMARY | 2025-02-03 14:06 | XMS_ITS | Clinical Summary ---
Author Organization [facility], Address [address] [place] [address] [place] [address] Phone Care Team Providers Care Brakeshoe Repairer Name Role Phone Mitzi Cantu MD [...] Colorectal Cancer Screening: Sigmoidoscopy 2003 Pneumococcal Vaccine: 50+ Ye ars (1 of 1 - PCV) 2004 Diabetes: Hemoglobin A1C 08/23/2019 Diabetes: Ophthalmology Exam 08/23/2019 Diabetes: Pedal Pulse Checked 08/23/2019 Diabetes: Sensory Foot Exam 08/23/2019 Diabetes: Visual Foot Exam 08/23/2019 Influenza Vaccine (#1) 2025 Hepatitis B Vaccine Aged Out No longe r eligible based on patient's age to complete this topic Insurance [address] [place] [address] Medicaid [place] Medicare Care Teams Brakeshoe Repairer Relationship Specialty Start Date End Date Arrey, Mitzi Okeefe MD PCP - General 04/06/19
--- OUTSIDE RECORDS SUMMARY | 2025-02-03 14:06 | XMS_ITS | Encounter Summary ---
Author Organization [facility], Address [address] [facility] [address] [place] [address] Phone Care Team Providers Care Energy And Sustainability Manager Name Role Phone Mitzi Cantu MD Primary Care Provider U christiana Reason for Visit * Reason Comments Med Refill Encounter Details Date Type Department Care Team (Late st Contact Info) Description 02/28/2022 Refill [facility] [address] [facility] [address] [place] [phone] Josafat Colón MD [address] [place] [address] Social History Tobacco Use Types [...] on filedocumented in this encounter Care Teams Energy And Sustainability Manager Relationship Specialty Start Date End Date Mitzi Cantu MD PCP - General 04/06/19 documented as of this encounter
--- OUTSIDE RECORDS SUMMARY | 2025-02-03 14:06 | XMS_ITS | Encounter Summary ---
Author Organization [employer] Address [address] [place] [address] 7t [place] [address] Care Team Providers Care Municipal Court Magistrate Name Role Phone Mitzi Cantu MD Primary Care Provider + [phone] Christa Kwan PharmD Unavailable [phone] Zi Cotton MD Unavailable Gamal Quiñonez MD Unavailable [phone] Encounter Details Date Type Department Care Team (Late st Contact Info) Description 02/05/2023 Orders Only [facility] [address] [place] [address] Mitzi Cantu MD [address] [place], [place] [phone] Social History Tobacco Use Types Packs/Day Years [...] Description 03/07/2025 9:45 AM EDT Office Visit [facility] [address] [place] [address], [place] [address] Mitzi Cantu MD [address] [place] [address] documented as of this encounter Goals Goal [...] documented as of this encounter Care Teams Municipal Court Magistrate Relationship Specialty Start Date End Date Mitzi Cantu MD [address] [place] [address] PCP - General Family Medicine 06/02/18 Christa Kwan, PharmD [address] [place] [address] Pharmacist Internal Medicine 07/16/22 iZ Cotton MD [address] [place] [address] Vascular Surgery 04/22/24 Gamal Quiñonez MD [address] 3rd [place] [address] Cardiology 04/28/24 documented as of this encounter
--- OUTSIDE RECORDS SUMMARY | 2025-02-03 14:06 | XMS_ITS | Encounter Summary ---
Author Organization [facility], Address [address] [facility] [address] [place] [address] Phone Care Team Providers Care Funeral Home Assistant Name Role Phone Mitzi Cantu MD Primary Care Provider U christiana Reason for Visit * Reason Comments Med Refill Encounter Details Date Type Department Care Team (Late st Contact Info) Description 08/23/2021 Refill [facility] [address] [place] [phone] Josafat Colón MD [address] [place] [address] Social History Tobacco Use Types [...] on filedocumented in this encounter Care Teams Funeral Home Assistant Relationship Specialty Start Date End Date Mitzi Cantu MD PCP - General 04/06/19 documented as of this encounter
--- OUTSIDE RECORDS SUMMARY | 2025-02-03 14:06 | XMS_ITS | Encounter Summary ---
Author Organization [employer] Address [address] [facility] 7t [place] [address] Care Team Providers Care Bezel Cutter Name Role Phone Gibson, Mitzi RODAS Primary Care Provider + [phone] Christa Kwan PharmD Unavailable [phone] Zi Cotton MD Unavailable Gamal Quiñonez MD Unavailable [phone] Reason for Visit * Reason Comments Med Refill Encounter Details Date Type Department Care Team (Late st Contact Info) Description 05/11/2024 Refill [facility] [address] [place], [place] [phone] Christa Kwan, PharmD 230 [place] [address] Social History Tobacco Use Types Packs/Day Years [...] Description 03/07/2025 9:45 AM EDT Office Visit [facility] [address] [place] [address] Mitzi Cantu MD [address] [place] [address] documented as of this encounter Goals Goal [...] documented as of this encounter Care Teams Bezel Cutter Relationship Specialty Start Date End Date Mitzi Cantu MD [address] [place] [address] PCP - General Family Medicine 06/02/18 Christa Kwan, CrisD [address] [place] [address] Pharmacist Internal Medicine 07/16/22 Zi Cotton MD [address] [place] [address] Vascular Surgery 04/22/24 Gamal Quiñonez MD [address] 3rd [place] [address] Cardiology 04/28/24 documented as of this encounter
--- OUTSIDE RECORDS SUMMARY | 2025-02-03 14:06 | XMS_ITS | Encounter Summary ---
Author Organization [email or web address] Address [address] [facility] 7t [place] [address] Care Team Providers Care Glass Breaker Name Role Phone Mitzi Cantu MD Primary Care Provider + [phone] Christa Kwan PharmD Unavailable [phone] Zi Cotton MD Unavailable Gamal Quiñonez MD Unavailable [phone] Reason for Visit * Reason Onset Date Comments Med Refill 08/04/2024 Encounter Details Date Type Department Care Team (Late st Contact Info) Description 08/04/2024 Refill [facility] [address] [place], [place] [phone] Mitzi Cantu MD [address] [place], [place] [phone] Stage 2 hypertension Social History Tobacco Use [...] the past 12 months, has t he [email or web address] gas, oil or water company threatened to [...] Description 03/07/2025 9:45 AM EDT Office Visit [facility] [address] [place] [address] Mitzi Cantu MD [address] [place] [address] documented as of this encounter Goals Goal [...] documented as of this encounter Care Teams Glass Breaker Relationship Specialty Start Date End Date Mitzi Cantu MD [address] [place] [address] PCP - General Family Medicine 06/02/18 Christa Kwan, Bindu [address] [place] [address] Pharmacist Internal Medicine 07/16/22 Zi Cotton MD [address] [place] [address] Vascular Surgery 04/22/24 Gamal Quiñonez MD [address] 3rd [place] [address] Cardiology 04/28/24 documented as of this encounter
--- OUTSIDE RECORDS SUMMARY | 2025-02-03 14:06 | XMS_ITS | Encounter Summary ---
Author Organization [facility], Address [address] [address] Phone Care Team Providers Care Delivery Truck Driver Heavy Name Role Phone Mitzi Cantu MD Primary Care Provider U navailsteven Reason for Visit * Reason Comments Med Refill Encounter Details Date Type Department Care Team (Late st Contact Info) Description 11/30/2021 Refill [facility] [address] [place] [address] Josafat Colón MD [address] [place] [address] [place] [address] Social History Tobacco Use Types [...] on filedocumented in this encounter Care Teams Delivery Truck Driver Heavy Relationship Specialty Start Date End Date Mitzi Cantu MD PCP - General 04/06/19 documented as of this encounter
--- OUTSIDE RECORDS SUMMARY | 2025-02-03 14:07 | XMS_ITS | Encounter Summary ---
Author Organization [employer] Address [address] [place] [address] 7t [place] [address] Care Team Providers Care Tooler Name Role Phone [place], Mitzi RODAS Primary Care Provider + [phone] Christa Kwan PharmD Unavailable Zi Cotton MD Unavailable Gamal Quiñonez MD Unavailable [phone] Reason for Visit * Reason Comments Med Refill Encounter Details Date Type Department Care Team (Late st Contact Info) Description 01/03/2023 Refill [facility] [address] [place], [place] [phone] Christa Kwan, PharmD 230 [place] [address] Type II diabetes mellitus with neurological manifestations [...] Description 03/07/2025 9:45 AM EDT Office Visit [facility] [address] [facility] [place] [address] Mitzi Cantu MD [address] [facility] [place] [address] documented as of this encounter Goals Goal Patient Goal Type Associated Problems Recent Progress Patient-Stated? Author Hemoglobin A1c < 7 Result Component 9.7(11/04/2024 9:25 AM EDT) No Christa Kwan, PharmD documented as of this encounter Visit Diagnoses Diagnosis Type II diabetes mellitus with neurological manifestations ([facility]) Type II or unspecified type diabetes mellitus with neurological manifestations, not stated as uncontrolled documented in this encounter Additional Health Concerns Assessment Noted Time PHQ-9 Depression Total Score: 15 023 9:31 AM EDT documented as of this encounter Care Teams Tooler Relationship Specialty Start Date End Date Mitzi Cantu MD [address] [facility] [place] [address] PCP - General Family Medicine 06/02/18 Christa Kwan, PharmD [address] [facility] [place] [place] [address] Pharmacist Internal Medicine 07/16/22 Zi Cotton MD [address] [place] [address] Vascular Surgery 04/22/24 Gamal Quiñonez MD [address] 3rd [place] [address] Cardiology 04/28/24 documented as of this encounter
--- OUTSIDE RECORDS SUMMARY | 2025-02-03 14:07 | XMS_ITS | Patient Health Record ---
Author Organization [facility] Address [address] [place] [address] Care Team Providers Care Bistro Attendant Name Role Phone Mitzi Cantu MD Primary Care Provider Coleen Shaheen [place] Jr Unavailable [phone] Reason For Referral No Information Plan Of Treatment No Information Insurance Providers Payer Name Payer Address Payer Phone Subscriber Number Group Number Insured Name Patient Relationship to Insured Coverage Start Date Coverage End Date MEDICAID OF [facility] [address] [address] [place] [address] [id number] REMY BALDWIN Self - patient is the insured
--- OUTSIDE RECORDS SUMMARY | 2025-02-03 14:07 | XMS_ITS | Encounter Summary ---
Author Organization [employer] Address [address] [place] [address] 7t [place] [address] Care Team Providers Care Oil Heater Operator Name Role Phone Mitzi Cantu MD Primary Care Provider + [phone] Christa Kwan PharmD Unavailable Zi Cotton MD Unavailable Gamal Quiñonez MD Unavailable [phone] Encounter Details Date Type Department Care Team (Late st Contact Info) Description 05/20/2022 Orders Only [facility] [address] [place], [place] [phone] Deepa Henao LPN Social History Tobacco Use [...] Description 03/07/2025 9:45 AM EDT Office Visit [facility] [address] [place] [address] Mitzi Cantu MD 230 [place] [address] documented as of this encounter Visit Diagnoses Not on filedocumented in this encounter Care Teams Oil Heater Operator Relationship Specialty Start Date End Date Mitzi Cantu MD [address] [place] [address] PCP - General Family Medicine 06/02/18 Christa Kwan, Bindu [address] [place] [address] Pharmacist Internal Medicine 07/16/22 Zi Cotton MD [address] [place] [address] Vascular Surgery 04/22/24 Gamal Quiñonez MD [address] 3rd [place] [address] Cardiology 04/28/24 documented as of this encounter
--- OUTSIDE RECORDS SUMMARY | 2025-02-03 14:07 | XMS_ITS | Clinical Summary ---
Author Organization [facility] [place] Address [address] [place] [address] Care Team Providers Care Steel Engraver Name Role Phone Unavailable Primary Care Provider Unavailabl e Social History Tobacco Use Types Packs/Day Years Used Date Smoking Tobacco: Never Assessed Sex and Gender Information Value Date Recorded Sex Assigned at Not on file Gender Identity Not on file Sexual Orientation Not on file Plan of Treatment Not on file
--- OUTSIDE RECORDS SUMMARY | 2025-02-03 14:07 | XMS_ITS | Encounter Summary ---
Author Organization [facility] Address [address] [facility] 7t [place] [address] Care Team Providers Care Blasting Gang Miner Name Role Phone Mitzi Cantu MD Primary Care Provider + [phone] Christa Kwan PharmD Unavailable [phone] Zi Cotton MD Unavailable Gamal Quiñonez MD Unavailable [phone] Encounter Details Date Type Department Care Team (Late st Contact Info) Description 02/06/2024 Abstract [facility] MEDICINE [address] [place], [place] [phone] Mitzi Cantu MD [address] [place], [place] [phone] Social History Tobacco Use Types Packs/Day Years [...] AM EDT documented as of this encounter Functional Status * Over the past 2 weeks, how often have you been bothered by any of the following problems? Question Answer Date of Assessment Author Patient Health Questionnaire-2 Score 0 0 02/2024 9:53 AM EDT Jannet Cisneros [place] * Over the past 2 weeks, how often have you been bothered by any of the following problems? Question Answer Date of Assessment Author Little interest or pleasure in doing things Not at all 02/09/2024 9:53 AM EDT Jannet Cisneros [place] Feeling down, depressed, or hopeless Not at all 02/09/2024 9:53 AM EDT Jannet Cisneros [place] Trouble falling or staying a sleep, or sleeping too much Not at all 02/09/2024 9:53 AM EDT Jannet Cisneros [place] Feeling tired or having ted le energy Not at all 02/09/2024 9:53 AM EDT Jannet Cisneros [place] Poor appetite or overeating Not at all 02/09/2024 9: 53 AM EDT Jannet Cisneros [place] Feeling bad about yourself - or that you are a failure or have let yourself or your family down Not at all 02/09/2024 9:53 AM EDT Jannet Cisneros MA Trouble concentrating on thi ngs, such as reading the newspaper or watching television Not at all 02/09/2024 9:53 AM EDT Jannet Cisneros MA Moving or speaking so slowly that other people could have noticed? Or the opposite - being so fidgety or restless that you have been moving around a lot more than usual. Not at all 02/09/2024 9:53 AM EDT Jannet Cisneros MA Thoughts that you would be b harman off or hurting yourself in some way Not at all 02/09/2024 9:53 AM EDT Jannet Cisneros MA Patient Health Questionnaire -9 Score 0 02/09/2024 9:53 AM EDT Jannet Cisneros [place] documented as of this encounter Plan of Treatment Upcoming Encounters Date Type Department Care Team (Late st Contact Info) Description 03/07/2025 9:45 AM EDT Office Visit [facility] MEDICINE [address] [place] [id number] Mitzi Cantu MD [address] [place] [address] documented as of this encounter Goals Goal [...] Noted Time PHQ-9 Depression Total Score: 15 07/24/2 023 9:31 AM EDT documented as of this encounter Care Teams Blasting Gang Miner Relationship Specialty Start Date End Date Mitzi Cantu MD [address] [place] [address] PCP - General Family Medicine 06/02/18 Christa Kwan, Bindu [address] [place] [address] Pharmacist Internal Medicine 07/16/22 Zi Cotton MD [address] [place] [address] Vascular Surgery 04/22/24 Gamal Quiñonez MD [address] 3rd [place] [address] Cardiology 04/28/24 documented as of this encounter
--- OUTSIDE RECORDS SUMMARY | 2025-02-03 14:07 | XMS_ITS | Encounter Summary ---
Author Organization [facility] Address [address] [place] [address] 7t [place] [address] Care Team Providers Care Data Processing Operator Name Role Phone Mitzi Cantu MD Primary Care Provider +- [phone] Christa Kwan PharmD Unavailable [phone] Zi Cotton MD Unavailable Gamal Quiñonez MD Unavailable [phone] Encounter Details Date Type Department Care Team (Latest Contact Info) Description 12/02/2022 Orders Only [facility] MEDICINE [address] [place], [place] [phone] Mitzi Cantu MD [address] [place] [address] Hypercholesterolemia (Primary Dx) Social History Tobacco Use [...] Description 03/07/2025 9:45 AM EDT Office Visit [facility] MEDICINE [address] [place] [address] Mitzi Cantu MD [address] [place] [address] documented as of this encounter Goals Goal [...] documented as of this encounter Care Teams Data Processing Operator Relationship Specialty Start Date End Date Mitzi Cantu MD [address] [place] [address] PCP - General Family Medicine 06/02/18 Christa Kwan, PharmD [address] [place] [address] Pharmacist Internal Medicine 07/16/22 Zi Cotton MD [address] [place] [address] Vascular Surgery 04/22/24 Gamal Quiñonez MD [address]rd [place] [address] Cardiology 04/28/24 documented as of this encounter
--- OUTSIDE RECORDS SUMMARY | 2025-02-03 14:07 | XMS_ITS | Encounter Summary ---
Author Organization [employer] [facility] Address [address] [facility] 7t [place] [address] Care Team Providers Care Buyer Liaison Name Role Phone Mitzi Cantu MD Primary Care Provider + [phone] Christa Kwan PharmD Unavailable [phone] Zi Cotton MD Unavailable Gamal Quiñonez MD Unavailable [phone] Reason for Visit * Reason Onset Date Comments Pre-op Exam 11/20/2023 Encounter Details Date Type Department Care Team (Late st Contact Info) Description 11/20/2023 Telephone [facility] MEDICINE [address] [place], [place] [phone] Mitzi Cantu MD [address] [place], [place] [phone] Pre-op Exam Social History Tobacco Use Types [...] [facility] Surgeon's office number: [phone] Surgeon's office fax number: [phone] Contact name (person you spoke with): Janki Last office note from surgeon requested: Pre-Op notes documented in this encounter Plan of Treatment Upcoming Encounters Date Type Department Care Team ([facility] st Contact Info) Description 03/07/2025 9:45 AM EDT Office Visit [facility] MED[facility]INE [address] [place] [address] Mitzi Cantu MD [address] [place] [address] documented as of this encounter Goals Goal [...] documented as of this encounter Care Teams Buyer Liaison Relationship Specialty Start Date End Date Mitzi Cantu MD [address] [place] [address] PCP - General Family Medicine 06/02/18 Christa Kwan, PharmD [address] [place] [address] Pharmacist Internal Medicine 07/16/22 Zi Cotton MD [address] [place] [address] Vascular Surgery 04/22/24 Gamal Quiñonez MD [address]rd [place] [address] Cardiology 04/28/24 documented as of this encounter
--- OUTSIDE RECORDS SUMMARY | 2025-02-03 14:07 | XMS_ITS | Encounter Summary ---
Author Organization [facility] Address [address] [place] [address] 7t [place] [address] Care Team Providers Care Porcelain Buildup Assistant Name Role Phone [place], Mitzi RODAS Primary Care Provider + [phone] Christa Kwan PharmD Unavailable [phone] Zi Cotton MD Unavailable Gamal Quiñonez MD Unavailable [phone] Reason for Visit * Reason Comments Med Refill Encounter Details Date Type Department Care Team (Late st Contact Info) Description 05/20/2022 Refill [facility] MEDICINE [address] [place], [place] [phone] Christa Kwan PharmD [address] [place] [address] Type II diabetes mellitus with neurological manifestations [...] Description 03/07/2025 9:45 AM EDT Office Visit [facility] MEDICINE [address] [place] [address] Mitzi Cantu MD [address] [place] [address] documented as of this encounter Visit Diagnoses Diagnosis 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
--- OUTSIDE RECORDS SUMMARY | 2025-02-03 14:07 | XMS_ITS | Encounter Summary ---
Author Organization [facility], Address [address] [facility] [address] [place] [address] Phone Care Team Providers Care Equal Opportunity Assistant Name Role Phone Mitzi Cantu MD Primary Care Provider U christiana Reason for Visit * Reason Comments Med Refill Encounter Details Date Type Department Care Team (Late st Contact Info) Description 08/19/2021 Refill [facility] [address] [place] [phone] Josafat Colón MD [address] [place] [address] Social History Tobacco Use Types [...] on filedocumented in this encounter Care Teams Equal Opportunity Assistant Relationship Specialty Start Date End Date Mitzi Cantu MD PCP - General 04/06/19 documented as of this encounter
--- OUTSIDE RECORDS SUMMARY | 2025-02-03 14:07 | XMS_ITS | Encounter Summary ---
Author Organization [facility] Address [address] [facility] 7t [place] [address] Care Team Providers Care Orthotic Finish Grinding Technician Name Role Phone Mitzi Cantu MD Primary Care Provider +- [phone] Christa Kwan PharmD Unavailable [phone] Zi Cotton MD Unavailable Gamal Quiñonez MD Unavailable [phone] Reason for Visit * Reason Onset Date Comments Appointment Request 11/29/2024 Encounter Details Date Type Department Care Team (Late st Contact Info) Description 11/29/2024 Telephone [facility] [address] [place], [place] [phone] Mitzi Cantu MD [address] [place] [address] Appointment Request Social History Tobacco Use Types Packs/Day Years [...] encounter Miscellaneous Notes * Telephone Encounter - Jaquan Short - 11/29/2024 8:04 AM EDT Tc from pt requesting a call back to reschdule apt on 11/29. Contact pt at [phone] (bulgarian) documented in this encounter Plan of Treatment Upcoming Encounters Date Type Department Care Team (Late st Contact Info) Description 03/07/2025 9:45 AM EDT Office Visit [facility] MEDICINE [address] [place] [address] Mitzi Cantu MD [address] [place] [address] documented as of this encounter Goals Goal [...] documented as of this encounter Care Teams Orthotic Finish Grinding Technician Relationship Specialty Start Date End Date Mitzi Cantu MD [address] [place] [address] PCP - General Family Medicine 06/02/18 Christa Kwan, PharmD [address] [place] [address] Pharmacist Internal Medicine 07/16/22 Zi Cotton MD [address] [place] [address] Vascular Surgery 04/22/24 Gamal Quiñonez MD [address]rd [place] [address] Cardiology 04/28/24 documented as of this encounter
--- OUTSIDE RECORDS SUMMARY | 2025-02-03 14:07 | XMS_ITS | Clinical Summary ---
Author Organization [employer] Address [address] [place] [address] [address] [place] [address] Care Team Providers Care Operations Assistant Name Role Phone Mitzi Cantu MD Primary Care Provider [phone]- [phone] Christa Kwan PharmD Unavailable Zi Cotton MD Unavailable Gamal Quiñonez MD Unavailable [phone] Allergies Active Allergy Reactions Criticality Noted Date Comments Gregor Inhibitors Cough 08/02/2010 Medications * This document contains information received from the source organization and may not represent a complete record from that organization. Calcium Carb-Cholecalcifero l 600-10 MG-MCG tabletIndications:A ge related osteoporosis, unspecified pathological fracture presence TAKE 1 TABLET BY MOUTH TWICE DAILY IN THE MORNING AND IN THE EVENING 60 tablet 11 4 Active hydrALAZINE (Apresoline) 25 MG tabletIndications:S tage 2 hypertension TAKE 1 TABLET BY MOUTH TWICE DAILY IN THE MORNING AND IN THE EVENING WITH FOOD 60 tablet 11 4 Active potassium citrate CR (Urocit-K-15) 15 mEq ER tabletIndications:H ypokalemia TAKE 1 TABLET BY MOUTH TWICE DAILY IN THE MORNING AND IN THE EVENING WITH FOOD 60 tablet 11 4 Active cholecalciferol (D3-1000) 25 MCG (1000 UT) capsuleIndications: Vitamin D deficiency TAKE 1 CAPSULE BY MOUTH EVERY MORNING 90 capsule 3 4 Active hydroCHLOROthiazide (HYDRODiuril) 25 MG tabletIndications:S tage 2 hypertension Take 1 tablet (25 mg) by mouth Once per day. 90 tablet 3 12/04/202 4 Active losartan (Cozaar) 100 MG tabletIndications:S tage 2 hypertension Take 1 tablet (100 mg) by mouth in the morning. 30 tablet 7 4 Active propranolol LA (Inderal LA) 120 MG 24 hr capsuleIndications: Stage 2 hypertension Take 1 capsule (120 mg) by mouth in the morning. Do not crush, chew, or split. 90 capsule 3 4 Active insulin glargine (Basaglar KwikPen) 100 UNIT/ML penIndications:Type 2 diabetes mellitus with stage 3 chronic kidney disease, with long-term current use of insulin, unspecified whether stage 3a or 3b CKD (CMS/HCC) Inject 10 Units under the skin at bedtime. 3 mL 12 4 05/05/20 25 Active Dulaglutide 1.5 MG/0.5ML solution auto-injectorIndica tions:Type 2 diabetes mellitus with stage 3 chronic kidney disease, with long-term current use of insulin, unspecified whether stage 3a or 3b CKD (CMS/HCC) Inject 0.5 mL (1.5 mg) under the skin 1 (one) time per week. 2 mL 11 4 Active metFORMIN XR (Glucophage-XR) 500 MG 24 hr tabletIndications:T ype 2 diabetes mellitus with stage 3 chronic kidney disease, with long-term current use of insulin, unspecified whether stage 3a or 3b CKD (CMS/HCC) Take 2 tablets (1,000 mg) by mouth with evening meal. Do not crush, chew, or split. 120 tablet 11 4 Active latanoprost (Xalatan) 0.005 % ophthalmic solutionIndications :Dry eyes INSTILL 1 DROP IN EACH EYE EVERY EVENING 4 Active omeprazole (PriLOSEC) [address] capsuleIndications: Gastroesophageal reflux disease without esophagitis TAKE 1 CAPSULE BY MOUTH EVERY MORNING 30 capsule 11 4 Active pen needle 33G x 4 mm miscIndications:Typ e 2 diabetes mellitus with stage 3 chronic kidney disease, with long-term current use of insulin, unspecified whether stage 3a or 3b CKD (CMS/HCC) USE WITH LANTUS SOLOSTAR ONCE DAILY 100 each 11 5 06/15/19 26 Active Aspirin Adult Low Strength 81 MG EC tabletIndications:H istory of cardioembolic cerebrovascular accident (CVA) TAKE 1 TABLET BY MOUTH EVERY MORNING 90 tablet 3 5 Active cyanocobalamin (Vitamin B-12) 1000 MCG tabletIndications:B 12 deficiency TAKE 1 TABLET BY MOUTH EVERYDAY AT NOON 90 tablet 3 5 Active atorvastatin (Lipitor) 80 MG tabletIndications:H ypercholesterolemia TAKE 1 TABLET BY MOUTH AT BEDTIME 30 tablet 11 5 Active Icosapent Ethyl (Vascepa) 1 g capsuleIndications: Hypercholesterolemi a TAKE 2 CAPSULES BY MOUTH TWICE DAILY IN THE MORNING AND EVENING WITH MEALS 120 capsule 11 5 Active fenofibrate (Triglide) 160 MG tabletIndications:H ypercholesterolemia Take 1 tablet (160 mg) by mouth at bedtime. 30 tablet 11 5 Active escitalopram (Lexapro) 5 MG tabletIndications:M ajor depressive disorder, single episode with psychotic features (CMS/HCC) TAKE 1 TABLET BY MOUTH EVERY MORNING 90 tablet 5 Active NIFEdipine XL (Procardia XL) 30 MG 24 hr tabletIndications:S tage 2 hypertension TAKE 1 TABLET BY MOUTH TWICE DAILY IN THE MORNING AND IN THE EVENING 180 tablet 2 5 Active oxyCODONE (Roxicodone) 5 MG immediate release tabletIndications:L eft leg pain Take 1 tablet (5 mg) by mouth if needed in the morning and at bedtime for severe pain for up to 7 days. 14 tablet 5 02/05/20 25 Active Active Problems Problem Noted Date Diagnosed Date Right hip pain 12/15/2024 Overview (12/15/2024): -xray 12/14/24 with specialist IMPRESSION: Mild osteoarthrosis, right hip. Bilateral carpal tunnel syndrome 06/14/2024 Overview (06/14/2024): -nerve conduction study 06/2024 IMPRESSION: Hrzl-ck-iaycwouf left median neuropathy across carpal tunnel. Mild left ulnar neuropathy across cubital tunnel. Encounter for screening mamm ogram for malignant neoplasm of breast 05/05/2024 Overview (05/05/2024): 02/06/24 BIRADS 1, continue routine annual screening -next due 02/05/26 Cardiac risk counseling 02/09/2024 Overview (05/05/2024): The [...] study 05/05/24 -nerve conduction study 06/2024 IMPRESSION: Uqkz-ix-yprzqzrl left median neuropathy across carpal tunnel. Mild [...] ordered Other specified health status 03/20/2023 Overview (11/04/2024): -next comprehensive annual evaluation due after 08/04/2025 -eye care facilitated by [facility] -health care proxy given and filed 02/09/24 Assessment & Plan (08/04/2024 12:49 PM EST): -next physical exam due after 08/04/2025 -eye care facilitated by [facility] -health care proxy given and filed 02/09/24 Assessment & Plan (02/09/2024 10:20 AM EDT): -next physical exam due after 06/26/2023 -eye care facilitated by [facility] is -health care proxy given and filed 02/09/24 Assessment & Plan (04/30/2023 3:36 PM EST): -next physical exam due after 06/26/2023 -eye care facilitated by [facility] is Stage 2 hypertension 06/06/2022 Overview (08/04/2024): -Blood pressure is not at goal 05/05/24. Has not taken medications today. -Continue lifestyle modifications -Continue current medications -Last Nephrology note is from 12/09/17. At that time, 24 hour urine collection was normal. Metanephrine came back slightly elevated. They increased Hydralazine to 25 bid. - Renal Doppler US showed some degree of renal artery stenosis. Assessment & Plan (08/04/2024 12:48 PM EST): -Blood pressure is not at goal 05/05/24. Has not taken medications today. -Continue lifestyle modifications -Continue current medications -Last Nephrology note is from 12/09/17. At that time, 24 hour urine collection was normal. Metanephrine came back slightly elevated. They increased Hydralazine to 25 bid. - Renal Doppler US showed some degree of renal artery stenosis. Assessment & Plan (02/09/2024 10:24 AM EDT): [...] hallucinations (door knocking, felt presence of her zqsnwr-vt-hrs). Anxious about medication side effects. After initial [...] hallucinations (door knocking, felt presence of her zpwzur-sw-ptx). Anxious about medication side effects. After initial [...] hallucinations (door knocking, felt presence of her ejrdck-gu-wuw). Anxious about medication side effects. After initial [...] hallucinations (door knocking, felt presence of her rknqpd-zp-loj). Anxious about medication side effects. After initial [...] hallucinations (door knocking, felt presence of her vvaixf-us-jwi). She is much improved, depression in remission. At this time she will be referred back to her PCP for further medication management. I would be happy to see her again in the future as needed. She agrees with the plan. B12 deficiency 08/03/2021 Gastroesophageal reflux disease 08/03/2021 Osteoporosis 08/03/2021 Peripheral vascular disease 10/06/2019 Overview (01/20/2025): ABIs 05/06/23 with Zi Cotton MD Aorta/iliac: [...] fem-pop bypass if clinically required Seen by [facility] 10/30/23: In short her arterial status appears to be stable at the current time. Will schedule for annual surveillance. We did discuss risk factor modification. Thank you for allowing us to assist in her care. If there are any questions or concerns please do not hesitate to contact us. US arterial duplex LE BI 1 Year -11/09/24 IMPRESSION: 1. Findings suggesting inflow disease into the RIGHT common femoral artery. 2. High-grade stenosis at the proximal superficial femoral/profunda femoral artery junction, with newly acquired occlusion of the mid and distal RIGHT superficial femoral artery. It appears the RIGHT profunda femoral artery is supplying the more distal popliteal and tibial arteries. The distal RIGHT popliteal artery appears occluded as well. 3. Abnormal bilateral ABIs, with abnormal monophasic waveforms bilaterally. 4. The LEFT proximal, mid, and distal superficial femoral artery are newly occluded. It appears the left profunda femoral artery is supplying the more distal popliteal and tibial arteries. Seen in ER for left leg pain, US : IMPRESSION: No evidence of deep venous thrombosis involving the left lower extremity. Left leg: Chronic/old occluded superficial femoral artery. Severe Inflow disease from the popliteal to the dorsalis pedis arteries. No gross change. -note from Dr. Cotton 12/09/24 reviewed, CT ordered -CT angio 12/14/24 IMPRESSION: Occlusion of the left superficial femoral artery throughout its course with reconstitution of the left popliteal artery, likely through retrograde/collateral flow. There is two-vessel runoff of the level of the left ankle. Occlusion of the mid to distal aspect of the right superficial femoral artery with reconstitution of the popliteal artery, likely through retrograde/collateral flow. There is three-vessel runoff at the level of the right ankle. -Note from Dr. Zi Cotton MD 12/28/24 reveiwed -US 01/20/25 US/US arterial duplex LE LT IMPRESSION: Occlusion, left common femoral artery, left superficial femoral artery and likely profunda artery. 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 Overall worsening/new since November 22, 2024. Assessment & Plan (02/09/2024 10:19 AM EDT): [...] fem-pop bypass if clinically required Seen by [facility] 10/30/23: In short her arterial status [...] long-term current use of insulin 04/01/2012 Overview (11/04/2024): Diabetes is not controlled. A1C is worse than it was a month ago.(See below) Lab Results Component Value Date HGBA1C 9.7 (A) 11/04/2024 HGBA1C 9.7 (A) 08/04/2024 HGBA1C 8.7 (H) 05/05/2024 Lab Results Component Value Date CREATININE 0.62 05/05/2024 EGFR >60 05/05/2024 MICROALBCREU 105.9 (H) 05/05/2024 LDLCHOLCAL TNP 08/04/2024 -Gregor/Arb: Cozaar 100mg -Statin therapy: Atorvastatin 80mg -Diabetic eye exam: [facility] 11/14/23, preop. -Diabetic foot exam: 02/09/24 -Continue lifestyle modifications -Continue current medications - Metformin ER 500mg take 2 tablets twice daily - Dulaglutide 1.5 MG/0.5ML solution auto-injector Self discontinued Triseba x3 weeks(05/05/24) due to skin irritation. Spoke with [facility] pharmacist and will change Triseba to Basaglar. -Start insulin glargine (Basaglar KwikPen) 100 UNIT/ML pen, nightly 05/05/24 -it is unclear what she is taking 11/04/24, agrees to return to Collaborative Drug Therapy Managment Program with our PharmD, SUE. Assessment & Plan (11/04/2024 9:32 AM EDT): Diabetes is not controlled. A1C is worse than it was a month ago.(See below) Lab Results Component Value Date HGBA1C 9.7 (A) 11/04/2024 HGBA1C 9.7 (A) 08/04/2024 HGBA1C 8.7 (H) 05/05/2024 Lab Results Component Value Date CREATININE 0.62 05/05/2024 EGFR >60 05/05/2024 MICROALBCREU 105.9 (H) 05/05/2024 LDLCHOLCAL TNP 08/04/2024 -Gregor/Arb: Cozaar 100mg -Statin therapy: Atorvastatin 80mg -Diabetic eye exam: [facility] 11/14/23, preop. -Diabetic foot exam: 02/09/24 -Continue lifestyle modifications -Continue current medications - Metformin ER 500mg take 2 tablets twice daily - Dulaglutide 1.5 MG/0.5ML solution auto-injector Self discontinued Triseba x3 weeks(05/05/24) due to skin irritation. Spoke with [facility] pharmacist and will change Triseba to Basaglar. -Start insulin glargine (Basaglar KwikPen) 100 UNIT/ML pen, nightly 05/05/24 -it is unclear what she is taking 11/04/24, agrees to return to Collaborative Drug Therapy Managment Program with our PharmD, SUE. Assessment & Plan (08/04/2024 12:48 PM EST): Diabetes is not controlled. A1C is worse than it was a month ago.(See below) Lab Results Component Value Date HGBA1C 9.7 (A) 08/04/2024 HGBA1C 8.7 (H) 05/05/2024 HGBA1C 10.3 (A) 02/09/2024 Lab Results Component Value Date CREATININE 0.62 [...] weeks(05/05/24) due to skin irritation. Spoke with [facility] pharmacist and will change Triseba to Basaglar. -Start insulin glargine (Basaglar KwikPen) 100 UNIT/ML pen, nightly 05/05/24 Assessment & Plan (05/05/2024 10:04 AM [...] weeks(05/05/24) due to skin irritation. Spoke with [facility] pharmacist and will change Triseba to Basaglar. [...] 80mg -Diabetic eye exam: -Diabetic foot exam: 09/16/22 -Continue lifestyle modifications -Continue current medications - [...] modifications -Continue current medications Hypercholesterolemia 01/08/2012 Overview (11/04/2024): Pt has history of severe hyper triglycerides (>2000) currently we got it as low as 300s but she is not back to 1,550 range. Lab Results Component Value Date CHOL 318 (H) 08/04/2024 CHOL 436 (H) 05/05/2024 TRIG 1,575 (H) 08/04/2024 TRIG 2,296 (H) 05/05/2024 TRIG 1,077 (H) 11/29/2022 TRIG 629 (H) 06/24/2022 HDL 28 (L) 08/04/2024 HDL 33 (L) 05/05/2024 LDLCHOLCAL TNP 08/04/2024 LDLCHOLCAL TNP 05/05/2024 -Seen by specialists in past including cardiology and most recently funeral location manager on 12/14/2020 but referred back to PCP because patient didn't get her labs drawn. Discussed lipid clinic at [facility]. Pt agrees but would like to wait for her housing situation to improve. -continue lifestyle modification -continue fenofibrate 160mg daily -atorvastatin 80 -Lovaza 1gm 2 tabs bid Assessment & Plan (08/04/2024 12:48 PM EST): Pt has history of severe hyper triglycerides (>2000) currently we got it as low as 300s but she is not back to 1,550 range. Lab Results Component Value Date CHOL 436 (H) 05/05/2024 CHOL 262 (H) 10/21/2023 TRIG 2,296 (H) 05/05/2024 TRIG 689 (H) 10/21/2023 TRIG 1,077 (H) 11/29/2022 TRIG 629 (H) 06/24/2022 HDL 33 (L) 05/05/2024 HDL 34 (L) 10/21/2023 LDLCHOLCAL TNP 05/05/2024 LDLCHOLCAL TNP 10/21/2023 -Seen by specialists in past including cardiology and most recently funeral location manager on 12/14/2020 but referred back to PCP because patient didn't get her labs drawn. Discussed lipid clinic at [facility]. Pt agrees but would like to wait for her housing situation to improve. -continue lifestyle modification -continue fenofibrate 160mg daily -atorvastatin 80 -Lovaza 1gm 2 tabs bid Assessment & Plan (05/05/2024 10:05 AM EST): Pt has history of severe hyper triglycerides (>2000) currently we got it as low as 300s but she is not back to 1,550 range. -Seen by funeral location manager on 12/14/2020 but referred back to PCP [...] not back to 1,550 range. -Seen by funeral location manager on 12/14/2020 but referred back to PCP [...] not back to 1,550 range. -Seen by funeral location manager on 12/14/2020 but referred back to PCP [...] not back to 1,550 range. -Seen by funeral location manager on 12/14/2020 but referred back to PCP [...] Problem Noted Date Diagnosed Date Resolved Date Exercise counseling 08/04/2024 11/05/19 Dietary counseling 08/04/2024 5 Type 2 diabetes mellitus wit h hyperglycemia, without long-term current use of insulin 06/15/2024 06/15/2024 Type 2 diabetes mellitus wit h stage 3 chronic kidney disease, with long-term current use of insulin, unspecified whether stage 3a or 3b CKD 06/15/2024 06/15/2024 Calcific tendinitis of right shoulder 02/09/2024 12/15/2024 Diabetes due to underlying c ondition w [...] Neck pain 05/31/2022 05/05/2024 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 [...] about it. Hx of MH services at [facility], case ws closed because she missed appts.. Patient will benefit from Ind. Therapy and Med. management. At this time Armida Vega meets criteria for Visit Diagnoses: Problem List Items Addressed This Visit Other Depression, unspecified Patient ready to address current needs Yes Strengths include willing to seek help PLAN: 1. Follow up with [facility]: Not recommended for follow-up 2. Patient goal is to engage in MH services 3. Behavioral Recommendations a. Ind. Therapy b. Med. Management c. Use of coping Mechanisms provided. Encounters Date Type Department Care Team Description 02/02/[address] [facility] [address] [place] [phone] Mitzi Cantu MD 01/28/2025 10:40 AM EDT Office Visit [facility] [address] [place] [phone] Deepa Streeter DO Left leg pain (Primary Dx); Peripheral arterial disease (CMS/HCC) 01/28/2025 Travel 01/26/[address] [facility] [address] [place] [address] Mitzi Cantu MD Medication Question; ER Follow-up 01/20/2025 Orders Only GENERIC EXTERNAL DATA DEPARTMENT Provider, Generic External Data Peripheral vascular disease ([facility]/HCC) (Primary Dx) 12/26/[address] [facility] [address] [place] [phone] Mitzi Cantu MD Stage 2 hypertension 12/20/[address] [address] Mitzi Cantu MD March12/15/[address] [address] Mitzi Cantu MD 12/14/2024 Orders Only [facility] External Provider, [facility] Right hip pain (Primary Dx); Peripheral vascular disease (CMS/HCC) 12/01/2024 Refill [facility] [address] [place] [address] Mitzi Cantu MD Major depressive disorder, single episode with psychotic features ([facility]) 11/29/2024 Telephone [facility] [address] [place] [address] Mitzi Cantu MD Appointment Request 11/16/[address] [phone] Mitzi Cantu MD Requesting Call 11/04/2024 9:30 AM EDT Office Visit [address] [address] Mitzi Cantu MD Cardiac risk counseling (Primary Dx); Hypercholesterolemia; Stage 2 hypertension; Type 2 diabetes mellitus with hyperglycemia, with long-term current use of insulin ([facility]); Overweight with body mass index (BMI) of 28 to 28.9 in adult; Dietary counseling; Exercise counseling; Impacted cerumen of right ear 11/04/2024 Travel 11/03/[address] [facility] [address] [place] [phone] Mitzi Cantu MD from Last 3 Months Immunizations Immunization Administration Dates Next Due Influenza High-dose Quadriva [...] Sign Reading Time Taken Comments Blood Pressure 125/76 01/28/2025 10:23 AM EDT Pulse 93 01/28/2025 10:23 AM EDT Temperature 36.8 C (98.2 F) 01/28/2025 10:23 AM EDT Respiratory Rate 18 01/28/2025 10:23 AM EDT Oxygen Saturation 96% 01/28/2025 10:23 AM EDT Inhaled Oxygen Concentration - - Weight 63.5 kg (140 lb) 11/04/2024 9:23 AM EDT Height 149.9 cm (4' 11 ) 02/09/2024 9:51 AM EDT Body Mass Index 28.28 02/09/2024 9:51 AM EDT Plan of Treatment Upcoming Encounters Date Type Department Care Team (Late st Contact Info) Description 03/07/2025 9:45 AM EDT Office Visit [facility] [address] [place] [address] Mitzi Cantu MD [address] [place] [address] Health Maintenance Due Date Last Done Comments CT Colonography 1954 FIT DNA/Cologuard 1954 FIT 1954 FOBT 1954 Sigmoidoscopy 1954 Influenza Vaccine (#1) 2025 2, 10/31/2021, 04/16/2018, Additional history exists Diabetes: Hemoglobin A1C 02/04/2025 025, 08/04/2024, 05/05/2024, Additional history exists DTaP/Tdap/Td Vaccines (2 - Td or Tdap) 02/08/2025 04/01/2012, 10/25/2009 Postponed from 04/01/2022 (Patient Refused) Depression Screening 02/08/2025 02/09/2024, 02/09/20 24 RSV Patients and Patients Aged 60 years or older (1 - Risk 60-74 years 1-dose series) 02/08/2025 Postponed from 2014 (Patient Refused) SDOH Screening 07/27/2025 07/27/2024 Alcohol/Substance Use Screening 08/04/2025 08/04/2024 Diabetes: Foot Exam 08/04/2025 08/04/2024, 08/04/2024, 08/04/2024, Additional history exists Lipid Panel 08/04/2025 08/04/2024, 120 09/2023, 10/21/2023, Additional history exists Eye Exam 11/13/2025 11/14/2023 Tobacco Screening 01/28/2026 01/28/2025 Mammogram 02/05/2026 02/06/2024, 05/0 06/2023, 09/25/2022, Additional history exists Colonoscopy 10/31/2028 10/31/2018 Colorectal Cancer Screening 10/31/2028 COVID-19 Vaccine Discontinued 05/16/2021, , 08/04/2020 Pneumococcal Vaccine: 50+ Years Completed 01/09/2022, 03/16/2015, 02/24/2006 Zoster Vaccines Completed 01/09/2022, 060 06/2021, 10/06/2014 Hepatitis C Screening Completed 06/24/2022 HIB [...] patient's age to complete this topic Meningococcal B Vaccine Aged Out No l onger eligible based on patient's age to complete [...] 7 Result Component 9.7(11/04/2024 9:25 AM EDT) Christa Snow PharmD Procedures Procedure Name Priority Date/Time Associated Diagnosis Comments XR HIP LEFT WITH PELVIS 1 VIEW Routine 01/20/2025 12:01 PM EDT LOWER EXTREMITY VENOUS DUPLEX LEFT Routine 01/20/2025 12:00 PM EDT US ARTERIAL DUPLEX LE LT Routine 01/20/2025 12:00 PM EDT CREATINE KINASE, TOTAL Routine 10:36 AM EDT COMPREHENSIVE METABOLIC PANEL Routine 01/20/2025 10:36 AM EDT APTT Routine 01/20/2025 10:36 AM EDT PROTHROMBIN TIME-INR Routine 01/20/2025 10:36 AM EDT CBC WITH AUTO DIFFERENTIAL Routine 01/20/2025 10:36 AM EDT CTA ABDOMEN AORTA RUNOFF Routine 12/14/2024 7:20 PM EDT GLUCOSE, WHOLE BLOOD Routine 12/14/2024 6:14 PM EDT SED RATE BY MODIFIED WESTERGREN Routine 12/14/2024 4:39 PM EDT LIPASE Routine 12/14/2024 4:39 PM EDT C-REACTIVE PROTEIN Routine 12/14/2024 4: 39 PM EDT COMPREHENSIVE METABOLIC PANEL Routine 12/14/2024 4:39 PM EDT LACTIC ACID Routine 12/14/2024 4:39 PM EDT APTT Routine 12/14/2024 4:39 PM EDT PROTHROMBIN TIME-INR Routine 12/14/2024 4:39 PM EDT CBC WITH AUTO DIFFERENTIAL Routine 12/14/2024 4:39 PM EDT HOLD RED TOP Routine 12/14/2024 4:39 PM EDT GLUCOSE, WHOLE BLOOD Routine 12/14/2024 3:30 PM EDT XR HIP RIGHT WITH PELVIS 1 VIEW Routine 12/14/2024 11:40 AM EDT US ARTERIAL DUPLEX LE LT Routine 11/22/2024 12:07 PM EDT US VENOUS DUPLEX LE LT Routine 11:56 AM EDT HI REMOVAL IMPACTED CERUMEN IRRIGATION/LVG UNILAT Routine 11/04/2024 9:59 AM EDT Impacted cerumen of right ear POCT GLUCOSE Routine 11/04/2024 9:27 AM EDT Type 2 diabetes mellitus with hyperglycemia, with long-term current use of insulin ([facility]) POCT GLYCOSYLATED HEMOGLOBIN (HGB A1C) Routine 11/04/2024 9:25 AM EDT Type 2 diabetes mellitus with hyperglycemia, with long-term current use of insulin ([facility]) LIPID PANEL, STANDARD Routine 08/04/2024 10:38 AM EST Hypercholesterolemi a HM MAMMOGRAPHY Routine 02/06/2024 3:02 PM EDT DIABETES EYE EXAM Routine 11/14/2023 3:26 PM EDT HEPATITIS C VIRAL RNA, QUANTITATIVE, REAL-TIME PCR Routine 06/24/2022 8:19 AM EST Routine screening for STI (sexually transmitted infection) COLONOSCOPY Routine 10/31/2018 12:37 PM EDT from Last 3 Months or Most Recently Relevant to Health Maintenance Results * XR Hip left with Pelvis 1 view (01/20/2025 12:01 PM EDT) Anatomical Region Laterality Modality Lower Extremities, Hip Bilateral Radiograp hic Imaging 01/20/2025 12:0 1 PM EDT Narrative 01/20/2025 1:16 PM EDT [address] [id number] XRay Report Signed Patient: Armida Olmstead MR#: [id number] : 1955 Acct:[id number] Age/Sex: 69 / F ADM Date: 01/20/25 Loc: HO.ED Attending Dr: Ordering Physician: Jaren Gibson Date of Service: 01/20/25 Procedure(s): XR hip LT w PEL1V Accession Number(s): [id number] cc: Jaren Gibson; Mitzi Cantu MD EXAMINATION: XR HIP, LEFT CLINICAL INFORMATION: pain COMPARISON: None available. TECHNIQUE: AP upright, AP supine, and frog-leg lateral views of the left hip. FINDINGS: Marginal ossified is are present involving both acetabular roofs. There is subtle axial joint space narrowing of both hip joints, greater on the right. There is mild sclerosis involving pubic symphysis joint and pyrophosphate deposition in the pubic symphysis disc SI joints are unremarkable. XR/XR hip LT w PEL1V IMPRESSION: Mild degenerative changes of both hip joints, greater on the right. Pyrophosphate deposition is present in the pubic symphysis joint. Electronically signed by: Bud Rubio MD 01/20/2025 01:13 PM EDT Dictated By: Bud Rubio MD Signed By: <Electronically signed by Bud Rubio MD in OV> 01/20/25 1313 DD/ 1201 TD/TT: 01/20/25 1308 Frame Stripper: Procedure Note Elanzoransinamatildater, Image - 01/20/[address] [address] XRay Report Signed Patient: Shaye Olmstead#: Jeannine [id number] : 1955cct:[id number] Age/Sex: 69 / FADM Date: 01/20/25 Loc: HO.ED Attending Dr: Ordering Physician: Jaren Gibson Date of Service: 01/20/25 Procedure(s): XR hip LT w PEL1V Accession Number(s): [id number] cc: Jaren Gibson; Mitzi Cantu MD EXAMINATION: XR HIP, LEFT CLINICAL INFORMATION: pain COMPARISON: None available. TECHNIQUE: AP upright, AP supine, and frog-leg lateral views of the left hip. FINDINGS: Marginal ossified is are present involving both acetabular roofs. There is subtle axial joint space narrowing of both hip joints, greater on the right. There is mild sclerosis involving pubic symphysis joint and pyrophosphate deposition in the pubic symphysis disc SI joints are unremarkable. XR/XR hip LT w PEL1V IMPRESSION: Mild degenerative changes of both hip joints, greater on the right. Pyrophosphate deposition is present in the pubic symphysis joint. Electronically signed by: Bud Rubio MD 01/20/2025 01:13 PM EDT Dictated By: Bud Rubio MD Signed By: <Electronically signed by Bud Rubio MD in OV> 01/20/25 1313 DD/ 1201 TD/TT: 01/20/25 1308 Frame Stripper: us [facility] External Provider IMG XR PROCEDURES Final Result * US ARTERIAL DUPLEX LE LT (01/20/2025 12:00 PM EDT) Only the most recent of2 resultswithin the time period is included. Anatomical Region Laterality Modality Abdomen Ultrasound 01/20/2025 12:0 0 PM EDT Narrative 01/20/2025 12:57 PM EDT [address] [address] Ultrasound Report Signed Patient: Armida Olmstead MR#: [id number] : 1955 Acct:[id number] Age/Sex: 69 / F ADM Date: 01/20/25 Loc: HO.ED Attending Dr: Ordering Physician: Jaren Gibson Date of Service: 01/20/25 Procedure(s): US arterial duplex LE LT Accession Number(s): [id number] cc: Jaren Gibson; Mitzi Cantu MD EXAMINATION: US NONINVASIVE ASSESSMENT OF THE LEFT LOWER EXTREMITY WITHOUT ARTERIAL DUPLEX AND ANKLE BRACHIAL INDICES (ABIS) CLINICAL INFORMATION: Calf pain, left lower extremity COMPARISON: November 22, 2024 reported chronic/old occluded superficial femoral artery and severe inflow disease. TECHNIQUE: Duplex Doppler techniques with waveform analysis and measurement of velocities in the left common femoral, profunda femoris, superficial femoral, popliteal and tibial arteries were performed. . The study was performed only at rest. FINDINGS: LEFT LOWER EXTREMITY DUPLEX ULTRASOUND: Common femoral artery: No color Doppler flow. Profunda femoris artery: No color Doppler flow. Superficial femoral artery (proximal): No color Doppler flow. Superficial femoral artery (mid): No color Doppler flow.. Superficial femoral artery (distal): No color Doppler flow. Popliteal artery: 55 cm/s. Monophasic waveform. Posterior tibial artery: 18 cm/s. Monophasic waveform. Anterior tibialis artery: 17 cm/s. Monophasic waveform. Peroneal artery: 8 cm/s. Monophasic waveform. Dorsalis base artery: 16 cm/s. Monophasic waveform. US/US arterial duplex LE LT IMPRESSION: Occlusion, left common femoral artery, left superficial femoral artery and likely profunda artery. 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 Overall worsening/new since November 22, 2024. Electronically signed by: David Floyd MD 01/20/2025 12:54 PM EDT Dictated By: David De Santiago MD Signed By: <Electronically signed by David Souza MD in OV> 01/20/25 1254 DD/ 1200 TD/TT: 01/20/25 1225 Frame Stripper: Procedure Note Donotuseinterpreter, Image - 01/20/2025 [place] [address] Ultrasound Report Signed Patient: Shaye Olmstead#: M [id number] : 4Acct:[id number] Age/Sex: 69 / FADM Date: 01/20/25 Loc: .ED Attending Dr: Ordering Physician: Jaren Gibosn Date of Service: 01/20/25 Procedure(s): US arterial duplex LE LT Accession Number(s): [id number] cc: Jaren Gibson; Mitzi Cantu MD EXAMINATION: US NONINVASIVE ASSESSMENT OF THE LEFT LOWER EXTREMITY WITHOUT ARTERIAL DUPLEX AND ANKLE BRACHIAL INDICES (ABIS) CLINICAL INFORMATION: Calf pain, left lower extremity COMPARISON: November 22, 2024 reported chronic/old occluded superficial femoral artery and severe inflow disease. TECHNIQUE: Duplex Doppler techniques with waveform analysis and measurement of velocities in the left common femoral, profunda femoris, superficial femoral, popliteal and tibial arteries were performed. . The study was performed only at rest. FINDINGS: LEFT LOWER EXTREMITY DUPLEX ULTRASOUND: Common femoral artery: No color Doppler flow. Profunda femoris artery: No color Doppler flow. Superficial femoral artery (proximal): No color Doppler flow. Superficial femoral artery (mid): No color Doppler flow.. Superficial femoral artery (distal): No color Doppler flow. Popliteal artery: 55 cm/s. Monophasic waveform. Posterior tibial artery: 18 cm/s. Monophasic waveform. Anterior tibialis artery: 17 cm/s. Monophasic waveform. Peroneal artery: 8 cm/s. Monophasic waveform. Dorsalis base artery: 16 cm/s. Monophasic waveform. US/US arterial duplex LE LT IMPRESSION: Occlusion, left common femoral artery, left superficial femoral artery and likely profunda artery. 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 Overall worsening/new since November 22, 2024. Electronically signed by: David Floyd MD 01/20/2025 12:54 PM EDT Dictated By: David De Santiago MD Signed By: <Electronically signed by David Souza MDin OV> 01/20/25 1254 DD/ 1200 TD/TT: 01/20/25 1225 Frame Stripper: us [facility] External Provider IMG US PROCEDURES Final Result * Lower Extremity Venous Duplex (01/20/2025 12:00 PM EDT) 01/20/2025 12:0 0 PM EDT Narrative [facility] - 01/20/2025 12:51 PM EDT [place] [address] Ultrasound Report Signed Patient: Armida Olmstead MR#: [id number] : 1955 Acct:[id number] Age/Sex: 69 / F ADM Date: 01/20/25 Loc: .ED Attending Dr: Ordering Physician: Jaren Gibson Date of Service: 01/20/25 Procedure(s): US venous duplex LE LT Accession Number(s): [id number] cc: Jaren Gibson; Mitzi Cantu MD EXAMINATION: US TRIPLEX LOWER EXTREMITY, LEFT CLINICAL INFORMATION: Calf pain, left lower extremity COMPARISON: None available. TECHNIQUE: Color-flow triplex imaging with spectral analysis and compression Doppler were performed on the left lower extremity. FINDINGS: Respiratory variation, normal compression and augmented flow are demonstrated in the interrogated left common femoral vein, superficial femoral vein, profunda femoral vein, popliteal vein and midcalf peroneal and posterior tibial venous segments . There is no Chisholm's cyst. US/US venous duplex LE LT IMPRESSION: No acute deep venous thrombosis interrogated veins, left lower extremity. Negative for DVT. Electronically signed by: David Floyd MD 01/20/2025 12:48 PM EDT RP Dictated By: David De Santiago MD Signed By: <Electronically signed by David Souza MD in OV> 01/20/25 1248 DD/ 1200 TD/TT: 01/20/25 1225 Frame Stripper: Procedure Note Donotuseinterpreter, Image - 01/20/2025 [place] [address] Ultrasound Report Signed Patient: Shaye Olmstead#: M [id number] : 1955cct:[id number] Age/Sex: 69 / FADM Date: 01/20/25 Loc: .ED Attending Dr: Ordering Physician: Jaren Gibson Date of Service: 01/20/25 Procedure(s): US venous duplex LE LT Accession Number(s): [id number] cc: Jaren Gibson; Mitzi Cantu MD EXAMINATION: US TRIPLEX LOWER EXTREMITY, LEFT CLINICAL INFORMATION: Calf pain, left lower extremity COMPARISON: None available. TECHNIQUE: Color-flow triplex imaging with spectral analysis and compression Doppler were performed on the left lower extremity. FINDINGS: Respiratory variation, normal compression and augmented flow are demonstrated in the interrogated left common femoral vein, superficial femoral vein, profunda femoral vein, popliteal vein and midcalf peroneal and posterior tibial venous segments . There is no Chisholm's cyst. US/US venous duplex LE LT IMPRESSION: No acute deep venous thrombosis interrogated veins, left lower extremity. Negative for DVT. Electronically signed by: David Floyd MD 01/20/2025 12:48 PM EDT RP Dictated By: David De Santiago MD Signed By: <Electronically signed by David Souza MDin OV> 01/20/25 1248 DD/ 1200 TD/TT: 01/20/25 1225 Frame Stripper: [facility] External Provider CV VASC ULAR PROCEDURES Final Result [facility] [address] [place] [address] * (ABNORMAL) CBC auto differential (01/20/2025 10:36 AM EDT) Only the most recent of2 resultswithin the time period is included. White Blood Count 6.1 4.8 - 10.8 X10*3/uL [facility] Red Blood Count 4.24 4.20 - 5.50 X10*6/uL [facility] Hemoglobin 12.5 12.0 - 16.0 g/dl [facility] Hematocrit 35.7(L) 37.0 - 47.0 % [facility] Mean Corpuscular Volume 84.2 80.0 - 98.0 fL [facility] Mean Corpuscular Hemoglobin 29.5 27.0 - 33.0 pg [facility] Mean Corpuscular HGB Conc 35.0 31.0 - 35.0 g/dl [facility] Red Cell Distribution Width 12.2 11.0 - 16.0 % [facility] Platelet Count 236 160 - 400 X10*3/uL [facility] Mean Platelet Volume 9.9 9.4 - 12.3 fL [facility] Neutrophils Percent Auto 57.4 45 - 73 % [facility] Imm Gran Pct Auto 0.3 0.0 - 0.4 % [facility] Lymphocytes Percent Auto 31.9 20 - 40 % [facility] Monocytes Percent Auto 7.6 2 - 11 % [facility] Eosinophils Percent Auto 2.1 0 - 4 % [facility] Basophils Percent Auto 0.7 0 - 2 % [facility] NRBC Pct Auto 0.0 0.0 - 0.2 /100WBC [facility] Neutrophils Absolute Auto 3.5 2.0 - 8.3 x10*3/uL [facility] Imm Gran Abs Auto 0.02 0.00 - 0.03 X10*3/uL [facility] Lymphocytes Absolute Auto 1.9 1.2 - 4.9 X10*3/uL [facility] Monocytes Absolute Auto 0.5 0.1 - 1.2 X10*3/uL [facility] Eosinophils Absolute Auto 0.1 0.0 - 0.4 X10*3/uL [facility] Basophils Absolute Auto 0.0 0.0 - 0.2 X10*3/uL [facility] NRBC Abs Auto 0.000 0.0 - 0.012 X10*3/uL [facility] 01/20/2025 10:3 6 AM EDT 01/20/2025 10:39 AM EDT Generic External Data Provider LAB BLOOD ORDERAB LES Final Result Performing Organization Address City/[facility]/ZIP Co de Phone Number [facility] [address] [place] [phone] * Partial Thromboplastin Time, Activated (APTT) (01/20/2025 10:36 AM EDT) Only the most recent of2 resultswithin the time period is included. Partial Thromboplastin Time 28.3 26.7 - 34.1 SEC [facility] 01/20/2025 10:3 6 AM EDT 01/20/2025 10:39 AM EDT Generic External Data Provider LAB BLOOD ORDERAB LES Final Result Performing Organization Address [facility] Co de Phone Number [facility] [address] [place] [phone] * Prothrombin Time-INR (01/20/2025 10:36 AM EDT) Only the most recent of2 resultswithin the time period is included. Prothrombin Time 11.4 10.9 - 12.4 SEC [facility] INTERNATIONAL NORM RATIO 1.0 0.9 - 1.1 [facility] Comment:INTERNATIONAL NORMAL IZED RATIO [...] ORDERAB LES Final Result Performing Organization Address City/[facility]/ZIP Co de Phone Number [facility] [address] [place] [phone] * (ABNORMAL) Creatine Kinase, Total (01/20/2025 10:36 AM EDT) [facility] Creatine Kinase Total 23(L) 26 - 140 U/L [facility] 01/20/2025 10:3 6 AM EDT 01/20/2025 10:39 AM EDT [employer] External Data Provider LAB BLOOD ORDERAB LES Final Result Performing Organization Address [facility] de Phone Number [facility] [address] [place] [phone] * (ABNORMAL) Comprehensive Metabolic Panel (01/20/2025 10:36 AM EDT) Only the most recent of2 resultswithin the time period is included. [facility] Sodium 137 135 - 145 mmol/L [facility] Potassium 3.5 3.3 - 5.1 mmol/L [facility] Chloride 99 96 - 108 mmol/L [facility] Carbon Dioxide 27 22 - 29 mmol/L [facility] Anion Gap 15 12 - 20 [facility] Urea Nitrogen (BUN) 13 9 - 16 mg/dL [facility] Creatinine, Serum 0.53 0.5 - 1.4 mg/dL [facility] Creatinine Clr Calc Pharmacy 78.5 [facility] Comment:Provided height and weight: 149.86 cm,61.235 kg.eGFR (calculated from the MDRD study equation) and eCrCl(calculated from the Cockcroft-Gault equation) are based ondifferent parameters and may not yield comparable results.If eCrCl result is absurd, please check patient'sheight/weight. Estimated Glomerular Filt Rate >60 [facility] Comment:Chronic Kidney Disea se: Estimated GFR < 60 mL/min/1.21x1Oszyaf Kidney Disease: Estimated GFR < 15 mL/min/1.73m2 Glucose 196(H) 60 - 115 mg/dL [facility] Calcium 9.3 8.4 - 10.2 mg/dL [facility] Bilirubin, Total 0.3 0.0 - 1.0 mg/dL [facility] Aspartate Amino Transferase 17 5 - 31 U/L [facility] Alanine Aminotransferase 18 0 - 31 U/L [facility] Total Protein 7.5 6.5 - 8.0 g/dL [facility] Albumin Level 4.4 3.5 - 5.0 g/dL [facility] Alkaline Phosphatase 86 39 - 117 U/L [facility] 01/20/2025 10:3 6 AM EDT 01/20/2025 10:39 AM EDT us Generic External Data Provider LAB BLOOD ORDERAB LES Final Result Performing Organization Address City/State/[facility] Co de Phone Number [facility] [address] [place] [phone] * CTA Abdomen aorta runoff (12/14/2024 7:20 PM EDT) Anatomical Region Laterality Modality Body, Pelvis, Abdomen Computed T omography 12/14/2024 7:20 PM EDT Narrative 12/14/2024 7:22 PM EDT [address] [address] [address] Scan Report Signed with Nikolas Patient: Armida Vega MR#: [id number] : 1955 Acct:[id number] Age/Sex: 69 / F ADM Date: 12/14/24 Loc: HO.ED Attending Dr: Ordering Physician: Gal Good MD Date of Service: 12/14/24 Procedure(s): CT angio abd aorta runoff Accession Number(s): [id number] cc: Mitzi Cantu MD; Gal Good MD Report Number: [id number]: Total DLP = 310.00 mGy-cm ADDENDUM This document has been electronically signed by: Derrick Collazo MD on 12/14/2024 19:20:48 ADDENDUM: This report was discussed with Gal Good on Dec 14, 2024 19:23:00 EDT. This document has been electronically signed by: Liberty Landers on 12/14/2024 19:23:58 Addendum Dictated By: Derrick Collazo MD Addendum Signed By: <Electronically signed by Derrick Collazo MD in OV> 12/14/241924 Addendum Cosigned By: DD/ TD/TT: 12/14/24 CLINICAL HISTORY: Bilateral lower extremity pain R O arterial obstru CT angiogram of the abdomen and pelvis and bilateral lower extremities. 3D/MIP post processing reconstructions were performed. COMPARISON: None provided. FINDINGS: Minimal calcified plaque present along the nonaneurysmal abdominal aorta without significant stenosis. Celiac trunk and visualized branches appear patent. SMA appears widely patent. Calcified plaque present at the origin of the right renal artery causing approximately 50 percent short-segment stenosis. Minimal calcified plaque present at the origin of the left renal artery without significant stenosis. Visualized portions of the DEVORA are patent. Calcified plaque present along the right common, and external iliac arteries without significant stenosis. Multifocal calcified plaque present along the right common femoral artery without significant stenosis. There is occlusion of the mid to distal aspect of the right superficial femoral artery with reconstitution of the popliteal artery, likely through retrograde flow. Right tibioperoneal trunk is patent. There is three-vessel runoff at the level of the right ankle. Visualized portions of the dorsalis pedis artery appears patent. Atherosclerotic plaque present along the left common and external iliac arteries without significant stenosis. Atherosclerotic calcified plaque present along the left common femoral artery without significant stenosis. Left superficial femoral artery is occluded shortly after its origin and throughout its course. There is reconstitution of the left popliteal artery likely through retrograde flow. Tibioperoneal trunk is patent. There is two-vessel runoff of the level of the left ankle of the anterior and posterior tibial arteries. Visualized portions of the dorsalis pedis artery appears patent. Minimal atelectasis along the lung bases. Hepatic steatosis. Normal gallbladder. Normal spleen. Normal pancreas. Normal adrenal glands. Symmetric renal enhancement. No hydronephrosis. Nonobstructing 5 mm right renal calculus. Normal appendix. No bowel obstruction. No mesenteric or retroperitoneal lymphadenopathy. Normal appearance of the urinary bladder. No adnexal mass. Zqag-zm-[id number] spondylosis. No acute fracture or suspicious bone lesion. IMPRESSION: 1. Occlusion of the left superficial femoral artery throughout its course with reconstitution of the left popliteal artery, likely through retrograde/collateral flow. There is two-vessel runoff of the level of the left ankle. 2. Occlusion of the mid to distal aspect of the right superficial femoral artery with reconstitution of the popliteal artery, likely through retrograde/collateral flow. There is three-vessel runoff at the level of the right ankle. This document has been electronically signed by: Derrick Collazo MD on 12/14/2024 19:20:48 Dictated By: Derrick Collazo MD Signed By: <Electronically signed by Derrick Collazo MD in OV> 12/14/241920 DD/ 19 TD/TT: 12/14/241919 Frame Stripper: Procedure Note Donotuseinterpreter, Image - 12/14/[address] [place] [address] [address] Scan Report Signed with Addenda Patient: Shaye Vega#: [id number] : 4Acct:[id number] Age/Sex: 69 / FADM Date: 12/14/24 Loc: HO.ED Attending Dr: Ordering Physician: Gal Good MD Date of Service: 12/14/24 Procedure(s): CT angio abd aorta runoff Accession Number(s): [id number] cc: Mitzi Cantu MD; Gal Good MD Report Number: [id number]: Total DLP = 310.00 mGy-cm ADDENDUM This document has been electronically signed by: Derrick Collazo MD on 12/14/2024 19:20:48 ADDENDUM: This report was discussed with Gal Good on Dec 14, 2024 19:23:00 EDT. This document has been electronically signed by: Liberty Landers on 12/14/2024 19:23:58 Addendum Dictated By: Derrick Collazo MD Addendum Signed By: <Electronically signed by Derrick Collazo MD in OV> 12/14/241924 Addendum Cosigned By: DD/ TD/TT: 12/14/24 CLINICAL HISTORY: Bilateral lower extremity pain R O arterial obstru CT angiogram of the abdomen and pelvis and bilateral lower extremities. 3D/MIP post processing reconstructions were performed. COMPARISON: None provided. FINDINGS: Minimal calcified plaque present along the nonaneurysmal abdominal aorta without significant stenosis. Celiac trunk and visualized branches appear patent. SMA appears widely patent. Calcified plaque present at the origin of the right renal artery causing approximately 50 percent short-segment stenosis. Minimal calcified plaque present at the origin of the left renal artery without significant stenosis. Visualized portions of the DEVORA are patent. Calcified plaque present along the right common, and external iliac arteries without significant stenosis. Multifocal calcified plaque present along the right common femoral artery without significant stenosis. There is occlusion of the mid to distal aspect of the right superficial femoral artery with reconstitution of the popliteal artery, likely through retrograde flow. Right tibioperoneal trunk is patent. There is three-vessel runoff at the level of the right ankle. Visualized portions of the dorsalis pedis artery appears patent. Atherosclerotic plaque present along the left common and external iliac arteries without significant stenosis. Atherosclerotic calcified plaque present along the left common femoral artery without significant stenosis. Left superficial femoral artery is occluded shortly after its origin and throughout its course. There is reconstitution of the left popliteal artery likely through retrograde flow. Tibioperoneal trunk is patent. There is two-vessel runoff of the level of the left ankle of the anterior and posterior tibial arteries. Visualized portions of the dorsalis pedis artery appears patent. Minimal atelectasis along the lung bases. Hepatic steatosis. Normal gallbladder. Normal spleen. Normal pancreas. Normal adrenal glands. Symmetric renal enhancement. No hydronephrosis. Nonobstructing 5 mm right renal calculus. Normal appendix. No bowel obstruction. No mesenteric or retroperitoneal lymphadenopathy. Normal appearance of the urinary bladder. No adnexal mass. Rhss-jv-lomamyrg spondylosis. No acute fracture or suspicious bone lesion. IMPRESSION: 1. Occlusion of the left superficial femoral artery throughout its course with reconstitution of the left popliteal artery, likely through retrograde/collateral flow. There is two-vessel runoff of the level of the left ankle. 2. Occlusion of the mid to distal aspect of the right superficial femoral artery with reconstitution of the popliteal artery, likely through retrograde/collateral flow. There is three-vessel runoff at the level of the right ankle. This document has been electronically signed by: Derrick Collazo MD on 12/14/2024 19:20:48 Dictated By: Derrick Collazo MD Signed By: <Electronically signed by Derrick Collazo MD in OV> 12/14/241920 DD/ 19 TD/TT: 12/14/241919 Frame Stripper: [facility] External Provider IMG CT PROCEDURES Edited Result - Final * (ABNORMAL) Glucose, Whole Blood (12/14/2024 6:14 PM EDT) Only the most recent of2 resultswithin the time period is included. Pathologist [facility] Glucose, Whole Blood 189(H) 60 - 115 mg/dL [facility] Comment:METER #: [id number] 12/14/2024 6:14 PM EDT 12/14/2024 6:18 PM EDT Generic External Data Provider LAB BLOOD ORDERAB LES Final Result [facility] [address] [place] [phone] * Hold Red (12/14/2024 4:39 PM EDT) Pathologist [facility] Red See Note [facility] Comment:Specimen held untest ed for 24 hours; Call to requestChemistry testing. 12/14/2024 4:39 PM EDT 12/14/2024 4:45 PM EDT Generic External Data Provider LAB BLOOD ORDERAB LES Final Result Performing Organization Address [facility]/ZIP Co de Phone Number [facility] [address] [place], [place] [phone] * (ABNORMAL) Sed Rate by Modified Westergren (12/14/2024 4:39 PM EDT) Erythrocyte Sedimentation Rate 59(H) 0 - 20 MM/HR [facility] Comment:Patients with polycy themia and many hemoglobin abnormalitiesmay have depressed sed rates whereas patients with anemiamay have elevated sed rates. 12/14/2024 4:39 PM EDT 12/14/2024 4:44 PM EDT Generic External Data Provider LAB BLOOD ORDERAB LES Final Result Performing Organization Address [facility] Co de Phone Number [facility] [address] [place] [phone] * (ABNORMAL) C-reactive Protein (12/14/2024 4:39 PM EDT) C Reactive Protein 9.68(H) < or = 0.50 mg/dL [facility] 12/14/2024 4:39 PM EDT 12/14/2024 4:44 PM EDT Generic External Data Provider LAB BLOOD ORDERAB LES Final Result Performing Organization Address [facility] Co de Phone Number [facility] [address] [place] [phone] * Lipase (12/14/2024 4:39 PM EDT) Lipase 47 8 - 78 U/L [facility] 12/14/2024 4:39 PM EDT 12/14/2024 4:44 PM EDT us Generic External Data Provider LAB BLOOD ORDERAB LES Final Result Performing Organization Address [facility] Co de Phone Number [facility] [address] [place] [phone] * Lactic Acid (12/14/2024 4:39 PM EDT) Lactic Acid 1.0 0.5 - 2.0 mmol/L [facility] 12/14/2024 4:39 PM EDT 12/14/2024 4:44 PM EDT Generic External Data Provider LAB BLOOD ORDERAB LES Final Result Performing Organization Address [facility] de Phone Number [facility] [address] [place] [address] [phone] * XR Hip right with Pelvis 1 view (12/14/2024 11:40 AM EDT) Anatomical Region Laterality Modality Lower Extremities, Hip Bilateral Radiograp hic Imaging 12/14/2024 11:4 0 AM EDT Narrative 12/14/2024 12:09 PM EDT [address] [address] XRay Report Signed Patient: Armida Vega MR#: [id number] : 1955 Acct:[id number] Age/Sex: 69 / F ADM Date: 12/14/24 Loc: HO.ED Attending Dr: Ordering Physician: Tenisha Castellano Date of Service: 12/14/24 Procedure(s): XR hip RT w PEL1V Accession Number(s): [id number] cc: Mitzi Cantu MD; Tenisha Castellano EXAMINATION: XR HIP, RIGHT CLINICAL INFORMATION: atraumatic R hip pain COMPARISON: March 13, 2017. TECHNIQUE: AP and oblique views of the right hip. AP pelvis. FINDINGS: Bony pelvis intact. Degenerative changes in the sacroiliac joints and symphysis bodies. Sclerosis along the articular surface of the right acetabulum with asymmetric joint space narrowing. No acute cortical disruption or malalignment, right coxofemoral joint. XR/XR hip RT w [id number] IMPRESSION: Mild osteoarthrosis, right hip. Electronically signed by: David Floyd MD 12/14/2024 12:06 PM EDT RP Dictated By: David De Santiago MD Signed By: <Electronically signed by David Souza MD in OV> 12/14/24 1206 DD/ 1140 TD/TT: 12/14/24 1150 Frame Stripper: Procedure Note Donotuseinterpreter, Image - 12/14/2024 [place] [address] XRay Report Signed Patient: Shaye Vega#: [id number] : 1955cct:[id number] Age/Sex: 69 / FADM Date: 12/14/24 Loc: HO.ED Attending Dr: Ordering Physician: Tenisha Castellano Date of Service: 12/14/24 Procedure(s): XR hip RT w PEL1V Accession Number(s): [id number] cc: Mitzi Cantu MD; Tenisha Castellano EXAMINATION: XR HIP, RIGHT CLINICAL INFORMATION: atraumatic R hip pain COMPARISON: March 13, 2017. TECHNIQUE: AP and oblique views of the right hip. AP pelvis. FINDINGS: Bony pelvis intact. Degenerative changes in the sacroiliac joints and symphysis bodies. Sclerosis along the articular surface of the right acetabulum with asymmetric joint space narrowing. No acute cortical disruption or malalignment, right coxofemoral joint. XR/XR hip RT w [id number] IMPRESSION: Mild osteoarthrosis, right hip. Electronically signed by: David Floyd MD 12/14/2024 12:06 PM EDT RP Dictated By: David De Santiago MD Signed By: <Electronically signed by David Souza MDin OV> 12/14/24 1206 DD/ 1140 TD/TT: 12/14/24 1150 Frame Stripper: us [facility] External Provider IMG XR PROCEDURES Final Result * US VENOUS DUPLEX LE LT (11/22/2024 11:56 AM EDT) Anatomical Region Laterality Modality Abdomen Ultrasound 11/22/2024 11:5 6 AM EDT Narrative 11/22/2024 12:43 PM EDT [place] [address] Ultrasound Report Signed Patient: Armida Vega MR#: [id number] : 1955 Acct:[id number] Age/Sex: 69 / F ADM Date: 11/22/24 Loc: .ED Attending Dr: Ordering Physician: Jaren Gibson Date of Service: 11/22/24 Procedure(s): US venous duplex LE LT Accession Number(s): [id number] cc: Jaren Gibson; Mitzi Cantu MD EXAMINATION: US TRIPLEX LOWER EXTREMITY, LEFT CLINICAL INFORMATION: Left calf pain. COMPARISON: None available. TECHNIQUE: Color-flow triplex imaging with spectral analysis and compression Doppler were performed on the left lower extremity. FINDINGS: Respiratory variation, normal compression and augmented flow are noted throughout the left lower extremity. The visualized common femoral vein, superficial femoral vein, profunda femoral vein, popliteal vein and midcalf peroneal and posterior tibial venous segments show no evidence of deep venous thrombosis. There is no Chisholm's cyst. Reactive appearing left groin lymph node noted. US/US venous duplex LE LT IMPRESSION: No evidence of deep venous thrombosis involving the left lower extremity. Electronically signed by: Brien Noel MD 11/22/2024 12:40 PM EDT Dictated By: Brien Noel MD Signed By: <Electronically signed by Brien Noel MD in OV> 11/22/24 1240 DD/ 1156 TD/TT: 11/22/24 1205 Frame Stripper: Procedure Note Donotuseinterpreter, Image - 11/22/[address] [address] Ultrasound Report Signed Patient: Shaye Vega#: [id number] : 1955cct:[id number] Age/Sex: 69 / FADM Date: 11/22/24 Loc: HO.ED Attending Dr: Ordering Physician: Jaren Gibson Date of Service: 11/22/24 Procedure(s): US venous duplex LE LT Accession Number(s): [id number] cc: Jaren Gibson; Mitzi Cantu MD EXAMINATION: US TRIPLEX LOWER EXTREMITY, LEFT CLINICAL INFORMATION: Left calf pain. COMPARISON: None available. TECHNIQUE: Color-flow triplex imaging with spectral analysis and compression Doppler were performed on the left lower extremity. FINDINGS: Respiratory variation, normal compression and augmented flow are noted throughout the left lower extremity. The visualized common femoral vein, superficial femoral vein, profunda femoral vein, popliteal vein and midcalf peroneal and posterior tibial venous segments show no evidence of deep venous thrombosis. There is no Chisholm's cyst. Reactive appearing left groin lymph node noted. US/US venous duplex LE LT IMPRESSION: No evidence of deep venous thrombosis involving the left lower extremity. Electronically signed by: Brien Noel MD 11/22/2024 12:40 PM EDT Dictated By: Brien Noel MD Signed By: <Electronically signed by Brien Noel MD in OV> 11/22/24 1240 DD/ 1156 TD/TT: 11/22/24 1205 Frame Stripper: [facility] External Provider IMG US PROCEDURES Final Result * HI REMOVAL IMPACTED CERUMEN IRRIGATION/LVG UNILAT (11/04/2024 9:59 AM EDT) Luiza Thompson RN - 11/04/2024 9:59 AM EDT Luiza Souza RN 11/04/2024 10:00 AM Ear Cerumen Removal Date/Time: 11/04/2024 9:59 AM Performed by: Luiza Souza RN Authorized by: Mitzi Cantu MD Consent: Consent obtained: Verbal Consent given by: Patient Risks discussed: Dizziness and incomplete removal Procedure details: Location: R ear Procedure type: irrigation Procedure outcomes: cerumen removed Post-procedure details: Inspection: Ear canal clear Procedure completion: Tolerated Comments: Right ear irrigation completed using a 20mL curve tip syringe filled with 1/2 H2O, 1/2 H2O2 solution. Was able to remove all impacted cerumen. Right tympanic membrane visualized and normal in appearance. Pt tolerated procedure well. Advised to avoid using q-tips in her ears. Never put anything directly inside of the ear as it can push wax further back. Pt verbalized understanding. Mitzi Cantu MD IN CLINIC/BEDSIDE ORDERABL ES Final Result * POCT glucose manually resulted (11/04/2024 9:27 AM EDT) Glucose Blood, POC 146 60 - 200 mg/dL QC Media Lot # [id number] Lot# Expiration Date Blood Capillary blood specimen / Unknown 11/04/2024 9:27 AM EDT Mitzi Cantu MD POINT OF CARE TEST ENTER/E DIT ORDERABLES Final Result * (ABNORMAL) POCT glycosylated hemoglobin (Hgb A1c) (11/04/2024 9:25 AM EDT) Hemoglobin A1C 9.7(A) 4.0 - 6.0 % QC Media Lot # [id number] Lot# Expiration Date Blood Capillary blood specimen / Unknown 11/04/2024 9:25 AM EDT Mitzi Cantu MD POINT OF CARE TEST ENTER/E DIT ORDERABLES Final Result * (ABNORMAL) Lipid Panel, Standard (08/04/2024 10:38 AM EST) Triglycerides 1,575(H) <150 mg/dL [facility] Comment:Slight Lipemia.Thor able Triglyceride: less than 150 mg/dLBorderline High Triglyceride 150-199 mg/dLHigh Triglyceride: 200-499 mg/dLVery High Triglyceride: greater than or equal to 5OO mg/dL Cholesterol 318(H) <200 mg/dL [facility] Comment:Desirable Cholestero l: less than 200 mg/dLBorderline High Cholesterol: 200-239 mg/dLHigh Cholesterol: greater than 239 mg/dL LDL Cholesterol Calculated TNP <100 mg/dL [facility] Comment:Unable to calculate the LDL. The formula of Friedwald,Negrete, and Ruddy is only valid if the triglycerides areless than 400 mg/dl. HDL Cholesterol 28(L) >40 mg/dL [facility] Comment:Desirable HDL: great er than 40 mg/dL Note: This HDL assay may give artificially low results in patients with liver disease. Blood Venous blood specimen / Unknown 08/04/2024 10:38 AM EST 08/04/2024 11:25 AM EST Mitzi Cantu MD LAB BLOOD ORDERABLES Final Result [facility] [address] [place] [address] [phone] * Mammography (02/06/2024 3:02 PM EDT) Mammogram BIRADS 1 Normal, Abnormal, BIRADS 1 , BIRADS 2 Comment:routine annual mamma graphy screening Anatomical Region Laterality Modality Other Historical Provider HEALTH MAINTENANCE Final Result * Diabetes Eye Exam (11/14/2023 3:26 PM EDT) Pathologist [facility] Eye Exam Normal Normal Comment:follow up one year Historical Provider HEALTH MAINTENANCE Final Result * Hepatitis C Viral RNA, Quantitative, Real-Time PC (06/24/2022 8:19 AM EST) Pathologist [facility] HCV RNA, QN Real Time PCR <15 NOT DETECTED NOT DETECTED IU/mL [email or web address] RNA QN Real Time PCR <1.18 NOT DETECTED NOT DETECTED Log IU/mL [facility] [place] [facility] Comment: This test was performed using Real-Time Polymerase Chain Reaction. Reportable Range: 15 IU/mL to 100,000,000 IU/mL (1.18 Log IU/mL to 8.00 Log IU/mL). The analytical performance characteristics of this assay have been determined by [facility]. The modifications have not been cleared or approved by the FDA. This assay has been validated pursuant to the CLIA regulations and is used for clinical purposes. For more information on this test, go to: http://education.[employer]/faq/PHN70d4 (This link is being provided for informational/ educational purposes only.) 06/24/2022 8:19 AM EST 06/24/2022 8:19 AM EST Narrative [facility] - 06/27/2022 5:25 PM EST FASTING:YES FASTING: YES Mitzi Cantu MD LAB BLOOD ORDERABLES Final Result [facility] [address], [place] [address] [facility] [address] [facility], (Nl[address]) [place] [address] * Hm Colonoscopy (10/31/2018 12:37 PM EDT) Mitzi Cantu MD HEALTH MAINTENANCE Final R esult from Last 3 Months or Most Recently Relevant to Health Maintenance Insurance [address] [place], [place] [address] STANDARD MEDICARE Advance Directives Documents on File Type Date Recorded Patient Pharmaceutical Sales Representative Expl anation Advance Directives and Living Will 02/09/2024 Health Care Proxy 02/09/24 Care Teams Operations Assistant Relationship Specialty Start Date End Date [place], MD Mitzi [address] [place] [address] PCP - General Family Medicine 06/02/18 Christa Kwan, CrisD [address] [place] [phone] Pharmacist Internal Medicine 07/16/22 Zi Cotton MD [address] [place] [address] Vascular Surgery 04/22/24 Gamal Quiñonez MD [address] [place] [address] Cardiology 04/28/24
== END 2025-02-03 13:44 | disposition home or self-care (01) ==
LOC: HO.HVS 12:51
PROVIDERS: PCP Family Medicine; Visit Provider Surgery Vascular Surgery
DX: I73.9 Peripheral vascular disease, unspecified (principal)
CPT/HCPCS: 99214; G2211

== ENCOUNTER → 2025-02-03 12:50 | Outpatient (BNVA) | payer OTHER, SELFPAY | PROVIDERS: PCP Family Medicine; Visit Provider Surgery Vascular Surgery | DX: Z09 Encounter for follow-up examination after completed treatment for conditions other than malignant neoplasm (principal); I73.9 Peripheral vascular disease, unspecified | CPT/HCPCS: 99212 ==

== ENCOUNTER 2025-02-09 05:44 | Day surgery (SDC) | payer OTHER, SELFPAY ==
[2025-02-09] VITALS (15 sets, daily range): BP systolic 123–192; BP diastolic 60–85; PULSE 72–90; RESP 12–20; TEMP 36.4–36.6; O2SAT 95–100; BMI 27.8
[2025-02-09 06:39] LABS: Glucose, Whole Blood 263 mg/dL (60-115)
[2025-02-09 07:00] LABS: MANUAL DIFF FLAG NO
[2025-02-09 07:01] LABS: Hematocrit 34.0 % (37.0-47.0); Hemoglobin 12.1 g/dl (12.0-16.0); Imm Gran Abs Auto 0.03 X10*3/uL (0.00-0.03); Imm Gran Pct Auto 0.4 % (0.0-0.4); Lymphocytes Absolute Auto 2.0 X10*3/uL (1.2-4.9); Mean Corpuscular HGB Conc 35.6 g/dl (31.0-35.0); Mean Corpuscular Hemoglobin 30.0 pg (27.0-33.0); Mean Corpuscular Volume 84.2 fL (80.0-98.0); NRBC Abs Auto 0.000 X10*3/uL (0.0-0.012); NRBC Pct Auto 0.0 /100WBC (0.0-0.2); Platelet Count 253 X10*3/uL (160-400); Red Blood Count 4.04 X10*6/uL (4.20-5.50); White Blood Count 7.9 X10*3/uL (4.8-10.8)
[2025-02-09 07:13] LABS: Blood Urea Nitrogen 14 mg/dL (9-16); Creatinine Clr Calc Pharmacy 70.1; Estimated Glomerular Filt Rate > 60
--- NOTE | 2025-02-09 08:49 | P.OP_ITS ---
Operative Note Operative Note Date of Service: 02/09/25 Narrative: Angiogram report from [facility] Preoperative diagnosis: Atherosclerosis of left lower extremity with activity limiting claudication Postoperative diagnosis: Same Procedure: 1. Ultrasound-guided right common femoral access 2. Aortogram with left lower extremity runoff Surgeon:Zi Cotton M.D., FACS, RPVI Leasing Representative:None Anesthesia: Local with moderate conscious sedation. Total intraservice mode rate sedation time was 17 minutes. I monitored the patient's level of consciousness and physiologic status continuously throughout the procedure. Specimens:none Drains:none Estimated blood loss: Less than 10 ml Radiation Dose: 122.4 mGy Implant: None Indications: 69-year-old female who we had been followed for several years regarding claudication has progressively gotten worse. It has gotten to the point where she is having severe difficulty ambulating 50 ft. She now presents for endovascular intervention The patient has signed the informed consent after reviewing risks, complications, benefits, and alternatives previously discussed with the patient. The patient was given the opportunity to ask any additional questions or voice any concerns. All questions were answered to the patient's satisfaction. Procedure in detail: Patient was brought to the angiography suite prior to which a time-out was called for patient identification and site verification. Bilateral groins were prepped and draped in the standard surgical fashion. Under ultrasound guidance right common femoral was punctured with micro puncture needle and wire. Subsequently a precision 5 Ethiopian sheath was then placed. Bentson wire was advanced to the level of the aorta. 5 Ethiopian Flush catheter was brought up and parked at the level of the renal arteries. Aortogram was then undertaken. Catheter was brought down to the level of the iliac bifurcation. Iliacs and runoff was performed through the flush catheter that was parked at the bifurcation and iliacs were visualized. Subsequently the cath eter was then brought in up and over to the left side common femoral. A power injection runoff was then performed through the left common femoral. Multiple orthogonal views were undertaken at the knee and left groin as well. No intervention was indicated. Catheter wire sheath was then removed. A 5 Ethiopian CELT closure device was then placed. Patient tolerated the procedure well. Returned to recovery with stable vitals. Interpretation of films: 1. Ultrasound demonstrates appropriate femoral access site. Vessel was patent with minimal stenosis. Needle entry was visualized. Image of ultrasound was saved. 2. Aortogram demonstrates appropriate caliber aorta. Minimal disease. Appropriate take-off of the renals. 3. Iliac images demonstrate no significant disease but small in caliber 4. Left Leg Common femoral artery: No significant disease Profundus Femoris: No significant disease Superficial femoral artery: Occludes from the origin included all way through Popliteal artery (p1,p2,p3): Reconstitutes at the P1 segment although diminutive P2 segment has high-grade stenosis. Reconstitutes at the below-knee P3 segment Anterior tibial artery: Present patent Peroneal artery: Present and patent Posterior tibial artery: Present and patent Dorsalis pedis/plantar arch: Not visualized Conclusion: 1. Successful diagnostic angiogram. Patient will require fem to below-knee popliteal bypass 2. Anticoagulation status: No change This note is constructed using voice recognition software. While every effort has been made to ensure accuracy, legislators errors may have been included. Thank you for allowing me to participate in the care of your patient. Yours sincerely, Zi Cotton MD, FACS, R.P.V.I.
== END 2025-02-09 10:48 | disposition home or self-care (01) ==
PROVIDERS: PCP Family Medicine; Visit Provider Surgery Vascular Surgery
DX: E11.51 Type 2 diabetes mellitus with diabetic peripheral angiopathy without gangrene (principal); I70.212 Atherosclerosis of native arteries of extremities with intermittent claudication, left leg; R26.2 Difficulty in walking, not elsewhere classified; I10 Essential (primary) hypertension; E55.9 Vitamin D deficiency, unspecified; E78.1 Pure hyperglyceridemia; E78.5 Hyperlipidemia, unspecified; Z79.84 Long term (current) use of oral hypoglycemic drugs; Z79.85 Long-term (current) use of injectable non-insulin antidiabetic drugs; Z86.73 Personal history of transient ischemic attack (TIA), and cerebral infarction without residual deficits; Z98.890 Other specified postprocedural states; Z87.891 Personal history of nicotine dependence
CPT/HCPCS: 36247; 36415; 75630; 76937; 82565; 82947; 84520; 85025; 99152; C1760; C1769; C1887; C1894; J0360; J1644; J2250; J3010; Q9967

== ENCOUNTER → 2025-02-09 05:44 | Outpatient (BNV) | payer OTHER, SELFPAY | PROVIDERS: PCP Family Medicine; Visit Provider Surgery Vascular Surgery | DX: I70.212 Atherosclerosis of native arteries of extremities with intermittent claudication, left leg (principal) | CPT/HCPCS: 36247; 75625; 75710; 76937; 99152 ==

== ENCOUNTER 2025-02-17 12:17 | Outpatient (AMB) | payer OTHER, SELFPAY ==
--- NOTE | 2025-02-17 13:04 | MHC.OFFVIS ---
Intake Visit Reasons: 1 week follow up Angio 02/08/25 Intake Note: Patient presents for 1 week angiogram follow up. Patient is still experiencing pain in the left leg. Accompanied by: Daughter Allergies No Known Allergies Allergy (Mild, Verified 02/17/25 13:07) NOT APPLICABLE HPI HPI 1 week follow up Angio 02/08/25: Details: Very pleasant but poorly controlled diabetic presents for follow-up regarding peripheral vascular disease. She states that her left leg continues to be a source of problems and can walk at 50 ft at most. Of concern is the persistent pain in that leg. She does not really associated that with walking. We did do a diagnostic angiogram and the concern here is that she has a total occlusion that reconstitutes at the below-knee segment. [facility] Medical History Vitamin D deficiency Hypertriglyceridemia HLD (hyperlipidemia) Non-cardiac chest pain Cerebrovascular accident HTN (hypertension) Type 2 diabetes mellitus Surgical History Status post angioplasty Hx of colonoscopy History of hysterectomy Family History Father Heart disease Mother Diabetes Hypertension High cholesterol Renal failure Brother Diabetes Brother Diabetes Sister Diabetes Social History Alcohol intake: never Patient Tobacco Use Status: Former Tobacco user Review of Systems Const All systems reviewed & are unremarkable except as noted in HPI and below Reports no additional complaints ENT Reports Normal hearing present Card Denies chest pain, Denies chest pain at rest, Denies chest pain with activity and Denies pedal edema Resp Denies cough GI Denies abdominal pain Musc Denies abnormal gait, Denies muscle cramps and Denies radiating pain into limb Skin/Breast Denies skin ulcer and Denies wounds Neuro Reports Normal hearing present and Denies abnormal gait Psych Reports no additional complaints Physical Exam Const General: cooperative, healthy appearing and comfortable Orientation/consciousness: oriented to person, oriented to place and oriented to time HEENT Head: Yes normal to inspection Neck Neck: Yes normal visual inspection Carotids: no bruits Chest Chest palpation & inspection: normal inspection of the chest Resp Effort & Inspection: normal respiratory effort and able to speak in complete sentences Auscultation: clear to auscultation bilaterally, no crackles, no rales, no rhonchi and no wheezes Cardio Other: Bilateral DP signals Rate: regular rate Rhythm: regular rhythm Heart sounds: S1 normal heart sound present and S2 normal heart sound present Bruits: no carotid bruits Peripheral pulses: Peripheral pulses 2+ throughout GI Inspection: Yes normal to inspection Skin Wounds: no wounds Hair: normal Neuro General: oriented to person, oriented to place and oriented to time Cranial nerves: Yes CN's II-XII intact bilaterally and Yes Normal hearing present Cognition (Neuro): normal cognition Motor exam (neuro): 5/5 motor strength present throughout Extrem Other: venous exam: No significant superficial varicosities or spider telangiectasias, minimal edema General: No clubbing, No cyanosis and No edema Psych Appearance: grossly normal Mental Status: mental status grossly normal Speech and movement: Normal speech and movement present Assessment & Plan Assessment & Plan (1) PAD (peripheral artery disease): Comment: Angiogram 01/05/2020 02/09/2025 - diagnostic angiogram Code(s): I73.9 - Peripheral vascular disease, unspecified Category: Medical Plan: In short patient is a claudication here. I would like to try to manage her as conservatively as possible. Should she require surgery would be a femoral to below-knee popliteal bypass would be quite extensive. I will start her on cilostazol to see if that improves her walking distance. In addition it would be ideal to get her diabetes under better control. She will follow up with us in a proximally 6 weeks' time. Thank you for allowing us to assist in her care. If there are any questions or concerns please do not hesitate to contact us. Medications: New cilostazol 100 mg PO BID 60 tabs 2RF Coding Level of Care Code Est Pt Level 4 (20642) Diagnoses PAD (peripheral artery disease) I73.9
--- OUTSIDE RECORDS SUMMARY | 2025-02-17 14:29 | XMS_ITS | Encounter Summary ---
Author Organization [employer] Address [address] [place] [address] [address] [place] [address] Care Team Providers Care Trimmer Buffing Wheel Name Role Phone Mitzi Cantu MD Primary Care Provider [phone] Christa Kwan PharmD Unavailable [phone] Zi Cotton MD Unavailable Gamal Quiñonez MD Unavailable [phone] Encounter Details Date Type Department Care Team (Late st Contact Info) Description 02/05/2023 Orders Only [facility] [address] [place] [phone] Mitzi Cantu MD [address] [place] [phone] Social History Tobacco Use Types Packs/Day Years [...] 9:45 AM EDT Office Visit [facility] [address] [place] [address], [place] [address] Mitzi Cantu MD [address] [place] [address] documented as of this encounter Goals Goal [...] documented as of this encounter Care Teams Trimmer Buffing Wheel Relationship Specialty Start Date End Date Mitzi Cantu MD [address] [place] [phone] PCP - General Family Medicine 06/02/18 Christa Kwan, PharmD [address] [place] [phone] Pharmacist Internal Medicine 07/16/22 Zi Cotton MD [address] [place] [address] Vascular Surgery 04/22/24 Gamal Quiñonez MD [address] [place] [address] Cardiology 04/28/24 documented as of this encounter
--- OUTSIDE RECORDS SUMMARY | 2025-02-17 14:29 | XMS_ITS | Encounter Summary ---
Author Organization [facility], Address [address] [facility] [address] [place] [address] Phone Care Team Providers Care Sales Order Specialist Name Role Phone Mitzi Cantu MD Primary Care Provider U christiana Reason for Visit * Reason Comments Med Refill Encounter Details Date Type Department Care Team (Late st Contact Info) Description 02/28/2022 Refill [facility] [address] [place] [phone] Josafat Colón MD [address] [place] [address] Social History Tobacco Use Types [...] on filedocumented in this encounter Care Teams Sales Order Specialist Relationship Specialty Start Date End Date Mitzi Cantu MD PCP - General 04/06/19 documented as of this encounter
--- OUTSIDE RECORDS SUMMARY | 2025-02-17 14:30 | XMS_ITS | Clinical Summary ---
Author Organization [employer] Address [address] [place] [address] [address] [place] [address] Care Team Providers Care Cement Crusher Operator Name Role Phone Mitzi Cantu MD Primary Care Provider [phone] Christa Kwan PharmD Unavailable [phone] Zi Cotton MD Unavailable Gamal Quiñonez MD Unavailable [phone] Allergies Active Allergy Reactions Criticality Noted Date Comments Gregor Inhibitors Cough 08/02/2010 Medications * This document contains information received from the source organization and may not represent a complete record from that organization. Calcium Carb-Cholecalcifer ol 600-10 MG-MCG tabletIndications: Age related osteoporosis, unspecified pathological fracture presence TAKE 1 TABLET BY MOUTH TWICE DAILY IN THE MORNING AND IN THE EVENING 60 tablet 11 01/07/20 24 Active potassium citrate CR (Urocit-K-15) 15 [...] 1 (one) time per week. 2 mL 05/05/20 24 Active metFORMIN XR (Glucophage-XR) 500 [...] EACH EYE EVERY EVENING 03/16/20 24 Active omeprazole (PriLOSEC) [address] capsuleIndications :Gastroesophageal reflux disease without esophagitis TAKE 1 CAPSULE BY MOUTH EVERY MORNING 30 capsule 11 05/17/20 24 Active pen needle 33G x 4 [...] BY MOUTH EVERY MORNING 90 tablet 3 07/15/19 25 Active cyanocobalamin (Vitamin B-12) 1000 MCG tabletIndications: B12 deficiency TAKE 1 TABLET BY MOUTH EVERYDAY AT NOON 90 tablet 3 07/15/19 25 Active atorvastatin (Lipitor) 80 MG [...] by mouth at bedtime. 30 tablet 11 08/05/19 25 Active escitalopram (Lexapro) 5 MG tabletIndications: Major depressive disorder, single episode with psychotic features (CMS/HCC) TAKE 1 TABLET BY MOUTH EVERY MORNING 90 tablet 12/02/19 25 Active NIFEdipine XL (Procardia XL) 30 MG 24 hr tabletIndications: Stage 2 hypertension TAKE 1 TABLET BY MOUTH TWICE DAILY IN THE MORNING AND IN THE EVENING 180 tablet 2 12/28/19 25 Active hydrALAZINE (Apresoline) 25 MG tabletIndications: Stage 2 hypertension Take 1 tablet (25 mg) by mouth 2 times daily. 60 tablet 11 02/09/20 25 Active hydrALAZINE (Apresoline) 25 MG tabletIndications: Stage 2 hypertension TAKE 1 TABLET BY MOUTH TWICE DAILY IN THE MORNING AND IN THE EVENING WITH FOOD 60 tablet 11 02/04/20 24 2024 Discontinued(R eorder (will not trigger notification to Pharmacy)) oxyCODONE (Roxicodone) 5 MG immediate release tabletIndications: Left leg pain Take 1 tablet (5 mg) by mouth if needed in the morning and at bedtime for severe pain for up to 7 days. 14 tablet 01/29/20 25 2024 Active Problems Problem Noted Date Diagnosed Date Right hip pain 12/15/2024 Overview (12/15/2024): -xray 12/14/24 with specialist IMPRESSION: Mild osteoarthrosis, right hip. Bilateral carpal tunnel syndrome 06/14/2024 Overview (06/14/2024): -nerve conduction study 06/2024 IMPRESSION: Msjz-la-mdltfhle left median neuropathy across carpal tunnel. Mild [...] study 05/05/24 -nerve conduction study 06/2024 IMPRESSION: Rmer-wf-umjekvax left median neuropathy across carpal tunnel. Mild [...] after 08/04/2025 -eye care facilitated by mike lashonda -health care proxy given and filed 02/09/24 Assessment & Plan (02/09/2024 10:20 AM EDT): -next physical exam due after 06/26/2023 -eye care facilitated by mike [facility] is -health care proxy given and filed 02/09/24 Assessment & Plan (04/30/2023 3:36 PM EST): -next physical exam due after 06/26/2023 -eye care facilitated by mike -dental home is Stage 2 hypertension 06/06/2022 Overview (08/04/2024): [...] hallucinations (door knocking, felt presence of her zbyptd-gj-pmy). Anxious about medication side effects. After initial [...] hallucinations (door knocking, felt presence of her inbwwq-di-ojv). Anxious about medication side effects. After initial [...] hallucinations (door knocking, felt presence of her jaklxs-ee-bgj). Anxious about medication side effects. After initial [...] hallucinations (door knocking, felt presence of her iycuci-lv-pby). Anxious about medication side effects. After initial [...] hallucinations (door knocking, felt presence of her uobwqh-uh-fuf). She is much improved, depression in remission. At this time she will be referred back to her PCP for further medication management. I would be happy to see her again in the future as needed. She agrees with the plan. B12 deficiency 08/03/2021 Gastroesophageal reflux disease 08/03/2021 Osteoporosis 08/03/2021 Peripheral vascular disease 10/06/2019 Overview (02/09/2025): ABIs 05/06/23 with Zi Cotton MD Aorta/iliac: [...] artery. Overall worsening/new since November 22, 2024. -note from Dr. Cotton 02/04/25 the patient would benefit from a left leg endovascular peripheral angiogram with possible angioplasty, stent, and/or atherectomy. This was done 02/09/25 and Conclusion: Successful diagnostic angiogram. Patient will require fem to below- knee popliteal bypass Anticoagulation status: No change Assessment & Plan (02/09/2024 10:19 AM EDT): [...] weeks(05/05/24) due to skin irritation. Spoke with [facility] pharmacist and will change Triseba to Basaglar. [...] weeks(05/05/24) due to skin irritation. Spoke with [facility] pharmacist and will change Triseba to Basaglar. [...] weeks(05/05/24) due to skin irritation. Spoke with [facility] pharmacist and will change Triseba to Basaglar. [...] weeks(05/05/24) due to skin irritation. Spoke with [facility] pharmacist and will change Triseba to Basaglar. [...] in past including cardiology and most recently jeweler apprentice on 12/14/2020 but referred back to PCP because patient didn't get her labs drawn. Discussed lipid clinic at [facility]. Pt agrees but would like to wait [...] in past including cardiology and most recently jeweler apprentice on 12/14/2020 but referred back to PCP because patient didn't get her labs drawn. Discussed lipid clinic at [facility]. Pt agrees but would like to wait for her housing situation to improve. -continue lifestyle modification -continue fenofibrate 160mg daily -atorvastatin 80 -Lovaza 1gm 2 tabs bid Assessment & Plan (05/05/2024 10:05 AM EST): Pt has history of severe hyper triglycerides (>2000) currently we got it as low as 300s but she is not back to 1,550 range. -Seen by jeweler apprentice on 12/14/2020 but referred back to PCP [...] not back to 1,550 range. -Seen by jeweler apprentice on 12/14/2020 but referred back to PCP [...] not back to 1,550 range. -Seen by jeweler apprentice on 12/14/2020 but referred back to PCP [...] not back to 1,550 range. -Seen by jeweler apprentice on 12/14/2020 but referred back to PCP [...] Exercise counseling 08/04/2024 11/05/19 Dietary counseling 08/04/2024 Type 2 diabetes mellitus wit h hyperglycemia, [...] about it. Hx of MH services at [facility], case ws closed because she missed appts.. Patient will benefit from Ind. Therapy and Med. management. At this time Armida Vega meets criteria for Visit Diagnoses: Problem List Items Addressed This Visit Other Depression, unspecified Patient ready to address current needs Yes Strengths include willing to seek help PLAN: 1. Follow up with [facility]: Not recommended for follow-up 2. Patient goal is to engage in MH services 3. Behavioral Recommendations a. Ind. Therapy b. Med. Management c. Use of coping Mechanisms provided. Encounters Date Type Department Care Team Description 02/09/2025 Orders Only GENERIC EXTERNAL DATA DEPARTMENT Provider, Generic External Data 02/08/2025 Refill [facility] [address] [place] [address] [phone] Mitzi Cantu MD Stage 2 hypertension 02/07/2025 Refill [facility] [address] [place] [address] [phone] Mitzi Cantu MD Stage 2 hypertension 02/02/2025 Telephone [facility] [address] [place] [address] [phone] Mitzi Cantu MD 01/28/2025 10:40 AM EDT Office Visit [facility] [address] [place] [address] [phone] Deepa Streeter DO Left leg pain (Primary Dx); Peripheral arterial disease ([facility]) 01/28/2025 Travel 01/26/2025 Telephone [facility] [address] [place] [address] [phone] Mitzi Cantu MD Medication Question; ER Follow-up 01/20/2025 Orders Only GENERIC EXTERNAL DATA DEPARTMENT Provider, Generic External Data Peripheral vascular disease ([facility]) (Primary Dx) 12/26/2024 Refill [facility] [address] [place] [address] [phone] Mitzi Cantu MD Stage 2 hypertension 12/20/2024 Telephone [facility] [address] [place] [address] [phone] Mitzi Canut MD March12/15/2024 Telephone [facility] [address] [place] [address] [phone] Mitzi Cantu MD 12/14/2024 Orders Only [facility] External Provider, [facility] Right hip pain (Primary Dx); Peripheral vascular disease (CMS/HCC) 12/01/2024 Refill [facility] [address] [place] [address] Mitzi Cantu MD Major depressive disorder, single episode with psychotic features ([facility]) 11/29/2024 Telephone [facility] [address] [place] [address] Mitzi Cantu MD Appointment Request from Last 3 Months Immunizations Immunization Administration [...] Description 03/07/2025 9:45 AM EDT Office Visit [facility] [address] [place] [address] Mitzi Cantu MD [address] [place] [address] Health Maintenance Due Date Last Done Comments CT Colonography 1955 FIT DNA/Cologuard 1955 FIT 1955 FOBT 1955 Sigmoidoscopy 1955 RSV Patients and Patients Aged 60 years or older (1 - Risk 60-74 years 1-dose series) 2014 DTaP/Tdap/Td Vaccines (2 - Td or Tdap) 04/01/2022 04/01/2012, 10/25/2009 Influenza Vaccine (#1) 2025 , 10/31/2021, 04/16/2018, Additional history exists Diabetes: Hemoglobin A1C 02/04/2025 025, 08/04/2024, 05/05/2024, Additional history exists Depression Screening 02/08/2025 02/09/2024, 02/09/20 24 SDOH Screening 07/27/2025 07/27/2024 Alcohol/Substance Use Screening 08/04/2025 08/04/2024 Diabetes: Foot Exam 08/04/2025 08/04/2024, 08/04/2024, 08/04/2024, Additional history exists Lipid Panel 08/04/2025 08/04/2024, 1209/2023, 10/21/2023, Additional history exists Eye Exam 11/13/2025 11/14/2023 Tobacco Screening 01/28/2026 01/28/2025 Mammogram 02/05/2026 02/06/2024, 05/0 06/2023, 09/25/2022, Additional history exists Colonoscopy 10/31/2028 10/31/2018 Colorectal Cancer Screening 10/31/2028 COVID-19 Vaccine Discontinued 05/16/2021, , 08/04/2020 Pneumococcal Vaccine: 50+ Years Completed 01/09/2022, 03/16/2015, 02/24/2006 Zoster Vaccines Completed 01/09/2022, 0 06/2021, 10/06/2014 Hepatitis C Screening Completed 06/24/2022 [...] Procedure Name Priority Date/Time Associated Diagnosis Comments CREATININE, SERUM Routine 02/09/2025 6:5 6 AM EDT UREA NITROGEN (BUN) Routine 02/09/2025 6 :56 AM EDT CBC WITH AUTO DIFFERENTIAL Routine 02/09/2025 6:56 AM EDT GLUCOSE, WHOLE BLOOD Routine 02/09/2025 6:35 AM EDT XR HIP LEFT WITH PELVIS 1 VIEW [...] DUPLEX LE LT Routine 11:56 AM EDT POCT GLYCOSYLATED HEMOGLOBIN (HGB A1C) Routine 11/04/2024 9:25 AM EDT Type 2 diabetes mellitus with hyperglycemia, with long-term current use of insulin ([facility]) LIPID PANEL, STANDARD Routine 08/04/2024 10:38 AM EST Hypercholesterolemi a HM MAMMOGRAPHY Routine 02/06/2024 3:02 PM EDT HM DIABETES EYE EXAM Routine 11/14/2023 3:26 PM EDT HEPATITIS C VIRAL RNA, QUANTITATIVE, REAL-TIME PCR Routine 06/24/2022 8:19 AM EST Routine screening for STI (sexually transmitted infection) COLONOSCOPY Routine 10/31/2018 12:37 PM EDT from Last 3 Months or Most Recently Relevant to Health Maintenance Results * Creatinine, Serum (02/09/2025 6:56 AM EDT) Creatinine, Serum 0.60 0.5 - 1.4 mg/dL [facility] Creatinine Clr Calc Pharmacy 70.1 [facility] Comment:Provided height and weight: 149.86 cm,62.5 kg.eGFR (calculated from the MDRD study equation) and eCrCl(calculated from the Cockcroft-Gault equation) are based ondifferent parameters and may not yield comparable results.If eCrCl result is absurd, please check patient'sheight/weight. Estimated Glomerular Filt Rate >60 [facility] Comment:Chronic Kidney Disea se: Estimated GFR < 60 mL/min/1.22g0Nnotlx Kidney Disease: Estimated GFR < 15 mL/min/1.73m2 02/09/2025 6:56 AM EDT 02/09/2025 6:58 AM EDT us Generic External Data Provider LAB BLOOD ORDERAB LES Final Result [facility] [address] [place] [phone] [phone] * (ABNORMAL) CBC auto differential (02/09/2025 6:56 AM EDT) Only the most recent of3 resultswithin the time period is included. White Blood Count 7.9 4.8 - 10.8 X10*3/uL [facility] Red Blood Count 4.04(L) 4.20 - 5.50 X10*6/uL [facility] Hemoglobin 12.1 12.0 - 16.0 g/dl [facility] Hematocrit 34.0(L) 37.0 - 47.0 % [facility] Mean Corpuscular Volume 84.2 80.0 - 98.0 fL [facility] Mean Corpuscular Hemoglobin 30.0 27.0 - 33.0 pg [facility] Mean Corpuscular HGB Conc 35.6(H) 31.0 - 35.0 g/dl [facility] Red Cell Distribution Width 12.0 11.0 - 16.0 % [facility] Platelet Count 253 160 - 400 X10*3/uL [facility] Mean Platelet Volume 9.5 9.4 - 12.3 fL [facility] Neutrophils Percent Auto 65.6 45 - 73 % [facility] Imm Gran Pct Auto 0.4 0.0 - 0.4 % [facility] Lymphocytes Percent Auto 24.8 20 - 40 % [facility] Monocytes Percent Auto 6.9 2 - 11 % [facility] Eosinophils Percent Auto 1.8 0 - 4 % [facility] Basophils Percent Auto 0.5 0 - 2 % [facility] NRBC Pct Auto 0.0 0.0 - 0.2 /100WBC [facility] Neutrophils Absolute Auto 5.2 2.0 - 8.3 x10*3/uL [facility] Imm Gran Abs Auto 0.03 0.00 - 0.03 X10*3/uL [facility] Lymphocytes Absolute Auto 2.0 1.2 - 4.9 X10*3/uL [facility] Monocytes Absolute Auto 0.6 0.1 - 1.2 X10*3/uL [facility] Eosinophils Absolute Auto 0.1 0.0 - 0.4 X10*3/uL [facility] Basophils Absolute Auto 0.0 0.0 - 0.2 X10*3/uL [facility] NRBC Abs Auto 0.000 0.0 - 0.012 X10*3/uL [facility] 02/09/2025 6:56 AM EDT 02/09/2025 6:58 AM EDT us Generic External Data Provider LAB BLOOD ORDERAB LES Final Result Performing Organization Address [facility] de Phone Number [facility] [address] [place] [phone] * BUN (Blood Urea Nitrogen) (02/09/2025 6:56 AM EDT) Urea Nitrogen (BUN) 14 9 - 16 mg/dL [facility] 02/09/2025 6:56 AM EDT 02/09/2025 6:58 AM EDT Generic External Data Provider LAB BLOOD ORDERAB LES Final Result Performing Organization Address [facility] de Phone Number [facility] [address] [place] [address] [phone] * (ABNORMAL) Glucose, Whole Blood (02/09/2025 6:35 AM EDT) Only the most recent of3 resultswithin the time period is included. Glucose, Whole Blood 263(H) 60 - 115 mg/dL [facility] Comment:METER #: [id number] 02/09/2025 6:35 AM EDT 02/09/2025 6:38 AM EDT Generic External Data Provider LAB BLOOD ORDERAB LES Final Result Performing Organization Address [facility] de Phone Number [facility] [address] [place] [phone] * XR Hip left with Pelvis 1 view (01/20/2025 12:01 PM EDT) Anatomical Region Laterality Modality Lower Extremities, Hip Bilateral Radiograp hic Imaging 01/20/2025 12:0 1 PM EDT Narrative 01/20/2025 1:16 PM EDT [address] [address] XRay Report Signed Patient: Armida Olmstead MR#: [id number] : 1955 Acct:[id number] Age/Sex: 69 / F ADM Date: 01/20/25 Loc: HO.ED Attending Dr: Ordering Physician: Jaren Gibson Date of Service: 01/20/25 Procedure(s): XR hip LT w PEL1V Accession Number(s): [id number] cc: Jaren Gibson; Mitzi Cantu MD EXAMINATION: [...] Bud Rubio MD 01/20/2025 01:13 PM EDT RP Dictated By: Bud Rubio MD Signed By: <Electronically signed by Bud Rubio MD in OV> 01/20/25 1313 DD/ 1201 TD/TT: 01/20/25 1308 Assistant Technician: Procedure Note Donotuseinterpreter, Image - 01/20/[address] [address] XRay Report Signed Patient: Collins OlmsteadR#: M [id number] : 1955cct:[id number] Age/Sex: 69 / FADM Date: 01/20/25 Loc: HO.ED Attending Dr: Ordering Physician: Jaren Gibson Date of Service: 01/20/25 Procedure(s): XR hip LT w PEL1V Accession Number(s): [id number] cc: Jaren Gibson; Mitzi Cantu MD EXAMINATION: [...] 01/20/25 1313 DD/ 1201 TD/TT: 01/20/25 1308 Assistant Technician: [facility] External Provider IMG XR PROCEDURES Final Result * US ARTERIAL DUPLEX LE LT (01/20/2025 12:00 PM EDT) Only the most recent of2 resultswithin the time period is included. Anatomical Region Laterality Modality Abdomen Ultrasound 01/20/2025 12:0 0 PM EDT Narrative 01/20/2025 12:57 PM EDT [address] [address] Ultrasound Report Signed Patient: Armida Olmstead MR#: [id number] : 1955 Acct:[id number] Age/Sex: 69 / F ADM Date: 01/20/25 Loc: HO.ED Attending Dr: Ordering Physician: Jaren Gibson Date of Service: 01/20/25 Procedure(s): US arterial duplex LE LT Accession Number(s): [id number] cc: Jaren Gibson; Mitzi Cantu MD EXAMINATION: [...] 01/20/25 1254 DD/ 1200 TD/TT: 01/20/25 1225 Assistant Technician: Procedure Note Donotuseinterpreter, Image - 01/20/[address] [address] Ultrasound Report Signed Patient: Shaye Olmstead#: M [id number] : 4Acct:[id number] Age/Sex: 69 / FADM Date: 01/20/25 Loc: .ED Attending Dr: Ordering Physician: Jaren Gibson Date of Service: 01/20/25 Procedure(s): US arterial duplex LE LT Accession Number(s): [id number] cc: Jaren Gibson; Mitzi Cantu MD EXAMINATION: [...] 01/20/25 1254 DD/ 1200 TD/TT: 01/20/25 1225 Assistant Technician: [facility] External Provider IMG US PROCEDURES Final Result * Lower Extremity Venous Duplex (01/20/2025 12:00 PM EDT) 01/20/2025 12:0 0 PM EDT Narrative [facility] - 01/20/2025 12:51 PM EDT [address] [address] Ultrasound Report Signed Patient: Armida Olmstead MR#: Jeannine [id number] : 1955 Acct:[id number] Age/Sex: 69 / F ADM Date: 01/20/25 Loc: HO.ED Attending Dr: Ordering Physician: Jaren Gibson Date of Service: 01/20/25 Procedure(s): US venous duplex LE LT Accession Number(s): [id number] cc: Jaren Gibson; Mitzi Cantu MD EXAMINATION: [...] David Floyd MD 01/20/2025 12:48 PM EDT Dictated By: David De Santiago MD Signed By: <Electronically signed by David Souza MD in OV> 01/20/25 1248 DD/ 1200 TD/TT: 01/20/25 1225 Assistant Technician: Procedure Note Donotuseinterpreter, Image - 01/20/[address] [address] Ultrasound Report Signed Patient: Collins OlmsteadR#: Jeannine [id number] : 4Acct:[id number] Age/Sex: 69 / FADM Date: 01/20/25 Loc: HO.ED Attending Dr: Ordering Physician: Jaren Gibson Date of Service: 01/20/25 Procedure(s): US venous duplex LE LT Accession Number(s): [id number] cc: Jaren Gibson; Mitzi Cantu MD EXAMINATION: [...] 01/20/25 1248 DD/ 1200 TD/TT: 01/20/25 1225 Assistant Technician: [facility] External Provider CV VASC ULAR PROCEDURES Final Result Performing Organization Address [facility] Co de Phone Number [facility] [address] [place] [address] [phone] * Partial Thromboplastin Time, Activated (APTT) (01/20/2025 10:36 AM EDT) Only the most recent of2 resultswithin the time period is included. Partial Thromboplastin Time 28.3 26.7 - 34.1 SEC [facility] 01/20/2025 10:3 6 AM EDT 01/20/2025 10:39 AM EDT Generic External Data Provider LAB BLOOD ORDERAB LES Final Result Performing Organization Address City/[facility] Co de Phone Number [facility] [address] [place] [phone] * Prothrombin Time-INR (01/20/2025 10:36 AM EDT) Only the most recent of2 resultswithin the time period is included. [facility] Prothrombin Time 11.4 10.9 - 12.4 SEC [facility] INTERNATIONAL NORM RATIO 1.0 0.9 - 1.1 [facility] Comment:INTERNATIONAL NORMAL IZED RATIO [...] Provider LAB BLOOD ORDERAB LES Final Result [facility] [address] [place] [phone] * (ABNORMAL) Creatine Kinase, Total (01/20/2025 10:36 AM EDT) [facility] Creatine Kinase Total 23(L) 26 - 140 U/L [facility] 01/20/2025 10:3 6 AM EDT 01/20/2025 10:39 AM EDT Generic External Data Provider LAB BLOOD ORDERAB LES Final Result Performing Organization Address City/[facility]/ZIP Co de Phone Number [facility] [address] [place] [phone] * (ABNORMAL) Comprehensive Metabolic Panel (01/20/2025 10:36 AM EDT) Only the most recent of2 resultswithin the time period is included. [facility] Sodium 137 135 - 145 mmol/L [facility] Potassium 3.5 3.3 - 5.1 mmol/L [facility] Chloride 99 96 - 108 mmol/L [facility] Carbon Dioxide 27 22 - 29 mmol/L [facility] Anion Gap 15 12 - 20 [facility] Urea Nitrogen (BUN) 13 9 - 16 mg/dL [facility] Creatinine, Serum 0.53 0.5 - 1.4 mg/dL [facility] Creatinine Clr Calc Pharmacy 78.5 [facility] Comment:Provided height and weight: 149.86 cm,61.235 kg.eGFR (calculated from the MDRD study equation) and eCrCl(calculated from the Cockcroft-Gault equation) are based ondifferent parameters and may not yield comparable results.If eCrCl result is absurd, please check patient'sheight/weight. Estimated Glomerular Filt Rate >60 [facility] Comment:Chronic Kidney Disea se: Estimated GFR < 60 mL/min/1.72j6Uxjcgo Kidney Disease: Estimated GFR < 15 mL/min/1.73m2 Glucose 196(H) 60 - 115 mg/dL [facility] Calcium 9.3 8.4 - 10.2 mg/dL [facility] Bilirubin, Total 0.3 0.0 - 1.0 mg/dL [facility] Aspartate Amino Transferase 17 5 - 31 U/L [facility] Alanine Aminotransferase 18 0 - 31 U/L [facility] Total Protein 7.5 6.5 - 8.0 g/dL [facility] Albumin Level 4.4 3.5 - 5.0 g/dL [facility] Alkaline Phosphatase 86 39 - 117 U/L [facility] 01/20/2025 10:3 6 AM EDT 01/20/2025 10:39 AM EDT us Generic External Data Provider LAB BLOOD ORDERAB LES Final Result [facility] [address] [place] [phone] * CTA Abdomen aorta runoff (12/14/2024 7:20 PM EDT) Anatomical Region Laterality Modality Body, Pelvis, Abdomen Computed T omography 12/14/2024 7:20 PM EDT Narrative 12/14/2024 7:22 PM EDT [address] [address] [address] Scan Report Signed with Addenda Patient: Armida Vega MR#: [id number] : 1955 Acct:[id number] Age/Sex: 69 / F ADM Date: 12/14/24 Loc: .ED Attending Dr: Ordering Physician: Gal Good MD Date of Service: 12/14/24 Procedure(s): CT angio abd aorta runoff Accession Number(s): [id number] cc: Mitzi Cantu MD; Gal Good MD Report Number: [id number]: Total DLP = 310.00 mGy-cm ADDENDUM This [...] of the urinary bladder. No adnexal mass. Ljaw-jn-ibohxzug spondylosis. No acute fracture or suspicious bone [...] in OV> 12/14/241920 DD/ 19 TD/TT: 12/14/241919 Assistant Technician: Procedure Note Donotuseinterpreter, Image - 12/14/[address] [address] [address] Scan Report Signed with Addenda Patient: Shaye Vega#: [id number] : 1955cct:[id number] Age/Sex: 69 / FADM Date: 12/14/24 Loc: .ED Attending Dr: Ordering Physician: Gal Good MD Date of Service: 12/14/24 Procedure(s): CT angio abd aorta runoff Accession Number(s): [id number] cc: Mitzi Cantu MD; Gal Good MD Report Number: [id number]: Total DLP = 310.00 mGy-cm ADDENDUM This [...] of the urinary bladder. No adnexal mass. Ohvo-dp-tlalbdtf spondylosis. No acute fracture or suspicious bone [...] in OV> 12/14/241920 DD/ 19 TD/TT: 12/14/241919 Assistant Technician: us [facility] External Provider IMG CT PROCEDURES Edited Result - Final * Hold Red (12/14/2024 4:39 PM EDT) Hold Red See Note [facility] Comment:Specimen held untest ed for 24 hours; Call to requestChemistry testing. 12/14/2024 4:39 PM EDT 12/14/2024 4:45 PM EDT us Generic External Data Provider LAB BLOOD ORDERAB LES Final Result Performing Organization Address [facility] Co de Phone Number [facility] [address] [place] [phone] * (ABNORMAL) Sed Rate by Modified Westergren (12/14/2024 4:39 PM EDT) Erythrocyte Sedimentation Rate 59(H) 0 - 20 MM/HR [facility] Comment:Patients with polycy themia and many hemoglobin abnormalitiesmay have depressed sed rates whereas patients with anemiamay have elevated sed rates. 12/14/2024 4:39 PM EDT 12/14/2024 4:44 PM EDT Generic External Data Provider LAB BLOOD ORDERAB LES Final Result Performing Organization Address [facility] Co nv Phone Number [facility] [address] [place] [phone] * (ABNORMAL) C-reactive Protein (12/14/2024 4:39 PM EDT) C Reactive Protein 9.68(H) < or = 0.50 mg/dL [facility] 12/14/2024 4:39 PM EDT 12/14/2024 4:44 PM EDT Generic External Data Provider LAB BLOOD ORDERAB LES Final Result Performing Organization Address [facility] Co de Phone Number [facility] [address] [place] [phone] * Lipase (12/14/2024 4:39 PM EDT) Lipase 47 8 - 78 U/L [facility] 12/14/2024 4:39 PM EDT 12/14/2024 4:44 PM EDT Generic External Data Provider LAB BLOOD ORDERAB LES Final Result Performing Organization Address [facility] Co de Phone Number [facility] [address] [place] [phone] * Lactic Acid (12/14/2024 4:39 PM EDT) Lactic Acid 1.0 0.5 - 2.0 mmol/L [facility] 12/14/2024 4:39 PM EDT 12/14/2024 4:44 PM EDT us Generic External Data Provider LAB BLOOD ORDERAB LES Final Result Performing Organization Address [facility] de Phone Number [facility] [address] [place] [phone] * XR Hip right with Pelvis 1 view (12/14/2024 11:40 AM EDT) Anatomical Region Laterality Modality Lower Extremities, Hip Bilateral Radiograp hic Imaging 12/14/2024 11:4 0 AM EDT Narrative 12/14/2024 12:09 PM EDT [address] [address] XRay Report Signed Patient: Armida Vega MR#: [id number] : 1955 Acct:[id number] Age/Sex: 69 / F ADM Date: 12/14/24 Loc: HO.ED Attending Dr: Ordering Physician: Tenisha Castellano Date of Service: 12/14/24 Procedure(s): XR hip RT w PEL1V Accession Number(s): [id number] cc: Mitzi Cantu MD; Tenisha Castellano EXAMINATION: [...] 12/14/24 1206 DD/ 1140 TD/TT: 12/14/24 1150 Assistant Technician: Procedure Note Donotuseinterpreter, Image - 12/14/2024 [place] [address] XRay Report Signed Patient: Shaye Vega#: [id number] : 4Acct:[id number] Age/Sex: 69 / FADM Date: 12/14/24 Loc: HO.ED Attending Dr: Ordering Physician: Tenisha Castellano Date of Service: 12/14/24 Procedure(s): XR hip RT w PEL1V Accession Number(s): [id number] cc: Mitzi Cantu MD; Tenisah Castellano EXAMINATION: XR HIP, RIGHT CLINICAL INFORMATION: [...] 12/14/24 1206 DD/ 1140 TD/TT: 12/14/24 1150 Assistant Technician: [facility] External Provider IMG XR PROCEDURES Final Result * US VENOUS DUPLEX LE LT (11/22/2024 11:56 AM EDT) Anatomical Region Laterality Modality Abdomen Ultrasound 11/22/2024 11:5 6 AM EDT Narrative 11/22/2024 12:43 PM EDT [address] [address] Ultrasound Report Signed Patient: Armida Vega MR#: [id number] : 1955 Acct:[id number] Age/Sex: 69 / F ADM Date: 11/22/24 Loc: .ED Attending Dr: Ordering Physician: Jaren Gibson Date of Service: 11/22/24 Procedure(s): US venous duplex LE LT Accession Number(s): [id number] cc: Jaren Gibson; Mitzi Cantu MD EXAMINATION: [...] 11/22/24 1240 DD/ 1156 TD/TT: 11/22/24 1205 Assistant Technician: Procedure Note Donotuseinterpreter, Image - 11/22/[address] [address] Ultrasound Report Signed Patient: Shaye Vega#: [id number] : 1955cct:[id number] Age/Sex: 69 / FADM Date: 11/22/24 Loc: .ED Attending Dr: Ordering Physician: Jaren Gibson Date of Service: 11/22/24 Procedure(s): US venous duplex LE LT Accession Number(s): [id number] cc: Jaren Gibson; Mitzi Cantu MD EXAMINATION: [...] 11/22/24 1240 DD/ 1156 TD/TT: 11/22/24 1205 Assistant Technician: [facility] External Provider IMG US PROCEDURES Final Result * (ABNORMAL) POCT glycosylated hemoglobin (Hgb A1c) (11/04/2024 9:25 AM EDT) Hemoglobin A1C 9.7(A) 4.0 - 6.0 % QC Media Lot # [id number] Lot# Expiration Date Blood Capillary blood specimen / Unknown 11/04/2024 9:25 AM EDT Mitzi Cantu MD POINT OF CARE TEST ENTER/E DIT ORDERABLES Final Result * (ABNORMAL) Lipid Panel, Standard (08/04/2024 10:38 AM EST) Triglycerides 1,575(H) <150 mg/dL [facility] Comment:Slight Lipemia.Thor able Triglyceride: less than 150 mg/dLBorderline High Triglyceride 150-199 mg/dLHigh Triglyceride: 200-499 mg/dLVery High Triglyceride: greater than or equal to 5OO mg/dL Cholesterol 318(H) <200 mg/dL [facility] Comment:Desirable Cholestero l: less than 200 mg/dLBorderline High Cholesterol: 200-239 mg/dLHigh Cholesterol: greater than 239 mg/dL LDL Cholesterol Calculated TNP <100 mg/dL [facility] Comment:Unable to calculate the LDL. The formula of Friedwald,Negrete, and Ruddy is only valid if the triglycerides areless than 400 mg/dl. HDL Cholesterol 28(L) >40 mg/dL [facility] Comment:Desirable HDL: great er than 40 mg/dL Note: This HDL assay may give artificially low results in patients with liver disease. Blood Venous blood specimen / Unknown 08/04/2024 10:38 AM EST 08/04/2024 11:25 AM EST Mitzi Cantu MD LAB BLOOD ORDERABLES Final Result [facility] [address] [place] [phone] * Mammography (02/06/2024 3:02 PM EDT) Mammogram BIRADS 1 Normal, Abnormal, BIRADS 1 , BIRADS 2 Comment:routine annual mamma graphy screening Anatomical Region Laterality Modality Other Historical Provider HEALTH MAINTENANCE Final Result * Diabetes Eye Exam (11/14/2023 3:26 PM EDT) Eye Exam Normal Normal Comment:follow up one year Historical Provider HEALTH MAINTENANCE Final Result * Hepatitis C Viral RNA, Quantitative, Real-Time PC (06/24/2022 8:19 AM EST) HCV RNA, QN Real Time PCR <15 NOT DETECTED NOT DETECTED IU/mL [facility] [employer] [place] [employer] HCV RNA QN Real Time PCR <1.18 NOT DETECTED NOT DETECTED Log IU/mL [facility] Comment: This test was performed using Real-Time Polymerase Chain Reaction. Reportable Range: 15 IU/mL to 100,000,000 IU/mL (1.18 Log IU/mL to 8.00 Log IU/mL). The analytical performance characteristics of this assay have been determined by [facility] [employer]. The modifications have not been cleared or approved by the FDA. This assay has been validated pursuant to the CLIA regulations and is used for clinical purposes. For more information on this test, go to: http://education.Internet REIT/faq/IKE05g5 (This link is being provided for informational/ educational purposes only.) 06/24/2022 8:19 AM EST 06/24/2022 8:19 AM EST Narrative [facility] - 06/27/2022 5:25 PM EST FASTING:YES FASTING: YES Mitzi Cantu MD LAB BLOOD ORDERABLES Final Result [facility] [address], [place] [address] [facility] [address] [facility], ([address]) [place] [address] * Hm Colonoscopy (10/31/2018 12:37 PM EDT) Mitzi Cantu MD HEALTH MAINTENANCE Final R esult from Last 3 Months or Most Recently Relevant to Health Maintenance [place] [address] [address] STANDARD MEDICARE Advance Directives Documents on File Type Date Recorded Patient Sales And Leasing Consultant Expl anation Advance Directives and Living Will 02/09/2024 Health Care Proxy 02/09/24 Care Teams Cement Crusher Operator Relationship Specialty Start Date End Date Pepe, MD Mitzi [address] [place] [address] PCP - General Family Medicine 06/02/18 Christa Kwan, Bindu [address] [place] [address] Pharmacist Internal Medicine 07/16/22 Zi Cotton MD [address] [place] [address] Vascular Surgery 04/22/24 Gamal Quiñonez MD [address] 3rd [place] [address] Cardiology 04/28/24
--- OUTSIDE RECORDS SUMMARY | 2025-02-17 14:30 | XMS_ITS | Encounter Summary ---
Author Organization [facility], Address [address] [facility] [address] [place] [address] Phone Care Team Providers Care Hygiene Teacher Name Role Phone Mitzi Cantu MD Primary Care Provider U christiana Reason for Visit * Reason Comments Med Refill Encounter Details Date Type Department Care Team (Late st Contact Info) Description 08/23/2021 Refill [facility] [address] [place] [phone] Josafat Colón MD [address] [place] [address] Social History Tobacco Use Types [...] on filedocumented in this encounter Care Teams Hygiene Teacher Relationship Specialty Start Date End Date Mitzi Cantu MD PCP - General 04/06/19 documented as of this encounter
--- OUTSIDE RECORDS SUMMARY | 2025-02-17 14:30 | XMS_ITS | Encounter Summary ---
Author Organization [employer] Address [address] [place] [address] 7t [place] [address] Care Team Providers Care Rehabilitation Consultant Name Role Phone [place], Mitzi RODAS Primary Care Provider + [phone] Christa Kwan PharmD Unavailable Zi Cotton MD Unavailable Gamal Quiñonez MD Unavailable [phone] Reason for Visit * Reason Comments Med Refill Encounter Details Date Type Department Care Team (Late st Contact Info) Description 01/03/2023 Refill [facility] [address] [place], [place] [phone] Christa Kwan, PharmD [address] [place] [address] Type II diabetes mellitus with neurological manifestations [...] Description 03/07/2025 9:45 AM EDT Office Visit [facility] [address] [facility] [place] [address] Mitzi Cantu MD [address] [place] [address] documented as of this encounter Goals Goal Patient Goal Type Associated Problems Recent Progress Patient-Stated? Author Hemoglobin A1c < 7 Result Component 9.7(11/04/2024 9:25 AM EDT) No Christa Kwan, PharmD documented as of this encounter Visit Diagnoses Diagnosis Type II diabetes mellitus with neurological manifestations ([facility]) Type II or unspecified type diabetes mellitus with neurological manifestations, not stated as uncontrolled documented in this encounter Additional Health Concerns Assessment Noted Time PHQ-9 Depression Total Score: 15 023 9:31 AM EDT documented as of this encounter Care Teams Rehabilitation Consultant Relationship Specialty Start Date End Date Mitzi Cantu MD [address] [facility] [place] [address] PCP - General Family Medicine 06/02/18 Christa Kwan, PharmD [address] [facility] [place] [address] Pharmacist Internal Medicine 07/16/22 Zi Cotton MD [address] [place] [address] Vascular Surgery 04/22/24 Gamal Quiñonez MD [address] 3rd [place] [address] Cardiology 04/28/24 documented as of this encounter
--- OUTSIDE RECORDS SUMMARY | 2025-02-17 14:30 | XMS_ITS | Clinical Summary ---
Author Organization [facility] Address [address] [place] [address] Care Team Providers Care Apns Name Role Phone Unavailable Primary Care Provider Unavailabl e Social History Tobacco Use Types Packs/Day Years Used Date Smoking Tobacco: Never Assessed Sex and Gender Information Value Date Recorded Sex Assigned at Not on file Gender Identity Not on file Sexual Orientation Not on file Plan of Treatment Not on file
--- OUTSIDE RECORDS SUMMARY | 2025-02-17 14:30 | XMS_ITS | Encounter Summary ---
Author Organization [employer] Address [address] [facility] 7t [place] [address] Care Team Providers Care Coin Machine Assembler Name Role Phone [place], Mitzi RODAS Primary Care Provider + [phone] Christa Kwan PharmD Unavailable [phone] Zi Cotton MD Unavailable Gamal Quiñonez MD Unavailable [phone] Reason for Visit * Reason Comments Med Refill Encounter Details Date Type Department Care Team (Late st Contact Info) Description 05/11/2024 Refill [facility] [address] [place], [place] [phone] Christa Kwan, PharmD [address] [place] [address] Social History Tobacco Use Types Packs/Day Years [...] Description 03/07/2025 9:45 AM EDT Office Visit [facility] [address] [place] [address] Mitzi Cantu MD [address] [place] [address] documented as of this encounter Goals Goal [...] documented as of this encounter Care Teams Coin Machine Assembler Relationship Specialty Start Date End Date Mitzi Cantu MD [address] [place] [address] PCP - General Family Medicine 06/02/18 Christa Kwan, CrisD [address] [place] [address] Pharmacist Internal Medicine 07/16/22 Zi Cotton MD [address] [place] [address] Vascular Surgery 04/22/24 Gamal Quiñonez MD [address] 3rd [place] [address] Cardiology 04/28/24 documented as of this encounter
--- OUTSIDE RECORDS SUMMARY | 2025-02-17 14:30 | XMS_ITS | Encounter Summary ---
Author Organization [employer] Address [address] [facility] 7t [place] [address] Care Team Providers Care Rn Internal Medicine Name Role Phone Mitzi Cantu MD Primary Care Provider + [phone] Christa Kwan PharmD Unavailable [phone] Zi Cotton MD Unavailable Gamal Quiñonez MD Unavailable [phone] Reason for Visit * Reason Onset Date Comments Med Refill 08/04/2024 Encounter Details Date Type Department Care Team (Late st Contact Info) Description 08/04/[address] [facility] [address] [place], [place] [phone] Mitzi Cantu MD [address] [place], [place] [phone] Stage 2 hypertension Social History Tobacco Use [...] the past 12 months, has t he [employer], gas, oil or water company threatened to [...] 03/07/2025 9:[address] EDT [address] [facility] [address] [place] [address] Mitzi Cantu MD [address] [place] [address] documented as of this encounter Goals Goal [...] documented as of this encounter Care Teams Rn Internal Medicine Relationship Specialty Start Date End Date Mitzi Cantu MD [address] [place] [address] PCP - General Family Medicine 06/02/18 Christa Kwan, Bindu [address] [place] [address] Pharmacist Internal Medicine 07/16/22 Zi Cotton MD [address] [place] [address] Vascular Surgery 04/22/24 Gamal Quiñonez MD [address] 3rd [place] [address] Cardiology 04/28/24 documented as of this encounter
--- OUTSIDE RECORDS SUMMARY | 2025-02-17 14:30 | XMS_ITS | Encounter Summary ---
Author Organization [employer] Address [address] [facility] 7t [place] [address] Care Team Providers Care University Librarian Name Role Phone Mitzi Cantu MD Primary Care Provider + [phone] Christa Kwan PharmD Unavailable [phone] Zi Cotton MD Unavailable Gamal Quiñonez MD Unavailable [phone] Reason for Visit * Reason Comments Med Refill Encounter Details Date Type Department Care Team (Late st Contact Info) Description 02/07/2025 Refill [facility] [address] [place], [place] [phone] Mitzi Cantu MD [address] [place], [place] [phone] Stage 2 hypertension Social History Tobacco Use [...] Description 03/07/2025 9:45 AM EDT Office Visit [facility] [address] [place] [address] Mitzi Cantu MD [address] [place] [address] documented as of this encounter Goals Goal [...] documented as of this encounter Care Teams University Librarian Relationship Specialty Start Date End Date Mitzi Cantu MD [address] [place] [address] PCP - General Family Medicine 06/02/18 Christa Kwan, CrisD [address] [place] [address] Pharmacist Internal Medicine 07/16/22 Zi Cotton MD [address] [place] [address] Vascular Surgery 04/22/24 Gamal Quiñonez MD [address] 3rd [place] [address] Cardiology 04/28/24 documented as of this encounter
--- OUTSIDE RECORDS SUMMARY | 2025-02-17 14:30 | XMS_ITS | Encounter Summary ---
Author Organization [employer] Address [address] [place] [address] 7t [place] [address] Care Team Providers Care Trim Attacher Name Role Phone Mitzi Cantu MD Primary Care Provider + [phone] Christa Kwan PharmD Unavailable Zi Cotton MD Unavailable Gamal Quiñonez MD Unavailable [phone] Encounter Details Date Type Department Care Team (Late st Contact Info) Description 05/20/2022 Orders Only [facility] [address] [place], [place] [phone] Deepa Henao LPN Social History Tobacco Use [...] Description 03/07/2025 9:45 AM EDT Office Visit [facility] [address] [place] [address] Mitzi Cantu MD [address] [place] [address] documented as of this encounter Visit Diagnoses Not on filedocumented in this encounter Care Teams Trim Attacher Relationship Specialty Start Date End Date Mitzi Cantu MD [address] [place] [address] PCP - General Family Medicine 06/02/18 Christa Kwan, Bindu [address] [place] [address] Pharmacist Internal Medicine 07/16/22 Zi Cotton MD [address] [place] [address] Vascular Surgery 04/22/24 Gamal Quiñonez MD [address] 3rd [place] [address] Cardiology 04/28/24 documented as of this encounter
--- OUTSIDE RECORDS SUMMARY | 2025-02-17 14:30 | XMS_ITS | Encounter Summary ---
Author Organization [employer] Address [address] [place] [address] 7t [place] [address] Care Team Providers Care Broomcorn Grader Name Role Phone [place], Mitzi RODAS Primary Care Provider + [phone] Christa Kwan PharmD Unavailable [phone] Zi Cotton MD Unavailable Gamal Quiñonez MD Unavailable [phone] Reason for Visit * Reason Comments Med Refill Encounter Details Date Type Department Care Team (Late st Contact Info) Description 05/20/2022 Refill [facility] [address] [place], [place] [phone] Christa Kwan PharmD [address] [place] [address] Type II diabetes mellitus with neurological manifestations [...] Description 03/07/2025 9:45 AM EDT Office Visit [facility] [address] [place] [address] Mitzi Cantu MD [address] [place] [address] documented as of this encounter Visit Diagnoses Diagnosis Type II diabetes mellitus with neurological manifestations (CMS/HCC)- Primary Type II or unspecified type diabetes mellitus with neurological manifestations, not stated as uncontrolled documented in this encounter Care Teams Broomcorn Grader Relationship Specialty Start Date End Date Mitzi Cantu MD [address] [place] [address] PCP - General Family Medicine 06/02/18 Christa Kwan PharmD [address] [place] [address] Pharmacist Internal Medicine 07/16/22 Zi Cotton MD [address] [place] [address] Vascular Surgery 04/22/24 Gamal Quiñonez MD [address] 3rd [place] [address] Cardiology 04/28/24 documented as of this encounter
--- OUTSIDE RECORDS SUMMARY | 2025-02-17 14:30 | XMS_ITS | Encounter Summary ---
Author Organization [employer] Address [address] [place] [address] 7t [place] [address] Care Team Providers Care Home Appraiser Name Role Phone Mitzi Cantu MD Primary Care Provider +- [phone] Christa Kwan PharmD Unavailable [phone] Zi Cotton MD Unavailable Gamal Quiñonez MD Unavailable [phone] Encounter Details Date Type Department Care Team (Latest Contact Info) Description 12/02/2022 Orders Only [facility] [address] [place], [place] [phone] Mitzi Cantu MD [address] [place] [address] Hypercholesterolemia (Primary Dx) Social History Tobacco Use [...] Description 03/07/2025 9:45 AM EDT Office Visit [facility] [address] [place] [address] Mitzi Cantu MD [address] [place] [address] documented as of this encounter Goals Goal [...] documented as of this encounter Care Teams Home Appraiser Relationship Specialty Start Date End Date Mitzi Cantu MD [address] [place] [address] PCP - General Family Medicine 06/02/18 Christa Kwan, PharmD [address] [place] [address] Pharmacist Internal Medicine 07/16/22 Zi Cotton MD [address] [place] [address] Vascular Surgery 04/22/24 Gamal Quiñonez MD [address] 3rd [place] [address] Cardiology 04/28/24 documented as of this encounter
--- OUTSIDE RECORDS SUMMARY | 2025-02-17 14:30 | XMS_ITS | Clinical Summary ---
Author Organization [facility], Address [address] [place] [address] [place] [address] Phone Care Team Providers Care Pastrycook'S Assistant Name Role Phone Mitzi Cantu MD [...] age to complete this topic Insurance [address] [place] [id number] Medicaid [place] Medicare Care Teams Pastrycook'S Assistant Relationship Specialty Start Date End Date [place], Mitzi Okeefe MD PCP - General 04/06/19
--- OUTSIDE RECORDS SUMMARY | 2025-02-17 14:30 | XMS_ITS | Encounter Summary ---
Author Organization [facility], Address [address] [address] Phone Care Team Providers Care Coal Pulverizer Operator Name Role Phone Mitzi Cantu MD Primary Care Provider U navailsteven Reason for Visit * Reason Comments Med Refill Encounter Details Date Type Department Care Team (Late st Contact Info) Description 11/30/2021 Refill [facility] [address] [place] [address] Josafat Colón MD [address] [place] [address] [place] [address] Social History Tobacco Use Types [...] on filedocumented in this encounter Care Teams Coal Pulverizer Operator Relationship Specialty Start Date End Date Mitzi Cantu MD PCP - General 04/06/19 documented as of this encounter
--- OUTSIDE RECORDS SUMMARY | 2025-02-17 14:30 | XMS_ITS | Encounter Summary ---
Author Organization [employer] Address [address] [facility] 7t [place] [address] Care Team Providers Care Electronic Field Service Engineer Name Role Phone Mitzi Cantu MD Primary Care Provider + [phone] Christa Kwan PharmD Unavailable [phone]- [phone] Zi Cotton MD Unavailable Gamal Quiñonez MD Unavailable [phone] Encounter Details Date Type Department Care Team (Late st Contact Info) Description 02/06/2024 Abstract [facility] [address] [place], [place] [phone] Mitzi Cantu MD 230 [place], [place] [phone] Social History Tobacco Use Types Packs/Day Years [...] Description 03/07/2025 9:45 AM EDT Office Visit [facility] [address] [place] [address] Mitzi Cantu MD 230 [place] [address] documented as of this encounter Goals Goal [...] as of this encounter Care Teams Electronic Field Service Engineer Relationship Specialty Start Date End Date Mitzi Cantu MD 230 [place] [address] PCP - General Family Medicine 06/02/18 Christa Kwan, Bindu [address] [place] [address] Pharmacist Internal Medicine 07/16/22 Zi Cotton MD [address] [place] [address] Vascular Surgery 04/22/24 Gamal Quiñonez MD [address] 3rd [place] [address] Cardiology 04/28/24 documented as of this encounter
--- OUTSIDE RECORDS SUMMARY | 2025-02-17 14:30 | XMS_ITS | Encounter Summary ---
Author Organization [employer] Address [address] [facility] 7t [place] [address] Care Team Providers Care Water Jet Operator Name Role Phone Mitzi Cantu MD Primary Care Provider + [phone] Christa Kwan PharmD Unavailable [phone]- [phone] Zi Cotton MD Unavailable Gamal Quiñonez MD Unavailable [phone] Reason for Visit * Reason Onset Date Comments Pre-op Exam 11/20/2023 Encounter Details Date Type Department Care Team (Late st Contact Info) Description 11/20/2023 Telephone [facility] [address] [place], [place] [phone] Mitzi Cantu MD 230 [place], [place] [phone] Pre-op Exam Social History Tobacco Use Types [...] [facility] Surgeon's office number: [phone] Surgeon's office fax number: [phone] Contact name (person you spoke with): Janki Last office note from surgeon requested: Pre-Op notes documented in this encounter Plan of Treatment Upcoming Encounters Date Type Department Care Team ([facility] st Contact Info) Description 03/07/2025 9:45 AM EDT Office Visit [facility] [address] [place] [address] Mitzi Cantu MD 230 [place] [address] documented as of this encounter Goals Goal [...] documented as of this encounter Care Teams Water Jet Operator Relationship Specialty Start Date End Date Mitzi Cantu MD 230 [place] [address] PCP - General Family Medicine 06/02/18 Christa Kwan, PharmD [address] [place] [address] Pharmacist Internal Medicine 07/16/22 Zi Cotton MD [address] [place] [address] Vascular Surgery 04/22/24 Gamal Quiñonez MD [address] 3rd [place] [address] Cardiology 04/28/24 documented as of this encounter
--- OUTSIDE RECORDS SUMMARY | 2025-02-17 14:30 | XMS_ITS | Encounter Summary ---
Author Organization [facility], Address PO [facility] [address] [place] [address] Phone Care Team Providers Care Judge Clerk Name Role Phone Mitzi Cantu MD Primary Care Provider U christiana Reason for Visit * Reason Comments Med Refill Encounter Details Date Type Department Care Team (Late st Contact Info) Description 08/19/2021 Refill [facility] [address] [place] [phone] Josafat Colón MD [address] [place] [address] Social History Tobacco Use Types [...] on filedocumented in this encounter Care Teams Judge Clerk Relationship Specialty Start Date End Date Mitzi Cantu MD PCP - General 04/06/19 documented as of this encounter
== END 2025-02-17 13:34 | disposition home or self-care (01) ==
LOC: HO.HVS 12:18
PROVIDERS: PCP Family Medicine; Visit Provider Surgery Vascular Surgery
DX: I73.9 Peripheral vascular disease, unspecified (principal)
CPT/HCPCS: 99214

== ENCOUNTER → 2025-02-17 12:17 | Outpatient (BNVA) | payer OTHER, SELFPAY | PROVIDERS: PCP Family Medicine; Visit Provider Surgery Vascular Surgery | DX: E11.51 Type 2 diabetes mellitus with diabetic peripheral angiopathy without gangrene (principal) | CPT/HCPCS: 99212 ==

== ENCOUNTER 2025-03-04 09:05 | Outpatient (REF) | payer OTHER, SELFPAY ==
--- OUTSIDE RECORDS SUMMARY | 2025-03-04 09:30 | XMS_ITS | Encounter Summary ---
Author Organization [facility], Address [address] [address] Phone Care Team Providers Care Turret Lathe Set Up Operator Name Role Phone Mitzi Cantu MD Primary Care Provider U navailsteven Reason for Visit * Reason Comments Med Refill Encounter Details Date Type Department Care Team (Late st Contact Info) Description 11/30/2021 Refill [facility] [address] [place] [address] Josafat Colón MD [address] [place] [address] [place] [address] Social History Tobacco Use Types [...] on filedocumented in this encounter Care Teams Turret Lathe Set Up Operator Relationship Specialty Start Date End Date Mitzi Cantu MD PCP - General 04/06/19 documented as of this encounter
--- OUTSIDE RECORDS SUMMARY | 2025-03-04 09:30 | XMS_ITS | Encounter Summary ---
Author Organization [employer] Address [address] [facility] 7t [place] [address] Care Team Providers Care Wind Instrument Repairer Name Role Phone Mitzi Cantu MD Primary Care Provider + [phone] Christa Kwan PharmD Unavailable [phone] Zi Cotton MD Unavailable Gamal Quiñonez MD Unavailable [phone] Reason for Visit * Reason Comments Pre-visit Planning SDOH was already com pleted Encounter Details Date Type Department Care Team (Late st Contact Info) Description 02/28/2025 Patient Outreach [facility] [address] [place], [place] [phone] Mitzi Cantu MD 230 [place] [address] Pre-visit Planning (SDOH was already completed ) Social History Tobacco Use Types Packs/Day Years [...] as of this encounter Progress Notes * Tashia Javier - 02/28/2025 3:00 PM EDT RODGER Gonzalez placed successful outbound call to patient for pre-visit planning. Patient name and confirmed. Patient confirms appt date and time, and has transportation arrangements. Biggest concern for appointment at this time is pain on legs. Appropriate screenings completed in anticipation of appointment. documented in this encounter Plan of Treatment Upcoming Encounters Date Type Department Care Team (Late st Contact Info) Description 03/07/2025 9:45 AM EDT Office Visit [facility] 230 [place] [address] Mitzi Cantu MD 230 [place] [address] documented as of this encounter Goals Goal Patient Goal Type Associated Problems Recent Progress Patient-Stated? Author Hemoglobin A1c < 7 Result Component 9.7(11/04/2024 9:25 AM EDT) No Christa Kwan, PharmD documented as of this encounter Visit Diagnoses Not on filedocumented in this encounter Additional Health Concerns Assessment Noted Time PHQ-9 Depression Total Score: 0 02/09/20 9:53 AM EDT documented as of this encounter Care Teams Wind Instrument Repairer Relationship Specialty Start Date End Date Mitzi Cantu MD 230 [place] [address] PCP - General Family Medicine 06/02/18 Christa Kwan, PharmD 230 [place] [address] Pharmacist Internal Medicine 07/16/22 Zi Cotton MD [address] [place] [address] Vascular Surgery 04/22/24 Gamal Quiñonez MD [address] 3rd [place] [address] Cardiology 04/28/24 documented as of this encounter
--- OUTSIDE RECORDS SUMMARY | 2025-03-04 09:30 | XMS_ITS | Clinical Summary ---
Author Organization [facility] Address [address] [place] [address] Care Team Providers Care Ruling Technician Name Role Phone Unavailable Primary Care Provider Unavailabl e Social History Tobacco Use Types Packs/Day Years Used Date Smoking Tobacco: Never Assessed Sex and Gender Information Value Date Recorded Sex Assigned at Not on file Gender Identity Not on file Sexual Orientation Not on file Plan of Treatment Not on file
--- OUTSIDE RECORDS SUMMARY | 2025-03-04 09:30 | XMS_ITS | Encounter Summary ---
Author Organization [employer] Address [address] [facility] 7t [place] [address] Care Team Providers Care Yard Crane Operator Name Role Phone Mitzi Cantu MD Primary Care Provider + [phone] Christa Kwan PharmD Unavailable [phone]- [phone] Zi Cotton MD Unavailable Gamal Quiñonez MD Unavailable [phone] Encounter Details Date Type Department Care Team (Late st Contact Info) Description 02/06/2024 Abstract [facility] MEDICINE [address] [place], [place] [phone] Mitzi Cantu MD [address] [place], [place] [phone] Social History Tobacco Use Types Packs/Day Years [...] 9:45 AM EDT Office Visit [facility] [address] [place] [address] Mitzi Cantu MD 230 [place] [address] documented as of this encounter Goals Goal [...] documented as of this encounter Care Teams Yard Crane Operator Relationship Specialty Start Date End Date Mitzi Cantu MD [address] [place] [address] PCP - General Family Medicine 06/02/18 Christa Kwan, Bindu [address] [place] [address] Pharmacist Internal Medicine 07/16/22 Zi Cotton MD [address] [place] [address] Vascular Surgery 04/22/24 Gamal Quiñonez MD [address] 3rd [place] [address] Cardiology 04/28/24 documented as of this encounter
--- OUTSIDE RECORDS SUMMARY | 2025-03-04 09:30 | XMS_ITS | Clinical Summary ---
Author Organization [facility], Address [address] [place] [address] [place] [address] Phone Care Team Providers Care Lumpia Wrapper Maker Name Role Phone Mitzi Cantu MD Primary [...] age to complete this topic Insurance [address] [place] [address] Medicaid [place] Medicare Care Teams Lumpia Wrapper Maker Relationship Specialty Start Date End Date Pepe, Mitzi Okeefe MD PCP - General 04/06/19
--- OUTSIDE RECORDS SUMMARY | 2025-03-04 09:30 | XMS_ITS | Encounter Summary ---
Author Organization [employer] Address [address] [place] [address] 7t [place] [address] Care Team Providers Care Property Master Name Role Phone Lanier, Mitzi RODAS Primary Care Provider + [phone] Christa Kwan PharmD Unavailable Zi Cotton MD Unavailable Gamal Quiñonez MD Unavailable [phone] Reason for Visit * Reason Comments Med Refill Encounter Details Date Type Department Care Team (Late st Contact Info) Description 01/03/2023 Refill [facility] MED[facility]INE 230 [place], [place] [phone] Christa Kwan, PharmD 230 [place] [address] Type II diabetes mellitus with neurological manifestations [...] Description 03/07/2025 9:45 AM EDT Office Visit [facility] 230 [place] [address] Mitzi Cantu MD [address] [place] [address] documented as of this encounter Goals Goal Patient Goal Type Associated Problems Recent Progress Patient-Stated? Author Hemoglobin A1c < 7 Result Component 9.7(11/04/2024 9:25 AM EDT) No Christa Kwan, PharmD documented as of this encounter Visit Diagnoses Diagnosis Type II diabetes mellitus with neurological manifestations (HCC) Type II or unspecified type diabetes mellitus with neurological manifestations, not stated as uncontrolled Type 2 diabetes mellitus with hyperglycemia, with long-term current use of insulin (HCC)- Primary Hypercholesterolemia Pure hypercholesterolemia documented in this encounter Additional Health Concerns Assessment Noted Time PHQ-9 Depression Total Score: 15 023 9:31 AM EDT documented as of this encounter Care Teams Property Master Relationship Specialty Start Date End Date Mitzi Cantu MD 230 [place] [address] PCP - General Family Medicine 06/02/18 Christa Kwan, PharmD [address] [place] [address] Pharmacist Internal Medicine 07/16/22 Zi Cotton MD [address] [place] [address] Vascular Surgery 04/22/24 Gamal Quiñonez MD [address] 3rd [place] [address] Cardiology 04/28/24 documented as of this encounter
--- OUTSIDE RECORDS SUMMARY | 2025-03-04 09:30 | XMS_ITS | Encounter Summary ---
Author Organization [employer] Address [address] [place] [address] 7t [place] [address] Care Team Providers Care Formula Clerk Name Role Phone Mitzi Cantu MD Primary Care Provider +- [phone] Christa Kwan PharmD Unavailable [phone] Zi Cotton MD Unavailable Gamal Quiñonez MD Unavailable [phone] Encounter Details Date Type Department Care Team (Late st Contact Info) Description 02/05/2023 Orders Only [facility] MEDICINE [address] [place] [address] Mitzi Cantu MD 230 [place], [place] [phone] Social History Tobacco Use Types Packs/Day Years [...] Description 03/07/2025 9:45 AM EDT Office Visit [facility] [address] [place] [address], [place] [address] Mitzi Cantu MD 230 [place] [address] documented as of this encounter Goals Goal [...] documented as of this encounter Care Teams Formula Clerk Relationship Specialty Start Date End Date Mitzi Cantu MD [address] [place] [address] PCP - General Family Medicine 06/02/18 Christa Kwan, PharmD [address] [place] [address] Pharmacist Internal Medicine 07/16/22 Zi Cotton MD [address] [place] [address] Vascular Surgery 04/22/24 Gamal Quiñonez MD [address] 3rd [place] [address] Cardiology 04/28/24 documented as of this encounter
--- OUTSIDE RECORDS SUMMARY | 2025-03-04 09:30 | XMS_ITS | Encounter Summary ---
Author Organization [employer] Address [address] [facility] 7t [place] [address] Care Team Providers Care Site Foreman Name Role Phone Brooks, Mitzi RODAS Primary Care Provider + [phone] Christa Kwan PharmD Unavailable [phone] Zi Cotton MD Unavailable Gamal Quiñonez MD Unavailable [phone] Reason for Visit * Reason Comments Med Refill Encounter Details Date Type Department Care Team (Late st Contact Info) Description 05/11/2024 Refill [facility] MEDICINE [address] [place], [place] [phone] Christa Kwan, PharmD 230 [place] [address] Social History Tobacco Use Types Packs/Day Years [...] 03/07/2025 9:45 AM EDT Office Visit [facility] MEDICINE [address] [place] [address] Mitzi Cantu MD [address] [place] [address] documented as of this encounter Goals Goal [...] documented as of this encounter Care Teams Site Foreman Relationship Specialty Start Date End Date Mitzi Cantu MD [address] [place] [address] PCP - General Family Medicine 06/02/18 Christa Kwan, CrisD [address] [place] [address] Pharmacist Internal Medicine 07/16/22 Zi Cotton MD [address] [place] [address] Vascular Surgery 04/22/24 Gamal Quiñonez MD [address] 3rd [place] [address] Cardiology 04/28/24 documented as of this encounter
--- OUTSIDE RECORDS SUMMARY | 2025-03-04 09:30 | XMS_ITS | Encounter Summary ---
Author Organization [employer] Address 75 [facility] 7t [place] [address] Care Team Providers Care Supervisor Furnace Room Name Role Phone Mitzi Cantu MD Primary Care Provider + [phone] Christa Kwan PharmD Unavailable [phone]- [phone] Zi Cotton MD Unavailable Gamal Quiñonez MD Unavailable [phone] Reason for Visit * Reason Onset Date Comments Pre-op Exam 11/20/2023 Encounter Details Date Type Department Care Team (Late st Contact Info) Description 11/20/[address] [facility] MEDICINE 230 [place], [place] [phone] Mitzi Cantu MD [address] [place], [place] [phone] Pre-op Exam Social History Tobacco Use Types [...] [facility] Surgeon's office number: [phone] Surgeon's office fax number: [phone] Contact name (person you spoke with): Janki Last office note from surgeon requested: Pre-Op notes documented in this encounter Plan of Treatment Upcoming Encounters Date Type Department Care Team ([facility] st Contact Info) Description 03/07/2025 9:45 AM EDT Office Visit [facility] MEDICINE [address] [place] [address] Mitzi Cantu MD 230 [place] [address] documented as of this encounter Goals Goal [...] documented as of this encounter Care Teams Supervisor Furnace Room Relationship Specialty Start Date End Date Mitzi Cantu MD 230 [place] [address] PCP - General Family Medicine 06/02/18 Christa Kwan, PharmD [address] [place] [address] Pharmacist Internal Medicine 07/16/22 Zi Cotton MD [address] [place] [address] Vascular Surgery 04/22/24 Gamal Quiñonez MD [address] 3rd [place] [address] Cardiology 04/28/24 documented as of this encounter
--- OUTSIDE RECORDS SUMMARY | 2025-03-04 09:30 | XMS_ITS | Encounter Summary ---
Author Organization [employer] Address [address] [place] [address] 7t [place] [address] Care Team Providers Care Sleep Lab Technologist Name Role Phone Mitzi Cantu MD Primary Care Provider +- [phone] Christa Kwan PharmD Unavailable [phone]- [phone] Zi Cotton MD Unavailable Gamal Quiñonez MD Unavailable [phone] Encounter Details Date Type Department Care Team (Latest Contact Info) Description 12/02/2022 Orders Only [facility] MEDICINE [address] [place], [place] [phone] Mitzi Cantu MD 230 [place] [address] Hypercholesterolemia (Primary Dx) Social History Tobacco Use [...] Office Visit [facility] MEDICINE [address] [place] [address] Mitzi Cantu MD [address] [place] [address] documented as of this encounter Goals Goal Patient Goal Type Associated Problems Recent Progress Patient-Stated? Author Hemoglobin A1c < 7 Result Component 9.7(11/04/2024 9:25 AM EDT) No Christa Kwan, PharmD documented as of this encounter Visit Diagnoses Diagnosis Hypercholesterolemia- Primary Pure hypercholesterolemia Type 2 diabetes mellitus with hyperglycemia, with long-term current use of insulin (HCC)- Primary Hypercholesterolemia Pure hypercholesterolemia documented in this encounter Additional Health Concerns Assessment Noted Time PHQ-9 Depression Total Score: 5 06/11/19 23 10:23 AM EST documented as of this encounter Care Teams Sleep Lab Technologist Relationship Specialty Start Date End Date Mitzi Cantu MD 230 [place] [address] PCP - General Family Medicine 06/02/18 Christa Kwan, PharmD [address] [place] [address] Pharmacist Internal Medicine 07/16/22 Zi Cotton MD [address] [place] [address] Vascular Surgery 04/22/24 Gamal Quiñonez MD [address] 3rd [place] [address] Cardiology 04/28/24 documented as of this encounter
--- OUTSIDE RECORDS SUMMARY | 2025-03-04 09:30 | XMS_ITS | Encounter Summary ---
Author Organization [employer] Address [address] [place] [address] 7t [place] [address] Care Team Providers Care Certified Drug Counselor Name Role Phone Hardin, Mitzi RODAS Primary Care Provider + [phone] Christa Kwan PharmD Unavailable [phone] Zi Cotton MD Unavailable Gamal Quiñonez MD Unavailable [phone] Reason for Visit * Reason Comments Med Refill Encounter Details Date Type Department Care Team (Late st Contact Info) Description 05/20/2022 Refill [facility] MEDICINE 230 [place], [place] [phone] Christa Kwan PharmD 230 [place] [address] Type II diabetes mellitus with neurological manifestations [...] 9:45 AM EDT Office Visit [facility] MEDICINE [address] [place] [address] Mitzi Cantu MD 230 [place] [address] documented as of this encounter Visit Diagnoses Diagnosis 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 Type II or unspecified type diabetes mellitus with neurological manifestations, not stated as uncontrolled Type 2 diabetes mellitus with hyperglycemia, with long-term current use of insulin (HCC)- Primary Hypercholesterolemia Pure hypercholesterolemia documented in this encounter Care Teams Certified Drug Counselor Relationship Specialty Start Date End Date Mitzi Cantu MD 230 [place] [address] PCP - General Family Medicine 06/02/18 Christa Kwan PharmD [address] [place] [address] Pharmacist Internal Medicine 07/16/22 Zi Cotton MD [address] [place] [address] Vascular Surgery 04/22/24 Gamal Quiñonez MD [address] 3rd [place] [address] Cardiology 04/28/24 documented as of this encounter
--- OUTSIDE RECORDS SUMMARY | 2025-03-04 09:30 | XMS_ITS | Patient Health Record ---
Author Organization [facility] Address [address] [place] [address] Care Team Providers Care Hospitality Ambassador Name Role Phone Mitzi Cantu MD Primary Care Provider Coleen Shaheen Shannon Jr Unavailable Reason For Referral No Information Plan Of Treatment No Information Insurance Providers Payer Name Payer Address Payer Phone Subscriber Number Group Number Insured Name Patient Relationship to Insured Coverage Start Date Coverage End Date MEDICAID OF [facility] [address] [place] [address] [id number] REMY BALDWIN Self - patient is the insured
--- OUTSIDE RECORDS SUMMARY | 2025-03-04 09:30 | XMS_ITS | Encounter Summary ---
Author Organization [facility], Address [address] [facility] [address] [place] [address] Phone Care Team Providers Care Typewriter Operator Automatic Name Role Phone Mitzi Cantu MD Primary Care Provider U christiana Reason for Visit * Reason Comments Med Refill Encounter Details Date Type Department Care Team (Late st Contact Info) Description 02/28/2022 Refill [facility] [address] [facility] [phone] Josafat Colón MD [address] [place] [place] [address] Social History Tobacco Use Types [...] on filedocumented in this encounter Care Teams Typewriter Operator Automatic Relationship Specialty Start Date End Date Mitzi Cantu MD PCP - General 04/06/19 documented as of this encounter
--- OUTSIDE RECORDS SUMMARY | 2025-03-04 09:30 | XMS_ITS | Clinical Summary ---
Author Organization [employer] Address [address] [place] [address] [address] [place] [address] Care Team Providers Care Territory Manager General Sales Name Role Phone Mitzi Cantu MD Primary Care Provider [phone] Christa Kwan PharmD Unavailable [phone] Zi Cotton MD Unavailable Gamal Quiñonez MD Unavailable [phone] Allergies Active Allergy Reactions Criticality Noted Date Comments Gregor Inhibitors Cough 08/02/2010 Medications * This document contains information received from the source organization and may not represent a complete record from that organization. potassium citrate CR (Urocit-K-15) 15 mEq ER [...] day. 90 tablet 3 05/05/20 24 Active propranolol LA (Inderal LA) [...] unspecified whether stage 3a or 3b CKD (HCC) Inject 10 Units under the skin at bedtime. 3 mL 05/05/20 24 2024 Active Dulaglutide 1.5 MG/0.5ML solution auto-injectorIndic ations:Type 2 diabetes mellitus with stage 3 chronic kidney disease, with long-term current use of insulin, unspecified whether stage 3a or 3b CKD (HCC) Inject 0.5 mL (1.5 mg) under the skin 1 (one) time per week. 2 mL 05/05/20 24 Active metFORMIN XR (Glucophage-XR) 500 MG 24 hr tabletIndications: Type 2 diabetes mellitus with stage 3 chronic kidney disease, with long-term current use of insulin, unspecified whether stage 3a or 3b CKD (HCC) Take 2 tablets (1,000 mg) by mouth with evening meal. Do not crush, chew, or split. 120 tablet 05/05/20 24 Active latanoprost (Xalatan) 0.005 % ophthalmic solutionIndication s:Dry eyes INSTILL 1 DROP IN EACH EYE EVERY EVENING 03/16/20 24 Active omeprazole (PriLOSEC) [address] capsuleIndications :Gastroesophageal reflux disease without esophagitis TAKE 1 CAPSULE BY MOUTH EVERY MORNING 30 capsule 05/17/20 24 Active pen needle 33G x 4 mm miscIndications:Ty pe 2 diabetes mellitus with stage 3 chronic kidney disease, with long-term current use of insulin, unspecified whether stage 3a or 3b CKD (HCC) USE WITH LANTUS SOLOSTAR ONCE DAILY 100 [...] TABLET BY MOUTH AT BEDTIME 30 tablet 08/05/19 25 Active Icosapent Ethyl (Vascepa) 1 [...] disorder, single episode with psychotic features (CMS/HCC) (HCC) TAKE 1 TABLET BY MOUTH EVERY MORNING [...] daily. 60 tablet 11 02/09/20 25 Active Calcium Carb-Cholecalcifer ol 600-10 MG-MCG tabletIndications: Age related osteoporosis, unspecified pathological fracture presence TAKE 1 TABLET BY MOUTH TWICE DAILY IN THE MORNING AND IN THE EVENING 180 tablet 3 02/24/20 25 Active losartan (Cozaar) 100 MG tabletIndications: Stage 2 hypertension TAKE 1 TABLET BY MOUTH EVERY MORNING 30 tablet 7 03/02/20 25 Active Calcium Carb-Cholecalcifer ol 600-10 MG-MCG tabletIndications: Age related osteoporosis, unspecified pathological fracture presence TAKE 1 TABLET BY MOUTH TWICE DAILY IN THE MORNING AND IN THE EVENING 60 tablet 11 01/07/20 24 2024 Discontinued hydrALAZINE (Apresoline) 25 MG tabletIndications: Stage 2 hypertension TAKE 1 TABLET BY MOUTH TWICE DAILY IN THE MORNING AND IN THE EVENING WITH FOOD 60 tablet 11 02/04/20 24 2024 Discontinued(R eorder (will not trigger notification to Pharmacy)) losartan (Cozaar) 100 MG tabletIndications: Stage 2 hypertension Take 1 tablet (100 mg) by mouth in the morning. 30 tablet 7 05/05/20 24 2024 Discontinued oxyCODONE (Roxicodone) 5 MG immediate release tabletIndications: [...] Overview (06/14/2024): -nerve conduction study 06/2024 IMPRESSION: Jvly-dm-ajcjzhio left median neuropathy across carpal tunnel. Mild [...] study 05/05/24 -nerve conduction study 06/2024 IMPRESSION: Yrkf-od-bldnuotg left median neuropathy across carpal tunnel. Mild [...] due after 06/26/2023 -[facility] -health care proxy given and filed 02/09/24 Assessment & Plan (04/30/2023 3:36 PM EST): -next physical exam due after 06/26/2023 -eye care facilitated by [facility] -[facility] is Stage 2 hypertension 06/06/2022 Overview (08/04/2024): [...] disorder, s tamar episode with psychotic features ([facility]/HCC) 05/10/2022 Overview (05/05/2024): Hx Anxiety, poor sleep, mood-congruent hallucinations (door knocking, felt presence of her kelgqi-ox-abx). Anxious about medication side effects. After initial [...] hallucinations (door knocking, felt presence of her vkufob-nq-oww). Anxious about medication side effects. After initial [...] hallucinations (door knocking, felt presence of her zsdidy-vz-bjb). Anxious about medication side effects. After initial [...] hallucinations (door knocking, felt presence of her mnwckc-gw-dts). Anxious about medication side effects. After initial [...] hallucinations (door knocking, felt presence of her pwmygq-kw-xvi). She is much improved, depression in remission. At this time she will be referred back to her PCP for further medication management. I would be happy to see her again in the future as needed. She agrees with the plan. B12 deficiency 08/03/2021 Gastroesophageal reflux disease 08/03/2021 Osteoporosis 08/03/2021 Peripheral vascular disease 10/06/2019 Overview (02/18/2025): ABIs 05/06/23 with Zi Cotton MD Aorta/iliac: [...] fem-pop bypass if clinically required Seen by [facility] 10/30/23: In short her arterial [...] knee popliteal bypass Anticoagulation status: No change -note from Dr. Cotton 02/18/25 In short patient is a claudication here. I would like to try to manage her as conservatively as possible. Should she require surgery would be a femoral to below-knee popliteal bypass would be quite extensive. I will start her on cilostazol to see if that improves her walking distance. Assessment & Plan (02/09/2024 10:19 AM EDT): [...] fem-pop bypass if clinically required Seen by [facility] 10/30/23: In short her arterial [...] weeks(05/05/24) due to skin irritation. Spoke with [facility] pharmacist and will change Triseba to Basaglar. -Start insulin glargine (Basaglar KwikPen) 100 UNIT/ML pen, nightly 05/05/24 -it is unclear what she is taking 11/04/24, agrees to return to [facility]agment Program with our [facility]. Assessment & Plan (11/04/2024 9:32 AM EDT): [...] to skin irritation. Spoke with [facility] pharmacist and will change Triseba to Basaglar. [...] to skin irritation. Spoke with [facility] pharmacist and will change Triseba to Basaglar. [...] to skin irritation. Spoke with [facility] pharmacist and will change Triseba to Basaglar. [...] in past including cardiology and most recently homeland security program specialist on 12/14/2020 but referred back to PCP because patient didn't get her labs drawn. Discussed lipid clinic at [facility]. Pt agrees but would like to wait [...] in past including cardiology and most recently homeland security program specialist on 12/14/2020 but referred back to PCP because patient didn't get her labs drawn. Discussed lipid clinic at [facility]. Pt agrees but would like to wait for her housing situation to improve. -continue lifestyle modification -continue fenofibrate 160mg daily -atorvastatin 80 -Lovaza 1gm 2 tabs bid Assessment & Plan (05/05/2024 10:05 AM EST): Pt has history of severe hyper triglycerides (>2000) currently we got it as low as 300s but she is not back to 1,550 range. -Seen by homeland security program specialist on 12/14/2020 but referred back to PCP [...] not back to 1,550 range. -Seen by homeland security program specialist on 12/14/2020 but referred back to PCP [...] not back to 1,550 range. -Seen by homeland security program specialist on 12/14/2020 but referred back to PCP [...] not back to 1,550 range. -Seen by homeland security program specialist on 12/14/2020 but referred back to PCP [...] in upper limb 05/05/2012 3 Depression, unspecified 01/08/201202/2024 Overview (02/09/2024): Denies suicidial or homacidial ideation. [...] about it. Hx of MH services at [facility], case ws closed because she missed appts.. Patient will benefit from Ind. Therapy and Med. management. At this time Armida Vega meets criteria for Visit Diagnoses: Problem List Items Addressed This Visit Other Depression, unspecified Patient ready to address current needs Yes Strengths include willing to seek help PLAN: 1. Follow up with [facility]: Not recommended for follow-up 2. Patient goal is to engage in MH services 3. Behavioral Recommendations a. Ind. Therapy b. Med. Management c. Use of coping Mechanisms provided. Encounters Date Type Department Care Team Description 03/02/[address] [facility] [address] [place] [phone] Mitzi Cantu MD 03/02/[address] [facility] [address] [place] [address] [phone] Mitzi Cantu MD Stage 2 hypertension 02/28/2025 Patient Outreach [facility] [address] [place], [place] [phone] Mitzi Canut MD Pre-visit Planning (SDOH was already completed ) 02/22/[address] [facility] [address] [place] [phone] Mitzi Cantu MD Age related osteoporosis, unspecified pathological fracture presence 02/09/2025 Orders Only GENERIC EXTERNAL DATA DEPARTMENT Provider, Generic External Data 02/08/[address] [facility] [address] [place] [phone] Mitzi Cantu MD Stage 2 hypertension 02/07/[address] [facility] [address] [place] [address] [phone] Mitzi Cantu MD Stage 2 hypertension 02/02/[address] [facility] [address] [place] [address] [phone] Mitzi Cantu MD 01/28/2025 10:40 AM EDT Office Visit [facility] [address] [place] [phone] Deepa Streeter DO Left leg pain (Primary Dx); Peripheral arterial disease ([facility]/HCC) 01/28/2025 Travel 01/26/[address] [facility] [address] [place] [phone] Mitzi Cantu MD Medication Question; ER Follow-up 01/20/2025 Orders Only GENERIC EXTERNAL DATA DEPARTMENT Provider, Generic External Data Peripheral vascular disease ([facility]/HCC) (Primary Dx) 12/26/[address] [facility] [address] [place] [address] Mitzi Cantu MD Stage 2 hypertension 12/20/[address] [facility] [address] [place] [address] Mitzi Cantu MD March12/15/[address] [facility] [address] [place] [address] Mitzi Cantu MD 12/14/2024 Orders Only [facility] External Provider, [facility] Right hip pain (Primary Dx); Peripheral vascular disease ([facility]) from Last 3 Months Immunizations Immunization Administration [...] Visit [facility] [address] [place] [address] Mitzi Cantu MD [address] [place] [address] Health Maintenance Due Date Last Done Comments [...] Additional history exists Lipid Panel 08/04/2025 08/04/2024, 09/2023, 10/21/2023, Additional history exists Eye Exam 11/13/2025 11/14/2023 Tobacco Screening 01/28/2026 01/28/2025 Mammogram 02/05/2026 02/06/2024, 06/2023, 09/25/2022, Additional history exists Colonoscopy 10/31/2028 [...] 9.7(11/04/2024 9:25 AM EDT) No Christa Kwan, Bindu Procedures Procedure Name Priority Date/Time Associated [...] 1 VIEW Routine 12/14/2024 11:40 AM EDT POCT GLYCOSYLATED HEMOGLOBIN (HGB A1C) Routine 11/04/2024 9:25 AM EDT Type 2 diabetes mellitus with hyperglycemia, with long-term current use of insulin ([facility]) LIPID PANEL, STANDARD Routine 08/04/2024 10:38 [...] Creatinine, Serum 0.60 0.5 - 1.4 mg/dL [facility] Creatinine Clr Calc Pharmacy 70.1 [facility] Comment:Provided height and weight: 149.86 cm,62.5 kg.eGFR (calculated from the MDRD study equation) and eCrCl(calculated from the Cockcroft-Gault equation) are based ondifferent parameters and may not yield comparable results.If eCrCl result is absurd, please check patient'sheight/weight. Estimated Glomerular Filt Rate >60 [facility] Comment:Chronic Kidney Disea se: Estimated GFR < 60 mL/min/1.59s8Moqmyn Kidney Disease: Estimated GFR < 15 mL/min/1.73m2 02/09/2025 6:56 AM EDT 02/09/2025 6:58 AM EDT us Generic External Data Provider LAB BLOOD ORDERAB LES Final Result [facility] [address] [place] [address] [phone] * (ABNORMAL) CBC auto differential (02/09/2025 6:56 AM EDT) Only the most recent of3 resultswithin the time period is included. White Blood Count 7.9 4.8 - 10.8 X10*3/uL [facility] Red Blood Count 4.04(L) 4.20 - 5.50 X10*6/uL [facility] Hemoglobin 12.1 12.0 - 16.0 g/dl [facility] Hematocrit 34.0(L) 37.0 - 47.0 % [facility] Mean Corpuscular Volume 84.2 80.0 - 98.0 fL [facility] Mean Corpuscular Hemoglobin 30.0 27.0 - 33.0 pg [facility] Mean Corpuscular HGB Conc 35.6(H) 31.0 - 35.0 g/dl [facility] Red Cell Distribution Width 12.0 11.0 - 16.0 % [facility] Platelet Count 253 160 - 400 X10*3/uL [facility] Mean Platelet Volume 9.5 9.4 - 12.3 fL [facility] Neutrophils Percent Auto 65.6 45 - 73 % [facility] Imm Gran Pct Auto 0.4 0.0 - 0.4 % [facility] Lymphocytes Percent Auto 24.8 20 - 40 % [facility] Monocytes Percent Auto 6.9 2 - 11 % [facility] Eosinophils Percent Auto 1.8 0 - 4 % [facility] Basophils Percent Auto 0.5 0 - 2 % [facility] NRBC Pct Auto 0.0 0.0 - 0.2 /100WBC [facility] Neutrophils Absolute Auto 5.2 2.0 - 8.3 x10*3/uL [facility] Imm Gran Abs Auto 0.03 0.00 - 0.03 X10*3/uL [facility] Lymphocytes Absolute Auto 2.0 1.2 - 4.9 X10*3/uL [facility] Monocytes Absolute Auto 0.6 0.1 - 1.2 X10*3/uL [facility] Eosinophils Absolute Auto 0.1 0.0 - 0.4 X10*3/uL [facility] Basophils Absolute Auto 0.0 0.0 - 0.2 X10*3/uL [facility] NRBC Abs Auto 0.000 0.0 - 0.012 X10*3/uL [facility] 02/09/2025 6:56 AM EDT 02/09/2025 6:58 AM EDT Generic External Data Provider LAB BLOOD ORDERAB LES Final Result Performing Organization Address City/[facility]/ZIP Co de Phone Number [facility] [address] [place] [phone] * BUN (Blood Urea Nitrogen) (02/09/2025 6:56 AM EDT) Urea Nitrogen (BUN) 14 9 - 16 mg/dL [facility] 02/09/2025 6:56 AM EDT 02/09/2025 6:58 AM EDT Generic External Data Provider LAB BLOOD ORDERAB LES Final Result Performing Organization Address City/[facility]/ZIP Co de Phone Number [facility] [address] [place] [phone] * (ABNORMAL) Glucose, Whole Blood (02/09/2025 6:35 AM EDT) Only the most recent of3 resultswithin the time period is included. Glucose, Whole Blood 263(H) 60 - 115 mg/dL [facility] Comment:METER #: [id number] 02/09/2025 6:35 AM EDT 02/09/2025 6:38 AM EDT us Generic External Data Provider LAB BLOOD ORDERAB LES Final Result [facility] [address] [place] [phone] * XR Hip left with Pelvis 1 view (01/20/2025 12:01 PM EDT) Anatomical Region Laterality Modality Lower Extremities, Hip Bilateral Radiograp hic Imaging 01/20/2025 12:0 1 PM EDT Narrative 01/20/2025 1:16 PM EDT [address] [address] XRay Report Signed Patient: Armida Olmstead MR#: [id number] : 1955 Acct:[id number] Age/Sex: 69 / F ADM Date: 01/20/25 Loc: HO.ED Attending Dr: Ordering Physician: Jaren Gibson Date of Service: 01/20/25 Procedure(s): XR hip LT w PEL1V Accession Number(s): [id number] cc: Jaren Gibson; Mitzi Cantu MD EXAMINATION: [...] 01/20/25 1313 DD/ 1201 TD/TT: 01/20/25 1308 Service Attendant: Procedure Note Donotuseinterpreter, Image - 01/20/[address] [address] XRay Report Signed Patient: Shaye Olmstead#: M [id number] : 1955cct:[id number] Age/Sex: 69 / FADM Date: 01/20/25 Loc: HO.ED Attending Dr: Ordering Physician: Jaren Gibson Date of Service: 01/20/25 Procedure(s): XR hip LT w PEL1V Accession Number(s): [id number] cc: Jaren Gibson; Mitzi Cantu MD EXAMINATION: [...] 01/20/25 1313 DD/ 1201 TD/TT: 01/20/25 1308 Service Attendant: [facility] External Provider IMG XR PROCEDURES Final Result * US ARTERIAL DUPLEX LE LT (01/20/2025 12:00 PM EDT) Anatomical Region Laterality Modality Abdomen Ultrasound 01/20/2025 12:0 0 PM EDT Narrative 01/20/2025 12:57 PM EDT [place] [address] Ultrasound Report Signed Patient: Armida Olmstead MR#: [id number] : 1955 Acct:[id number] Age/Sex: 69 / F ADM Date: 01/20/25 Loc: .ED Attending Dr: Ordering Physician: Jaren Gibson Date of Service: 01/20/25 Procedure(s): US arterial duplex LE LT Accession Number(s): [id number] cc: Jaren Gibson; Mitzi Cantu MD EXAMINATION: [...] 01/20/25 1254 DD/ 1200 TD/TT: 01/20/25 1225 Service Attendant: Procedure Note Donotuseinterpreter, Image - 01/20/2025 [place] [address] Ultrasound Report Signed Patient: Shaye Olmstead#: Jeannine [id number] : 1955cct:[id number] Age/Sex: 69 / FADM Date: 01/20/25 Loc: HO.ED Attending Dr: Ordering Physician: Jaren Gibson Date of Service: 01/20/25 Procedure(s): US arterial duplex LE LT Accession Number(s): [id number] cc: Jaren Gibson; Mitzi Cantu MD EXAMINATION: [...] David Floyd MD 01/20/2025 12:54 PM EDT RP Dictated By: David De Santiago MD Signed By: <Electronically signed by David Souza MDin OV> 01/20/25 1254 DD/ 1200 TD/TT: 01/20/25 1225 Service Attendant: us [facility] External Provider IMG US PROCEDURES Final Result * Lower Extremity Venous Duplex (01/20/2025 12:00 PM EDT) 01/20/2025 12:0 0 PM EDT Narrative [facility] - 01/20/2025 12:51 PM EDT [address] [address] Ultrasound Report Signed Patient: Armida Olmstead MR#: [id number] : 1955 Acct:[id number] Age/Sex: 69 / F ADM Date: 01/20/25 Loc: .ED Attending Dr: Ordering Physician: Jaren Gibson Date of Service: 01/20/25 Procedure(s): US venous duplex LE LT Accession Number(s): [id number] cc: Jaren Gibson; Mitzi Cantu MD EXAMINATION: [...] 01/20/25 1248 DD/ 1200 TD/TT: 01/20/25 1225 Service Attendant: Procedure Note Silvanater, Image - 01/20/[address] [address] Ultrasound Report Signed Patient: Shaye Olmstead#: M [id number] : 1955cct:[id number] Age/Sex: 69 / FADM Date: 01/20/25 Loc: .ED Attending Dr: Ordering Physician: Jaren Gibson Date of Service: 01/20/25 Procedure(s): US venous duplex LE LT Accession Number(s): [id number] cc: Jaren Gibson; Mitzi Cantu MD EXAMINATION: [...] 01/20/25 1248 DD/ 1200 TD/TT: 01/20/25 1225 Service Attendant: us [facility] External Provider CV VASC ULAR PROCEDURES Final Result [facility] [address] [place] [address] [phone] * Partial Thromboplastin Time, Activated (APTT) (01/20/2025 10:36 AM EDT) Only the most recent of2 resultswithin the time period is included. Partial Thromboplastin Time 28.3 26.7 - 34.1 SEC [facility] 01/20/2025 10:3 6 AM EDT 01/20/2025 10:39 AM EDT Generic External Data Provider LAB BLOOD ORDERAB LES Final Result Performing Organization Address [facility] Co de Phone Number [facility] [address] [place] [phone] * Prothrombin Time-INR (01/20/2025 10:36 AM EDT) Only the most recent of2 resultswithin the time period is included. [facility] Prothrombin Time 11.4 10.9 - 12.4 SEC [facility] INTERNATIONAL NORM RATIO 1.0 0.9 - 1.1 [facility] Comment:INTERNATIONAL NORMAL IZED RATIO (INR) REFERENCE [...] 6 AM EDT 01/20/2025 10:39 AM EDT [employer] External Data Provider LAB BLOOD ORDERAB LES Final Result Performing Organization Address [facility] Co de Phone Number [facility] [address] [place] [phone] * (ABNORMAL) Creatine Kinase, Total (01/20/2025 10:36 AM EDT) Pathologist [facility] Creatine Kinase Total 23(L) 26 - 140 U/L [facility] 01/20/2025 10:3 6 AM EDT 01/20/2025 10:39 AM EDT us Generic External Data Provider LAB BLOOD ORDERAB LES Final Result [facility] [address] [place] [phone] [phone] * (ABNORMAL) Comprehensive Metabolic Panel (01/20/2025 10:36 AM EDT) Only the most recent of2 resultswithin the time period is included. Sodium 137 135 - 145 mmol/L [facility] Potassium 3.5 3.3 - 5.1 mmol/L [facility] Chloride 99 96 - 108 mmol/L [facility] Carbon Dioxide 27 22 - 29 mmol/L [facility] Anion Gap 15 12 - 20 [facility] Urea Nitrogen (BUN) 13 9 - 16 mg/dL [facility] Creatinine, Serum 0.53 0.5 - 1.4 mg/dL [facility] Creatinine Clr Calc Pharmacy 78.5 [facility] Comment:Provided height and weight: 149.86 cm,61.235 kg.eGFR (calculated from the MDRD study equation) and eCrCl(calculated from the Cockcroft-Gault equation) are based ondifferent parameters and may not yield comparable results.If eCrCl result is absurd, please check patient'sheight/weight. Estimated Glomerular Filt Rate >60 [facility] Comment:Chronic Kidney Disea se: Estimated GFR < 60 mL/min/1.08t5Qfodcl Kidney Disease: Estimated GFR < 15 mL/min/1.73m2 Glucose 196(H) 60 - 115 mg/dL [facility] Calcium 9.3 8.4 - 10.2 mg/dL [facility] Bilirubin, Total 0.3 0.0 - 1.0 mg/dL [facility] Aspartate Amino Transferase 17 5 - 31 U/L [facility] Alanine Aminotransferase 18 0 - 31 U/L [facility] Total Protein 7.5 6.5 - 8.0 g/dL [facility] Albumin Level 4.4 3.5 - 5.0 g/dL [facility] Alkaline Phosphatase 86 39 - 117 U/L [facility] 01/20/2025 10:3 6 AM EDT 01/20/2025 10:39 AM EDT us Generic External Data Provider LAB BLOOD ORDERAB LES Final Result [facility] [address] [place] [phone] * CTA Abdomen aorta runoff (12/14/2024 7:20 PM EDT) Anatomical Region Laterality Modality Body, Pelvis, Abdomen Computed T omography 12/14/2024 7:20 PM EDT Narrative 12/14/2024 7:22 PM EDT [place] [address] [address] Scan Report Signed with Addenda Patient: Armida Vega MR#: [id number] : 1955 Acct:[id number] Age/Sex: 69 / F ADM Date: 12/14/24 Loc: .ED Attending Dr: Ordering Physician: Gal Good MD Date of Service: 12/14/24 Procedure(s): CT angio abd aorta runoff Accession Number(s): [id number] cc: Mitzi Cantu MD; Gal Good MD Report Number: [id number]: Total DLP = 310.00 mGy-cm ADDENDUM This [...] of the urinary bladder. No adnexal mass. Syxb-oe-mxwzebid spondylosis. No acute fracture or suspicious bone [...] in OV> 12/14/241920 DD/ 19 TD/TT: 12/14/241919 Service Attendant: Procedure Note Donotuseinterpreter, Image - 12/14/[address] [place] [address] [address] Scan Report Signed with Addenda Patient: Shaye Vega#: [id number] : 1955cct:[id number] Age/Sex: 69 / FADM Date: 12/14/24 Loc: .ED Attending Dr: Ordering Physician: Gal Good MD Date of Service: 12/14/24 Procedure(s): CT angio abd aorta runoff Accession Number(s): [id number] cc: Mitzi Cantu MD; Gal Good MD Report Number: [id number]: Total DLP = 310.00 mGy-cm ADDENDUM This [...] of the urinary bladder. No adnexal mass. Divl-rd-cbuftnxp spondylosis. No acute fracture or suspicious bone [...] in OV> 12/14/241920 DD/ 19 TD/TT: 12/14/241919 Service Attendant: [facility] External Provider IMG CT PROCEDURES Edited Result - Final * Hold Red (12/14/2024 4:39 PM EDT) Hold Red See Note [facility] Comment:Specimen held untest ed for 24 hours; Call to requestChemistry testing. 12/14/2024 4:39 PM EDT 12/14/2024 4:45 PM EDT Generic External Data Provider LAB BLOOD ORDERAB LES Final Result Performing Organization Address [facility] Co de Phone Number [facility] [address] [place] [phone] * (ABNORMAL) Sed Rate by Modified Westergren (12/14/2024 4:39 PM EDT) Erythrocyte Sedimentation Rate 59(H) 0 - 20 MM/HR [facility] Comment:Patients with polycy themia and many hemoglobin abnormalitiesmay have depressed sed rates whereas patients with anemiamay have elevated sed rates. 12/14/2024 4:39 PM EDT 12/14/2024 4:44 PM EDT Generic External Data Provider LAB BLOOD ORDERAB LES Final Result Performing Organization Address [facility]/ZIP Co de Phone Number [facility] [address] [place] [phone] * (ABNORMAL) C-reactive Protein (12/14/2024 4:39 PM EDT) C Reactive Protein 9.68(H) < or = 0.50 mg/dL [facility] 12/14/2024 4:39 PM EDT 12/14/2024 4:44 PM EDT us Generic External Data Provider LAB BLOOD ORDERAB LES Final Result Performing Organization Address [facility] de Phone Number [facility] [address] [place] [phone] * Lipase (12/14/2024 4:39 PM EDT) Lipase 47 8 - 78 U/L [facility] 12/14/2024 4:39 PM EDT 12/14/2024 4:44 PM EDT Generic External Data Provider LAB BLOOD ORDERAB LES Final Result Performing Organization Address [facility] de Phone Number [facility] [address] [place] [phone] * Lactic Acid (12/14/2024 4:39 PM EDT) Lactic Acid 1.0 0.5 - 2.0 mmol/L [facility] 12/14/2024 4:39 PM EDT 12/14/2024 4:44 PM EDT Generic External Data Provider LAB BLOOD ORDERAB LES Final Result Performing Organization Address [facility] de Phone Number [facility] [address] [place] [phone] * XR Hip right with Pelvis 1 view (12/14/2024 11:40 AM EDT) Anatomical Region Laterality Modality Lower Extremities, Hip Bilateral Radiograp hic Imaging 12/14/2024 11:4 0 AM EDT Narrative 12/14/2024 12:09 PM EDT [address] [address] XRay Report Signed Patient: Armida Vega MR#: [id number] : 1955 Acct:[id number] Age/Sex: 69 / F ADM Date: 12/14/24 Loc: HO.ED Attending Dr: Ordering Physician: Tenisha Castellano Date of Service: 12/14/24 Procedure(s): XR hip RT w PEL1V Accession Number(s): [id number] cc: Mitzi Cantu MD; Tenisha Castellano EXAMINATION: [...] 12/14/24 1206 DD/ 1140 TD/TT: 12/14/24 1150 Service Attendant: Procedure Note Donotuseinterpreter, Image - 12/14/2024 [place] [address] XRay Report Signed Patient: Shaye Vega#: [id number] : 1955cct:[id number] Age/Sex: 69 / FADM Date: 12/14/24 Loc: HO.ED Attending Dr: Ordering Physician: Tenisha Castellano Date of Service: 12/14/24 Procedure(s): XR hip RT w PEL1V Accession Number(s): [id number] cc: Mitzi Cantu MD; Tenisha Castellano EXAMINATION: [...] 12/14/24 1206 DD/ 1140 TD/TT: 12/14/24 1150 Service Attendant: [facility] External Provider IMG XR PROCEDURES Final Result * (ABNORMAL) POCT glycosylated hemoglobin (Hgb A1c) (11/04/2024 9:25 AM EDT) Pathologist [facility] Hemoglobin A1C 9.7(A) 4.0 - 6.0 % QC Media Lot # [id number] Lot# Expiration Date ,243 Blood Capillary blood specimen / Unknown 11/04/2024 9:25 AM EDT Mitzi Cantu MD POINT OF CARE TEST ENTER/E DIT ORDERABLES Final Result * (ABNORMAL) Lipid Panel, Standard (08/04/2024 10:38 AM EST) Triglycerides 1,575(H) <150 mg/dL [facility] Comment:Slight Lipemia.Thor able Triglyceride: less than 150 mg/dLBorderline High Triglyceride 150-199 mg/dLHigh Triglyceride: 200-499 mg/dLVery High Triglyceride: greater than or equal to 5OO mg/dL Cholesterol 318(H) <200 mg/dL [facility] Comment:Desirable Cholestero l: less than 200 mg/dLBorderline High Cholesterol: 200-239 mg/dLHigh Cholesterol: greater than 239 mg/dL LDL Cholesterol Calculated TNP <100 mg/dL [facility] Comment:Unable to calculate the LDL. The formula of Friedwald,Negrete, and Ruddy is only valid if the triglycerides areless than 400 mg/dl. HDL Cholesterol 28(L) >40 mg/dL [facility] Comment:Desirable HDL: great er than 40 mg/dL Note: This HDL assay may give artificially low results in patients with liver disease. Blood Venous blood specimen / Unknown 08/04/2024 10:38 AM EST 08/04/2024 11:25 AM EST Mitzi Cantu MD LAB BLOOD ORDERABLES Final Result [facility] [address] [place] [phone] * Mammography (02/06/2024 3:02 PM EDT) Mammogram BIRADS 1 Normal, Abnormal, BIRADS 1 , BIRADS 2 Comment:routine annual mamma graphy screening Anatomical Region Laterality Modality Other Historical Provider MD HEALTH MAINTENANCE Final Result * Diabetes Eye Exam (11/14/2023 3:26 PM EDT) Pathologist [facility] Eye Exam Normal Normal Comment:follow up one year [facility] Provider MD HEALTH MAINTENANCE Final Result * Hepatitis C Viral RNA, Quantitative, Real-Time PC (06/24/2022 8:19 AM EST) Pathologist [facility] HCV RNA, QN Real Time PCR <15 NOT DETECTED NOT DETECTED IU/mL [facility] RNA QN Real Time PCR <1.18 NOT DETECTED NOT DETECTED Log IU/mL [facility] Comment: This test was performed using Real-Time Polymerase Chain Reaction. Reportable Range: 15 IU/mL to 100,000,000 IU/mL (1.18 Log IU/mL to 8.00 Log IU/mL). The analytical performance characteristics of this assay have been determined by [facility]. The modifications have not been cleared or approved by the FDA. This assay has been validated pursuant to the CLIA regulations and is used for clinical purposes. For more information on this test, go to: http://education.[employer]/faq/EPI61v2 (This link is being provided for informational/ educational purposes only.) 06/24/2022 8:19 AM EST 06/24/2022 8:19 AM EST Narrative [facility] - 06/27/2022 5:25 PM EST FASTING:YES FASTING: YES Mitzi aCntu MD LAB BLOOD ORDERABLES Final Result [facility] [address] [facility], [place] [address] [facility] [employer] [address] [facility], ([address]) [place] [address] * Hm Colonoscopy (10/31/2018 12:37 PM EDT) Mitzi Cantu MD HEALTH MAINTENANCE Final R esult from Last 3 Months or Most Recently Relevant to Health Maintenance Insurance STANDARD MEDICARE Advance Directives Documents on File Type Date Recorded Patient Semiconductor Equipment Technician Expl anation Advance Directives and Living Will 02/09/2024 Health Care Proxy 02/09/24 Care Teams Territory Manager General Sales Relationship Specialty Start Date End Date Pepe, MD Mitzi [address] [place] [address] PCP - General Family Medicine 06/02/18 Christa Kwan, CrisD [address] [place] [address] Pharmacist Internal Medicine 07/16/22 Zi Cotton MD [address] [place] [address] Vascular Surgery 04/22/24 Gamal Quiñonez MD [address] 3rd [place] [address] Cardiology 04/28/24
--- OUTSIDE RECORDS SUMMARY | 2025-03-04 09:30 | XMS_ITS | Encounter Summary ---
Author Organization [employer] Address [address] [facility] 7t [place] [address] Care Team Providers Care Grade Teacher Name Role Phone Mitzi Cantu MD Primary Care Provider + [phone] Christa Kwan PharmD Unavailable [phone] Zi Cotton MD Unavailable Gamal Quiñonez MD Unavailable [phone] Reason for Visit * Reason Comments Med Refill Encounter Details Date Type Department Care Team (Late st Contact Info) Description 02/07/2025 Refill [facility] [address] [place], [place] [phone] Mitzi Cantu MD [address] [place], [place] [phone] Stage 2 hypertension Social History Tobacco Use [...] Description 03/07/2025 9:45 AM EDT Office Visit [facility] [address] [place] [phone] Mitzi Cantu MD [address] [place] [phone] documented as of this encounter Goals Goal Patient Goal Type Associated Problems Recent Progress Patient-Stated? Author Hemoglobin A1c < 7 Result Component 9.7(11/04/2024 9:25 AM EDT) No Christa Kwan, PharmD documented as of this encounter Visit Diagnoses Diagnosis Stage 2 hypertension Type 2 diabetes mellitus with hyperglycemia, with long-term current use of insulin (HCC)- Primary Hypercholesterolemia Pure hypercholesterolemia documented in this encounter Additional Health Concerns Assessment Noted Time PHQ-9 Depression Total Score: 0 02/09/20 24 9:53 AM EDT documented as of this encounter Care Teams Grade Teacher Relationship Specialty Start Date End Date Mitzi Cantu MD [address] [place] [address] PCP - General Family Medicine 06/02/18 Christa Kwan PharmD [address] [place] [address] Pharmacist Internal Medicine 07/16/22 Zi Cotton MD [address] [place] [address] Vascular Surgery 04/22/24 Gamal Quiñonez MD [address] 3rd [place] [address] Cardiology 04/28/24 documented as of this encounter
--- OUTSIDE RECORDS SUMMARY | 2025-03-04 09:30 | XMS_ITS | Encounter Summary ---
Author Organization [facility], Address [address] [facility] [address] [place] [address] Phone Care Team Providers Care Scraper Meat Name Role Phone Mitzi Cantu MD Primary Care Provider U christiana Reason for Visit * Reason Comments Med Refill Encounter Details Date Type Department Care Team (Late st Contact Info) Description 08/23/2021 Refill [facility] [address] [place] [phone] Josafat Colón MD [address] [place] [address] Social History Tobacco Use Types [...] on filedocumented in this encounter Care Teams Scraper Meat Relationship Specialty Start Date End Date Mitzi Cantu MD PCP - General 04/06/19 documented as of this encounter
--- OUTSIDE RECORDS SUMMARY | 2025-03-04 09:30 | XMS_ITS | Encounter Summary ---
Author Organization [employer] Address [address] [place] [address] 7t [place] [address] Care Team Providers Care Director Operating Room Name Role Phone Mitzi Cantu MD Primary Care Provider + [phone] Christa Kwan PharmD Unavailable Zi Cotton MD Unavailable Gamal Quiñonez MD Unavailable [phone] Encounter Details Date Type Department Care Team (Late st Contact Info) Description 05/20/2022 Orders Only [facility] MED & PEDS [address] [place], [place] [phone] Deepa Henao LPN Social History Tobacco Use [...] [facility] [address] [place] [address] Mitzi Cantu MD [address] [place] [address] documented as of this encounter Visit Diagnoses Not on filedocumented in this encounter Care Teams Director Operating Room Relationship Specialty Start Date End Date Mitzi Cantu MD [address] [place] [address] PCP - General Family Medicine 06/02/18 Christa Kwan, Bindu [address] [place] [address] Pharmacist Internal Medicine 07/16/22 Zi Cotton MD [address] [place] [address] Vascular Surgery 04/22/24 Gamal Quiñonez MD [address] 3rd [place] [address] Cardiology 04/28/24 documented as of this encounter
--- OUTSIDE RECORDS SUMMARY | 2025-03-04 09:30 | XMS_ITS | Encounter Summary ---
Author Organization [employer] Address [address] [facility] 7t [place] [address] Care Team Providers Care Tamping Machine Operator Name Role Phone Mitzi Cantu MD Primary Care Provider + [phone] Christa Kwan PharmD Unavailable [phone] Zi Cotton MD Unavailable Gamal Quiñonez MD Unavailable [phone] Encounter Details Date Type Department Care Team (Late st Contact Info) Description 03/02/2025 Telephone [facility] [address] [place], [place] [phone] Mitzi Cantu MD [address] [place] [address] Social History Tobacco Use Types Packs/Day Years [...] encounter Miscellaneous Notes * Telephone Encounter - Meghna Hensley MA - 03/02/2025 3:31 PM EDT T/C ma ask pt to do fasting labs prior 03/07 appointment pt agreed * Telephone Encounter - Mitzi Cantu MD - 03/02/2025 3:12 PM EDT Please ask pt to come in for fasting labs before visit on Friday. Thank you. documented in this encounter Plan of Treatment Upcoming Encounters Date Type Department Care Team (Late st Contact Info) Description 03/07/2025 9:45 AM EDT Office Visit [facility] [address] [place], [place] [phone] Mitzi Cantu MD [address] [place] [address] documented as of this encounter Goals Goal [...] documented as of this encounter Care Teams Tamping Machine Operator Relationship Specialty Start Date End Date Mitzi Cantu MD [address] [place] [address] PCP - General Family Medicine 06/02/18 Christa Kwan, PharmD [address] [place] [address] Pharmacist Internal Medicine 07/16/22 Zi Cotton MD [address] [place] [address] Vascular Surgery 04/22/24 Gamal Quiñonez MD [address] 3rd [place] [address] Cardiology 04/28/24 documented as of this encounter
--- OUTSIDE RECORDS SUMMARY | 2025-03-04 09:30 | XMS_ITS | Encounter Summary ---
Author Organization [employer] Address [address] [facility] 7t [place] [address] Care Team Providers Care Instructional Consultant Name Role Phone Mitzi Cantu MD Primary Care Provider + [phone] Christa Kwan PharmD Unavailable [phone] Zi Cotton MD Unavailable Gamal Quiñonez MD Unavailable [phone] Reason for Visit * Reason Onset Date Comments Med Refill 08/04/2024 Encounter Details Date Type Department Care Team (Late st Contact Info) Description 08/04/[address] [facility] [address] [place], [place] [phone] Mitzi Cantu MD [address] [place], [place] [phone] Stage 2 hypertension Social History Tobacco Use [...] the past 12 months, has t he [employer], gas, oil or water company threatened to [...] Description 03/07/2025 9:45 AM EDT Office Visit [facility] [address] [place] [address] Mitzi Cantu MD [address] [place] [address] documented as of this encounter Goals Goal [...] documented as of this encounter Care Teams Instructional Consultant Relationship Specialty Start Date End Date Mitzi Cantu MD [address] [place] [address] PCP - General Family Medicine 06/02/18 Christa Kwan PharmD [address] [place] [address] Pharmacist Internal Medicine 07/16/22 Zi Cotton MD [address] [place] [address] Vascular Surgery 04/22/24 Gamal Quiñonez MD [address]rd [place] [address] Cardiology 04/28/24 documented as of this encounter
--- OUTSIDE RECORDS SUMMARY | 2025-03-04 09:30 | XMS_ITS | Encounter Summary ---
Author Organization [facility], Address [address] [facility] [address] [place] [address] Phone Care Team Providers Care Advisory Intern Name Role Phone Mitzi Cantu MD Primary Care Provider U christiana Reason for Visit * Reason Comments Med Refill Encounter Details Date Type Department Care Team (Late st Contact Info) Description 08/19/2021 Refill [facility] [address] [place] [phone] Josafat Colón MD [address] [place] [address] Social History Tobacco Use [...] on filedocumented in this encounter Care Teams Advisory Intern Relationship Specialty Start Date End Date Mitzi Cantu MD PCP - General 04/06/19 documented as of this encounter
--- OUTSIDE RECORDS SUMMARY | 2025-03-04 09:30 | XMS_ITS | Encounter Summary ---
Author Organization [employer] Address [address] [facility] 7t [place] [address] Care Team Providers Care Trademark Affixer Name Role Phone Mitzi Cantu MD Primary Care Provider + [phone] Christa Kwan PharmD Unavailable [phone] Zi Cotton MD Unavailable Gamal Quiñonez MD Unavailable [phone] Reason for Visit * Reason Comments Med Refill Encounter Details Date Type Department Care Team (Late st Contact Info) Description 03/02/2025 Refill [facility] [address] [place], [place] [phone] Mitzi Cantu MD [address] [place], [place] [phone] Stage 2 hypertension Social History Tobacco Use [...] 9:45 AM EDT Office Visit [facility] [address] [place] [address] Mitzi Cantu MD [address] [place] [address] documented as of this encounter Goals Goal [...] documented as of this encounter Care Teams Trademark Affixer Relationship Specialty Start Date End Date Mitzi Cantu MD [address] [place] [phone] PCP - General Family Medicine 06/02/18 Christa Kwan PharmD [address] [place] [phone] Pharmacist Internal Medicine 07/16/22 Zi Cotton MD [address] [place] [address] Vascular Surgery 04/22/24 Gamal Quiñonez MD [address] 3rd [place] [address] Cardiology 04/28/24 documented as of this encounter
[2025-03-04 12:07] LABS: Alanine Aminotransferase 19 U/L (0-31); Albumin Level 4.6 g/dL (3.5-5.0); Alkaline Phosphatase 85 U/L (39-117); Anion Gap 11 (12-20); Aspartate Amino Transferase 21 U/L (5-31); Blood Urea Nitrogen 20 mg/dL (9-16); Calcium 9.7 mg/dL (8.4-10.2); Carbon Dioxide 30 mmol/L (22-29); Chloride 101 mmol/L (96-108); Cholesterol 278 mg/dL (<200); Estimated Glomerular Filt Rate > 60; HDL Cholesterol 34 mg/dL (>40); Potassium 4.4 mmol/L (3.3-5.1); Sodium 138 mmol/L (135-145); Total Protein 7.7 g/dL (6.5-8.0); Triglycerides 658 mg/dL (<150)
[2025-03-04 12:09] LABS: Total Hemoglobin (HGBA1C) 3623.2100 umol/L
[2025-03-04 12:22] LABS: Microalbum/Creatinine Ratio Ur 50.6 ug/mg cr (<30)
== END 2025-03-04 09:06 | disposition home or self-care (01) ==
LOC: HO.HHCL 09:05
PROVIDERS: PCP Family Medicine; Visit Provider Family Medicine
DX: E11.65 Type 2 diabetes mellitus with hyperglycemia (principal); E78.00 Pure hypercholesterolemia, unspecified; Z79.4 Long term (current) use of insulin
CPT/HCPCS: 36415; 80048; 80061; 80076; 82043; 82570; 83036

== ENCOUNTER 2025-03-08 11:38 | Inpatient (IN) | payer OTHER, SELFPAY ==
--- OUTSIDE RECORDS SUMMARY | 2025-03-07 09:45 | XMS_ITS | Encounter Summary ---
Author Organization [employer] Address [address] [place] [address] [address] [place] [address] Care Team Providers Care Electrical Estimator Name Role Phone Mitzi Cantu MD Primary Care Provider + [phone] Christa Kwan PharmD Unavailable [phone] Zi Cotton MD Unavailable Gamal Quiñonez MD Unavailable [phone] Reason for Referral * Medications - Closed Specialty Diagnoses / Procedures Referred By Contyun t Referred To Contact Diagnoses Type 2 diabetes mellitus with stage 3 chronic kidney disease, with long-term current use of insulin, unspecified whether stage 3a or 3b CKD (HCC) Mitzi Cantu MD [address] [place] [phone] Phone: tel: fax: Referral ID Status Reason Start Date Expiration Date Visits Re quested Visits Authorized [id number] Closed 1 1 Reason for Visit * Reason Comments Follow-up Encounter Details Date Type Department Care Team (Late st Contact Info) Description 03/07/2025 9:45 AM EDT Office Visit [facility] [address], [place] [phone] Mitzi Cantu MD [address] [place] [address] [phone] Type 2 diabetes mellitus with hyperglycemia, with long-term current use of insulin (HCC) (Primary Dx); Hypercholesterolemia; Stage 2 hypertension; Type 2 diabetes mellitus with stage 3 chronic kidney disease, with long-term current use of insulin, unspecified whether stage 3a or 3b CKD (HCC); Tremor; Major depressive disorder, single episode with psychotic features (CMS/HCC) (HCC) Social History Tobacco Use Types Packs/Day Years Used Date Smoking Tobacco: Some Days Cigarettes Passive Smoke Exposure: Never Smokeless Tobacco: Never Alcohol Use Standard Drinks/Week Comments Never 0 (1 standard drink = 0.6 oz pur e alcohol) Depression Answer Date Recorded Patient Health Questionnaire-9 Score 8 03/07/2025 Patient Health Questionnaire-9 Score 8 03/07/2025 Last PHQ-9: Questionnaire Data Not on file 1 Housing Stability Answer Date Recorded What is [...] Date Recorded Patient Health Questionnaire-2 Score 2 03/07/2025 Internet Access Answer Date Recorded Internet Access [...] Sign Reading Time Taken Comments Blood Pressure 132/86 03/07/2025 9:32 AM EDT Pulse 118 03/07/2025 9:32 AM EDT Temperature 37.2 C (98.9 F) 03/07/2025 9:32 AM EDT Respiratory Rate 20 03/07/2025 9:32 AM EDT Oxygen Saturation 96% 03/07/2025 9:32 AM EDT Inhaled Oxygen Concentration - - Weight 63.4 kg (139 lb 12.8 oz) 03/07/2025 9:32 AM EDT Height - - Body Mass Index 28.24 02/09/2024 9:51 AM EDT documented in this encounter Functional Status * Over the past 2 weeks, how often have you been bothered by any of the following problems? Question Answer Date of Assessment Author Patient Health Questionnaire-2 Score 2 10/2024 9:56 AM Trixie Castrejon MA * Little interest or pleasure in doing things Answer Date of Assessment Author Several days 03/07/2025 9:56 AM Marielena Castrejon MA * Feeling down, depressed, or hopeless Answer Date of Assessment Author Several days 03/07/2025 9:56 AM Marielena Castrejon MA * Trouble falling or staying asleep, or sleeping too much Answer Date of Assessment Author Several days 03/07/2025 9:56 AM Marielena Castrejon MA * Feeling tired or having little energy Answer Date of Assessment Author Several days 03/07/2025 9:56 AM Marielena Castrejon MA * Poor appetite or overeating Answer Date of Assessment Author Several days 03/07/2025 9:56 AM Marielena Castrejon MA * Feeling bad about yourself - or that you are a failure or have let yourself or your family down Answer Date of Assessment Author Several days 03/07/2025 9:56 AM Marielena Castrejon MA * Trouble concentrating on things, such as reading the newspaper or watching television Answer Date of Assessment Author Several days 03/07/2025 9:56 AM Marielena Castrejon MA * Moving or speaking so slowly that other people could have noticed? Or the opposite - being so fidgety or restless that you have been moving around a lot more than usual. Answer Date of Assessment Author Not at all 03/07/2025 9:56 AM Marielena Castrejon MA * Thoughts that you would be better off or hurting yourself in some way Answer Date of Assessment Author Several days 03/07/2025 9:56 AM Marielena Castrejon MA * Patient Health Questionnaire-9 Score Answer Date of Assessment Author 8 03/07/2025 9:56 AM Marielena Castrejon MA * Over the last 2 weeks, how often have you been bothered by any of the following problems? Question Answer Date of Assessment Author Feeling nervous, anxious, or on edge 1 10/2024 9:57 AM Trixie Castrejon MA Not being able to stop or co ntrol worrying 2 03/07/2025 9:57 AM Trixie Castrejon MA Worrying too much about diff erent things 1 03/07/2025 9:57 AM Trixie Castrejon MA Trouble relaxing 2 03/07/2025 9:57 AM EDT Trixie Rodriges MA Being so restless that it is hard to sit still 1 03/07/2025 9:57 AM Trixie Castrejon MA Becoming easily annoyed or irritable 1 10/2024 9:57 AM Trixie Castrejon MA Feeling afraid as if somethi ng awful might happen 1 03/07/2025 9:57 AM Trixie Castrejon MA KRISH-7 Total Score 9 03/07/2025 9:57 AM Trixie Castrejon MA documented as of this encounter Patient Instructions * Patient Instructions* Mitzi Cantu MD - 03/07/2025 9:45 AM EDT Care Team Mitzi Cantu MD PCP - General, Family Medicine [phone] Christa Kwan, PharmD Pharmacist, Internal Medicine [phone] CDTM DM *patient removed from CDTM program due to continuous no shows* if patient requests to re-enroll, please send a new referral Zi Cotton MD Vascular Surgery [phone] Gamal Quiñonez MD Cardiology [phone] Follow up in about 3 months (around 06/07/2025) for diabetes and HTN. No future appointments. documented in this encounter Progress Notes * Mitzi Cantu MD - 03/07/2025 9:45 AM EDT Subjective Patient ID: Armida Menjivar is a 69 y.o. female with past medical history of diabetes mellitus type 2, hypertension, osteoporosis, Hx CVA, dyslipidemia, and PAD who presents for follow-up type 2 diabetes and cholesterol. Last seen 11/04/2024. Care complicated by unstable housing. Referred to [facility] with our PharmDSUE again 10/2024 she did not follow up. She is not taking her insulin. Agrees to increase Trulicity to 3mg weekly 03/07/25. She reprots she needs cane, walker, toilet seat for her tremor and deconditioning. We will await CCA to request. Pt has history of severe hyper triglycerides (>2000) currently we got it as low as 300s but she now back in 2,000s. Her son also has high triglycerides and has been hospitalized many times for pancreatitis. We had perused specialists in the past, last time was garden tractor mechanic on 12/14/2020 but she referred back to PCP because he didn't get her labs drawn. She is very compliant with medications.She has had difficulty with communication due to low literacy and Palestinian language speaking. Today we discussed referring her to lipid clinic at [facility] in [place]. I explained she woul dneed to haveregular transportation and it would be important for her to get her labs drawn regularly. She is dealing with serious housing issues. Her landlord is absentee and now she has no water, no flue assistance, no electric assistance. She has been in her place for 18 years but new landlord is not responding. We discussed with pt and daughter Shmuel and they would like a referral but in the spring when the housing issues have improved. Her current regimen is -continue fenofibrate 160mg daily -atorvastatin increased to 80mg -Lovaza 1gm 2 tabs bid restarted Review of Systems Constitutional: Negative for fatigue, fever and unexpected weight change. Respiratory: Negative for cough. Cardiovascular: Negative for chest pain. Gastrointestinal: Negative for abdominal pain. Genitourinary: Negative for difficulty urinating. Objective Visit Vitals BP 132/86 (BP Location: Left arm, Patient Position: Sitting, BP Cuff Size: Adult) Pulse (!) 118 Temp 98.9 ??F (37.2 ??C) (Oral) Resp 20 Body mass index is 28.24 kg/m??. Physical Exam Constitutional: Appearance: Normal appearance. Cardiovascular: Rate and Rhythm: Normal rate and regular rhythm. Pulses: Dorsalis pedis pulses are 2+ on the right side and 2+ on the left side. Heart sounds: Normal heart sounds. Pulmonary: Effort: Pulmonary effort is normal. Breath sounds: Normal breath sounds. Abdominal: Tenderness: There is no abdominal tenderness. Musculoskeletal: Cervical back: Normal range of motion and neck supple. Right foot: No deformity or Charcot foot. Left foot: No deformity or Charcot foot. Feet: Right foot: Protective Sensation: 5 sites tested. 5 sites sensed. Skin integrity: Skin integrity normal. Toenail Condition: Right toenails are normal. Left foot: Protective Sensation: 5 sites tested. 5 sites sensed. Skin integrity: Skin integrity normal. Toenail Condition: Left toenails are normal. Neurological: Mental Status: She is alert. Comments: Tremor at baseline Psychiatric: Behavior: Behavior normal. Lab Results Component Value Date CHOL 278 (H) 03/04/2025 CHOL 318 (H) 08/04/2024 CHOL 436 (H) 05/05/2024 TRIG 658 (H) 03/04/2025 TRIG 1,575 (H) 08/04/2024 TRIG 2,296 (H) 05/05/2024 TRIG 1,077 (H) 11/29/2022 TRIG 629 (H) 06/24/2022 HDL 34 (L) 03/04/2025 HDL 28 (L) 08/04/2024 HDL 33 (L) 05/05/2024 LDLCHOLCAL TNP 03/04/2025 LDLCHOLCAL TNP 08/04/2024 LDLCHOLCAL TNP 05/05/2024 Assessment & Plan Type 2 diabetes mellitus with hyperglycemia, with long-term current use of insulin (HCC) Diabetes is not controlled. A1C is worse than it was a month ago.(See below) Lab Results Component Value Date HGBA1C 9.1 (H) 03/04/2025 HGBA1C 9.7 (A) 11/04/2024 HGBA1C 9.7 (A) 08/04/2024 Lab Results Component Value Date CREATININE 0.60 03/04/2025 EGFR >60 03/04/2025 MICROALBCREU 50.6 (H) 03/04/2025 MICROALBCREU 105.9 (H) 05/05/2024 LDLCHOLCAL TNP 03/04/2025 -Gregor/Arb: Cozaar 100mg -Statin therapy: Atorvastatin 80mg -Diabetic eye exam: [facility] 11/14/23, preop. -Diabetic foot exam: 03/07/25 -Continue lifestyle modifications -Continue current medications Metformin ER 500mg take 2 tablets twice daily Dulaglutide 3MG/0.5ML solution auto-injector increased 06/07/24 - self discontinued glargine (Basaglar KwikPen) 100 UNIT/ML pen, nightly started 05/05/24 has been off since about Dec 2024 Med history: Self discontinued Triseba x3 weeks(05/05/24) due to skin irritation. Spoke with [facility] pharmacist and will change Triseba to Basaglar. -it is unclear what she was taking 11/04/24, agreed to return to [facility] with our PharmD, SUE but cancled Hypercholesterolemia Pt has history of severe hyper triglycerides (>2000) currently we got it as low as 300s but she is not back to 1,550 range. Lab Results Component Value Date CHOL 278 (H) 03/04/2025 CHOL 318 (H) 08/04/2024 TRIG 658 (H) 03/04/2025 TRIG 1,575 (H) 08/04/2024 TRIG 1,077 (H) 11/29/2022 TRIG 629 (H) 06/24/2022 HDL 34 (L) 03/04/2025 HDL 28 (L) 08/04/2024 LDLCHOLCAL TNP 03/04/2025 LDLCHOLCAL TNP 08/04/2024 -Seen by specialists in past including cardiology and most recently garden tractor mechanic on 12/14/2020 but referred back to PCP because patient didn't get her labs drawn. Discussed lipid clinic at [facility]. Pt agrees but would like to wait for her housing situation to improve. -continue lifestyle modification -continue fenofibrate 160mg daily -atorvastatin 80 -Lovaza 1gm 2 tabs bid Stage 2 hypertension -Blood pressure is not at goal 05/05/24. Has not taken medications today. -Continue lifestyle modifications -Continue current medications -Last Nephrology note is from 12/09/17. At that time, 24 hour urine collection was normal. Metanephrine came back slightly elevated. They increased Hydralazine to 25 bid. - Renal Doppler US showed some degree of renal artery stenosis. Type 2 diabetes mellitus with stage 3 chronic kidney disease, with long-term current use of insulin, unspecified whether stage 3a or 3b CKD (HCC) Orders: Dulaglutide (Trulicity) 3 MG/0.5ML solution auto-injector; Inject 3 mg under the skin 1 (one) time per week. pen needle 33G x 4 mm misc; USE WITH LANTUS SOLOSTAR ONCE DAILY Tremor Request DME, will await CCA request. Pt needs cane, walker and toilet seat due to difficulty with ambulation. Major depressive disorder, single episode with psychotic features (CMS/HCC) (HCC) Continue with therapist and psychiatrist. Denies suicidial or homacidial ideation. Dietary Recommendations: Fruits, vegetables, whole grains, protein foods, and fat-free or low-fat dairy products are healthychoices. Eat different types of protein foods in your diet. This can include seafood, lean meats, poultry, beans, peas, lentils, nuts, seeds, soy products, and eggs. Limit foods and beverages higher in added sugars, saturated fat, and sodium. Exercise Recommendations: At least 150 minutes of moderate-intensity physical activity per week, or an equivalent combinationof moderate- and vigorous-intensity activity Follow up in about 3 months (around 06/07/2025) for diabetes and HTN. documented in this encounter Miscellaneous Notes * Assessment & Plan Note - Mitzi Cantu MD - 03/07/2025 9:45 AM EDT Associated Problem(s): Type 2 diabetes mellitus with hyperglycemia, with long- term current use of insulin (HCC) Diabetes is not controlled. A1C is worse than it was a month ago.(See below) Lab Results Component Value Date HGBA1C 9.1 (H) 03/04/2025 HGBA1C 9.7 (A) 11/04/2024 HGBA1C 9.7 (A) 08/04/2024 Lab Results Component Value Date CREATININE 0.60 03/04/2025 EGFR >60 03/04/2025 MICROALBCREU 50.6 (H) 03/04/2025 MICROALBCREU 105.9 (H) 05/05/2024 LDLCHOLCAL TNP 03/04/2025 -Gregor/Arb: Cozaar 100mg -Statin therapy: Atorvastatin 80mg -Diabetic eye exam: [facility] 11/14/23, preop. -Diabetic foot exam: 03/07/25 -Continue lifestyle modifications -Continue current medications Metformin ER 500mg take 2 tablets twice daily Dulaglutide 3MG/0.5ML solution auto-injector increased 06/07/24 - self discontinued glargine (Basaglar KwikPen) 100 UNIT/ML pen, nightly started 05/05/24 has been off since about Dec 2024 Med history: Self discontinued Triseba x3 weeks(05/05/24) due to skin irritation. Spoke with [facility] pharmacist and will change Triseba to Basaglar. -it is unclear what she was taking 11/04/24, agreed to return to [facility] with our PharmD, CDCES but cancled * Assessment & Plan Note - Mitzi Cantu MD - 03/07/2025 9:45 AM EDT Associated Problem(s): Hypercholesterolemia Pt has history of severe hyper triglycerides (>2000) currently we got it as low as 300s but she is not back to 1,550 range. Lab Results Component Value Date CHOL 278 (H) 03/04/2025 CHOL 318 (H) 08/04/2024 TRIG 658 (H) 03/04/2025 TRIG 1,575 (H) 08/04/2024 TRIG 1,077 (H) 11/29/2022 TRIG 629 (H) 06/24/2022 HDL 34 (L) 03/04/2025 HDL 28 (L) 08/04/2024 LDLCHOLCAL TNP 03/04/2025 LDLCHOLCAL TNP 08/04/2024 -Seen by specialists in past including cardiology and most recently garden tractor mechanic on 12/14/2020 but referred back to PCP because patient didn't get her labs drawn. Discussed lipid clinic at [facility]. Pt agrees but would like to wait for her housing situation to improve. -continue lifestyle modification -continue fenofibrate 160mg daily -atorvastatin 80 -Lovaza 1gm 2 tabs bid * Assessment & Plan Note - Mitzi Cantu MD - 03/07/2025 9:45 AM EDT Associated Problem(s): Stage 2 hypertension -Blood pressure is not at goal 05/05/24. Has not taken medications today. -Continue lifestyle modifications -Continue current medications -Last Nephrology note is from 12/09/17. At that time, 24 hour urine collection was normal. Metanephrine came back slightly elevated. They increased Hydralazine to 25 bid. - Renal Doppler US showed some degree of renal artery stenosis. * Assessment & Plan Note - Mitzi Cantu MD - 03/07/2025 9:45 AM EDT Associated Problem(s): Tremor Request DME, will await CCA request. Pt needs cane, walker and toilet seat due to difficulty with ambulation. * Assessment & Plan Note - Mitzi Cantu MD - 03/07/2025 9:45 AM EDT Associated Problem(s): Major depressive disorder, single episode with psychotic features (CMS/HCC) (HCC) Continue with therapist and psychiatrist. Denies suicidial or homacidial ideation. documented in this encounter Plan of Treatment Not on file documented as of this encounter Goals Goal Patient Goal Type Associated Problems Recent Progress Patient-Stated? Author Hemoglobin A1c < 7 Result Component 9.1(03/04/2025 9:08 AM EDT) No Christa Kwan, PharmD documented as of this encounter Procedures Procedure Name Priority Date/Time Associated Diagnosis Comments ALBUMIN, RANDOM URINE W/CREATININE Routine 03/04/2025 9:08 AM EDT Type 2 diabetes mellitus with hyperglycemia, with long-term current use of insulin (HCC) HEMOGLOBIN A1C Routine 03/04/2025 9:08 AM EDT Type 2 diabetes mellitus with hyperglycemia, with long-term current use of insulin (HCC) HEPATIC FUNCTION PANEL Routine 03/04/2025 9:08 AM EDT Hypercholesterolemi a LIPID PANEL, STANDARD Routine 03/04/2025 9:08 AM EDT Hypercholesterolemi a BASIC METABOLIC PANEL Routine 03/04/2025 9:08 AM EDT Type 2 diabetes mellitus with hyperglycemia, with long-term current use of insulin (HCC) documented in this encounter Results * (ABNORMAL) Basic Metabolic Panel (03/04/2025 9:08 AM EDT) Sodium 138 135 - 145 mmol/L [facility] Potassium 4.4 3.3 - 5.1 mmol/L [facility] Chloride 101 96 - 108 mmol/L [facility] Carbon Dioxide 30(H) 22 - 29 mmol/L [facility] Anion Gap 11(L) 12 - 20 [facility] Urea Nitrogen (BUN) 20(H) 9 - 16 mg/dL [facility] Creatinine, Serum 0.60 0.5 - 1.4 mg/dL [facility] Estimated Glomerular Filt Rate >60 [facility] Comment:Chronic Kidney Disea se: Estimated GFR < 60 mL/min/[id number] Kidney Disease: Estimated GFR < 15 mL/min/1.73m2 Glucose 217(H) 60 - 115 mg/dL [facility] Calcium 9.7 8.4 - 10.2 mg/dL [facility] Blood Venous blood specimen / Unknown 03/04/2025 9:08 AM EDT 03/04/2025 11:26 AM EDT Mitzi Cantu MD LAB BLOOD ORDERABLES Final Result Performing Organization Address [facility] de Phone Number [facility] [address] [place] [phone] * (ABNORMAL) Hemoglobin A1c (03/04/2025 9:08 AM EDT) Hemoglobin A1c 9.1(H) <6.0 % [facility] Comment:Hemoglobin A1C Refer ence Range Adults: 4.8 - 6.0 % Non diabetic: < 6.0 % Goal: < 7.0 %Additional Action Suggested: > 8.0 %Note: Hemoglobin A1c results are invalid for patients with abnormal amounts of HbF. Blood transfusions may impact the HbA1c concentration in the patient sample. Estimated Average Glucose 214 mg/dL [facility] Comment:eAG = Estimated ave rage glucose which is %A1C expressed asaverage glucose, using the formula of the V8F-OoakcevRikwpjj Glucose study (ADAG), Diabetes Care, Vol.31,#8,Dec. 2007 Blood Venous blood specimen / Unknown 03/04/2025 9:08 AM EDT 03/04/2025 11:26 AM EDT Mitzi Cantu MD LAB BLOOD ORDERABLES Final Result Performing Organization Address City/State/[facility] Co de Phone Number [facility] [address] [place] [phone] [phone] * (ABNORMAL) Lipid Panel, Standard (03/04/2025 9:08 AM EDT) Triglycerides 658(H) <150 mg/dL [facility] Comment:Desirable Triglyceri de: less than 150 mg/dLBorderline High Triglyceride 150-199 mg/dLHigh Triglyceride: 200-499 mg/dLVery High Triglyceride: greater than or equal to 5OO mg/dL Cholesterol 278(H) <200 mg/dL [facility] Comment:Desirable Cholestero l: less than 200 mg/dLBorderline High Cholesterol: 200-239 mg/dLHigh Cholesterol: greater than 239 mg/dL LDL Cholesterol Calculated TNP <100 mg/dL [facility] Comment:Unable to calculate the LDL. The formula of Friedwald,Negrete, and Ruddy is only valid if the triglycerides areless than 400 mg/dl. HDL Cholesterol 34(L) >40 mg/dL [facility] Comment:Desirable HDL: great er than 40 mg/dL Note: This HDL assay may give artificially low results in patients with liver disease. Blood Venous blood specimen / Unknown 03/04/2025 9:08 AM EDT 03/04/2025 11:26 AM EDT Mitzi Cantu MD LAB BLOOD ORDERABLES Final Result Performing Organization Address [facility]/ZIP Co de Phone Number [facility] [address] [place] [phone] [phone] * Hepatic Function Panel (03/04/2025 9:08 AM EDT) Bilirubin, Total 0.3 0.0 - 1.0 mg/dL [facility] Bilirubin, Direct 0.1 0.0 - 0.5 mg/dL [facility] Aspartate Amino Transferase 21 5 - 31 U/L [facility] Alanine Aminotransferase 19 0 - 31 U/L [facility] Total Protein 7.7 6.5 - 8.0 g/dL [facility] Albumin Level 4.6 3.5 - 5.0 g/dL [facility] Alkaline Phosphatase 85 39 - 117 U/L [facility] Blood Venous blood specimen / Unknown 03/04/2025 9:08 AM EDT 03/04/2025 11:26 AM EDT Mitzi Cantu MD LAB BLOOD ORDERABLES Final Result Performing Organization Address [facility] Co de Phone Number [facility] [address] [place] [phone] * (ABNORMAL) Albumin, Random Urine W/Creatinine (03/04/2025 9:08 AM EDT) Creatinine, Urine 106.69 mg/dL [facility] Microalbumin Urine 54.0 mg/L [facility] Microalbum Creatinine Ratio Ur 50.6(H) <30 ug/mg cr [facility] Comment:Albumin/Creatinine R atio Reference Ranges: Normal: < 30 ug/mg creatinine Microalbuminuria: 30 - 300 ug/mg creatinineClinical Albuminuria: > 300 ug/mg creatinine Urine 03/04/2025 9:08 AM EDT 03/04/2025 11:17 AM EDT Mitzi Cantu MD LAB URINE ORDERABLES Final Result Performing Organization Address [facility] de Phone Number [facility] [address] [place] [phone] documented in this encounter Visit Diagnoses Diagnosis Type 2 diabetes mellitus with hyperglycemia, with long-term current use of insulin (HCC)- Primary Hypercholesterolemia Pure hypercholesterolemia Stage 2 hypertension Type 2 diabetes mellitus with stage 3 chronic kidney disease, with long-term current use of insulin, unspecified whether stage 3a or 3b CKD (HCC) Tremor Abnormal involuntary movements Major depressive disorder, single episode with psychotic features (CMS/HCC) (HCC) documented in this encounter Additional Health Concerns Assessment Noted Time PHQ-9 Depression Total Score: 8 03/07/20 25 9:56 AM EDT documented as of this encounter Care Teams Electrical Estimator Relationship Specialty Start Date End Date Mitzi Cantu MD [address] [place] [address] PCP - General Family Medicine 06/02/18 Christa Kwan, CrisD [address] [place] [address] Pharmacist Internal Medicine 07/16/22 Zi Cotton MD [address] [place] [address] Vascular Surgery 04/22/24 Gamal Quiñonez MD [address] [place] [address] Cardiology 04/28/24 documented as of this encounter
--- NOTE | ~2025-03-08 | FL_ITS ---
EXAMINATION: FL GUIDANCE ONLY HISTORY: Right ureteral stone COMPARISON: Correlation is made with a CT of the abdomen dated 03/08/2025. TECHNIQUE: Fluoroscopy time: 16.8 seconds. Cumulative Dose: 3.8063 mGy. DAP: 1.6557 Gycm2 Images: 4. FINDINGS: Fluoroscopic spot films of the pelvis demonstrate placement of a right nephroureteral stent. The proximal region of the stent is not included. FL/FL guidance in OR IMPRESSION: Fluoroscopy during procedure. Please see procedure report for additional information. Electronically signed by: Luis Manuel Stanford MD 03/10/2025 07:03 AM EDT
--- NOTE | ~2025-03-08 | CT_ITS ---
CLINICAL HISTORY: abdominal pain CT abdomen and pelvis with contrast Comparison: None provided Findings: Hiatal hernia. Partial mineralization of the mitral valve. Hepatic steatosis. The spleen is homogeneous in attenuation. The pancreas is homogeneous in attenuation. The left and right kidney demonstrate symmetric corticomedullary enhancement. Right hydronephrosis and right hydroureter with right ureterovesicular junction obstructing nephrolith, 0.6 x 0.3 cm, axial image number 72 of 86 series 2. Right renal lower pole 0.2 cm nonobstructing nephrolith. No bowel obstruction, pneumoperitoneum, or pneumatosis. Calcified coronary atherosclerotic disease. The appendix is within normal limits. The uterus is moderately atrophic. The bones are intact. IMPRESSION: 1. Right hydronephrosis and hydroureter due to 0.6 x 0.3 cm obstructing right ureterovesicular junction nephrolith. 2. Right renal lower pole 0.2 cm nonobstructing nephrolith. 3. Hepatic steatosis; nonalcoholic steatohepatitis versus viral hepatitis. 4. Hiatal hernia. This document has been electronically signed by: Jadiel Luong MD on 03/08/2025 19:26:19
[2025-03-08 12:06] VITALS: BP 144/75; PULSE 110; RESP 18; TEMP 36.3; O2SAT 97; BMI 27.3
--- NOTE | 2025-03-08 12:10 | ED.GENADULT ---
HPI - General Adult General Chief complaint: Abdominal Pain Stated complaint: Vomiting, recent procedure Time Seen by Provider: 03/08/25 15:23 Source: patient Mode of arrival: ambulatory Limitations: language barrier History of Present Illness ED Provider: Dr. Law HPI narrative: 69-year-old female history of hypertension hyperlipidemia diabetes presented hospital today for evaluation of 3 days of right-sided abdominal pain. Patient stated this pain has been worsening along with nausea and vomiting. Denies any diarrhea or fever. Denies any dysuria Related Data Home Medications ?Medication ?Instructions ?Recorded ?Confirmed aspirin 81 mg tablet,delayed 81 mg PO DAILY 08/01/20 03/08/25 release fenofibrate 160 mg tablet 160 mg PO BEDTIME 08/01/20 03/08/25 hydrochlorothiazide 25 mg tablet 25 mg PO DAILY 08/01/20 03/08/25 cyanocobalamin (vitamin B-12) 1 tab PO DAILY 09/08/20 03/08/25 1,000 mcg tablet hydralazine 25 mg tablet 25 mg PO BID 09/08/20 03/08/25 losartan 100 mg tablet 100 mg PO DAILY 09/08/20 03/08/25 metformin 500 mg tablet,extended 1,000 mg PO BID 09/08/20 03/08/25 release 24 hr nifedipine 30 mg tablet,extended 30 mg PO BID 09/08/20 03/08/25 release 24 hr propranolol 120 mg capsule,24 120 mg PO DAILY 09/08/20 03/08/25 hr,extended release blood sugar diagnostic (FreeStyle #10 ea 12/14/20 12/14/20 Lite Strips) blood-glucose meter (FreeStyle #1 ea 12/14/20 12/14/20 Lite Meter kit) lancets 28 gauge (FreeStyle #100 ea 12/14/20 12/14/20 Lancets) omeprazole 20 mg capsule,delayed 20 mg PO DAILY@0630 02/26/23 03/08/25 release atorvastatin 80 mg tablet 80 mg PO DAILY 03/08/25 03/08/25 calcium 600 mg (as 1 tab PO BID 03/08/25 03/08/25 carbonate)-vitamin D3 10 mcg (400 unit) tablet cholecalciferol (vitamin D3) 25 25 mcg PO DAILY 03/08/25 03/08/25 mcg (1,000 unit) capsule (Vitamin D3) dulaglutide 3 mg/0.5 mL 3 mg subcut TU 03/08/25 03/08/25 subcutaneous pen injector (Trulicity) escitalopram oxalate 5 mg tablet 5 mg PO DAILY 03/08/25 03/08/25 latanoprost 0.005 % eye drops 1 drp ophthalmic (eye) BEDTIME 03/08/25 03/08/25 potassium citrate 15 mEq (1,620 15 meq PO BID 03/08/25 03/08/25 mg) tablet,extended release Previous Rx's ?Medication ?Instructions ?Recorded ibuprofen 600 mg tablet 600 mg PO Q8H PRN pain #14 tabs 01/16/21 cilostazol 100 mg tablet 100 mg PO BID #60 tabs 02/17/25 Allergies Allergy/AdvReac Type Severity Reaction Status Date / Time No Known Allergies Allergy Mild NOT Verified 03/08/25 12:08 APPLICABLE Review of Systems Review of Systems: Pertinent review of systems as mentioned in HPI. All other system otherwise negative. [facility] Past Medical History [facility] Narrative: Medical history as mentioned in HPI Medical History Vitamin D deficiency Hypertriglyceridemia HLD (hyperlipidemia) Non-cardiac chest pain Cerebrovascular accident HTN (hypertension) Type 2 diabetes mellitus Surgical History Status post angioplasty Hx of colonoscopy History of hysterectomy Family History Family History Father Heart disease Mother Diabetes Hypertension High cholesterol Renal failure Brother Diabetes Brother Diabetes Sister Diabetes Social History Social History Alcohol intake: never Patient Tobacco Use Status: Former Tobacco user Smoked in Last 30 Days: No Use of substances other than those prescribed or required for medical reasons: No Advance Directives: No Advance Directives Information Provided: No Do you have a plan to hurt others: No Plan Physical Exam ED Exam Exam: General: Pleasant, no distress, interacting appropriately Head: Normacephalic, atraumatic ENT: oral mucosa moist, neck supple, no tracheal deviation Cardiovascular: regular rate, regular rhythm, no murmurs, rubbing, gallops Respiratory: CTAB, no wheeze, rales, rhonchi Gastrointestinal: Soft, non distended, right upper quadrant abdominal pain, right flank pain on palpation Extremities: No limb pain or swelling, no calf tenderness Neurological: Awake and alert, no facial droop noted Skin: Warm and dry Psychiatric: Appropriate mood and thoughts Vital Signs: Vital Signs - 24 hr 03/08/25 12:06 03/08/25 15:32 03/08/25 15:44 Temperature 97.4 F 99.2 F Pulse Rate 110 H 104 H 106 H Respiratory Rate 18 18 18 Blood Pressure 144/75 H 161/70 H 161/70 H Pulse Oximetry 97 96 97 Oxygen Delivery Method Room Air Room Air Room Air 03/08/25 19:36 Temperature 98.9 F Pulse Rate 109 H Respiratory Rate 20 Blood Pressure 150/74 H Pulse Oximetry 94 Oxygen Delivery Method Room Air BMI result Body Mass Index 27.3 Course Course Course Narrative: RMCheri: 69-year-old female presents to ED for right-sided abdominal pain for the past 3 days with vomiting. Patient states no diarrhea. He never had any abdominal surgery in the past. Positive for right upper quadrant tenderness and mild right lower quadrant tenderness on palpation. Labs ord Medications Administered Generic Name Dose Route Start Last Admin Trade Name Freq PRN Reason Stop Dose Admin Enoxaparin Sodium 40 mg 03/08/25 22:00 03/08/25 21:32 Enoxaparin Sodium 40 Mg/0.4 Ml Syringe SUBCUT 40 mg Q24H DANIELE Administration Discontinued Medications Generic Name Dose Route Start Last Admin Trade Name Freq PRN Reason Stop Dose Admin Sodium Chloride 1,000 mls @ 999 mls/hr 03/08/25 18:15 03/08/25 20:00 Ns IV 03/08/25 19:15 Infused .Q1H1M DANIELE Infusion Acetaminophen 1,000 mg in 100 mls @ 400 mls/hr 03/08/25 18:35 03/08/25 20:10 Ofirmev IV 03/08/25 18:49 Infused ONCE ONE Infusion Sodium Chloride 1,000 mls @ 999 mls/hr 03/08/25 21:00 03/08/25 23:05 Ns IV 03/08/25 22:00 Infused .Q1H1M DANIELE Infusion Iohexol 100 ml 03/08/25 18:40 03/08/25 18:40 Iohexol 350 Mg/Ml 100 Ml Infus..Btl IV 03/08/25 18:41 85 ml ONCE ONE Administration Ketorolac Tromethamine 15 mg 03/08/25 19:37 03/08/25 19:52 Ketorolac Tromethamine 15 Mg/Ml Vial IVPUSH 03/08/25 19:38 15 mg ONCE ONE Administration Morphine Sulfate 2 mg 03/08/25 18:35 03/08/25 19:52 Morphine Sulfate 2 Mg/Ml Cartridge IVPUSH 03/08/25 18:36 2 mg ONCE ONE Administration Protocol Ondansetron HCl 4 mg 03/08/25 18:11 03/08/25 18:20 Ondansetron Hcl 4 Mg/2 Ml Vial IVPUSH 03/08/25 18:12 4 mg ONCE ONE Administration Ondansetron HCl 4 mg 03/08/25 19:37 03/08/25 20:10 Ondansetron Hcl 4 Mg/2 Ml Vial IVPUSH 03/08/25 19:38 Not Given ONCE ONE Tamsulosin HCl 0.4 mg 03/08/25 19:39 03/08/25 19:53 Tamsulosin Hcl 0.4 Mg Capsule PO 03/08/25 19:40 0.4 mg ONCE ONE Administration Medical Decision Making Medical Decision Making MDM Narrative: 69-year-old female presented hospital today for right-sided abdominal pain. IV fluid, IV Zofran, IV Toradol given. IV morphine was given for pain control as well. CT imaging does show 0.6 cm nephrolithiasis with hydronephrosis. Creatinine is normal. UA did not show any signs of infected kidney stone no sign of leukocytosis. We will plan to admit patient for large right-sided nephrolithiasis. Urology team was consulted. Differential Diagnosis Differential Diagnoses: The differential diagnosis associated with the presentation includes nephrolithiasis, UTI, cholecystitis, Appendicitis Consult Healthcare Provider Management of the patient was discussed with: Parachute Repairer (Dr. Tello ( Urology)) Lab Data [facility] Lab Attestation statement: I reviewed the patient's lab results. 03/08/25 12:17 03/08/25 12:17 Labs: Lab Results 03/08/25 03/08/25 03/08/25 Range/Units 12:17 17:58 19:44 WBC 9.7 (4.8-10.8) X10*3/uL RBC 4.09 L (4.20-5.50) X10*6/uL Hgb 12.4 (12.0-16.0) g/dl Hct 34.9 L (37.0-47.0) % MCV 85.3 (80.0-98.0) fL MCH 30.3 (27.0-33.0) pg MCHC 35.5 H (31.0-35.0) g/dl RDW 11.9 (11.0-16.0) % Plt Count 257 (160-400) X10*3/uL MPV 9.7 (9.4-12.3) fL Immature Gran % (Auto) 0.4 (0.0-0.4) % Neut % (Auto) 71.8 (45-73) % Lymph % (Auto) 20.0 (20-40) % [place] % (Auto) 6.4 (2-11) % Eos % (Auto) 1.0 (0-4) % Baso % (Auto) 0.4 (0-2) % Lymph # (Auto) 1.9 (1.2-4.9) X10*3/uL [place] # (Auto) 0.6 (0.1-1.2) X10*3/uL Eos # (Auto) 0.1 (0.0-0.4) X10*3/uL Baso # (Auto) 0.0 (0.0-0.2) X10*3/uL Abs Immat Gran (auto) 0.04 H (0.00-0.03) X10*3/uL Absolute Neuts (auto) 7.0 (2.0-8.3) x10*3/uL Absolute Nucleated RBC 0.000 (0.0-0.012) X10*3/uL Nucleated RBC % (auto) 0.0 (0.0-0.2) /100WBC Sodium 139 (135-145) mmol/L Potassium 3.8 (3.3-5.1) mmol/L Chloride 103 (96-108) mmol/L Carbon Dioxide 27 (22-29) mmol/L Anion Gap 13 (12-20) BUN 24 H (9-16) mg/dL Creatinine 0.68 (0.5-1.4) mg/dL Estim Creat Clear Calc 61.2 Estimated GFR > 60 POC Glucose 256 H (60-115) mg/dL Random Glucose 255 H (60-115) mg/dL Calcium 9.4 (8.4-10.2) mg/dL Total Bilirubin 0.2 (0.0-1.0) mg/dL AST 15 (5-31) U/L ALT 16 (0-31) U/L Alkaline Phosphatase 85 (39-117) U/L Total Protein 7.2 (6.5-8.0) g/dL Albumin 4.5 (3.5-5.0) g/dL Lipase 55 (8-78) U/L Urine Color Yellow Urine Appearance Clear Urine pH 6.5 (5.0-9.0) Ur Specific [place] >= 1.030 H (1.005-1.025) Urine Protein Trace (Neg-Trace) mg/dL Urine Glucose (UA) >=1000 H (Negative) mg/dL Urine Ketones 15 (Negative) mg/dL Urine Blood Large (3+) H (Negative) Urine Nitrite Negative (Negative) Ur Leukocyte Esterase Negative (Negative) Urine RBC >20 H (0-2) /HPF Urine WBC 0-5 (0-5) /HPF Ur Squamous Epith Cells 0-2 (0-2) /HPF Urine Bacteria None Seen (None Seen) Hyaline Casts 0-2 (0-2) /LPF Independent Interpretation I performed an independent interpretation of an: CT Scan Radiology Impression Discussion of test interpretation with radiology: I have reviewed the radiologist's reading. Discharge Plan Discharge Clinical Impression: Nephrolithiasis Patient Disposition: Admitted As Inpatient
[2025-03-08 12:21] LABS: MANUAL DIFF FLAG NO
[2025-03-08 12:22] LABS: Hematocrit 34.9 % (37.0-47.0); Hemoglobin 12.4 g/dl (12.0-16.0); Imm Gran Abs Auto 0.04 X10*3/uL (0.00-0.03); Imm Gran Pct Auto 0.4 % (0.0-0.4); Lymphocytes Absolute Auto 1.9 X10*3/uL (1.2-4.9); Mean Corpuscular HGB Conc 35.5 g/dl (31.0-35.0); Mean Corpuscular Hemoglobin 30.3 pg (27.0-33.0); Mean Corpuscular Volume 85.3 fL (80.0-98.0); NRBC Abs Auto 0.000 X10*3/uL (0.0-0.012); NRBC Pct Auto 0.0 /100WBC (0.0-0.2); Platelet Count 257 X10*3/uL (160-400); Red Blood Count 4.09 X10*6/uL (4.20-5.50); White Blood Count 9.7 X10*3/uL (4.8-10.8)
[2025-03-08 12:36] LABS: Alanine Aminotransferase 16 U/L (0-31); Albumin Level 4.5 g/dL (3.5-5.0); Alkaline Phosphatase 85 U/L (39-117); Anion Gap 13 (12-20); Aspartate Amino Transferase 15 U/L (5-31); Blood Urea Nitrogen 24 mg/dL (9-16); Calcium 9.4 mg/dL (8.4-10.2); Carbon Dioxide 27 mmol/L (22-29); Chloride 103 mmol/L (96-108); Creatinine Clr Calc Pharmacy 61.2; Estimated Glomerular Filt Rate > 60; Lipase 55 U/L (8-78); Potassium 3.8 mmol/L (3.3-5.1); Sodium 139 mmol/L (135-145); Total Protein 7.2 g/dL (6.5-8.0)
[2025-03-08 15:32] VITALS: BP 161/70; PULSE 104; RESP 18; TEMP 37.3; O2SAT 96
[2025-03-08 15:44] VITALS: BP 161/70; PULSE 106; RESP 18; O2SAT 97
--- NOTE | 2025-03-08 16:05 | PC.NURSE ---
69 F presents to ED with abdominal pain with nausea x 3 days. Pt sts pain travels from abdomen to back. A+Ox4, calm, cooperative. RR even and unlabored. Pt denies CP or SOB.
[2025-03-08 18:02] LABS: Glucose, Whole Blood 256 mg/dL (60-115)
[2025-03-08] MEDS: iohexoL 350 MG/ML 100 ML INFUS..BTL IV (18:40)
--- OUTSIDE RECORDS SUMMARY | 2025-03-08 18:44 | XMS_ITS | Encounter Summary ---
Author Organization [facility], Address [address] [facility] [address] [place] [address] Phone Care Team Providers Care Money Examiner Name Role Phone Mitzi Cantu MD Primary Care Provider U christiana Reason for Visit * Reason Comments Med Refill Encounter Details Date Type Department Care Team (Late st Contact Info) Description 02/28/2022 Refill [facility] [address] [place] [phone] Josafat Colón MD [address] [place] [address] Social History Tobacco Use Types [...] on filedocumented in this encounter Care Teams Money Examiner Relationship Specialty Start Date End Date Mitzi Cantu MD PCP - General 04/06/19 documented as of this encounter
--- OUTSIDE RECORDS SUMMARY | 2025-03-08 18:44 | XMS_ITS | Encounter Summary ---
Author Organization [employer] Address [address] [facility] 7t [place] [address] Care Team Providers Care Activities Director Name Role Phone Mitzi Cantu MD Primary Care Provider +- [phone] Christa Kwan PharmD Unavailable Zi Cotton MD Unavailable Gamal Quiñonez MD Unavailable [phone] Encounter Details Date Type Department Care Team (Late st Contact Info) Description 02/05/2023 Orders Only [facility] MEDICINE [address] [place], [place] [phone] Mitzi Cantu MD [address] [place], [place] [phone] Social History Tobacco Use Types Packs/Day Years [...] Noted Time PHQ-9 Depression Total Score: 15 12/23/ 023 9:31 AM EDT documented as of this encounter Care Teams Activities Director Relationship Specialty Start Date End Date Mitzi Cantu MD [address] [place] [address] PCP - General Family Medicine 06/02/18 Christa Kwan, PharmD [address] [place] [address] Pharmacist Internal Medicine 07/16/22 Zi Cotton MD [address] [place] [address] Vascular Surgery 04/22/24 Gamal Quiñonez MD [address] 3rd [place] [address] Cardiology 04/28/24 documented as of this encounter
--- OUTSIDE RECORDS SUMMARY | 2025-03-08 18:45 | XMS_ITS | Encounter Summary ---
Author Organization [employer] Address [address] [facility] 7t [place] [address] Care Team Providers Care Vehicle Assembler Name Role Phone Mitzi Cantu MD Primary Care Provider + [phone] Christa Kwan PharmD Unavailable [phone] Zi Cotton MD Unavailable Gamal Quiñonez MD Unavailable [phone] Reason for Visit * Reason Onset Date Comments Med Refill 08/04/2024 Encounter Details Date Type Department Care Team (Late st Contact Info) Description 08/04/[address] [facility] MEDICINE [address] [place], [place] [phone] Mitzi Cantu MD [address] [place], [place] [phone] Stage 2 hypertension Social History Tobacco Use [...] the past 12 months, has t he [employer], gas, oil or water company threatened to [...] 9.1(03/04/2025 9:08 AM EDT) No Christa Kwan, Bindu documented as of this encounter Visit Diagnoses Diagnosis Stage 2 hypertension documented in this encounter Additional Health Concerns Assessment Noted Time PHQ-9 Depression Total Score: 0 02/09/20 24 9:53 AM EDT documented as of this encounter Care Teams Vehicle Assembler Relationship Specialty Start Date End Date Mitzi Cantu MD [address] [place] [address] PCP - General Family Medicine 06/02/18 Christa Kwan, CrisD [address] [place] [address] Pharmacist Internal Medicine 07/16/22 Zi Cotton MD [address] [place] [address] Vascular Surgery 04/22/24 Gamal Quiñonez MD [address]rd [place] [address] Cardiology 04/28/24 documented as of this encounter
--- OUTSIDE RECORDS SUMMARY | 2025-03-08 18:45 | XMS_ITS | Encounter Summary ---
Author Organization [employer] Address [address] [place] [address] 7t [place] [address] Care Team Providers Care Environmental Technician Name Role Phone Mitzi Cantu MD Primary Care Provider +- [phone] Christa Kwan PharmD Unavailable [phone] Zi Cotton MD Unavailable Gamal Quiñonez MD Unavailable [phone] Encounter Details Date Type Department Care Team (Latest Contact Info) Description 12/02/2022 Orders Only [facility] MEDICINE [address] [place], [place] [phone] Mitzi Cantu MD 230 [place] [address] Hypercholesterolemia (Primary Dx) Social History Tobacco Use [...] documented as of this encounter Care Teams Environmental Technician Relationship Specialty Start Date End Date Mitzi Cantu MD 230 [place] [address] PCP - General Family Medicine 06/02/18 Christa Kwan, PharmD [address] [place] [address] Pharmacist Internal Medicine 07/16/22 Zi Cotton MD [address] [place] [address] Vascular Surgery 04/22/24 Gamal Quiñonez MD [address]rd [place] [address] Cardiology 04/28/24 documented as of this encounter
--- OUTSIDE RECORDS SUMMARY | 2025-03-08 18:45 | XMS_ITS | Encounter Summary ---
Author Organization [employer] Address [address] [facility] 7t [place] [address] Care Team Providers Care Statistical Programmer Analyst Name Role Phone Mitzi Cantu MD Primary Care Provider + [phone] Christa Kwan PharmD Unavailable [phone] Zi Cotton MD Unavailable Gamal Quiñonez MD Unavailable [phone] Reason for Visit * Reason Onset Date Comments chartprep 03/04/2025 Encounter Details Date Type Department Care Team (Late st Contact Info) Description 03/04/2025 Telephone [facility] MEDICINE 230 [place], [place] [phone] Mitzi Cantu MD 230 [place], [place] [phone] chartprep Social History Tobacco Use Types Packs/Day Years [...] encounter Miscellaneous Notes * Telephone Encounter - Trixie Mendez [place] - 03/04/2025 12:49 PM EDT ..Chart Prep Labs: done Images: done XR hip left and US Arterial Vaccines due: Tdap Due, Flu Due, and RSV in Pharmacy Due Referrals: Not Applicable Screenings: Not Applicable Overdue care gaps: PHQ9, GAD7, and Disability documented in this encounter Plan of Treatment [...] documented as of this encounter Care Teams Statistical Programmer Analyst Relationship Specialty Start Date End Date Mitzi Cantu MD [address] [place] [address] PCP - General Family Medicine 06/02/18 Christa Kwan, CrisD [address] [place] [address] Pharmacist Internal Medicine 07/16/22 Zi Cotton MD [address] [place] [address] Vascular Surgery 04/22/24 Gamal Quiñonez MD [address]rd [place] [address] Cardiology 04/28/24 documented as of this encounter
--- OUTSIDE RECORDS SUMMARY | 2025-03-08 18:45 | XMS_ITS | Clinical Summary ---
Author Organization [facility], Address [address] [place] [address] [place] [address] Phone Care Team Providers Care Family Mediator Name Role Phone Mitzi Cantu MD Primary [...] age to complete this topic Insurance [address] [place] [id number] [place] Care Teams Family Mediator Relationship Specialty Start Date End Date [place], Mitzi Okeefe MD PCP - General 04/06/19
--- OUTSIDE RECORDS SUMMARY | 2025-03-08 18:45 | XMS_ITS | Encounter Summary ---
Author Organization [employer] Address [address] [place] [address] 7t [place] [address] Care Team Providers Care Inseam Trimming Machine Operator Name Role Phone [place], Mitzi RODAS Primary Care Provider + [phone] Christa Kwan PharmD Unavailable Zi Cotton MD Unavailable Gamal Quiñonez MD Unavailable [phone] Reason for Visit * Reason Comments Med Refill Encounter Details Date Type Department Care Team (Late st Contact Info) Description 05/20/[address] [facility] MEDICINE 230 [place], [place] [phone] Christa Kwan PharmD 230 [place] [address] Type II diabetes mellitus with neurological manifestations [...] uncontrolled documented in this encounter Care Teams Inseam Trimming Machine Operator Relationship Specialty Start Date End Date Mitzi Cantu MD 230 [place] [address] PCP - General Family Medicine 06/02/18 Christa Kwan PharmD 230 [place] [address] Pharmacist Internal Medicine 07/16/22 Zi Cotton MD [address] [place] [address] Vascular Surgery 04/22/24 Gamal Quiñonez MD [address]rd [place] [address] Cardiology 04/28/24 documented as of this encounter
--- OUTSIDE RECORDS SUMMARY | 2025-03-08 18:45 | XMS_ITS | Encounter Summary ---
Author Organization [employer] Address [address] [facility] 7t [place] [address] Care Team Providers Care Retail Attendant Name Role Phone Mitzi Cantu MD Primary Care Provider + [phone] Christa Kwan PharmD Unavailable [phone] Zi Cotton MD Unavailable Gamal Quiñonez MD Unavailable [phone] Reason for Visit * Reason Onset Date Comments Pre-op Exam 11/20/2023 Encounter Details Date Type Department Care Team (Late st Contact Info) Description 11/20/2023 Telephone [facility] MEDICINE 230 [place], [place] [phone] Mitzi Cantu MD 230 [place], [place] [phone] Pre-op Exam Social History Tobacco Use Types [...] [facility] Surgeon's office number: [phone] Surgeon's office fax number: [phone] Contact name (person you spoke with): Janki [...] documented as of this encounter Care Teams Retail Attendant Relationship Specialty Start Date End Date Mitzi Cantu MD [address] [place] [address] PCP - General Family Medicine 06/02/18 Christa Kwan, CrisD [address] [place] [address] Pharmacist Internal Medicine 07/16/22 Zi Cotton MD [address] [place] [address] Vascular Surgery 04/22/24 Gamal Quiñonez MD [address] 3rd [place] [address] Cardiology 04/28/24 documented as of this encounter
--- OUTSIDE RECORDS SUMMARY | 2025-03-08 18:45 | XMS_ITS | Encounter Summary ---
Author Organization [facility], Address [address] [facility] [address] [place] [address] Phone Care Team Providers Care Cryptographic Vulnerability Analyst Name Role Phone Mitzi Cantu MD Primary Care Provider U christiana Reason for Visit * Reason Comments Med Refill Encounter Details Date Type Department Care Team (Late st Contact Info) Description 08/19/2021 Refill [facility] [address] [place] [phone] Josafat Colón MD [address] [place] [address] Social History Tobacco Use Types [...] on filedocumented in this encounter Care Teams Cryptographic Vulnerability Analyst Relationship Specialty Start Date End Date Mitzi Cantu MD PCP - General 04/06/19 documented as of this encounter
--- OUTSIDE RECORDS SUMMARY | 2025-03-08 18:45 | XMS_ITS | Encounter Summary ---
Author Organization [employer] Address [address] [facility] 7t [place] [address] Care Team Providers Care Electric Locomotive Firer/Fireman Name Role Phone Mitzi Cantu MD Primary Care Provider + [phone] Christa Kwan PharmD Unavailable [phone] Zi Cotton MD Unavailable Gamal Quiñonez MD Unavailable [phone] Encounter Details Date Type Department Care Team (Late st Contact Info) Description 02/06/2024 Abstract [facility] MEDICINE 230 [place], [place] [phone] Mitzi Cantu MD [address] [place], [place] [phone] Social History Tobacco Use Types Packs/Day Years [...] Not at all 02/09/2024 9:53 AM EDT [facility] Poor appetite or overeating Not [...] Kwan, Bindu documented as of this encounter Procedures Procedure [...] documented as of this encounter Care Teams Electric Locomotive Firer/Fireman Relationship Specialty Start Date End Date Mitzi Cantu MD [address] [place] [address] PCP - General Family Medicine 06/02/18 Christa Kwan, CrisD [address] [place] [address] Pharmacist Internal Medicine 07/16/22 Zi Cotton MD [address] [place] [address] Vascular Surgery 04/22/24 Gamal Quiñonez MD [address]rd [place] [address] Cardiology 04/28/24 documented as of this encounter
--- OUTSIDE RECORDS SUMMARY | 2025-03-08 18:45 | XMS_ITS | Encounter Summary ---
Author Organization [employer] Address [address] [facility] 7t [place] [address] Care Team Providers Care Site Promotion Agent Name Role Phone Mitzi Cantu MD Primary Care Provider + [phone] Christa Kwan PharmD Unavailable [phone] Zi Cotton MD Unavailable Gamal Quiñonez MD Unavailable [phone] Encounter Details Date Type Department Care Team (Latest Contact Info) Description 03/07/2025 Travel Social History Tobacco Use Types Packs/Day [...] [place] Trouble relaxing 2 03/07/2025 9:57 AM Trixie Ontiveros [place] Being so restless that it is hard to sit still 1 03/07/2025 9:57 AM Trixie Castrejon [place] Becoming easily annoyed or irritable 1 10/2024 9:57 AM Trixie Castrejon [place] Feeling afraid as if somethi ng awful might happen 1 03/07/2025 9:57 AM Trixie Castrejon [place] KRISH-7 Total Score 9 03/07/2025 9:57 AM Trixie Castrejon [place] documented as of this encounter Plan of Treatment Not on file documented as of this encounter Goals Goal Patient Goal Type Associated Problems Recent Progress Patient-Stated? Author Hemoglobin A1c < 7 Result Component 9.1(03/04/2025 9:08 AM EDT) Christa Snow, PharmD documented as of this encounter Visit Diagnoses Not on filedocumented in this encounter Additional Health Concerns Assessment Noted Time PHQ-9 Depression Total Score: 8 03/07/20 9:56 AM EDT documented as of this encounter Care Teams Site Promotion Agent Relationship Specialty Start Date End Date Mitzi Cantu MD 230 [place] [address] PCP - General Family Medicine 06/02/18 Christa Kwan PharmD 230 [place] [address] Pharmacist Internal Medicine 07/16/22 Zi Cotton MD [address] [place] [address] Vascular Surgery 04/22/24 Gamal Quiñonez MD [address] 3rd [place] [address] Cardiology 04/28/24 documented as of this encounter
--- OUTSIDE RECORDS SUMMARY | 2025-03-08 18:45 | XMS_ITS | Encounter Summary ---
Author Organization [facility], Address [address] [facility] [address] [place] [address] Phone Care Team Providers Care Manager Special Events Name Role Phone Mitzi Cantu MD Primary Care Provider [place] Reason for Visit * Reason Comments Med Refill Encounter Details Date Type Department Care Team (Late st Contact Info) Description 08/23/2021 Refill [facility] [address] [place] [phone] Josafat Colón MD [address] [place] [address] Social History Tobacco Use Types [...] on filedocumented in this encounter Care Teams Manager Special Events Relationship Specialty Start Date End Date Mitzi Cantu MD PCP - General 04/06/19 documented as of this encounter
--- OUTSIDE RECORDS SUMMARY | 2025-03-08 18:45 | XMS_ITS | Clinical Summary ---
Author Organization [employer] Address [address] [place] [address] [address] [place] [address] Care Team Providers Care Invoice Coder Name Role Phone Mitzi Cantu MD Primary Care Provider [phone] Christa Kwan PharmD Unavailable [phone] Zi Cotton MD Unavailable Gaaml Quiñonez MD Unavailable [phone] Allergies Active Allergy Reactions Criticality Noted Date [...] EVERY MORNING 30 capsule 05/17/20 24 Active Aspirin Adult Low Strength 81 MG [...] at bedtime. 30 tablet 08/05/19 25 Active escitalopram (Lexapro) 5 MG [...] MORNING 30 tablet 7 03/02/20 25 Active Dulaglutide (Trulicity) 3 MG/0.5ML solution auto-injectorIndic ations:Type 2 diabetes mellitus with stage 3 chronic kidney disease, with long-term current use of insulin, unspecified whether stage 3a or 3b CKD ([facility]) Inject 3 mg under the skin 1 (one) time per week. 2 mL 3 03/07/20 25 Active pen needle 33G x 4 mm miscIndications:Ty pe 2 diabetes mellitus with stage 3 chronic kidney disease, with long-term current use of insulin, unspecified whether stage 3a or 3b CKD ([facility]) USE WITH LANTUS SOLOSTAR ONCE DAILY 100 each 11 03/07/20 25 2025 Active Calcium Carb-Cholecalcifer ol 600-10 MG-MCG tabletIndications: [...] the morning. 30 tablet 7 05/05/20 24 10/01/ 2025 Discontinued pen needle 33G x 4 mm miscIndications:Ty pe 2 diabetes mellitus with stage 3 chronic kidney disease, with long-term current use of insulin, unspecified whether stage 3a or 3b CKD (HCC) USE WITH LANTUS SOLOSTAR ONCE DAILY 100 each 11 06/15/192024 Discontinued(R eorder (will not trigger notification to Pharmacy)) Active Problems Problem Noted Date Diagnosed Date Right hip pain 12/15/2024 Overview (12/15/2024): -xray 12/14/24 with specialist IMPRESSION: Mild osteoarthrosis, right hip. Bilateral carpal tunnel syndrome 06/14/2024 Overview (06/14/2024): -nerve conduction study 06/2024 IMPRESSION: Tswc-kj-flscedtu left median neuropathy across carpal tunnel. Mild [...] study 05/05/24 -nerve conduction study 06/2024 IMPRESSION: Krey-an-wguzemix left median neuropathy across carpal tunnel. Mild [...] after 08/04/2025 -eye care facilitated by [facility] -health care proxy given and filed 02/09/24 Assessment & Plan (08/04/2024 12:49 PM EST): -next physical exam due after 08/04/2025 -eye care facilitated by [facility] -health care proxy given and filed 02/09/24 Assessment & Plan (02/09/2024 10:20 AM EDT): -next physical exam due after 06/26/2023 -eye care facilitated by [facility] is -health care proxy given and filed 02/09/24 Assessment & Plan (04/30/2023 3:36 PM EST): -next physical exam due after 06/26/2023 -eye care facilitated by [facility] is Stage 2 hypertension 06/06/2022 Overview (08/04/2024): [...] of renal artery stenosis. Assessment & Plan (03/07/2025 9:55 AM EDT): -Blood pressure is not at goal 05/05/24. [...] disorder, s tamar episode with psychotic features (CMS/HCC) 05/10/2022 Overview (03/07/2025): Continue with therapist and psychiatrist. Denies suicidial or homacidial ideation. Assessment & Plan (03/07/2025 10:13 AM EDT): Continue with therapist and psychiatrist. Denies suicidial or homacidial ideation. Assessment & Plan (02/09/2024 10:29 AM EDT): PMH: DM with neuropathy, severe hypertriglyceridemia, hearing loss, tremor s/p stroke many years ago. Anxiety, poor sleep, mood-congruent hallucinations (door knocking, felt presence of her hlcton-ag-huv). Anxious about medication side effects. After initial [...] hallucinations (door knocking, felt presence of her shjdlm-ho-rvn). Anxious about medication side effects. After initial [...] hallucinations (door knocking, felt presence of her uuajgs-fu-hrt). Anxious about medication side effects. After initial [...] hallucinations (door knocking, felt presence of her fimysv-cy-qdt). She is much improved, depression in remission. [...] fem-pop bypass if clinically required Seen by [facility] 10/30/23: In short her arterial status [...] fem-pop bypass if clinically required Seen by [facility] 10/30/23: In short her arterial status [...] I Mitral valve regurgitation 05/08/2012 Tremor 05/05/2012 Overview (03/07/2025): Request DME, will await [facility] request. Pt needs cane, walker and toilet seat due to difficulty with ambulation. Assessment & Plan (03/07/2025 9:55 AM EDT): Request DME, will await [facility] request. Pt needs cane, walker and toilet seat due to difficulty with ambulation. Type 2 diabetes mellitus wit h hyperglycemia, with long-term current use of insulin 04/01/2012 Overview (03/07/2025): Diabetes is not controlled. A1C is worse [...] agreed to return to [facility] with our PharmD, SUE medina Assessment & Plan (03/07/2025 9:55 AM EDT): Diabetes is not controlled. A1C [...] due to skin irritation. Spoke with [facility] pharmacist and will change Triseba to Basaglar. -it is unclear what she was taking 11/04/24, agreed to return to [facility] Drug Therapy Managment Program with our CrisDSUE but carol Assessment & Plan (11/04/2024 9:32 AM EDT): [...] due to skin irritation. Spoke with [facility] pharmacist and will change Triseba to Basaglar. -Start insulin glargine (Basaglar KwikPen) 100 UNIT/ML pen, nightly 05/05/24 -it is unclear what she is taking 11/04/24, agrees to return to Collaborative Drug Therapy Managment Program with our SUE Ruano. Assessment & Plan (08/04/2024 12:48 PM EST): [...] Triseba to Basaglar. -Start insulin glargine (Basaglar Rina) 100 UNIT/ML pen, nightly 05/05/24 -ordered labs [...] modifications -Continue current medications Hypercholesterolemia 01/08/2012 Overview (03/07/2025): Pt has history of severe hyper triglycerides [...] in past including cardiology and most recently lighthouse keeper on 12/14/2020 but referred back to PCP because patient didn't get her labs drawn. Discussed lipid clinic at [facility]. Pt agrees but would like to wait for her housing situation to improve. -continue lifestyle modification -continue fenofibrate 160mg daily -atorvastatin 80 -Lovaza 1gm 2 tabs bid Assessment & Plan (03/07/2025 9:41 AM EDT): Pt has history of severe hyper [...] in past including cardiology and most recently lighthouse keeper on 12/14/2020 but referred back to PCP because patient didn't get her labs drawn. Discussed lipid clinic at [facility]. Pt agrees but would like to [...] in past including cardiology and most recently lighthouse keeper on 12/14/2020 but referred back to PCP because patient didn't get her labs drawn. Discussed lipid clinic at [facility]. Pt agrees but would like to wait for her housing situation to improve. -continue lifestyle modification -continue fenofibrate 160mg daily -atorvastatin 80 -Lovaza 1gm 2 tabs bid Assessment & Plan (05/05/2024 10:05 AM EST): Pt has history of severe hyper triglycerides (>2000) currently we got it as low as 300s but she is not back to 1,550 range. -Seen by lighthouse keeper on 12/14/2020 but referred back to PCP [...] not back to 1,550 range. -Seen by lighthouse keeper on 12/14/2020 but referred back to PCP [...] not back to 1,550 range. -Seen by lighthouse keeper on 12/14/2020 but referred back to PCP [...] not back to 1,550 range. -Seen by lighthouse keeper on 12/14/2020 but referred back to PCP [...] about it. Hx of MH services at [facility], case ws closed because she missed appts.. Patient will benefit from Ind. Therapy and Med. management. At this time Armida Vega meets criteria for Visit Diagnoses: Problem List Items Addressed This Visit Other Depression, unspecified Patient ready to address current needs Yes Strengths include willing to seek help PLAN: 1. Follow up with [facility]: Not recommended for follow-up 2. Patient goal is to engage in MH services 3. Behavioral Recommendations a. Ind. Therapy b. Med. Management c. Use of coping Mechanisms provided. Encounters Date Type Department Care Team Description 03/08/2025 Orders Only GENERIC EXTERNAL DATA DEPARTMENT Provider, Generic External Data 03/07/2025 9:45 AM EDT Office Visit [facility] [address] [place] [address] Mitzi Cantu MD Type 2 diabetes mellitus with hyperglycemia, with long-term current use of insulin ([facility]) (Primary Dx); Hypercholesterolemia ; Stage 2 hypertension; Type 2 diabetes mellitus with stage 3 chronic kidney disease, with long-term current use of insulin, unspecified whether stage 3a or 3b CKD ([facility]); Tremor; Major depressive disorder, single episode with psychotic features ([facility]/HCC) ([facility]) 03/07/2025 Travel 03/04/2025 Telephone [facility] [address] [place] [phone] Mitzi Cantu MD chartprep 03/02/2025 Telephone [facility] [address] [place] [address] Mitzi Cantu MD 03/02/2025 Refill [facility] [address] [place] [address] Mitzi Cantu MD Stage 2 hypertension 02/28/2025 Patient Outreach [facility] [address] [place] [address] Mitzi Cantu MD Pre-visit Planning (SDOH was already completed ) 02/22/2025 Refill [facility] [address] [place] [address] Mitzi Cantu MD Age related osteoporosis, unspecified pathological fracture presence 02/09/2025 Orders Only GENERIC EXTERNAL DATA DEPARTMENT Provider, Generic External Data 02/08/2025 Refill [facility] [address] [place] [address] Mitzi Cantu MD Stage 2 hypertension 02/07/2025 Refill [facility] [address] [place] [address] Mitzi Cantu MD Stage 2 hypertension 02/02/2025 Telephone [facility] [address] [place] [phone] Mitzi Cantu MD 01/28/2025 10:40 AM EDT Office Visit [facility] [address] [place] [phone] Deepa Streeter DO Left leg pain (Primary Dx); Peripheral arterial disease (CMS/HCC) 01/28/2025 Travel 01/26/2025 Telephone [facility] [address] [place] [phone] Mitzi Cantu MD Medication Question; ER Follow-up 01/20/2025 Orders Only GENERIC EXTERNAL DATA DEPARTMENT Provider, Generic External Data Peripheral vascular disease (CMS/HCC) (Primary Dx) 12/26/[address] [address] Mitzi Cantu MD Stage 2 hypertension 12/20/2024 Telephone [facility] [address] [place] [phone] Mitzi Cantu MD March12/15/[address] [address] Mitzi Cantu MD 12/14/2024 Orders Only [facility] External Provider, [facility] Right hip pain (Primary Dx); Peripheral vascular disease ([facility]/HCC) from Last 3 Months Immunizations Immunization Administration [...] 12.8 oz) 03/07/2025 9:32 AM EDT Height 149.9 cm (4' 11 ) 02/09/2024 9:51 AM EDT Body Mass Index 28.24 02/09/2024 9:51 AM EDT Plan of Treatment Health Maintenance Due Date Last Done Comments CT Colonography 1954 FIT DNA/Cologuard 1954 FIT 1954 FOBT 1955 Sigmoidoscopy 1955 Diabetes: Hemoglobin A1C 06/04/2025 025, 11/04/2024, 08/04/2024, Additional history exists SDOH Screening 07/27/2025 07/27/2024 Alcohol/Substance Use Screening 08/04/2025 08/04/2024 Eye Exam 11/13/2025 11/14/2023 Influenza Vaccine (#1) 2025 , 10/31/2021, 04/16/2018, Additional history exists Postponed from 01/31/2025 (Patient Refused) Mammogram 02/05/2026 02/06/2024, 05/0 06/2023, 09/25/2022, Additional history exists Lipid Panel 03/04/2026 03/04/2025, 03/0 09/2024, 05/05/2024, Additional history exists DTaP/Tdap/Td Vaccines (2 - Td or Tdap) 03/07/2026 04/01/2012, 10/25/2009 Postponed from 04/01/2022 (Patient Refused) Depression Screening 03/07/2026 03/07/2025, 03/07/20 Diabetes: Foot Exam 03/07/2026 03/07/2025, 03/07/2025, 03/07/2025, Additional history exists RSV Patients and Patients Aged 60 years or older (1 - Risk 60-74 years 1-dose series) 03/07/2026 Postponed from 2014 (Patient Refused) Tobacco Screening 03/07/2026 03/07/2025 Colonoscopy 10/31/2028 10/31/2018 Colorectal Cancer Screening 10/31/2028 COVID-19 Vaccine Discontinued 05/16/2021, , 08/04/2020 Pneumococcal Vaccine: 50+ Years Completed 01/09/2022, 03/16/2015, 02/24/2006 Zoster Vaccines Completed 01/09/2022, 06/2021, 10/06/2014 Hepatitis C Screening Completed 06/24/2022 [...] Component 9.1(03/04/2025 9:08 AM EDT) No Christa Kwan PharmD Procedures Procedure Name Priority Date/Time Associated Diagnosis Comments GLUCOSE, WHOLE BLOOD Routine 03/08/2025 5:58 PM EDT LIPASE Routine 03/08/2025 12:17 PM EDT COMPREHENSIVE METABOLIC PANEL Routine 03/08/2025 12:17 PM EDT CBC WITH AUTO DIFFERENTIAL Routine 03/08/2025 12:17 PM EDT BASIC METABOLIC PANEL Routine 03/04/2025 9:08 AM EDT Type 2 diabetes mellitus with hyperglycemia, with long-term current use of insulin (HCC) HEMOGLOBIN A1C Routine 03/04/2025 9:08 AM EDT Type 2 diabetes mellitus with hyperglycemia, with long-term current use of insulin (HCC) LIPID PANEL, STANDARD Routine 03/04/2025 9:08 AM EDT Hypercholesterolemi a HEPATIC FUNCTION PANEL Routine 9:08 AM EDT Hypercholesterolemi a ALBUMIN, RANDOM URINE W/CREATININE Routine 03/04/2025 9:08 AM EDT Type 2 diabetes mellitus with hyperglycemia, with long-term current use of insulin (HCC) CREATININE, SERUM Routine 02/09/2025 6:5 6 AM [...] 1 VIEW Routine 12/14/2024 11:40 AM EDT HM MAMMOGRAPHY Routine 02/06/2024 3:02 PM EDT DIABETES EYE EXAM Routine 11/14/2023 3:26 PM EDT HEPATITIS C VIRAL RNA, QUANTITATIVE, REAL-TIME PCR Routine 06/24/2022 8:19 AM EST Routine screening for STI (sexually transmitted infection) COLONOSCOPY Routine 10/31/2018 12:37 PM EDT from Last 3 Months or Most Recently Relevant to Health Maintenance Results * (ABNORMAL) Glucose, Whole Blood (03/08/2025 5:58 PM EDT) Only the most recent of4 resultswithin the time period is included. Pathologist [facility] Glucose, Whole Blood 256(H) 60 - 115 mg/dL [facility] Comment:METER #: [id number] 03/08/2025 5:58 PM EDT 03/08/2025 6:02 PM EDT us Generic External Data Provider LAB BLOOD ORDERAB LES Final Result [facility] [address] [place] [address] [phone] * (ABNORMAL) CBC auto differential (03/08/2025 12:17 PM EDT) Only the most recent of4 resultswithin the time period is included. [facility] White Blood Count 9.7 4.8 - 10.8 X10*3/uL [facility] Red Blood Count 4.09(L) 4.20 - 5.50 X10*6/uL [facility] Hemoglobin 12.4 12.0 - 16.0 g/dl [facility] Hematocrit 34.9(L) 37.0 - 47.0 % [facility] Mean Corpuscular Volume 85.3 80.0 - 98.0 fL [facility] Mean Corpuscular Hemoglobin 30.3 27.0 - 33.0 pg [facility] Mean Corpuscular HGB Conc 35.5(H) 31.0 - 35.0 g/dl [facility] Red Cell Distribution Width 11.9 11.0 - 16.0 % [facility] Platelet Count 257 160 - 400 X10*3/uL [facility] Mean Platelet Volume 9.7 9.4 - 12.3 fL [facility] Neutrophils Percent Auto 71.8 45 - 73 % [facility] Imm Gran Pct Auto 0.4 0.0 - 0.4 % [facility] Lymphocytes Percent Auto 20.0 20 - 40 % [facility] Monocytes Percent Auto 6.4 2 - 11 % [facility] Eosinophils Percent Auto 1.0 0 - 4 % [facility] Basophils Percent Auto 0.4 0 - 2 % [facility] NRBC Pct Auto 0.0 0.0 - 0.2 /100WBC [facility] Neutrophils Absolute Auto 7.0 2.0 - 8.3 x10*3/uL [facility] Imm Gran Abs Auto 0.04(H) 0.00 - 0.03 X10*3/uL [facility] Lymphocytes Absolute Auto 1.9 1.2 - 4.9 X10*3/uL [facility] Monocytes Absolute Auto 0.6 0.1 - 1.2 X10*3/uL [facility] Eosinophils Absolute Auto 0.1 0.0 - 0.4 X10*3/uL [facility] Basophils Absolute Auto 0.0 0.0 - 0.2 X10*3/uL [facility] NRBC Abs Auto 0.000 0.0 - 0.012 X10*3/uL [facility] 03/08/2025 12:1 7 PM EDT 03/08/2025 12:20 PM EDT us Generic External Data Provider LAB BLOOD ORDERAB LES Final Result [facility] [address] [place] [phone] [phone] * Lipase (03/08/2025 12:17 PM EDT) Only the most recent of2 resultswithin the time period is included. Lipase 55 8 - 78 U/L [facility] 03/08/2025 12:1 7 PM EDT 03/08/2025 12:20 PM EDT us Generic External Data Provider LAB BLOOD ORDERAB LES Final Result [facility] [address] [place] [phone] [phone] * (ABNORMAL) Comprehensive Metabolic Panel (03/08/2025 12:17 PM EDT) Only the most recent of3 resultswithin the time period is included. Sodium 139 135 - 145 mmol/L [facility] Potassium 3.8 3.3 - 5.1 mmol/L [facility] Chloride 103 96 - 108 mmol/L [facility] Carbon Dioxide 27 22 - 29 mmol/L [facility] Anion Gap 13 12 - 20 [facility] Urea Nitrogen (BUN) 24(H) 9 - 16 mg/dL [facility] Creatinine, Serum 0.68 0.5 - 1.4 mg/dL [facility] Creatinine Clr Calc Pharmacy 61.2 [facility] Comment:Provided height and weight: 149.86 cm,61.235 kg.eGFR (calculated from the MDRD study equation) and eCrCl(calculated from the Cockcroft-Gault equation) are based ondifferent parameters and may not yield comparable results.If eCrCl result is absurd, please check patient'sheight/weight. Estimated Glomerular Filt Rate >60 [facility] Comment:Chronic Kidney Disea se: Estimated GFR < 60 mL/min/1.19q0Ayeror Kidney Disease: Estimated GFR < 15 mL/min/1.73m2 Glucose 255(H) 60 - 115 mg/dL [facility] Calcium 9.4 8.4 - 10.2 mg/dL [facility] Bilirubin, Total 0.2 0.0 - 1.0 mg/dL [facility] Aspartate Amino Transferase 15 5 - 31 U/L [facility] Alanine Aminotransferase 16 0 - 31 U/L [facility] Total Protein 7.2 6.5 - 8.0 g/dL [facility] Albumin Level 4.5 3.5 - 5.0 g/dL [facility] Alkaline Phosphatase 85 39 - 117 U/L [facility] 03/08/2025 12:1 7 PM EDT 03/08/2025 12:20 PM EDT Generic External Data Provider LAB BLOOD ORDERAB LES Final Result Performing Organization Address [facility] Co de Phone Number [facility] [address] [place] [phone] * (ABNORMAL) Albumin, Random Urine W/Creatinine (03/04/2025 9:08 AM EDT) Creatinine, Urine 106.69 mg/dL [facility] Microalbumin Urine 54.0 mg/L [facility] Microalbum Creatinine Ratio Ur 50.6(H) <30 ug/mg cr [facility] Comment:Albumin/Creatinine R atio Reference Ranges: Normal: < 30 ug/mg creatinine Microalbuminuria: 30 - 300 ug/mg creatinineClinical Albuminuria: > 300 ug/mg creatinine Urine 03/04/2025 9:08 AM EDT 03/04/2025 11:17 AM EDT Mitzi Cantu MD LAB URINE ORDERABLES Final Result Performing Organization Address [facility]/ZIP Co de Phone Number [facility] [address] [place] [address] [phone] * (ABNORMAL) Hemoglobin A1c (03/04/2025 9:08 AM EDT) Hemoglobin A1c 9.1(H) <6.0 % [facility] Comment:Hemoglobin A1C Refer ence Range Adults: 4.8 - 6.0 % Non diabetic: < 6.0 % Goal: < 7.0 %Additional Action Suggested: > 8.0 %Note: Hemoglobin A1c results are invalid for patients with abnormal amounts of HbF. Blood transfusions may impact the HbA1c concentration in the patient sample. Estimated Average Glucose 214 mg/dL [facility] Comment:eAG = Estimated ave rage glucose which is %A1C expressed asaverage glucose, using the formula of the E5V-BrknulvEoggwdv Glucose study (ADAG), Diabetes Care, Vol.31,#8,Dec. 2007 Blood Venous blood specimen / Unknown 03/04/2025 9:08 AM EDT 03/04/2025 11:26 AM EDT Mitzi Cantu MD LAB BLOOD ORDERABLES Final Result Performing Organization Address [facility] de Phone Number [facility] [address] [place] [phone] * Hepatic Function Panel (03/04/2025 9:08 AM EDT) Bilirubin, Total 0.3 0.0 - 1.0 mg/dL [facility] Bilirubin, Direct 0.1 0.0 - 0.5 mg/dL [facility] Aspartate Amino Transferase 21 5 - 31 U/L [facility] Alanine Aminotransferase 19 0 - 31 U/L [facility] Total Protein 7.7 6.5 - 8.0 g/dL [facility] Albumin Level 4.6 3.5 - 5.0 g/dL [facility] Alkaline Phosphatase 85 39 - 117 U/L [facility] Blood Venous blood specimen / Unknown 03/04/2025 9:08 AM EDT 03/04/2025 11:26 AM EDT Mitzi Cantu MD LAB BLOOD ORDERABLES Final Result Performing Organization Address [facility] de Phone Number [facility] [address] [place] [phone] * (ABNORMAL) Lipid Panel, Standard (03/04/2025 9:08 AM EDT) Triglycerides 658(H) <150 mg/dL [facility] Comment:Desirable Triglyceri de: less than 150 mg/dLBorderline High Triglyceride 150-199 mg/dLHigh Triglyceride: 200-499 mg/dLVery High Triglyceride: greater than or equal to 5OO mg/dL Cholesterol 278(H) <200 mg/dL [facility] Comment:Desirable Cholestero l: less than 200 mg/dLBorderline High Cholesterol: 200-239 mg/dLHigh Cholesterol: greater than 239 mg/dL LDL Cholesterol Calculated TNP <100 mg/dL [facility] Comment:Unable to calculate the LDL. The formula of Friedwald,Negrete, and Ruddy is only valid if the triglycerides areless than 400 mg/dl. HDL Cholesterol 34(L) >40 mg/dL [facility] Comment:Desirable HDL: great er than 40 mg/dL Note: This HDL assay may give artificially low results in patients with liver disease. Blood Venous blood specimen / Unknown 03/04/2025 9:08 AM EDT 03/04/2025 11:26 AM EDT us Mitzi Cantu MD LAB BLOOD ORDERABLES Final Result [facility] [address] [place] [phone] * (ABNORMAL) Basic Metabolic Panel (03/04/2025 9:08 AM EDT) Sodium 138 135 - 145 mmol/L [facility] Potassium 4.4 3.3 - 5.1 mmol/L [facility] Chloride 101 96 - 108 mmol/L [facility] Carbon Dioxide 30(H) 22 - 29 mmol/L [facility] Anion Gap 11(L) 12 - 20 [facility] Urea Nitrogen (BUN) 20(H) 9 - 16 mg/dL [facility] Creatinine, Serum 0.60 0.5 - 1.4 mg/dL [facility] Estimated Glomerular Filt Rate >60 [facility] Comment:Chronic Kidney Disea se: Estimated GFR < 60 mL/min/1.17m2Rnewqx Kidney Disease: Estimated GFR < 15 mL/min/1.73m2 Glucose 217(H) 60 - 115 mg/dL [facility] Calcium 9.7 8.4 - 10.2 mg/dL [facility] Blood Venous blood specimen / Unknown 03/04/2025 9:08 AM EDT 03/04/2025 11:26 AM EDT us Mitzi Cantu MD LAB BLOOD ORDERABLES Final Result Performing Organization Address City/[facility]/ZIP Co de Phone Number [facility] [address] [place] [phone] * Creatinine, Serum (02/09/2025 6:56 AM EDT) Creatinine, Serum 0.60 0.5 - 1.4 mg/dL [facility] Creatinine [facility] Comment:Provided height and weight: 149.86 cm,62.5 kg.eGFR (calculated from the MDRD study equation) and eCrCl(calculated from the Cockcroft-Gault equation) are based ondifferent parameters and may not yield comparable results.If eCrCl result is absurd, please check patient'sheight/weight. Estimated Glomerular Filt Rate >60 [facility] Comment:Chronic Kidney Disea se: Estimated GFR < 60 mL/min/1.27y0Obihei Kidney Disease: Estimated GFR < 15 mL/min/1.73m2 02/09/2025 6:56 AM EDT 02/09/2025 6:58 AM EDT us Generic External Data Provider LAB BLOOD ORDERAB LES Final Result Performing Organization Address [facility]/ZIP Co de Phone Number [facility] [address] [place] [address] [phone] * BUN (Blood Urea Nitrogen) (02/09/2025 6:56 AM EDT) Urea Nitrogen (BUN) 14 9 - 16 mg/dL [facility] 02/09/2025 6:56 AM EDT 02/09/2025 6:58 AM EDT us Generic External Data Provider LAB BLOOD ORDERAB LES Final Result [facility] [address] [place] [phone] * XR Hip left with Pelvis 1 view (01/20/2025 12:01 PM EDT) Anatomical Region Laterality Modality Lower Extremities, Hip Bilateral Radiograp hic Imaging 01/20/2025 12:0 1 PM EDT Narrative 01/20/2025 1:16 PM EDT [address] [address] XRay Report Signed Patient: Armida Olmstead MR#: [id number] : 1955 Acct:[id number] Age/Sex: 69 / F ADM Date: 01/20/25 Loc: HO.ED Attending Dr: Ordering Physician: Jaren Gibson Date of Service: 01/20/25 Procedure(s): XR hip LT w PEL1V Accession Number(s): [id number] cc: Jaren Gibson; Mitzi Cantu MD EXAMINATION: [...] 01/20/25 1313 DD/ 1201 TD/TT: 01/20/25 1308 Agitator Operator: Procedure Note Silvanater, Image - 01/20/[address] [address] XRay Report Signed Patient: Shaye Olmstead#: M [id number] : 1955cct:[id number] Age/Sex: 69 / FADM Date: 01/20/25 Loc: HO.ED Attending Dr: Ordering Physician: Jaren Gibson Date of Service: 01/20/25 Procedure(s): XR hip LT w PEL1V Accession Number(s): [id number] cc: Jaren Gibson; Mitzi Cantu MD EXAMINATION: [...] 01/20/25 1313 DD/ 1201 TD/TT: 01/20/25 1308 Agitator Operator: us [facility] External Provider IMG XR PROCEDURES Final Result * US ARTERIAL DUPLEX LE LT (01/20/2025 12:00 PM EDT) Anatomical Region Laterality Modality Abdomen Ultrasound 01/20/2025 12:0 0 PM EDT Narrative 01/20/2025 12:57 PM EDT [address] [address] Ultrasound Report Signed Patient: Armida Olmstead MR#: [id number] : 1955 Acct:[id number] Age/Sex: 69 / F ADM Date: 01/20/25 Loc: HO.ED Attending Dr: Ordering Physician: Jaren Gibson Date of Service: 01/20/25 Procedure(s): US arterial duplex LE LT Accession Number(s): [id number] cc: Jaren Gibson; Mitzi Cantu MD EXAMINATION: [...] 01/20/25 1254 DD/ 1200 TD/TT: 01/20/25 1225 Agitator Operator: Procedure Note Donotuseinterpreter, Image - 01/20/2025 [place] [address] Ultrasound Report Signed Patient: Shaye Olmstead#: M [id number] : 4Acct:[id number] Age/Sex: 69 / FADM Date: 01/20/25 Loc: .ED Attending Dr: Ordering Physician: Jaren Gibson Date of Service: 01/20/25 Procedure(s): US arterial duplex LE LT Accession Number(s): [id number] cc: Jaren Gibson; Mitzi Cantu MD EXAMINATION: [...] 01/20/25 1254 DD/ 1200 TD/TT: 01/20/25 1225 Agitator Operator: us [facility] External Provider IMG US PROCEDURES Final Result * Lower Extremity Venous Duplex (01/20/2025 12:00 PM EDT) 01/20/2025 12:0 0 PM EDT Narrative [facility] - 01/20/2025 12:51 PM EDT [place] [address] Ultrasound Report Signed Patient: Armida Olmstead MR#: [id number] : 1955 Acct:[id number] Age/Sex: 69 / F ADM Date: 01/20/25 Loc: .ED Attending Dr: Ordering Physician: Jaren Gibson Date of Service: 01/20/25 Procedure(s): US venous duplex LE LT Accession Number(s): [id number] cc: Jaren Gibson; Mitzi Cantu MD EXAMINATION: [...] 01/20/25 1248 DD/ 1200 TD/TT: 01/20/25 1225 Agitator Operator: Procedure Note Donotuseinterpreter, Image - 01/20/[address] [address] Ultrasound Report Signed Patient: Shaye Olmstead#: M [id number] : 1955cct:[id number] Age/Sex: 69 / FADM Date: 01/20/25 Loc: .ED Attending Dr: Ordering Physician: Jaren Gibson Date of Service: 01/20/25 Procedure(s): US venous duplex LE LT Accession Number(s): [id number] cc: Jaren Gibson; Mitzi Cantu MD EXAMINATION: [...] 01/20/25 1248 DD/ 1200 TD/TT: 01/20/25 1225 Agitator Operator: [facility] External Provider CV VASC ULAR PROCEDURES Final Result [facility] [address] [place] [phone] * Partial Thromboplastin Time, Activated (APTT) (01/20/2025 10:36 AM EDT) Only the most recent of2 resultswithin the time period is included. Partial Thromboplastin Time 28.3 26.7 - 34.1 SEC [facility] 01/20/2025 10:3 6 AM EDT 01/20/2025 10:39 AM EDT us Generic External Data Provider LAB BLOOD ORDERAB LES Final Result Performing Organization Address [facility] Co de Phone Number [facility] [address] [place] [phone] * Prothrombin Time-INR (01/20/2025 10:36 AM EDT) Only the most recent of2 resultswithin the time period is included. Prothrombin Time 11.4 10.9 - 12.4 SEC [facility] INTERNATIONAL NORM RATIO 1.0 0.9 - 1.1 [facility] Comment:INTERNATIONAL NORMAL IZED RATIO [...] ORDERAB LES Final Result Performing Organization Address City/[facility]/ZIP Co de Phone Number [facility] [address] [place] [phone] * (ABNORMAL) Creatine Kinase, Total (01/20/2025 10:36 AM EDT) Creatine Kinase Total 23(L) 26 - 140 U/L [facility] 01/20/2025 10:3 6 AM EDT 01/20/2025 10:39 AM EDT us Generic External Data Provider LAB BLOOD ORDERAB LES Final Result Performing Organization Address City/State/[facility] Co de Phone Number [facility] [address] [place] [phone] * CTA Abdomen aorta runoff (12/14/2024 7:20 PM EDT) Anatomical Region Laterality Modality Body, Pelvis, Abdomen Computed T omography 12/14/2024 7:20 PM EDT Narrative 12/14/2024 7:22 PM EDT [place] [address] [address] Scan Report Signed with Addenda Patient: Armida Vega MR#: [id number] : 1955 Acct:[id number] Age/Sex: 69 / F ADM Date: 12/14/24 Loc: .ED Attending Dr: Ordering Physician: Gal Good MD Date of Service: 12/14/24 Procedure(s): CT angio abd aorta runoff Accession Number(s): [id number] cc: Mitzi Cantu MD; Gal Good MD Report Number: [id number]: Total DLP = 310.00 mGy-cm ADDENDUM This [...] of the urinary bladder. No adnexal mass. Uxsj-mw-atulcepk spondylosis. No acute fracture or suspicious bone [...] in OV> 12/14/241920 DD/ 19 TD/TT: 12/14/241919 Agitator Operator: Procedure Note Donotuseinterpreter, Image - 12/14/[address] [address] [address] Scan Report Signed with Addenda Patient: Shaye Vega#: [id number] : 1955cct:[id number] Age/Sex: 69 / FADM Date: 12/14/24 Loc: .ED Attending Dr: Ordering Physician: Gal Good MD Date of Service: 12/14/24 Procedure(s): CT angio abd aorta runoff Accession Number(s): [id number] cc: Mitzi Cantu MD; Gal Good MD Report Number: [id number]: Total DLP = 310.00 mGy-cm ADDENDUM This [...] of the urinary bladder. No adnexal mass. Iakm-xn-odcjzwwi spondylosis. No acute fracture or suspicious bone [...] in OV> 12/14/241920 DD/ 19 TD/TT: 12/14/241919 Agitator Operator: [facility] External Provider IMG CT PROCEDURES Edited Result - Final * Hold Red (12/14/2024 4:39 PM EDT) Hold Red See Note [facility] Comment:Specimen held untest ed for 24 hours; Call to requestChemistry testing. 12/14/2024 4:39 PM EDT 12/14/2024 4:45 PM EDT Generic External Data Provider LAB BLOOD ORDERAB LES Final Result Performing Organization Address [facility] Co de Phone Number [facility] [address] [place] [phone] * (ABNORMAL) Sed Rate by Modified Muluren (12/14/2024 4:39 PM EDT) Pathologist [facility] Erythrocyte Sedimentation Rate 59(H) 0 - 20 MM/HR [facility] Comment:Patients with polycy themia and many hemoglobin abnormalitiesmay have depressed sed rates whereas patients with anemiamay have elevated sed rates. 12/14/2024 4:39 PM EDT 12/14/2024 4:44 PM EDT Generic External Data Provider LAB BLOOD ORDERAB LES Final Result Performing Organization Address City/[facility]/ZIP Co de Phone Number [facility] [address] [place] [phone] * (ABNORMAL) C-reactive Protein (12/14/2024 4:39 PM EDT) Pathologist [facility] C Reactive Protein 9.68(H) < or = 0.50 mg/dL [facility] 12/14/2024 4:39 PM EDT 12/14/2024 4:44 PM EDT us Generic External Data Provider LAB BLOOD ORDERAB LES Final Result Performing Organization Address City/[facility]/ZIP Co de Phone Number [facility] [address] [place] [phone] * Lactic Acid (12/14/2024 4:39 PM EDT) Lactic Acid 1.0 0.5 - 2.0 mmol/L [facility] 12/14/2024 4:39 PM EDT 12/14/2024 4:44 PM EDT us Generic External Data Provider LAB BLOOD ORDERAB LES Final Result Performing Organization Address [facility] de Phone Number [facility] [address] [place] [phone] * XR Hip right with Pelvis 1 view (12/14/2024 11:40 AM EDT) Anatomical Region Laterality Modality Lower Extremities, Hip Bilateral Radiograp hic Imaging 12/14/2024 11:4 0 AM EDT Narrative 12/14/2024 12:09 PM EDT [address] [address] XRay Report Signed Patient: Armida Vega MR#: [id number] : 1955 Acct:[id number] Age/Sex: 69 / F ADM Date: 12/14/24 Loc: HO.ED Attending Dr: Ordering Physician: Tenisha Castellano Date of Service: 12/14/24 Procedure(s): XR hip RT w PEL1V Accession Number(s): [id number] cc: Mitzi Cantu MD; Tenisha Castellano EXAMINATION: [...] 12/14/24 1206 DD/ 1140 TD/TT: 12/14/24 1150 Agitator Operator: Procedure Note Donotuseinterpreter, Image - 12/14/2024 [place] [address] XRay Report Signed Patient: Shaye Vega#: [id number] : 1955cct:[id number] Age/Sex: 69 / FADM Date: 12/14/24 Loc: HO.ED Attending Dr: Ordering Physician: Tenisha Castellano Date of Service: 12/14/24 Procedure(s): XR hip RT w PEL1V Accession Number(s): [id number] cc: Mitzi Cantu MD; Tenisha Castellano EXAMINATION: [...] 12/14/24 1206 DD/ 1140 TD/TT: 12/14/24 1150 Agitator Operator: [facility] External Provider IMG XR PROCEDURES Final Result * Mammography (02/06/2024 3:02 PM EDT) Mammogram BIRADS 1 Normal, Abnormal, BIRADS 1 , BIRADS 2 Comment:routine annual mamma graphy screening Anatomical Region Laterality Modality Other Result [facility] Historical Provider HEALTH MAINTENANCE Final Result * Diabetes Eye Exam (11/14/2023 3:26 PM EDT) Eye Exam Normal Normal Comment:follow up one year Result [facility] Historical Provider HEALTH MAINTENANCE Final Result * Hepatitis C Viral RNA, Quantitative, Real-Time PC (06/24/2022 8:19 AM EST) HCV RNA, QN Real Time PCR <15 NOT DETECTED NOT DETECTED IU/mL [employer] [place] [facility] HCV RNA QN Real Time PCR <1.18 NOT DETECTED NOT DETECTED Log IU/mL [employer] [facility] Comment: This test was performed using Real-Time Polymerase Chain Reaction. Reportable Range: 15 IU/mL to 100,000,000 IU/mL (1.18 Log IU/mL to 8.00 Log IU/mL). The analytical performance characteristics of this assay have been determined by [employer]. The modifications have not been cleared or approved by the FDA. This assay has been validated pursuant to the CLIA regulations and is used for clinical purposes. For more information on this test, go to: http://education.Bottle/faq/IKV86y9 (This link is being provided for informational/ educational purposes only.) 06/24/2022 8:19 AM EST 06/24/2022 8:19 AM EST Narrative [facility] - 06/27/2022 5:25 PM EST FASTING:YES FASTING: YES Result [facility] Mitzi Cantu MD LAB BLOOD ORDERABLES Final Result [facility] [address], [place] [address] [employer] [place] [facility] [address], ([address]) [place] [address] * Hm Colonoscopy (10/31/2018 12:37 PM EDT) Mitzi Cantu MD HEALTH MAINTENANCE Final R esult from Last 3 Months or Most Recently Relevant to Health Maintenance Insurance [place] [place] [id number] Advance Directives Documents on File Type Date Recorded Patient Senior Application Programmer Expl anation Advance Directives and Living Will 02/09/2024 Health Care Proxy 02/09/24 Care Teams Invoice Coder Relationship Specialty Start Date End Date Mitzi Cantu MD [address] [place] [address] PCP - General Family Medicine 06/02/18 Christa Kwan, PharmD [address] [place] [address] Pharmacist Internal Medicine 07/16/22 Zi Cotton MD [address] [place] [address] Vascular Surgery 04/22/24 Gamal Quiñonez MD [address] [place] [address] Cardiology 04/28/24
--- OUTSIDE RECORDS SUMMARY | 2025-03-08 18:45 | XMS_ITS | Clinical Summary ---
Author Organization [facility] Address [address] [place] [address] Care Team Providers Care Account Advisor Name Role Phone Unavailable Primary Care Provider Unavailabl e Social History Tobacco Use Types Packs/Day Years Used Date Smoking Tobacco: Never Assessed Sex and Gender Information Value Date Recorded Sex Assigned at Not on file Gender Identity Not on file Sexual Orientation Not on file Plan of Treatment Not on file
--- OUTSIDE RECORDS SUMMARY | 2025-03-08 18:45 | XMS_ITS | Encounter Summary ---
Author Organization [employer] Address [address] [facility] 7t [place] [address] Care Team Providers Care Threading Machine Feeder Automatic Name Role Phone Mitzi Cantu MD Primary Care Provider + [phone] Christa Kawn PharmD Unavailable [phone] Zi Cotton MD Unavailable Gamal Quiñonez MD Unavailable [phone] Reason for Visit * Reason Comments Med Refill Encounter Details Date Type Department Care Team (Late st Contact Info) Description 02/07/2025 Refill [facility] [address] [place], [place] [phone] Mitzi Cantu MD [address] [place], [place] [phone] Stage 2 hypertension Social History Tobacco Use [...] 9:08 AM EDT) No Christa Kwan PharmD documented as of this encounter Visit Diagnoses Diagnosis Stage 2 hypertension documented in this encounter Additional Health Concerns Assessment Noted Time PHQ-9 Depression Total Score: 0 02/09/20 24 9:53 AM EDT documented as of this encounter Care Teams Threading Machine Feeder Automatic Relationship Specialty Start Date End Date Mitzi Cantu MD [address] [place] [address] PCP - General Family Medicine 06/02/18 Christa Kwan, PharmD [address] [place] [address] Pharmacist Internal Medicine 07/16/22 Zi Cotton MD [address] [place] [address] Vascular Surgery 04/22/24 Gamal Quiñonez MD [address] Floor [place] [address] Cardiology 04/28/24 documented as of this encounter
--- OUTSIDE RECORDS SUMMARY | 2025-03-08 18:45 | XMS_ITS | Encounter Summary ---
Author Organization [facility], Address [address] [address] Phone Care Team Providers Care Health Navigator Name Role Phone Mitzi Cantu MD Primary Care Provider U navailsteven Reason for Visit * Reason Comments Med Refill Encounter Details Date Type Department Care Team (Late st Contact Info) Description 11/30/2021 Refill [facility] [address] [place] [address] Josafat Colón MD [address] [place] [address] [place] [address] Social History Tobacco Use Types [...] on filedocumented in this encounter Care Teams Health Navigator Relationship Specialty Start Date End Date Mitzi Cantu MD PCP - General 04/06/19 documented as of this encounter
--- OUTSIDE RECORDS SUMMARY | 2025-03-08 18:45 | XMS_ITS | Encounter Summary ---
Author Organization [employer] Address [address] [facility] 7t [place] [address] Care Team Providers Care Order Expediter Name Role Phone Fannin, Mitzi RODAS Primary Care Provider + [phone] Christa Kwan PharmD Unavailable [phone] Zi Cotton MD Unavailable Gamal Quiñonez MD Unavailable [phone] Encounter Details Date Type Department Care Team (Late st Contact Info) Description 03/08/2025 Orders Only GENERIC EXTERNAL DATA [...] WHOLE BLOOD Routine 03/08/2025 5:58 PM EDT CBC WITH AUTO DIFFERENTIAL Routine 03/08/2025 12:17 PM EDT LIPASE Routine 03/08/2025 12:17 PM EDT COMPREHENSIVE METABOLIC PANEL Routine 03/08/2025 12:17 PM EDT documented in this encounter Results * (ABNORMAL) Glucose, Whole Blood (03/08/2025 5:58 PM EDT) Glucose, Whole Blood 256(H) 60 - 115 mg/dL [facility] Comment:METER #: [id number] 03/08/2025 5:58 PM EDT 03/08/2025 6:02 PM EDT us Generic External Data Provider LAB BLOOD ORDERAB LES Final Result Performing Organization Address City/State/[facility] Co de Phone Number [facility] [address] [place] [phone] * Lipase (03/08/2025 12:17 PM EDT) Lipase 55 8 - 78 U/L [facility] 03/08/2025 12:1 7 PM EDT 03/08/2025 12:20 PM EDT us Generic External Data Provider LAB BLOOD ORDERAB LES Final Result Performing Organization Address [facility] Co de Phone Number [facility] [address] [place] [phone] * (ABNORMAL) Comprehensive Metabolic Panel (03/08/2025 12:17 PM EDT) Sodium 139 135 - 145 mmol/L [facility] Potassium 3.8 3.3 - 5.1 mmol/L [facility] Chloride 103 96 - 108 mmol/L [facility] Carbon Dioxide 27 22 - 29 mmol/L [facility] Anion Gap 13 12 - 20 [facility] Urea Nitrogen (BUN) 24(H) 9 - 16 mg/dL [facility] Creatinine, Serum 0.68 0.5 - 1.4 mg/dL [facility] Creatinine Clr Calc Pharmacy 61.2 [facility] Comment:Provided height and weight: 149.86 cm,61.235 kg.eGFR (calculated from the MDRD study equation) and eCrCl(calculated from the Cockcroft-Gault equation) are based ondifferent parameters and may not yield comparable results.If eCrCl result is absurd, please check patient'sheight/weight. Estimated Glomerular Filt Rate >60 [facility] Comment:Chronic Kidney Disea se: Estimated GFR < 60 mL/min/1.28j5Tebfem Kidney Disease: Estimated GFR < 15 mL/min/1.73m2 Glucose 255(H) 60 - 115 mg/dL [facility] Calcium 9.4 8.4 - 10.2 mg/dL [facility] Bilirubin, Total 0.2 0.0 - 1.0 mg/dL [facility] Aspartate Amino Transferase 15 5 - 31 U/L [facility] Alanine Aminotransferase 16 0 - 31 U/L [facility] Total Protein 7.2 6.5 - 8.0 g/dL [facility] Albumin Level 4.5 3.5 - 5.0 g/dL [facility] Alkaline Phosphatase 85 39 - 117 U/L [facility] 03/08/2025 12:1 7 PM EDT 03/08/2025 12:20 PM EDT us Generic External Data Provider LAB BLOOD ORDERAB LES Final Result [facility] [address] [place] [phone] * (ABNORMAL) CBC auto differential (03/08/2025 12:17 PM EDT) White Blood Count 9.7 4.8 - 10.8 X10*3/uL [facility] Red Blood Count 4.09(L) 4.20 - 5.50 X10*6/uL [facility] Hemoglobin 12.4 12.0 - 16.0 g/dl [facility] Hematocrit 34.9(L) 37.0 - 47.0 % [facility] Mean Corpuscular Volume 85.3 80.0 - 98.0 fL [facility] Mean Corpuscular Hemoglobin 30.3 27.0 - 33.0 pg [facility] Mean Corpuscular HGB Conc 35.5(H) 31.0 - 35.0 g/dl [facility] Red Cell Distribution Width 11.9 11.0 - 16.0 % [facility] Platelet Count 257 160 - 400 X10*3/uL [facility] Mean Platelet Volume 9.7 9.4 - 12.3 fL [facility] Neutrophils Percent Auto 71.8 45 - 73 % [facility] Imm Gran Pct Auto 0.4 0.0 - 0.4 % [facility] Lymphocytes Percent Auto 20.0 20 - 40 % [facility] Monocytes Percent Auto 6.4 2 - 11 % [facility] Eosinophils Percent Auto 1.0 0 - 4 % [facility] Basophils Percent Auto 0.4 0 - 2 % [facility] NRBC Pct Auto 0.0 0.0 - 0.2 /100WBC [facility] Neutrophils Absolute Auto 7.0 2.0 - 8.3 x10*3/uL [facility] Imm Gran Abs Auto 0.04(H) 0.00 - 0.03 X10*3/uL [facility] Lymphocytes Absolute Auto 1.9 1.2 - 4.9 X10*3/uL [facility] Monocytes Absolute Auto 0.6 0.1 - 1.2 X10*3/uL [facility] Eosinophils Absolute Auto 0.1 0.0 - 0.4 X10*3/uL [facility] Basophils Absolute Auto 0.0 0.0 - 0.2 X10*3/uL [facility] NRBC Abs Auto 0.000 0.0 - 0.012 X10*3/uL [facility] 03/08/2025 12:1 7 PM EDT 03/08/2025 12:20 PM EDT us Generic External Data Provider LAB BLOOD ORDERAB LES Final Result Performing Organization Address City/State/[facility] Co de Phone Number [facility] [address] [place] [phone] documented in this encounter Visit Diagnoses Not on filedocumented in this encounter Additional Health Concerns Assessment Noted Time PHQ-9 Depression Total Score: 8 03/07/20 25 9:56 AM EDT documented as of this encounter Care Teams Order Expediter Relationship Specialty Start Date End Date Mitzi Cantu MD [address] [place] [address] PCP - General Family Medicine 06/02/18 Christa Kwan PharmD [address] [place] [address] Pharmacist Internal Medicine 07/16/22 Zi Cotton MD [address] [place] [address] Vascular Surgery 04/22/24 Gamal Quiñonez MD [address]rd [place] [address] Cardiology 04/28/24 documented as of this encounter
--- OUTSIDE RECORDS SUMMARY | 2025-03-08 18:45 | XMS_ITS | Encounter Summary ---
Author Organization [employer] Address [address] [place] [address] 7t [place] [address] Care Team Providers Care Third Helper Name Role Phone Mitzi Cantu MD Primary Care Provider + [phone] Christa Kwan PharmD Unavailable [phone] Zi Cotton MD Unavailable Gamal Quiñonez MD Unavailable [phone] Encounter Details Date Type Department Care Team (Late st Contact Info) Description 05/20/2022 Orders Only [facility] [address] [place], [place] [phone] Deepa Henao LPN Social History Tobacco Use [...] on filedocumented in this encounter Care Teams Third Helper Relationship Specialty Start Date End Date Mitzi Cantu MD [address] [place], [place] [phone] PCP - General Family Medicine 06/02/18 Christa Kwan, PharmD [address] [place], [place] [phone] Pharmacist Internal Medicine 07/16/22 Zi Cotton MD [address] [place] [address] Vascular Surgery 04/22/24 Gamal Quiñonez MD [address] 3rd [place] [address] Cardiology 04/28/24 documented as of this encounter
--- OUTSIDE RECORDS SUMMARY | 2025-03-08 18:45 | XMS_ITS | Encounter Summary ---
Author Organization [employer] Address [address] [facility] [address] [place] [address] Care Team Providers Care Salesperson Florist Supplies Name Role Phone Cache, Mitzi RODAS Primary Care Provider + [phone] Christa Kwan PharmD Unavailable [phone] Zi Cotton MD Unavailable Gamal Quiñonez MD Unavailable [phone] Reason for Visit * Reason Comments Med Refill Encounter Details Date Type Department Care Team (Late st Contact Info) Description 05/11/2024 Refill [facility] [address] [place], [place] [id number] Christa Kwan, PharmD [address] [place] [address] Social History Tobacco Use Types Packs/Day Years [...] documented as of this encounter Care Teams Salesperson Florist Supplies Relationship Specialty Start Date End Date Mitzi Cantu MD [address] [place] [address] PCP - General Family Medicine 06/02/18 Christa Kwan, CrisD [address] [place] [address] Pharmacist Internal Medicine 07/16/22 Zi Cotton MD [address] [place] [address] Vascular Surgery 04/22/24 Gamal Quiñonez MD [address] [place] [address] Cardiology 04/28/24 documented as of this encounter
--- OUTSIDE RECORDS SUMMARY | 2025-03-08 18:45 | XMS_ITS | Encounter Summary ---
Author Organization [employer] Address [address] [place] [address] [address] [place] [address] Care Team Providers Care Business Intelligence Consultant Name Role Phone Sharkey, Mitzi RODAS Primary Care Provider + [phone] Christa Kwan PharmD Unavailable Zi Cotton MD Unavailable Gamal Quiñonez MD Unavailable [phone] Reason for Visit * Reason Comments Med Refill Encounter Details Date Type Department Care Team (Late st Contact Info) Description 01/03/2023 Refill [facility] [address] [place], [place] [phone] Christa Kwan, PharmD [address] [place] [address] Type II diabetes mellitus with neurological manifestations [...] documented as of this encounter Care Teams Business Intelligence Consultant Relationship Specialty Start Date End Date Mitzi Cantu MD [address] [place] [address] PCP - General Family Medicine 06/02/18 Christa Kwan, PharmD [address] [place] [address] Pharmacist Internal Medicine 07/16/22 Zi Cotton MD [address] [place] [address] Vascular Surgery 04/22/24 Gamal Quiñonez MD [address]rd [place] [address] Cardiology 04/28/24 documented as of this encounter
[2025-03-08 19:36] VITALS: BP 150/74; PULSE 109; RESP 20; TEMP 37.2; O2SAT 94
[2025-03-08 19:50] LABS: Appearance Urine Clear; Glucose Urine UA >=1000 mg/dL (Negative); PH 6.5 (5.0-9.0); Specific Gravity - Urine >= 1.030 (1.005-1.025); UMIC TRIGGER UACC YES
--- NOTE | 2025-03-08 21:18 | PM.IMHP ---
History of Present Illness Date of Service: 03/08/25 Chief Complaint: Flank pain 69-year-old female with a past medical history of hypertension, hyperlipidemia, diabetes, peripheral vascular disease presented to the hospital with a chief complaint of right flank pain. Patient right flank pain vomiting. Increased pain hence presented to the ER for further evaluation. Denies any burning. Denies any hematuria. Denies any chest pain or palpitations. Review of all other systems is negative except mentioned above ER course: Per ER team, patient on the right flank tenderness; CT scan showed findings concerning for 0.6x0.3 cm right-sided nephrolithiasis in the UVJ junction associated with hydronephrosis and hydroureter. Urology was notified-recommended admission to the medicine service and pain control. No UTI. No LESTER. [facility] Medical History Vitamin D deficiency Hypertriglyceridemia HLD (hyperlipidemia) Non-cardiac chest pain Cerebrovascular accident HTN (hypertension) Type 2 diabetes mellitus Family History Father Heart disease Mother Diabetes Hypertension High cholesterol Renal failure Brother Diabetes Brother Diabetes Sister Diabetes Surgical History Status post angioplasty Hx of colonoscopy History of hysterectomy Social History Alcohol intake: never Patient Tobacco Use Status: Former Tobacco user Smoked in Last 30 Days: No Use of substances other than those prescribed or required for medical reasons: No Advance Directives: No Advance Directives Information Provided: No Do you have a plan to hurt others: No Plan Meds Allergies Allergy/AdvReac Type Severity Reaction Status Date / Time No Known Allergies Allergy Mild NOT Verified 03/08/25 12:08 APPLICABLE Active Medications: Current Medications Sodium Chloride (Ns) 1,000 mls @ 999 mls/hr IV .Q1H1M DANIELE Stop: 03/08/25 22:00 Home Medications ?Medication ?Instructions ?Recorded ?Confirmed ?Last Taken ?Type aspirin 81 mg tablet,delayed 81 mg PO DAILY 08/01/20 02/26/23 02/09/25 05:15 History release atorvastatin 20 mg tablet (Lipitor) 20 mg PO BEDTIME 08/01/20 02/26/23 09/07/20 History fenofibrate 160 mg tablet 160 mg PO BEDTIME 08/01/20 02/26/23 09/07/20 History glipizide 5 mg tablet 5 mg PO DAILY 08/01/20 02/26/23 09/08/20 History hydrochlorothiazide 25 mg tablet 25 mg PO DAILY 08/01/20 02/26/23 02/09/25 05:15 History cyanocobalamin (vitamin B-12) 1 tab PO DAILY 09/08/20 02/26/23 02/09/25 05:15 History 1,000 mcg tablet hydralazine 25 mg tablet 25 mg PO BID 09/08/20 02/26/23 02/09/25 05:15 History losartan 100 mg tablet 100 mg PO DAILY 09/08/20 02/26/23 02/09/25 05:15 History metformin 500 mg tablet,extended 1,000 mg PO BID 09/08/20 02/26/23 09/08/20 History release 24 hr 1000 nifedipine 30 mg tablet,extended 30 mg PO BID 09/08/20 02/26/23 02/09/25 05:15 History release 24 hr potassium citrate 15 mEq (1,620 1 tab PO BID 09/08/20 02/26/23 02/09/25 05:15 History mg) tablet,extended release propranolol 120 mg capsule,24 120 mg PO DAILY 09/08/20 02/26/23 02/09/25 05:15 History hr,extended release blood sugar diagnostic (FreeStyle #10 ea 12/14/20 12/14/20 Unknown History Lite Strips) blood-glucose meter (FreeStyle #1 ea 12/14/20 12/14/20 Unknown History Lite Meter kit) lancets 28 gauge (FreeStyle #100 ea 12/14/20 12/14/20 Unknown History Lancets) dulaglutide 0.75 mg/0.5 mL mg subcut 04/02/22 02/26/23 02/01/25 History subcutaneous pen injector (Trulicity) escitalopram oxalate 5 mg tablet mg PO 04/02/22 02/26/23 02/09/25 05:15 History omeprazole 20 mg capsule,delayed 20 mg PO 02/26/23 02/26/23 02/09/25 05:15 History release Physical Exam Vital Signs and Narrative: Vital Signs: Last Vital Signs Temp 98.9 F 03/08/25 19:36 Pulse 109 H 03/08/25 19:36 Resp 20 03/08/25 19:36 BP 150/74 H 03/08/25 19:36 Pulse Ox 94 03/08/25 19:36 O2 Del Method Room Air 03/08/25 19:36 BMI result Body Mass Index 27.3 Gen: Appears be in no acute distress HEENT: NCAT, Moist mucosa. Pulmonary: Vesicular breath sounds, fair air entry CVS: Normal S1-S2 Abdomen: BS+, Soft, tender in the right flank Extremities: Warm well perfused Neuro: Alert and awake. Results Labs 03/08/25 12:17 03/08/25 12:17 Labs: Laboratory Results - last 24 hr 03/08/25 03/08/25 03/08/25 12:17 17:58 19:44 MCV 85.3 MCH 30.3 MCHC 35.5 H RDW 11.9 Plt Count 257 MPV 9.7 Immature Gran % (Auto) 0.4 Neut % (Auto) 71.8 Lymph % (Auto) 20.0 Pratt % (Auto) 6.4 Eos % (Auto) 1.0 Baso % (Auto) 0.4 Lymph # (Auto) 1.9 Pratt # (Auto) 0.6 Eos # (Auto) 0.1 Baso # (Auto) 0.0 Abs Immat Gran (auto) 0.04 H Absolute Neuts (auto) 7.0 Absolute Nucleated RBC 0.000 Nucleated RBC % (auto) 0.0 Anion Gap 13 Estim Creat Clear Calc 61.2 Estimated GFR > 60 POC Glucose 256 H Random Glucose 255 H Calcium 9.4 Total Bilirubin 0.2 AST 15 ALT 16 Alkaline Phosphatase 85 Total Protein 7.2 Albumin 4.5 Lipase 55 Urine Color Yellow Urine Appearance Clear Urine pH 6.5 Ur Specific Edson >= 1.030 H Urine Protein Trace Urine Glucose (UA) >=1000 H Urine Ketones 15 Urine Blood Large (3+) H Urine Nitrite Negative Ur Leukocyte Esterase Negative Urine RBC >20 H Urine WBC 0-5 Ur Squamous Epith Cells 0-2 Urine Bacteria None Seen Hyaline Casts 0-2 Assessment and Plan (1) Nephrolithiasis: Status: Acute Plan 69-year-old female with a past medical history of hypertension, hyperlipidemia, diabetes, peripheral vascular disease presented to the hospital with a chief complaint of right flank pain. Noted to have right-sided UVJ stone with hydronephrosis and hydroureter. UVJ nephrolithiasis: Right-sided hydroureter/hydronephrosis: No evidence of UTI or LESTER. Urology team was notified Pain control Monique ramirez Diabetes: Insulin sliding scale Hypertension: Resume home meds once med rec is finished with the pharmacy in a.m.. DVT prophylaxis: Lovenox Code status: Full code Quality Stroke Does the patient have a stroke diagnosis?: No VTE Prior VTE?: No VTE Risk Level:: Medical - moderate - high VTE Device Contraindication: Treatment Not Indicated VTE Drug Contraindication: N/A - Med Ordered
[2025-03-08 21:46] VITALS: BP 129/72; PULSE 112; RESP 15; TEMP 36.6; O2SAT 98
--- NOTE | 2025-03-08 21:53 | PHA.MEDREC ---
Addendum entered by Lavonne Singleton [facility] 03/09/25 10:42: Daughter confirmed patient is not taking glipizide. Addendum entered by Enzo Lindo [facility] 03/08/25 22:09: Med rec reviewed, pt unsure if she still takes glipized 5 mg, pt's daughter will follow up in am Original Note: Pharmacy Consult ? Medication Reconciliation Pharmacy has completed the medication reconciliation. Spoke to patent through daughter at bedside interpreting. Patient states she is not taking Meclizine 25 mg. Patient confirmed Trulicity 3 mg ever Friday, last dose was today. Patient had all her medications yesterday except Trulicity and Cilostazol 100 mg was today.
[2025-03-08 21:54] LABS: Glucose, Whole Blood 211 mg/dL (60-115)
[2025-03-09] VITALS (13 sets, daily range): BP systolic 125–160; BP diastolic 62–86; PULSE 92–110; RESP 12–18; TEMP 36.3–37.5; O2SAT 92–99; BMI 29.2
[2025-03-09 05:13] LABS: Alanine Aminotransferase 10 U/L (0-31); Albumin Level 3.6 g/dL (3.5-5.0); Alkaline Phosphatase 51 U/L (39-117); Anion Gap 15 (12-20); Aspartate Amino Transferase 20 U/L (5-31); Blood Urea Nitrogen 20 mg/dL (9-16); Calcium 8.1 mg/dL (8.4-10.2); Carbon Dioxide 21 mmol/L (22-29); Chloride 110 mmol/L (96-108); Creatinine Clr Calc Pharmacy 65.0; Estimated Glomerular Filt Rate > 60; Potassium 3.8 mmol/L (3.3-5.1); Sodium 142 mmol/L (135-145); Total Protein 6.2 g/dL (6.5-8.0)
[2025-03-09 07:26] LABS: Glucose, Whole Blood 142 mg/dL (60-115)
--- NOTE | 2025-03-09 07:31 | HO.NURTONUR ---
Addendum entered by Deepa Hood RN 03/09/25 07:42: On 2L to maintain sats >94. Using commode at bedside. Medicated now with dilaudid. Original Note: Pt alert and oriented x4. Admit for hydronephrosis and kidney stone. RLQ pain now 12/09. Blood glucose 142 this morning. Refusing food r/t pain. Uses walker at home. Room air at baseline.
--- NOTE | 2025-03-09 10:02 | P.CONAN_ITS ---
Documented by User: Mary Keene NP 03/09/25 10:04 HPI - Anesthesia Eval Consult details Narrative: 69 yr old female for right Cystoscopy, Ureteroroscopy, Retro, Laser High triglycerides: >600 PAD: follows with [facility], currently on conservative mgt plan Anesthesia Pre-Procedure Meds Is the patient on any of the following meds?: GLP1/DPP4 PMFSH Active Problems Active Problems: All Active Problems Nephrolithiasis (Acute) Nephrolithiasis (Acute) Calcific tendinitis of right shoulder (Acute) Osteoarthritis of left shoulder (Acute) COVID-19 (Acute) Vitamin D deficiency (Acute) Hypertriglyceridemia (Acute) HLD (hyperlipidemia) (Acute) HTN (hypertension) (Acute) Type 2 diabetes mellitus (Acute) PAD (peripheral artery disease) (Acute) Past Medical History Medical History Vitamin D deficiency Hypertriglyceridemia HLD (hyperlipidemia) Non-cardiac chest pain Cerebrovascular accident HTN (hypertension) Type 2 diabetes mellitus Family History Family History Father Heart disease Mother Diabetes Hypertension High cholesterol Renal failure Brother Diabetes Brother Diabetes Sister Diabetes Surgical History Surgical History Status post angioplasty Hx of colonoscopy History of hysterectomy Social History Social History Household Members: Family Housing: House Do you presently have visiting nurse or other home services: Yes Alcohol intake: never Patient Tobacco Use Status: Former Tobacco user Smoked in Last 30 Days: No Use of substances other than those prescribed or required for medical reasons: No Have you been hit, kicked, punched, or otherwise hurt by someone within the past year? If so, by whom?: No Advance Directives: No Advance Directives Information Provided: No Do you have a plan to hurt others: No Plan Recently lost weight without trying: No Nutrition Risks: No Nutritional Risk Patient : No : No Poor oral hygiene: No service: No Meds Allergies Allergy/AdvReac Type Severity Reaction Status Date / Time No Known Allergies Allergy Mild NOT Verified 03/08/25 12:08 APPLICABLE Active Medications: Current Medications Acetaminophen (Acetaminophen 325 Mg Tablet) 650 mg PO Q6H PRN PRN Reason: Pain, Mild 1-3,fever,headache Aspirin (Aspirin Enteric Coated 81 Mg Tablet.Dr) 81 mg PO DAILY [facility] Last Admin: 03/09/25 09:31 Dose: Not Given Atorvastatin Calcium (Atorvastatin Calcium 80 Mg Tablet) 80 mg PO DAILY [facility] Last Admin: 03/09/25 09:31 Dose: Not Given Benzonatate (Benzonatate 100 Mg Capsule) 100 mg PO TID PRN PRN Reason: Cough Calcium Carbonate (Calcium Carbonate 750 Mg Tab.Chew) 750 mg PO Q4H PRN PRN Reason: Heartburn Calcium Carbonate/Cholecalciferol (Calcium + Vitamin D 250 Mg Tablet) 500 mg PO BID [facility] Last Admin: 03/09/25 09:31 Dose: Not Given Cilostazol (Cilostazol 100 Mg Tablet) 100 mg PO BID [facility] Last Admin: 03/09/25 09:32 Dose: Not Given Cyanocobalamin (Cyanocobalamin (Vitamin B-12) 1,000 Mcg Tablet) 1,000 mcg PO DAILY [facility] Last Admin: 03/09/25 09:32 Dose: Not Given Dextrose (Dextrose 50 % 25 Gm/50 Ml Syringe) 25 gm IVPUSH Q15M PRN; Protocol PRN Reason: per Hypoglycemia Standing Ord. Enoxaparin Sodium (Enoxaparin Sodium 40 Mg/0.4 Ml Syringe) 40 mg SUBCUT Q24H [facility] Last Admin: 03/08/25 21:32 Dose: 40 mg Escitalopram Oxalate (Escitalopram Oxalate 5 Mg Tablet) 5 mg PO DAILY [facility] Last Admin: 03/09/25 09:32 Dose: Not Given Fenofibrate (Fenofibrate 160 Mg Tablet) 160 mg PO BEDTIME [facility] Glucose (Glucose Gel 15 Gm Gel..Gram.) 15 gm PO Q15M PRN; Protocol PRN Reason: per Hypoglycemia Standing Ord. Hydralazine HCl (Hydralazine Hcl 25 Mg Tablet) 25 mg PO BID [facility]; Protocol Last Admin: 03/09/25 09:32 Dose: Not Given Hydromorphone HCl (Hydromorphone Hcl 0.5 Mg/0.5 Ml Syringe) 0.2 mg IVPUSH Q4H PRN; Protocol PRN Reason: Pain, Severe (Pain Scale 7-10) Last Admin: 03/09/25 07:38 Dose: 0.2 mg Insulin Human Lispro (Insulin Lispro 100 Unit/Ml 3 Ml Vial) 0 unit SUBCUT QIDACHS [facility]; Protocol Last Admin: 03/09/25 08:19 Dose: Not Given Latanoprost (Latanoprost 0.005 % Ophth Luz 2.5 Ml Drops) 1 drop EYE-BOTH BEDTIME [facility] Losartan Potassium (Losartan Potassium 50 Mg Tablet) 100 mg PO DAILY [facility]; Protocol Last Admin: 03/09/25 09:32 Dose: Not Given Magnesium Hydroxide (Milk Of Magnesia 30 Ml Oral.Susp) 30 ml PO DAILY PRN PRN Reason: Constipation Melatonin (Melatonin 3 Mg Tablet) 6 mg PO BEDTIME PRN PRN Reason: Insomnia Nifedipine (Nifedipine Er 30 Mg Tab.Er.24) 30 mg PO BID [facility]; Protocol Last Admin: 03/09/25 09:32 Dose: Not Given Non-Formulary Medication (Potassium Citrate) 15 meq PO BID [facility] Omeprazole (Omeprazole 20 Mg Capsule.Dr) 20 mg PO DAILY@0630 [facility] Polyethylene Glycol (Polyethylene Glycol 3350 17 Gm Powd.Pack) 17 gm PO DAILY PRN PRN Reason: Constipation Propranolol HCl (Propranolol Hcl La 60 Mg Cap.Sa.24h) 120 mg PO DAILY [facility]; Protocol Last Admin: 03/09/25 09:32 Dose: Not Given Sodium Chloride (0.9 % Sodium Chloride Flush 3 Ml Syringe) 3 ml IVFLUSH QSHIFT [facility] Last Admin: 03/09/25 00:00 Dose: 3 ml Vitamin D (Cholecalciferol (Vitamin D3) 25 Mcg Tablet) 25 mcg PO DAILY [facility] Last Admin: 03/09/25 09:31 Dose: Not Given Home Medications ?Medication ?Instructions ?Recorded ?Confirmed ?Last Taken ?Type aspirin 81 mg tablet,delayed 81 mg PO DAILY 08/01/20 1 03/07/25 History release fenofibrate 160 mg tablet 160 mg PO BEDTIME 08/01/20 1 03/07/25 History hydrochlorothiazide 25 mg tablet 25 mg PO DAILY 03/08/25 03/07/25 History cyanocobalamin (vitamin B-12) 1 tab PO DAILY 09/08/20 03/08/25 03/07/25 History 1,000 mcg tablet hydralazine 25 mg tablet 25 mg PO BID 09/08/2003/07/25 History losartan 100 mg tablet 100 mg PO DAILY 09/08/2012/2403/07/25 History metformin 500 mg tablet,extended 1,000 mg PO DAILY 02/2003/09/25 03/07/25 History release 24 hr nifedipine 30 mg tablet,extended 30 mg PO BID 09/08/20 03/08/25 03/07/25 History release 24 hr propranolol 120 mg capsule,24 120 mg PO DAILY 09/08/20 03/08/25 03/07/25 History hr,extended release blood sugar diagnostic (FreeStyle #10 ea 12/14/2011/30 Unknown History Lite Strips) blood-glucose meter (FreeStyle #1 ea 12/14/20 12/14/20 Unknown History Lite Meter kit) lancets 28 gauge (FreeStyle #100 ea 12/14/20 12/14/20 Unknown History Lancets) omeprazole 20 mg capsule,delayed 20 mg PO DAILY@0630 0 02/26/23 03/08/25 03/07/25 History release atorvastatin 80 mg tablet 80 mg PO DAILY 03/08/2512/2403/07/25 History calcium 600 mg (as 1 tab PO BID 03/08/2503/07/25 History carbonate)-vitamin D3 10 mcg (400 unit) tablet cholecalciferol (vitamin D3) 25 25 mcg PO DAILY 03/08/25 03/07/25 History mcg (1,000 unit) capsule (Vitamin D3) dulaglutide 3 mg/0.5 mL 3 mg subcut TU 03/08/2512/2403/08/25 History subcutaneous pen injector (Trulicity) escitalopram oxalate 5 mg tablet 5 mg PO DAILY 5 03/08/25 03/07/25 History latanoprost 0.005 % eye drops 1 drp ophthalmic (eye) B EDTIME 03/08/25 03/08/25 03/07/25 History potassium citrate 15 mEq (1,620 15 meq PO BID 03/08/25 03/08/25 03/07/25 History mg) tablet,extended release Exam Height,Weight and Vital Signs: Height 4 ft 11 in Weight 65.5 kg Last Vital Signs Temp 97.4 F 03/09/25 08:50 Pulse 102 H 10/08/25 08:50 Resp 18 03/09/25 08:50 BP 156/84 H 03/09/25 08:50 Pulse Ox 97 03/09/25 08:50 O2 Del Method Nasal Cannula 03/09/25 08:50 O2 Flow Rate 2 03/09/25 08:50 Pertinent Lab Results Pertinent Lab Results: Laboratory Tests 03/08/25 03/08/25 03/08/25 12:17 17:58 19:44 WBC 9.7 RBC 4.09 L Hgb 12.4 Hct 34.9 L MCV 85.3 MCH 30.3 MCHC 35.5 H RDW 11.9 Plt Count 257 MPV 9.7 Immature Gran % (Auto) 0.4 Neut % (Auto) 71.8 Lymph % (Auto) 20.0 [place] % (Auto) 6.4 Eos % (Auto) 1.0 Baso % (Auto) 0.4 Lymph # (Auto) 1.9 [place] # (Auto) 0.6 Eos # (Auto) 0.1 Baso # (Auto) 0.0 Abs Immat Gran (auto) 0.04 H Absolute Neuts (auto) 7.0 Absolute Nucleated RBC 0.000 Nucleated RBC % (auto) 0.0 Sodium 139 Potassium 3.8 Chloride 103 Carbon Dioxide 27 Anion Gap 13 BUN 24 H Creatinine 0.68 Estim Creat Clear Calc 61.2 Estimated GFR > 60 POC Glucose 256 H Random Glucose 255 H Calcium 9.4 Total Bilirubin 0.2 AST 15 ALT 16 Alkaline Phosphatase 85 Total Protein 7.2 Albumin 4.5 Lipase 55 Urine Color Yellow Urine Appearance Clear Urine pH 6.5 Ur Specific [place] >= 1.030 H Urine Protein Trace Urine Glucose (UA) >=1000 H Urine Ketones 15 Urine Blood Large (3+) H Urine Nitrite Negative Ur Leukocyte Esterase Negative Urine RBC >20 H Urine WBC 0-5 Ur Squamous Epith Cells 0-2 Urine Bacteria None Seen Hyaline Casts 0-2 03/08/25 03/09/25 03/09/25 21:50 04:10 07:21 WBC RBC Hgb Hct MCV MCH MCHC RDW Plt Count MPV Immature Gran % (Auto) Neut % (Auto) Lymph % (Auto) [place] % (Auto) Eos % (Auto) Baso % (Auto) Lymph # (Auto) [place] # (Auto) Eos # (Auto) Baso # (Auto) Abs Immat Gran (auto) Absolute Neuts (auto) Absolute Nucleated RBC Nucleated RBC % (auto) Sodium 142 Potassium 3.8 Chloride 110 H Carbon Dioxide 21 L Anion Gap 15 BUN 20 H Creatinine 0.64 Estim Creat Clear Calc 65.0 Estimated GFR > 60 POC Glucose 211 H 142 H Random Glucose 151 H Calcium 8.1 L D Total Bilirubin 0.3 AST 20 ALT 10 Alkaline Phosphatase 51 Total Protein 6.2 L Albumin 3.6 Lipase Urine Color Urine Appearance Urine pH Ur Specific [place] Urine Protein Urine Glucose (UA) Urine Ketones Urine Blood Urine Nitrite Ur Leukocyte Esterase Urine RBC Urine WBC Ur Squamous Epith Cells Urine Bacteria Hyaline Casts Documented by User: Garland Broussard MD 03/09/25 16:36 [facility] Past Medical History Medical History Vitamin D deficiency Hypertriglyceridemia HLD (hyperlipidemia) Non-cardiac chest pain Cerebrovascular accident HTN (hypertension) Type 2 diabetes mellitus Family History Family History Father Heart disease Mother Diabetes Hypertension High cholesterol Renal failure Brother Diabetes Brother Diabetes Sister Diabetes Family history of problems with anesthesia: No Surgical History Surgical History Status post angioplasty Hx of colonoscopy History of hysterectomy History of Problems with Anesthesia: No Social History Social History Household Members: Family Housing: House Do you presently have visiting nurse or other home services: Yes Alcohol intake: never Patient Tobacco Use Status: Former Tobacco user Smoked in Last 30 Days: No Use of substances other than those prescribed or required for medical reasons: No Have you been hit, kicked, punched, or otherwise hurt by someone within the past year? If so, by whom?: No Advance Directives: No Advance Directives Information Provided: No Do you have a plan to hurt others: No Plan Recently lost weight without trying: No Nutrition Risks: No Nutritional Risk Patient : No : No Poor oral hygiene: No service: No Meds Allergies Allergy/AdvReac Type Severity Reaction Status Date / Time No Known Allergies Allergy Mild NOT Verified 03/08/25 12:08 APPLICABLE Home Medications ?Medication ?Instructions ?Recorded ?Confirmed ?Last Taken ?Type aspirin 81 mg tablet,delayed 81 mg PO DAILY 08/01/20 1 03/07/25 History release fenofibrate 160 mg tablet 160 mg PO BEDTIME 08/01/20 1 03/07/25 History hydrochlorothiazide 25 mg tablet 25 mg PO DAILY 03/08/25 03/07/25 History cyanocobalamin (vitamin B-12) 1 tab PO DAILY 09/08/20 03/08/25 03/07/25 History 1,000 mcg tablet hydralazine 25 mg tablet 25 mg PO BID 09/08/2003/07/25 History losartan 100 mg tablet 100 mg PO DAILY 09/08/2012/2403/07/25 History metformin 500 mg tablet,extended 1,000 mg PO DAILY 02/2003/09/25 03/07/25 History release 24 hr nifedipine 30 mg tablet,extended 30 mg PO BID 09/08/20 03/08/25 03/07/25 History release 24 hr propranolol 120 mg capsule,24 120 mg PO DAILY 09/08/20 03/08/25 03/07/25 History hr,extended release blood sugar diagnostic (FreeStyle #10 ea 12/14/2011/30 Unknown History Lite Strips) blood-glucose meter (FreeStyle #1 ea 12/14/20 12/14/20 Unknown History Lite Meter kit) lancets 28 gauge (FreeStyle #100 ea 12/14/20 12/14/20 Unknown History Lancets) omeprazole 20 mg capsule,delayed 20 mg PO DAILY@0630 0 02/26/23 03/08/25 03/07/25 History release atorvastatin 80 mg tablet 80 mg PO DAILY 03/08/25 1012/2403/07/25 History calcium 600 mg (as 1 tab PO BID 03/08/2503/07/25 History carbonate)-vitamin D3 10 mcg (400 unit) tablet cholecalciferol (vitamin D3) 25 25 mcg PO DAILY 03/08/25 03/07/25 History mcg (1,000 unit) capsule (Vitamin D3) dulaglutide 3 mg/0.5 mL 3 mg subcut TU 03/08/25 1012/2403/08/25 History subcutaneous pen injector (Trulicity) escitalopram oxalate 5 mg tablet 5 mg PO DAILY 5 03/08/25 03/07/25 History latanoprost 0.005 % eye drops 1 drp ophthalmic (eye) B EDTIME 03/08/25 03/08/25 03/07/25 History potassium citrate 15 mEq (1,620 15 meq PO BID 03/08/25 03/08/25 03/07/25 History mg) tablet,extended release Exam Airway Mallampati Class: II TM Dist: >3cm Neck ROM: Full Denture: Upper and Lower Heart: ok Lungs: ok Assessment and Plan Assessment Anesthesia Assessment: Anesthesia Plan Discussed and Chart Reviewed Final Anesthetic Review Family History of Problems with Anesthesia: No History of Problems with Anesthesia: No NPO: Yes ASA Class: III Final Preanesthetic Review: No Changes in Pt Med Stat, Meds/Allgs Chart Reviewed, Consent Obtained/Reviewed and Anes Risks/Benef Reviewed Patient Risk: Intermediate Procedure Risk: Low Anesthetic Plan Anesthetic Plan: GA and Agree w/ Assess. and Plan Disposition: Standard PACU
[2025-03-09] MEDS: 0.9 % Sodium Chloride Flush 3 ML SYRINGE IVFLUSH ×2 (10:28)
--- NOTE | 2025-03-09 11:16 | HO.PM.IMPN ---
Subjective Subjective Date of Service: 03/09/25 Interval History: This history was taken in [place] from the patient. R flank pain controlled. No fever. No hematuria. Review of Systems Review of Systems: Yes all other systems are reviewed and are negative Physical Exam Vital Signs: Vital Signs: Last Vital Signs Temp 97.4 F 03/09/25 08:50 Pulse 102 H 03/09/25 08:50 Resp 18 03/09/25 08:50 BP 156/84 H 03/09/25 08:50 Pulse Ox 97 03/09/25 08:50 O2 Del Method Nasal Cannula 03/09/25 08:50 O2 Flow Rate 2 03/09/25 08:50 BMI result Body Mass Index 29.2 Gen: in no acute distress HEENT: sclera anicteric, moist mucus membranes Neck: supple Lungs: clear to auscultation bilaterally Heart: regular rate and rhythm, no murmurs Abd: soft, non-tender, non-distended : R flank tenderness Ext: no edema Skin: warm/well-perfused Neuro: alert and oriented x3, no focal findings Psych: appropriate affect Objective Data Active Medications Acetaminophen (Acetaminophen 325 Mg Tablet) 650 mg PO Q6H PRN PRN Reason: Pain, Mild 1-3,fever,headache Aspirin (Aspirin Enteric Coated 81 Mg Tablet.) 81 mg PO DAILY [facility] Last Admin: 03/09/25 09:31 Dose: Not Given Documented By: JUVENAL Non-Admin Reason: NPO Atorvastatin Calcium (Atorvastatin Calcium 80 Mg Tablet) 80 mg PO DAILY [facility] Last Admin: 03/09/25 09:31 Dose: Not Given Documented By: JUVENAL Non-Admin Reason: NPO Benzonatate (Benzonatate 100 Mg Capsule) 100 mg PO TID PRN PRN Reason: Cough Calcium Carbonate (Calcium Carbonate 750 Mg Tab.Chew) 750 mg PO Q4H PRN PRN Reason: Heartburn Calcium Carbonate/Cholecalciferol (Calcium + Vitamin D 250 Mg Tablet) 500 mg PO BID [facility] Last Admin: 03/09/25 09:31 Dose: Not Given Documented By: JUVENAL Non-Admin Reason: NPO Cilostazol (Cilostazol 100 Mg Tablet) 100 mg PO BID [facility] Last Admin: 03/09/25 09:32 Dose: Not Given Documented By: JUVENAL Non-Admin Reason: NPO Cyanocobalamin (Cyanocobalamin (Vitamin B-12) 1,000 Mcg Tablet) 1,000 mcg PO DAILY [facility] Last Admin: 03/09/25 09:32 Dose: Not Given Documented By: JUVENAL Non-Admin Reason: NPO Dextrose (Dextrose 50 % 25 Gm/50 Ml Syringe) 25 gm IVPUSH Q15M PRN; Protocol PRN Reason: per Hypoglycemia Standing Ord. Enoxaparin Sodium (Enoxaparin Sodium 40 Mg/0.4 Ml Syringe) 40 mg SUBCUT Q24H [facility] Last Admin: 03/08/25 21:32 Dose: 40 mg Documented By: GEOVANNA Escitalopram Oxalate (Escitalopram Oxalate 5 Mg Tablet) 5 mg PO DAILY [facility] Last Admin: 03/09/25 09:32 Dose: Not Given Documented By: JUVENAL Non-Admin Reason: NPO Fenofibrate (Fenofibrate 160 Mg Tablet) 160 mg PO BEDTIME [facility] Glucose (Glucose Gel 15 Gm Gel..Gram.) 15 gm PO Q15M PRN; Protocol PRN Reason: per Hypoglycemia Standing Ord. Hydralazine HCl (Hydralazine Hcl 25 Mg Tablet) 25 mg PO BID [facility]; Protocol Last Admin: 03/09/25 09:32 Dose: Not Given Documented By: JUVENAL Non-Admin Reason: NPO Hydromorphone HCl (Hydromorphone Hcl 0.5 Mg/0.5 Ml Syringe) 0.2 mg IVPUSH Q4H PRN; Protocol PRN Reason: Pain, Severe (Pain Scale 7-10) Last Admin: 03/09/25 07:38 Dose: 0.2 mg Documented By: TETE Insulin Human Lispro (Insulin Lispro 100 Unit/Ml 3 Ml Vial) 0 unit SUBCUT QIDACHS [facility]; Protocol Last Admin: 03/09/25 08:19 Dose: Not Given Documented By: TETE Non-Admin Reason: POC normal Latanoprost (Latanoprost 0.005 % Ophth Luz 2.5 Ml Drops) 1 drop EYE-BOTH BEDTIME [facility] Losartan Potassium (Losartan Potassium 50 Mg Tablet) 100 mg PO DAILY [facility]; Protocol Last Admin: 03/09/25 09:32 Dose: Not Given Documented By: JUVENAL Non-Admin Reason: NPO Magnesium Hydroxide (Milk Of Magnesia 30 Ml Oral.Susp) 30 ml PO DAILY PRN PRN Reason: Constipation Melatonin (Melatonin 3 Mg Tablet) 6 mg PO BEDTIME PRN PRN Reason: Insomnia Nifedipine (Nifedipine Er 30 Mg Tab.Er.24) 30 mg PO BID [facility]; Protocol Last Admin: 03/09/25 09:32 Dose: Not Given Documented By: JUVENAL Non-Admin Reason: NPO Non-Formulary Medication (Potassium Citrate) 15 meq PO BID [facility] Omeprazole (Omeprazole 20 Mg Capsule.Dr) 20 mg PO DAILY@0630 [facility] Polyethylene Glycol (Polyethylene Glycol 3350 17 Gm Powd.Pack) 17 gm PO DAILY PRN PRN Reason: Constipation Propranolol HCl (Propranolol Hcl La 60 Mg Cap.Sa.24h) 120 mg PO DAILY [facility]; Protocol Last Admin: 03/09/25 09:32 Dose: Not Given Documented By: JUVENAL Non-Admin Reason: NPO Sodium Chloride (0.9 % Sodium Chloride Flush 3 Ml Syringe) 3 ml IVFLUSH QSHIFT [facility] Last Admin: 03/09/25 10:28 Dose: 3 ml Documented By: JUVENAL Vitamin D (Cholecalciferol (Vitamin D3) 25 Mcg Tablet) 25 mcg PO DAILY [facility] Last Admin: 03/09/25 09:31 Dose: Not Given Documented By: JUVENAL Non-Admin Reason: NPO Labs 03/08/25 12:17 03/09/25 04:10 Labs: Laboratory Results - last 24 hr 03/08/25 03/08/25 03/08/25 12:17 17:58 19:44 MCV 85.3 MCH 30.3 MCHC 35.5 H RDW 11.9 Plt Count 257 MPV 9.7 Immature Gran % (Auto) 0.4 Neut % (Auto) 71.8 Lymph % (Auto) 20.0 [place] % (Auto) 6.4 Eos % (Auto) 1.0 Baso % (Auto) 0.4 Lymph # (Auto) 1.9 [place] # (Auto) 0.6 Eos # (Auto) 0.1 Baso # (Auto) 0.0 Abs Immat Gran (auto) 0.04 H Absolute Neuts (auto) 7.0 Absolute Nucleated RBC 0.000 Nucleated RBC % (auto) 0.0 Anion Gap 13 Estim Creat Clear Calc 61.2 Estimated GFR > 60 POC Glucose 256 H Random Glucose 255 H Calcium 9.4 Total Bilirubin 0.2 AST 15 ALT 16 Alkaline Phosphatase 85 Total Protein 7.2 Albumin 4.5 Lipase 55 Urine Color Yellow Urine Appearance Clear Urine pH 6.5 Ur Specific [place] >= 1.030 H Urine Protein Trace Urine Glucose (UA) >=1000 H Urine Ketones 15 Urine Blood Large (3+) H Urine Nitrite Negative Ur Leukocyte Esterase Negative Urine RBC >20 H Urine WBC 0-5 Ur Squamous Epith Cells 0-2 Urine Bacteria None Seen Hyaline Casts 0-2 03/08/25 03/09/25 03/09/25 21:50 04:10 07:21 MCV MCH MCHC RDW Plt Count MPV Immature Gran % (Auto) Neut % (Auto) Lymph % (Auto) [place] % (Auto) Eos % (Auto) Baso % (Auto) Lymph # (Auto) [place] # (Auto) Eos # (Auto) Baso # (Auto) Abs Immat Gran (auto) Absolute Neuts (auto) Absolute Nucleated RBC Nucleated RBC % (auto) Anion Gap 15 Estim Creat Clear Calc 65.0 Estimated GFR > 60 POC Glucose 211 H 142 H Random Glucose 151 H Calcium 8.1 L D Total Bilirubin 0.3 AST 20 ALT 10 Alkaline Phosphatase 51 Total Protein 6.2 L Albumin 3.6 Lipase Urine Color Urine Appearance Urine pH Ur Specific [place] Urine Protein Urine Glucose (UA) Urine Ketones Urine Blood Urine Nitrite Ur Leukocyte Esterase Urine RBC Urine WBC Ur Squamous Epith Cells Urine Bacteria Hyaline Casts Assessment and Plan (1) Ureterovesical junction (UVJ) obstruction: Status: Acute Plan d2, 69yo F with HTN, HLD, DM2, PVD presenting with R flank pain and found to have UVJ stone with hydroureteronephrosis UVJ stone with hydroureteronephrosis: NPO for OR, Urology consulted, pain control with IV hydromorphone, nausea control with IV ondansetron DM2: stefanie-dose lispro HTN: nifedipine, propranolol, losartan, hydralazine HLD: fenofibrate, atorvastatin PVD: cilostazol, ASA mood disorder: escitalopram VTE ppx: enoxaparin dispo: home In my clinical judgment, the patient requires continued inpatient hospitalization for the following reasons: operative intervention Total time managing care of this patient today: 35 minutes. Quality Stroke Does the patient have a stroke diagnosis?: No VTE Prior VTE?: No VTE Risk Level:: Medical - moderate - high VTE Device Contraindication: Treatment Not Indicated VTE Drug Contraindication: N/A - Med Ordered
[2025-03-09 11:29] LABS: Glucose, Whole Blood 149 mg/dL (60-115)
--- NOTE | 2025-03-09 12:28 | PM.UROCN ---
History of Present Illness Consult details Consult date: 03/09/25 Narrative: CC: Right distal ureteric stone with hydro nephrosis 69-year-old female Poorly controlled diabetic Admission with chief complaint of right flank pain Associated nausea and vomiting Denies hematuria or prior stone Imaging - 0.6x0.3 cm right-sided nephrolithiasis in the UVJ junction associated with hydronephrosis and hydroureter. Given size and location recommend intervention with ureteroscopy Review of Systems Constitutional: Constitutional: Reports as per HPI and Reports no additional constitutional complaints Cardiovascular: Cardiovascular: Reports as per HPI and Reports no additional cardiovascular complaints Respiratory: Respiratory: Reports as per HPI and Reports no additional respiratory complaints Gastrointestinal: Gastrointestinal: Reports as per HPI and Reports no additional gastrointestinal complaints Genitourinary: Genitourinary: Reports as per HPI Musculoskeletal: Musculoskeletal: Reports no additional musculoskeletal complaints and Reports as per HPI Neurologic: Reports system reviewed and no additional complaints, except as documented and Reports as per HPI PMFSH Past Medical History Medical History Vitamin D deficiency Hypertriglyceridemia HLD (hyperlipidemia) Non-cardiac chest pain Cerebrovascular accident HTN (hypertension) Type 2 diabetes mellitus Family History Family History Father Heart disease Mother Diabetes Hypertension High cholesterol Renal failure Brother Diabetes Brother Diabetes Sister Diabetes Surgical History Surgical History Status post angioplasty Hx of colonoscopy History of hysterectomy Social History Social History Household Members: Family Housing: House Do you presently have visiting nurse or other home services: Yes Alcohol intake: never Patient Tobacco Use Status: Former Tobacco user service: No Meds Allergies Allergy/AdvReac Type Severity Reaction Status Date / Time No Known Allergies Allergy Mild NOT Verified 03/08/25 12:08 APPLICABLE Active Medications: Current Medications Acetaminophen (Acetaminophen 325 Mg Tablet) 650 mg PO Q6H PRN PRN Reason: Pain, Mild 1-3,fever,headache Aspirin (Aspirin Enteric Coated 81 Mg Tablet.) 81 mg PO DAILY [facility] Last Admin: 03/09/25 09:31 Dose: Not Given Atorvastatin Calcium (Atorvastatin Calcium 80 Mg Tablet) 80 mg PO DAILY [facility] Last Admin: 03/09/25 09:31 Dose: Not Given Benzonatate (Benzonatate 100 Mg Capsule) 100 mg PO TID PRN PRN Reason: Cough Calcium Carbonate (Calcium Carbonate 750 Mg Tab.Chew) 750 mg PO Q4H PRN PRN Reason: Heartburn Calcium Carbonate/Cholecalciferol (Calcium + Vitamin D 250 Mg Tablet) 500 mg PO BID [facility] Last Admin: 03/09/25 09:31 Dose: Not Given Cilostazol (Cilostazol 100 Mg Tablet) 100 mg PO BID [facility] Last Admin: 03/09/25 09:32 Dose: Not Given Cyanocobalamin (Cyanocobalamin (Vitamin B-12) 1,000 Mcg Tablet) 1,000 mcg PO DAILY [facility] Last Admin: 03/09/25 09:32 Dose: Not Given Dextrose (Dextrose 50 % 25 Gm/50 Ml Syringe) 25 gm IVPUSH Q15M PRN; Protocol PRN Reason: per Hypoglycemia Standing Ord. Enoxaparin Sodium (Enoxaparin Sodium 40 Mg/0.4 Ml Syringe) 40 mg SUBCUT Q24H [facility] Last Admin: 03/08/25 21:32 Dose: 40 mg Escitalopram Oxalate (Escitalopram Oxalate 5 Mg Tablet) 5 mg PO DAILY [facility] Last Admin: 03/09/25 09:32 Dose: Not Given Fenofibrate (Fenofibrate 160 Mg Tablet) 160 mg PO BEDTIME [facility] Glucose (Glucose Gel 15 Gm Gel..Gram.) 15 gm PO Q15M PRN; Protocol PRN Reason: per Hypoglycemia Standing Ord. Hydralazine HCl (Hydralazine Hcl 25 Mg Tablet) 25 mg PO BID [facility]; Protocol Last Admin: 03/09/25 09:32 Dose: Not Given Hydromorphone HCl (Hydromorphone Hcl 0.5 Mg/0.5 Ml Syringe) 0.2 mg IVPUSH Q4H PRN; Protocol PRN Reason: Pain, Severe (Pain Scale 7-10) Last Admin: 03/09/25 11:40 Dose: 0.2 mg Insulin Human Lispro (Insulin Lispro 100 Unit/Ml 3 Ml Vial) 0 unit SUBCUT QIDACHS [facility]; Protocol Last Admin: 03/09/25 11:47 Dose: Not Given Latanoprost (Latanoprost 0.005 % Ophth Luz 2.5 Ml Drops) 1 drop EYE-BOTH BEDTIME [facility] Losartan Potassium (Losartan Potassium 50 Mg Tablet) 100 mg PO DAILY [facility]; Protocol Last Admin: 03/09/25 09:32 Dose: Not Given Magnesium Hydroxide (Milk Of Magnesia 30 Ml Oral.Susp) 30 ml PO DAILY PRN PRN Reason: Constipation Melatonin (Melatonin 3 Mg Tablet) 6 mg PO BEDTIME PRN PRN Reason: Insomnia Nifedipine (Nifedipine Er 30 Mg Tab.Er.24) 30 mg PO BID [facility]; Protocol Last Admin: 03/09/25 09:32 Dose: Not Given Non-Formulary Medication (Potassium Citrate) 15 meq PO BID [facility] Omeprazole (Omeprazole 20 Mg Capsule.Dr) 20 mg PO DAILY@0630 [facility] Polyethylene Glycol (Polyethylene Glycol 3350 17 Gm Powd.Pack) 17 gm PO DAILY PRN PRN Reason: Constipation Propranolol HCl (Propranolol Hcl La 60 Mg Cap.Sa.24h) 120 mg PO DAILY [facility]; Protocol Last Admin: 03/09/25 09:32 Dose: Not Given Sodium Chloride (0.9 % Sodium Chloride Flush 3 Ml Syringe) 3 ml IVFLUSH QSHIFT [facility] Last Admin: 03/09/25 10:28 Dose: 3 ml Vitamin D (Cholecalciferol (Vitamin D3) 25 Mcg Tablet) 25 mcg PO DAILY [facility] Last Admin: 03/09/25 09:31 Dose: Not Given Home Medications ?Medication ?Instructions ?Recorded ?Confirmed ?Last Taken ?Type aspirin 81 mg tablet,delayed 81 mg PO DAILY 08/01/20 03/08/25 03/07/25 History release fenofibrate 160 mg tablet 160 mg PO BEDTIME 08/01/20 03/08/25 03/07/25 History hydrochlorothiazide 25 mg tablet 25 mg PO DAILY 08/01/20 03/08/25 03/07/25 History cyanocobalamin (vitamin B-12) 1 tab PO DAILY 09/08/20 03/08/25 03/07/25 History 1,000 mcg tablet hydralazine 25 mg tablet 25 mg PO BID 09/08/20 03/08/25 03/07/25 History losartan 100 mg tablet 100 mg PO DAILY 09/08/20 03/08/25 03/07/25 History metformin 500 mg tablet,extended 1,000 mg PO DAILY 09/08/20 03/09/25 03/07/25 History release 24 hr nifedipine 30 mg tablet,extended 30 mg PO BID 09/08/20 03/08/25 03/07/25 History release 24 hr propranolol 120 mg capsule,24 120 mg PO DAILY 09/08/20 03/08/25 03/07/25 History hr,extended release blood sugar diagnostic (FreeStyle #10 ea 12/14/20 12/14/20 Unknown History Lite Strips) blood-glucose meter (FreeStyle #1 ea 12/14/20 12/14/20 Unknown History Lite Meter kit) lancets 28 gauge (FreeStyle #100 ea 12/14/20 12/14/20 Unknown History Lancets) omeprazole 20 mg capsule,delayed 20 mg PO DAILY@0630 02/26/23 03/08/25 03/07/25 History release atorvastatin 80 mg tablet 80 mg PO DAILY 03/08/25 03/08/25 03/07/25 History calcium 600 mg (as 1 tab PO BID 03/08/25 03/08/25 03/07/25 History carbonate)-vitamin D3 10 mcg (400 unit) tablet cholecalciferol (vitamin D3) 25 25 mcg PO DAILY 03/08/25 03/08/25 03/07/25 History mcg (1,000 unit) capsule (Vitamin D3) dulaglutide 3 mg/0.5 mL 3 mg subcut TU 03/08/25 03/08/25 03/08/25 History subcutaneous pen injector (Trulicity) escitalopram oxalate 5 mg tablet 5 mg PO DAILY 03/08/25 03/08/25 03/07/25 History latanoprost 0.005 % eye drops 1 drp ophthalmic (eye) BEDTIME 03/08/25 03/08/25 03/07/25 History potassium citrate 15 mEq (1,620 15 meq PO BID 03/08/25 03/08/25 03/07/25 History mg) tablet,extended release Physical Exam Vital Signs: Vital Signs: Last Vital Signs Temp 98.3 F 03/09/25 11:26 Pulse 92 03/09/25 11:26 Resp 18 03/09/25 11:26 BP 160/86 H 03/09/25 11:26 Pulse Ox 95 03/09/25 11:26 O2 Del Method Nasal Cannula 03/09/25 11:26 O2 Flow Rate 2 03/09/25 11:26 BMI result Body Mass Index 29.2 Const: General: cooperative, healthy appearing, comfortable and no acute distress Orientation/consciousness: patient oriented x3 HEENT: Face and sinus: Yes normal facial exam Mouth: moist mucous membranes Neck: Neck: Yes normal visual inspection, Yes full ROM and Yes trachea midline Chest: Chest palpation & inspection: normal inspection of the chest Resp: Effort & Inspection: normal respiratory effort, able to speak in complete sentences and no respiratory distress GI: Inspection: Yes normal to inspection Back/Spine/Pelvis: Cervical Spine: normal cervical lordosis Thoracic/Lumbar Spine: thoracic and lumbar spine normal to inspection Skin: General skin exam: no rashes or lesions noted Neuro: General: patient oriented x3, tone normal and moves all extremities Extrem: General: Yes normal to inspection and Yes capillary refill normal Results Labs 03/08/25 12:17 03/09/25 04:10 Labs: Abnormal lab results 03/08/25 03/08/25 03/08/25 Range/Units 12:17 17:58 19:44 Chloride (96-108) mmol/L Carbon Dioxide (22-29) mmol/L BUN 24 H (9-16) mg/dL POC Glucose 256 H (60-115) mg/dL Random Glucose 255 H (60-115) mg/dL Calcium (8.4-10.2) mg/dL Total Protein (6.5-8.0) g/dL Ur Specific [place] >= 1.030 H (1.005-1.025) Urine Glucose (UA) >=1000 H (Negative) mg/dL Urine Blood Large (3+) H (Negative) Urine RBC >20 H (0-2) /HPF 03/08/25 03/09/25 03/09/25 Range/Units 21:50 04:10 07:21 Chloride 110 H (96-108) mmol/L Carbon Dioxide 21 L (22-29) mmol/L BUN 20 H (9-16) mg/dL POC Glucose 211 H 142 H (60-115) mg/dL Random Glucose 151 H (60-115) mg/dL Calcium 8.1 L D (8.4-10.2) mg/dL Total Protein 6.2 L (6.5-8.0) g/dL Ur Specific [place] (1.005-1.025) Urine Glucose (UA) (Negative) mg/dL Urine Blood (Negative) Urine RBC (0-2) /HPF 03/09/25 Range/Units 11:24 Chloride (96-108) mmol/L Carbon Dioxide (22-29) mmol/L BUN (9-16) mg/dL POC Glucose 149 H (60-115) mg/dL Random Glucose (60-115) mg/dL Calcium (8.4-10.2) mg/dL Total Protein (6.5-8.0) g/dL Ur Specific [place] (1.005-1.025) Urine Glucose (UA) (Negative) mg/dL Urine Blood (Negative) Urine RBC (0-2) /HPF BMP 03/08/25 03/09/25 12:17 04:10 Sodium 139 142 Potassium 3.8 3.8 Chloride 103 110 H Carbon Dioxide 27 21 L BUN 24 H 20 H Creatinine 0.68 0.64 Calcium 9.4 8.1 L D Liver Function 03/08/25 03/09/25 Range/Units 12:17 04:10 Total Bilirubin 0.2 0.3 (0.0-1.0) mg/dL AST 15 20 (5-31) U/L ALT 16 10 (0-31) U/L Alkaline Phosphatase 85 51 (39-117) U/L Albumin 4.5 3.6 (3.5-5.0) g/dL Urine 03/08/25 Range/Units 19:44 Urine Color Yellow Urine Appearance Clear Urine pH 6.5 (5.0-9.0) Ur Specific [place] >= 1.030 H (1.005-1.025) Urine Protein Trace (Neg-Trace) mg/dL Urine Glucose (UA) >=1000 H (Negative) mg/dL All other labs normal. Assessment and Plan (1) Ureterovesical junction (UVJ) obstruction: Status: Acute (2) Nephrolithiasis: Status: Acute Plan Ureteroscopy We discussed the nature of the decision and reasonable alternatives for performing ureteroscopy. Options such as medical therapy were discussed. Interventions include chemical dissolution, ESWL, ureteroscopy with laser lithotripsy and stent placement, PCNL. The relative uncertainties and benefits related to each alternate procedure were adequately discussed. General surgical risks including, but not limited to - pain, bleeding, infection, myocardial infarction, pulmonary embolus, deep vein thrombosis and cerebrovascular accident which may result in further hospitalization were discussed. Full disclosure of the procedure as well as all major risks, benefits and complications were discussed including but not limited to damage to the urethra, bladder and kidney infection, damage to the ureter, stent migration or malposition, scarring to the renal pelvis, remnant stone fragments, subsequent stone passage with need for secondary procedures. The overall secondary procedure rate is approximately 10-15%. The overall clearance rate is approximately 90-95%. Success of the procedure in the short-term does not necessarily guarantee that long-term success will be maintained. Suitable follow up will need to be maintained. The patient showed understanding of discussion and wishes to proceed with - cystoscopy, retrograde, ureteroscopy, possible lithotripsy/stone basketing and stent on the cystoscopy, right retrograde, right ureteroscopy with laser lithotripsy side Procedures Date of Service Date of Service: 03/09/25
--- NOTE | 2025-03-09 13:49 | MHC.CM.PN ---
IMM 03/09/25, patient is SSO, She lives with her son, who is her [employer]. PCP is confirmed: Mitzi Cantu MD. HCP is pt.'s son. Pt. uses a cane and said she is working on getting DME of shower chair and grabs bars at home. Pt. is able to arrange a ride home at [place], DCP: home with services. CM to follow and assist with DC plan.
[2025-03-09 16:17] LABS: Glucose, Whole Blood 127 mg/dL (60-115)
--- NOTE | 2025-03-09 16:36 | MHC.SHP ---
Pre-Procedural Eval Section A - 24 Hr Update-Section A only Date of Service: 03/09/25 The patient is an INPATIENT: Yes Changes since office visit: No Cold of Flu in the past 2 weeks, No New Medical Problems, No Changes in Medication and No Patient answered all questions The patient has been examined within 24 hours of the surgical procedure. The History & Physical has been completed within 30 days and I have reviewed it.: Yes Section B - Complete if H&P > 30 days Chief Complaint: hydronephrosis Details of Present Illness: right retrograde, ureteroscopy, laser, stent Allergies: Allergies Allergy/AdvReac Type Severity Reaction Status Date / Time No Known Allergies Allergy Mild NOT Verified 03/08/25 12:08 APPLICABLE Plan I have reviewed the history and physical and performed a pertinent physical examination on my patient. No changes have occurred unless specified. Time Spent With Patient Time: Total time managing care of this patient today ____ minutes.
--- NOTE | 2025-03-09 17:19 | P.OP_ITS ---
Operative Note Operative Note Date of Service: 03/09/25 Narrative: PreOperative Diagnosis: distal right ureteric stone Post Operative Diagnosis: distal right ureteric stone Procedure: - cystoscopy, right retrograde - right dilatation of ureteric orifice under fluoroscopy - right ureteroscopy, laser lithotripsy, stone basketing - right stent placement Surgeon: Dr Jayden Fagan Anesthesia: General Indications for procedure: distal right ureteric stone with hydro - 8mm on CT Procedure: After informed consent was verified the patient was brought to the operating room and placed in a supine position. Anesthesia was administered per protocol. The patient was placed in a modified dorsal lithotomy position and prepped and draped in a sterile fashion. Safety pause time-out and side of surgery were confirmed. Images were available for review. Antibiotic administration confirmed. A 22 [place] cystoscope was inserted per urethra. The urethra was without abnormality. The bladder was normal in its entirety. Both ureteric orifices were seen in normal position. The right ureteric orifice was cannulated and a retrograde examination was performed. filling defect with proximal hydronephrosis seen on retrograde . A Sensor guidewire was placed up to the level of the renal pelvis under fluoroscopy. The rigid cystoscope was removed. A Hugo dilator was placed over the Sensor guidewire and used to dilate the ureteric orifice under fluoroscopy. The dilator was removed. The semi rigid ureteral scope was placed alongside the Sensor guidewire. Stone encountered in distal 2 inches of ureter. Using a 365 micro holmium laser fiber the stone was broken into small pieces using a combination of hammer and dusting techiques using a Quanta holmium laser. Stone fragments were removed from the ureter using a 2.6Fr zero tip basket. Once the fragments were removed a decision was made to place a ureteric stent. Based on the height of the patient a 6 Fr x 22 cm stent was used. The string was removed from the stent prior to placement. A 6 [place] by 22 cm double-J stent was placed into the renal pelvis and bladder under a combination of fluoroscopy and direct visualization. The symphisis pubis was used as a radiographic marker to release the stent and good coil was seen within the bladder confirming position Proximal positioning of the stent was confirmed using fluoroscopy. The bladder was emptied. The patient tolerated the procedure well and was extubated in the operating room. They were transferred in stable condition to the recovery area. Pathology: stones Drains: Double J stent as described above
[2025-03-09 20:30] LABS: Glucose, Whole Blood 180 mg/dL (60-115)
[2025-03-09] MEDS: Calcium + Vitamin D 250 MG TABLET 500 MG PO (21:06)
[2025-03-09] MEDS: NIFEdipine ER 30 MG TAB.ER.24 PO (21:07)
[2025-03-09] MEDS: Latanoprost 0.005 % Ophth Sol 2.5 ML DROPS 1 DROP EYE-BOTH (21:54)
[2025-03-09] MEDS: oxyCODONE HCl Immed Release 5 MG TABLET PO (21:56)
[2025-03-10] MEDS: 0.9 % Sodium Chloride Flush 3 ML SYRINGE IVFLUSH (01:05)
[2025-03-10 04:00] VITALS: BP 124/62; PULSE 102; RESP 16; TEMP 36.6; O2SAT 92
[2025-03-10 07:27] LABS: Glucose, Whole Blood 143 mg/dL (60-115)
[2025-03-10 07:42] VITALS: BP 119/58; PULSE 116; RESP 18; TEMP 36.5; O2SAT 90
[2025-03-10] MEDS: Aspirin Enteric Coated 81 MG TABLET.DR PO (08:20)
[2025-03-10] MEDS: Calcium + Vitamin D 250 MG TABLET 500 MG PO (08:20)
[2025-03-10] MEDS: Propranolol HCL LA 60 MG CAP.SA.24H 120 MG PO (08:20)
[2025-03-10] MEDS: NIFEdipine ER 30 MG TAB.ER.24 PO (08:20)
--- NOTE | 2025-03-10 09:54 | P.DS_ITS ---
DS: Providers Provider Date of Service: 03/10/25 Date of admission: 03/08/25 21:15 Date of discharge: 03/10/25 Primary care physician: Mitzi Cantu MD Consults: 03/08/25 21:15 Consult to Urology Routine Consulting Provider: [facility] Reason for consultation: nephrolithiasis DS: Diagnosis Discharge Diagnosis (1) Ureterovesical junction (UVJ) obstruction: Status: Acute (2) Nephrolithiasis: Status: Acute DS: Summary Hospital Course Hospital Course: From the history and physical by the admitting hospitalist, Roxanna Jane 03/08/25: 69-year-old female with a past medical history of hypertension, hyperlipidemia, diabetes, peripheral vascular disease presented to the hospital with a chief complaint of right flank pain. Patient right flank pain vomiting. Increased pain hence presented to the ER for further evaluation. Denies any burning. Denies any hematuria. Denies any chest pain or palpitations. Review of all other systems is negative except mentioned above ER course: Per ER team, patient on the right flank tenderness; CT scan showed findings concerning for 0.6x0.3 cm right-sided nephrolithiasis in the UVJ junction associated with hydronephrosis and hydroureter. Urology was notified-recommended admission to the medicine service and pain control. No UTI. No LESTER. 69yo F with HTN, HLD, DM2, PVD presenting with R flank pain and found to have UVJ stone with hydroureteronephrosis. Admitted to the hospitalist service with Urology consultation. She was taken to the OR on 03/09 and underwent cystoscopy/R retrograde with dilation of ureteric orifice, ureteroscopy, laser lithotripsy, stone basketing, and stent placement. No perioperative or postoperative complications and she was discharged home to follow up with Urology in 2 weeks. Time Attestation Discharge Coordination Time (in mins): 35 Quality: Safe Use of Opioids Does Pt have an Active Cancer Diagnosis on the Problem List?: No Quality: Stroke Does the patient have a stroke diagnosis?: No Physical Exam Vital Signs: Vital Signs: Last Vital Signs Temp 97.7 F 03/10/25 07:42 Pulse 116 H 03/10/25 07:42 Resp 18 03/10/25 07:42 BP 119/58 L 03/10/25 07:42 Pulse Ox 90 L 03/10/25 07:42 O2 Del Method Room Air 03/10/25 07:42 O2 Flow Rate 2 03/09/25 15:52 BMI result Body Mass Index 29.2 Gen: in no acute distress HEENT: sclera anicteric, moist mucus membranes Neck: supple Lungs: clear to auscultation bilaterally Heart: regular rate and rhythm, no murmurs Abd: soft, non-tender, non-distended Ext: no edema Skin: warm/well-perfused Neuro: alert and oriented x3, no focal findings Psych: appropriate affect DS: Data Data Completed and Pending Completed studies during hospitalization [Text1]: Laboratory Results WBC 9.7 X10*3/uL (4.8-10.8) 03/08/25 12:17 RBC 4.09 X10*6/uL (4.20-5.50) L 03/08/25 12:17 Hgb 12.4 g/dl (12.0-16.0) 03/08/25 12:17 Hct 34.9 % (37.0-47.0) L 03/08/25 12:17 MCV 85.3 fL (80.0-98.0) 03/08/25 12:17 MCH 30.3 pg (27.0-33.0) 03/08/25 12:17 MCHC 35.5 g/dl (31.0-35.0) H 03/08/25 12:17 RDW 11.9 % (11.0-16.0) 03/08/25 12:17 Plt Count 257 X10*3/uL (160-400) 03/08/25 12:17 MPV 9.7 fL (9.4-12.3) 03/08/25 12:17 Immature Gran % (Auto) 0.4 % (0.0-0.4) 03/08/25 12:17 Neut % (Auto) 71.8 % (45-73) 03/08/25 12:17 Lymph % (Auto) 20.0 % (20-40) 03/08/25 12:17 [place] % (Auto) 6.4 % (2-11) 03/08/25 12:17 Eos % (Auto) 1.0 % (0-4) 03/08/25 12:17 Baso % (Auto) 0.4 % (0-2) 03/08/25 12:17 Lymph # (Auto) 1.9 X10*3/uL (1.2-4.9) 03/08/25 12:17 [place] # (Auto) 0.6 X10*3/uL (0.1-1.2) 03/08/25 12:17 Eos # (Auto) 0.1 X10*3/uL (0.0-0.4) 03/08/25 12:17 Baso # (Auto) 0.0 X10*3/uL (0.0-0.2) 03/08/25 12:17 Abs Immat Gran (auto) 0.04 X10*3/uL (0.00-0.03) H 03/08/25 12:17 Absolute Neuts (auto) 7.0 x10*3/uL (2.0-8.3) 03/08/25 12:17 Absolute Nucleated RBC 0.000 X10*3/uL (0.0-0.012) 03/08/25 12:17 Nucleated RBC % (auto) 0.0 /100WBC (0.0-0.2) 03/08/25 12:17 Sodium 142 mmol/L (135-145) 03/09/25 04:10 Potassium 3.8 mmol/L (3.3-5.1) 03/09/25 04:10 Chloride 110 mmol/L (96-108) H 03/09/25 04:10 Carbon Dioxide 21 mmol/L (22-29) L 03/09/25 04:10 Anion Gap 15 (12-20) 03/09/25 04:10 BUN 20 mg/dL (9-16) H 03/09/25 04:10 Creatinine 0.64 mg/dL (0.5-1.4) 03/09/25 04:10 Estim Creat Clear Calc 65.0 03/09/25 04:10 Estimated GFR > 60 03/09/25 04:10 POC Glucose 143 mg/dL (60-115) H 03/10/25 07:12 Random Glucose 151 mg/dL (60-115) H 03/09/25 04:10 Calcium 8.1 mg/dL (8.4-10.2) L D 03/09/25 04:10 Total Bilirubin 0.3 mg/dL (0.0-1.0) 03/09/25 04:10 AST 20 U/L (5-31) 03/09/25 04:10 ALT 10 U/L (0-31) 03/09/25 04:10 Alkaline Phosphatase 51 U/L (39-117) 03/09/25 04:10 Total Protein 6.2 g/dL (6.5-8.0) L 03/09/25 04:10 Albumin 3.6 g/dL (3.5-5.0) 03/09/25 04:10 Lipase 55 U/L (8-78) 03/08/25 12:17 Urine Color Yellow 03/08/25 19:44 Urine Appearance Clear 03/08/25 19:44 Urine pH 6.5 (5.0-9.0) 03/08/25 19:44 Ur Specific [place] >= 1.030 (1.005-1.025) H 03/08/25 19:44 Urine Protein Trace mg/dL (Neg-Trace) 03/08/25 19:44 Urine Glucose (UA) >=1000 mg/dL (Negative) H 03/08/25 19:44 Urine Ketones 15 mg/dL (Negative) 03/08/25 19:44 Urine Blood Large (3+) (Negative) H 03/08/25 19:44 Urine Nitrite Negative (Negative) 03/08/25 19:44 Ur Leukocyte Esterase Negative (Negative) 03/08/25 19:44 Urine RBC >20 /HPF (0-2) H 03/08/25 19:44 Urine WBC 0-5 /HPF (0-5) 03/08/25 19:44 Ur Squamous Epith Cells 0-2 /HPF (0-2) 03/08/25 19:44 Urine Bacteria None Seen (None Seen) 03/08/25 19:44 Hyaline Casts 0-2 /LPF (0-2) 03/08/25 19:44 Impressions Guidance Fluoroscopy 03/09/25 17:05 IMPRESSION: Fluoroscopy during procedure. Please see procedure report for additional information. Electronically signed by: Luis Manuel Stanford MD 03/10/2025 07:03 AM EDT Pending studies at discharge: Pending at discharge 03/09/25 17:21 Surgical [PTH] Routine Discharge Plan Discharge Anticipated Discharge Date/Time: 03/10/25 09:51 Patient Disposition: Home, Self-Care Discharge Diagnosis: ureterovesical junction obstruction from kidney stone Referrals: Jayden Fagan MD [Physician, Urology] - 2 Weeks Mitzi Cantu MD [Primary Care Provider, [facility]] - 1 Week Discharge Medications: Continued ibuprofen 600 mg tablet 600 mg PO Q8H PRN (Reason: pain) Qty: 14 0RF nifedipine 30 mg tablet extended release 24hr 30 mg PO BID cyanocobalamin (vitamin B-12) 1,000 mcg tablet 1 tab PO DAILY hydralazine 25 mg tablet 25 mg PO BID propranolol 120 mg capsule,extended release 24 hr 120 mg PO DAILY losartan 100 mg tablet 100 mg PO DAILY metformin 500 mg tablet extended release 24 hr 1,000 mg PO DAILY latanoprost 0.005 % drops 1 drp ophthalmic (eye) BEDTIME Rx Instructions: both eyes atorvastatin 80 mg tablet 80 mg PO DAILY cholecalciferol (vitamin D3) [Vitamin D3] 25 mcg (1,000 unit) capsule 25 mcg PO DAILY escitalopram oxalate 5 mg tablet 5 mg PO DAILY calcium carbonate-vitamin D3 600 mg-10 mcg (400 unit) tablet 1 tab PO BID potassium citrate 15 mEq tablet extended release 15 meq PO BID Trulicity 3 mg/0.5 mL pen injector 3 mg SUBCUT TU (DME) blood-glucose meter [FreeStyle Lite Meter] Kit See Rx Instructions .ROUTE .MEDSUPPLY Qty: 1 Rx Instructions: As directed (DME) FreeStyle Lite Strips Strip See Rx Instructions .ROUTE .MEDSUPPLY Qty: 10 Rx Instructions: As directed (DME) lancets [FreeStyle Lancets] 28 gauge misc See Rx Instructions .ROUTE .MEDSUPPLY Qty: 100 Rx Instructions: As directed aspirin 81 mg tablet,delayed release (DR/EC) 81 mg PO DAILY fenofibrate 160 mg tablet 160 mg PO BEDTIME hydrochlorothiazide 25 mg tablet 25 mg PO DAILY omeprazole 20 mg capsule,delayed release(DR/EC) 20 mg PO DAILY@0630 cilostazol 100 mg tablet 100 mg PO BID Qty: 60 2RF Discharge Orders: Discharge Order (Routine); Ordered 03/10/25 Ordered By: Ping Nettles Diet: Diabetic diet Activity on Discharge: As tolerated Stand Alone Forms: Patient Portal Discharge page Print Language: Puerto Rican Care Plan Goals: management of kidney stone Health Concerns: ureterovesical junction obstruction from kidney stone Plan of Treatment: operated 03/09/25 no medication changes for pain, use hot packs or acetaminophen [Tylenol] follow up with Dr Jayden Fagan, [facility], in 2 weeks Please follow up with your primary care doctor within 1-2 weeks. Return to the hospital if you experience recurrent or worsening symptoms. Assessment: See Discharge Summary.
--- NOTE | 2025-03-10 10:18 | MHC.CM.PN ---
Pt. has been medically cleared to [place], She will go home via private transport, plan is self care.
--- NOTE | 2025-03-10 10:55 | HO.POSTANES ---
Post Anesthesia Evaluation Post Anesthesia Evaluation Date of Service: 03/10/25 Vital Signs: Vital Signs Temp Pulse Resp BP Pulse Ox O2 Del Method 03/10/25 07:42 97.7 F 116 H 18 119/58 L 90 L Room Air 03/10/25 04:00 97.9 F 102 H 16 124/62 92 Room Air 03/09/25 23:40 98.3 F 104 H 16 134/69 92 Room Air Anesthesia: General Mental Status: Awake Pain Control: Satisfactory Nausea/Vomiting: None Anesthesia-Related Issues: No Anes. Related Issues
[2025-03-10 11:08] LABS: Glucose, Whole Blood 219 mg/dL (60-115)
[2025-03-10 11:48] VITALS: BP 129/60; PULSE 113; RESP 18; TEMP 36.6; O2SAT 93
[2025-03-10] MEDS: oxyCODONE HCl Immed Release 5 MG TABLET PO (11:49)
== END 2025-03-10 12:32 | disposition home or self-care (01) | DRG 661 ==
LOC: HO.ED 21:20 → HO.EDOVER 21:33 → HO.IMC 03-09 06:57
PROVIDERS: Physician Assistant; Urology; Admitting Provider Hospitalist; Emergency Provider Student in an Organized Health Care Education/Training Program; PCP Family Medicine; Visit Provider Family Medicine
PROC: 0T768DZ Dilation of Right Ureter with Intraluminal Device, Via Natural or Artificial Opening Endoscopic (ICD-10-PCS; principal; 2025-03-09 16:30)
DX: N13.2 Hydronephrosis with renal and ureteral calculous obstruction (principal); E11.51 Type 2 diabetes mellitus with diabetic peripheral angiopathy without gangrene; I10 Essential (primary) hypertension; E78.5 Hyperlipidemia, unspecified; Z79.82 Long term (current) use of aspirin; Z79.84 Long term (current) use of oral hypoglycemic drugs; Z79.899 Other long term (current) drug therapy
CPT/HCPCS: 36415; 74177; 80053; 81001; 82365; 82947; 83690; 85025; 88300; 99285; C1758; C1769; C2617; J0131; J0616; J1171; J1650; J1885; J1956; J2003; J2270; J2405; J2704; J3010; Q9967

== ENCOUNTER → 2025-03-08 18:11 | Outpatient (BNV) | payer OTHER, SELFPAY | PROVIDERS: Emergency Provider Student in an Organized Health Care Education/Training Program; PCP Family Medicine; Visit Provider Radiology Diagnostic Radiology | DX: N13.2 Hydronephrosis with renal and ureteral calculous obstruction (principal); K76.0 Fatty (change of) liver, not elsewhere classified; K44.9 Diaphragmatic hernia without obstruction or gangrene | CPT/HCPCS: 74177 ==

== ENCOUNTER → 2025-03-08 21:15 | Outpatient (BNV) | payer OTHER, SELFPAY | PROVIDERS: Admitting Provider Hospitalist; Emergency Provider Student in an Organized Health Care Education/Training Program; PCP Family Medicine; Visit Provider Family Medicine | DX: N20.0 Calculus of kidney (principal); N13.5 Crossing vessel and stricture of ureter without hydronephrosis | CPT/HCPCS: 99223; 99232; 99239 ==

== ENCOUNTER → 2025-03-08 21:15 | Outpatient (BNV) | payer OTHER, SELFPAY | PROVIDERS: Admitting Provider Hospitalist; Emergency Provider Student in an Organized Health Care Education/Training Program; PCP Family Medicine; Visit Provider Urology | DX: N13.5 Crossing vessel and stricture of ureter without hydronephrosis (principal); N20.0 Calculus of kidney | CPT/HCPCS: 52356; 74420; 99222 ==

== ENCOUNTER 2025-03-15 12:46 | Outpatient (AMB) | payer OTHER, SELFPAY ==
--- NOTE | 2025-03-15 13:39 | MHC.OFFVIS ---
Intake Visit Reasons: cysto/ stent removal Intake Note: New Patient is present for cystoscopy stent removal Urology Rx: none Blood Thinners:Aspirin Imaging completed: none Enterprise Account Executive Required: No Accompanied by: Daughter Allergies No Known Allergies Allergy (Mild, Verified 03/15/25 13:40) NOT APPLICABLE HPI Comments Details: Armida is a pleasant Comoran-speaking female. She is a patient of Dr. Cantu. She is seen for the following urologic conditions - nephrolithiasis in setting of diabetes Here for stent removal Stone composition pending Encouraged to increase fluid intake Nephrolithiasis in setting of diabetes Poorly controlled diabetic Imaging - 0.6x0.3 cm right-sided nephrolithiasis in the UVJ junction associated with hydronephrosis and hydroureter. Intervention - 02/24 for right ureteroscopy with laser lithotripsy Three-month follow-up renal ultrasound nurse-practitioner [facility] Medical History (Updated 03/15/25 @ 14:08 by Jayden Fagan MD) Ureterovesical junction (UVJ) obstruction Nephrolithiasis Vitamin D deficiency Hypertriglyceridemia HLD (hyperlipidemia) Non-cardiac chest pain Cerebrovascular accident HTN (hypertension) Type 2 diabetes mellitus Surgical History Status post angioplasty Hx of colonoscopy History of hysterectomy Family History Father Heart disease Mother Diabetes Hypertension High cholesterol Renal failure Brother Diabetes Brother Diabetes Sister Diabetes Social History Household Members: Family Housing: House Do you presently have visiting nurse or other home services: Yes Alcohol intake: never Patient Tobacco Use Status: Former Tobacco user service: No Review of Systems Const Denies chills and Denies fever(s) Card Reports no additional complaints and Denies syncope Resp Denies cough GI Denies abdominal pain and Denies heartburn Reports as per HPI and Denies change in libido Neuro Denies syncope Psych Denies change in libido Endo Denies change in libido Physical Exam Const General: cooperative, healthy appearing, comfortable and no acute distress Orientation/consciousness: patient oriented x3 HEENT Face and sinus: Yes normal facial exam Mouth: moist mucous membranes Neck Neck: Yes normal visual inspection, Yes full ROM and Yes trachea midline Chest Chest palpation & inspection: normal inspection of the chest Resp Effort & Inspection: normal respiratory effort, able to speak in complete sentences and no respiratory distress GI Inspection: Yes normal to inspection Back/Spine/Pelvis Cervical Spine: normal cervical lordosis Thoracic/Lumbar Spine: thoracic and lumbar spine normal to inspection Skin General skin exam: no rashes or lesions noted Neuro General: patient oriented x3, gait normal, tone normal and moves all extremities Extrem General: Yes normal to inspection and Yes capillary refill normal Office Procedures Cystoscopy Consent Discussed risk and benefit or proposed procedure with the patient. Information consent for procedure given to the patient. Discussed technical aspects, risks, benefits and alternatives in full. Addressed all of the patient's questions and concerns regarding the procedure. The patient demonstrated knowledge and understanding. They wish to proceed with this procedure. Preparation The patient was prepped in the usual manner. A pineapple plantation manager was present and in the room. Genitalia was prepped with betadine solution in a sterile manner. Lidocaine Jelly 2% was placed into the urethra and 16Fr flexible Olympus cystoscope was inserted into the meatus after adequate lubrication. Procedure A well lubricated 16 Macedonian cystoscope was placed No abnormality noted of urethra during placement Indwelling stent seen within bladder emerging from right ureteric orifices The stent was grasped with a 3 prong grasper and removed without difficulty The patient tolerated the procedure well 00405-[id number] with stent removal DISPOSABLE SCOPE URO-G FLEXIBLE SCOPE Procedure code (CPT) selection complete Office Meds lidocaine HCl 2 % mucosal jelly in applicator Performing Provider: Jyaden Fagan MD Performing Location: [facility] Administered by: Giancarlo Claudio LPN on 03/15/25 13:47 Dose Route Admin Location Dispensed Lot Number Expiration Date [place] Environmental Services Coordinator 10 mL intra-urethral 10 mL nitrofurantoin monohydrate/macrocrystals 100 mg capsule Performing Provider: Jayden Fagan MD Performing Location: [facility] Administered by: Giancarlo Claudio LPN on 03/15/25 13:47 Dose Route Admin Location Dispensed Lot Number Expiration Date [place] Environmental Services Coordinator 100 mg PO 1 cap Results AMB Urinalysis, Automated UA Leukoctes 500 Alethea/uL Last Edit by KRISTOFER Montoya on 03/15/25 13:41 UA Nitrite Negative Last Edit by KRISTOFER Montoya on 03/15/25 13:41 UA Urobilinogen 0.2 mg/dL Last Edit by Alejandra Colon, [facility] [place] [facility] on 03/15/25 13:41 UA Protein 15 mg/dL Last Edit by Alejandra Colon, [facility] [place] [facility] on 03/15/25 13:41 UA pH 6.0 Last Edit by Alejandra Colon, [facility] [place] [facility] on 03/15/25 13:41 UA Blood 10 [place]/uL Last Edit by Alejandra Colon, [facility] [place] [facility] on 03/15/25 13:41 UA Specific [place] 1.020 Last Edit by Alejandra Colon, [facility] [place] on 03/15/25 13:41 UA Ketone Negative Last Edit by Alejandra Colon, [facility] [place] [facility] on 03/15/25 13:41 UA Bilirubin 1 mg/dL Last Edit by Alejandra Colon, [facility] [place] [facility] on 03/15/25 13:41 UA Glucose 0 mg/dL Last Edit by Alejandra Colon, [facility] [place] [facility] on 03/15/25 13:41 Results Reviewed Results Reviewed: Laboratory Last Values Urine pH (Auto) 6.0 03/15/25 13:37 Specific [place] (Auto) 1.020 03/15/25 13:37 Urine Protein (Auto) 15 mg/dL 03/15/25 13:37 Glucose (UA)(Auto) 0 mg/dL 03/15/25 13:37 Urine Ketones (Auto) Negative 03/15/25 13:37 Urine Blood (Auto) 10 [place]/uL 03/15/25 13:37 Urine Nitrite (Auto) Negative 03/15/25 13:37 Urine Bilirubin (Auto) 1 mg/dL 03/15/25 13:37 Urine Urobilinogen (Auto) 0.2 mg/dL 03/15/25 13:37 Leukocyte Esterase (Auto) 500 Alethea/uL 03/15/25 13:37 Assessment & Plan Assessment & Plan (1) Nephrolithiasis: Code(s): N20.0 - Calculus of kidney Category: Medical Plan Three-month follow-up imaging Orders: Orders AMB Cystoscopy Today N13.5 - Crossing vessel and stricture of ureter without hydronephrosis, N20.0 - Calculus of kidney AMB Urinalysis Automated Today N20.0 - Calculus of kidney US renal BI 3 Months N20.0 - Calculus of kidney Patient Instructions: This note is constructed using voice recognition software. While every effort has been made to ensure accuracy home theater experience expert errors may have been included. Imaging studies, laboratory and physical exam results were discussed and reviewed in detail. No major barriers to patient understanding were identified. An opportunity to ask questions regarding the treatment plan was provided. All questions were answered. The patient expressed understanding and agreement with the above treatment plan. The patient is aware they should contact our office by phone for worsening of their current condition or the appearance of new urologic symptoms. Compliance is encouraged with any medications and followup testing that is ordered. It is a privilege to participate in the urologic care of your patient. If you have any questions or concerns regarding treatment for the above conditions, or other urologic issues, please do not hesitate to contact me. The office telephone contact is [phone]. Sincerely, Dr Jayden Fagan MD, [facility] - Urology Compassionate Specialist Care for the Genitourinary System Coding Level of Care Code Est Pt Level 3 (85395) Complex EM visit Add On G2211 Diagnoses Nephrolithiasis N20.0 CPT Codes Cystoscopy - CPT: 17830-Cwujnwlphy with stent removal ([id number])
--- OUTSIDE RECORDS SUMMARY | 2025-03-15 15:26 | XMS_ITS | Encounter Summary ---
Author Organization [employer] Address [address] [place] [address] Care Team Providers Care Sales Driver Name Role Phone Mitzi Cantu MD Primary Care Provider + [phone] Christa Kwan PharmD Unavailable [phone] Zi Cotton MD Unavailable Gamal Quiñonez MD Unavailable [phone] Reason for Visit * Reason Onset Date Comments Hospital Follow-up 03/10/2025 Encounter Details Date Type Department Care Team (Late st Contact Info) Description 03/10/2025 Telephone [facility] MEDICINE [address] [place], [place] [phone] Mitzi Cantu MD [address] [place], [place] [phone] Hospital Follow-up Social History Tobacco Use Types Packs/Day Years [...] encounter Miscellaneous Notes * Telephone Encounter - Lilian Valencia - 03/10/2025 2:48 PM EDT Tc from pt requesting a HDF appt. Hospital: [facility] Date of admission: 03/07 Discharge date: 03/10/25 Diagnosed: Kidney stone *Send message to [place] Clinical Care Coordinators documented in this encounter Plan of Treatment Upcoming Encounters Date Type Department Care Team (Late st Contact Info) Description 03/23/2025 9:00 AM EDT Office Visit [facility] [address] [place] [address] Mitzi Cantu MD [address] [place] [address] documented as of this encounter Goals Goal [...] documented as of this encounter Care Teams Sales Driver Relationship Specialty Start Date End Date Mitzi Cantu MD [address] [place] [address] PCP - General Family Medicine 06/02/18 Christa Kwan, PharmD [address] [place] [address] Pharmacist Internal Medicine 07/16/22 Zi Cotton MD [address] [place] [address] Vascular Surgery 04/22/24 Gamal Quiñonez MD [address] [place] [address] Cardiology 04/28/24 documented as of this encounter
--- OUTSIDE RECORDS SUMMARY | 2025-03-15 15:27 | XMS_ITS | Clinical Summary ---
Author Organization [employer] Address [address] [place] [address] 7[address] [place] [address] Care Team Providers Care Transcription Specialist Name Role Phone Mitzi Cantu MD Primary Care Provider [phone]- [phone] Christa Kwan PharmD Unavailable [phone] Zi Cotton MD Unavailable Gamal Quiñonez MD Unavailable [phone] Allergies Active Allergy Reactions Criticality Noted Date Comments Gregor Inhibitors Cough 08/02/2010 Medications * This document contains information received from the source organization and may not represent a complete record from that organization. cholecalciferol (D3-1000) 25 MCG (1000 UT) capsuleIndications :Vitamin D deficiency TAKE 1 CAPSULE BY MOUTH EVERY MORNING 90 capsule 3 024 Active hydroCHLOROthiazid e (HYDRODiuril) 25 MG tabletIndications: Stage 2 hypertension Take 1 tablet (25 mg) by mouth Once per day. 90 tablet 3 024 Active propranolol LA (Inderal LA) 120 MG 24 hr capsuleIndications :Stage 2 hypertension Take 1 capsule (120 mg) by mouth in the morning. Do not crush, chew, or split. 90 capsule 3 024 Active insulin glargine (Basaglar KwikPen) 100 UNIT/ML penIndications:Typ e 2 diabetes mellitus with stage 3 chronic kidney disease, with long-term current use of insulin, unspecified whether stage 3a or 3b CKD (HCC) Inject 10 Units under the skin at bedtime. 3 mL 12 024 2024 Active Dulaglutide 1.5 MG/0.5ML solution auto-injectorIndic ations:Type 2 diabetes mellitus with stage 3 chronic kidney disease, with long-term current use of insulin, unspecified whether stage 3a or 3b CKD (HCC) Inject 0.5 mL (1.5 mg) under the skin 1 (one) time per week. 2 mL 024 Active metFORMIN XR (Glucophage-XR) 500 MG 24 hr tabletIndications: Type 2 diabetes mellitus with stage 3 chronic kidney disease, with long-term current use of insulin, unspecified whether stage 3a or 3b CKD (HCC) Take 2 tablets (1,000 mg) by mouth with evening meal. Do not crush, chew, or split. 120 tablet 024 Active latanoprost (Xalatan) 0.005 % ophthalmic solutionIndication s:Dry eyes INSTILL 1 DROP IN EACH EYE EVERY EVENING 024 Active omeprazole (PriLOSEC) [address] capsuleIndications :Gastroesophageal reflux disease without esophagitis TAKE 1 CAPSULE BY MOUTH EVERY MORNING 30 capsule 024 Active Aspirin Adult Low Strength 81 MG EC tabletIndications: History of cardioembolic cerebrovascular accident (CVA) TAKE 1 TABLET BY MOUTH EVERY MORNING 90 tablet 3 025 Active cyanocobalamin (Vitamin B-12) 1000 MCG tabletIndications: B12 deficiency TAKE 1 TABLET BY MOUTH EVERYDAY AT NOON 90 tablet 025 Active atorvastatin (Lipitor) 80 MG tabletIndications: Hypercholesterolem ia TAKE 1 TABLET BY MOUTH AT BEDTIME 30 tablet 025 Active Icosapent Ethyl (Vascepa) 1 g capsuleIndications :Hypercholesterole michelle TAKE 2 CAPSULES BY MOUTH TWICE DAILY IN THE MORNING AND EVENING WITH MEALS 120 capsule 025 Active fenofibrate (Triglide) 160 MG tabletIndications: Hypercholesterolem ia Take 1 tablet (160 mg) by mouth at bedtime. 30 tablet 025 Active escitalopram (Lexapro) 5 MG tabletIndications: Major depressive disorder, single episode with psychotic features (CMS/HCC) ([facility]) TAKE 1 TABLET BY MOUTH EVERY MORNING 90 tablet 025 Active NIFEdipine XL (Procardia XL) 30 MG 24 hr tabletIndications: Stage 2 hypertension TAKE 1 TABLET BY MOUTH TWICE DAILY IN THE MORNING AND IN THE EVENING 180 tablet 2 07/28/2 025 Active hydrALAZINE (Apresoline) 25 MG tabletIndications: Stage 2 hypertension Take 1 tablet (25 mg) by mouth 2 times daily. 60 tablet 11 Active Calcium Carb-Cholecalcifer ol 600-10 MG-MCG tabletIndications: Age related osteoporosis, unspecified pathological fracture presence TAKE 1 TABLET BY MOUTH TWICE DAILY IN THE MORNING AND IN THE EVENING 180 tablet 3 025 Active losartan (Cozaar) 100 MG tabletIndications: Stage 2 hypertension TAKE 1 TABLET BY MOUTH EVERY MORNING 30 tablet 7 Active Dulaglutide (Trulicity) 3 MG/0.5ML solution auto-injectorIndic ations:Type 2 diabetes mellitus with stage 3 chronic kidney disease, with long-term current use of insulin, unspecified whether stage 3a or 3b CKD (HCC) Inject 3 mg under the skin 1 (one) time per week. 2 mL 3 Active pen needle 33G x 4 mm miscIndications:Ty pe 2 diabetes mellitus with stage 3 chronic kidney disease, with long-term current use of insulin, unspecified whether stage 3a or 3b CKD (HCC) USE WITH LANTUS SOLOSTAR ONCE DAILY 100 each 11 025 2025 Active potassium citrate CR (Urocit-K-15) 15 mEq ER tabletIndications: Hypokalemia Take 1 tablet (15 mEq) by mouth with breakfast and with evening meal. 60 tablet 11 025 Active Calcium Carb-Cholecalcifer ol 600-10 MG-MCG tabletIndications: Age related osteoporosis, unspecified pathological fracture presence TAKE 1 TABLET BY MOUTH TWICE DAILY IN THE MORNING AND IN THE EVENING 60 tablet 11 024 2024 Discontinued potassium citrate CR (Urocit-K-15) 15 mEq ER tabletIndications: Hypokalemia TAKE 1 TABLET BY MOUTH TWICE DAILY IN THE MORNING AND IN THE EVENING WITH FOOD 60 tablet 11 024 2024 Discontinued(R eorder (will not trigger notification to Pharmacy)) losartan (Cozaar) 100 MG tabletIndications: Stage 2 hypertension Take 1 tablet (100 mg) by mouth in the morning. 30 tablet 7 024 2024 Discontinued pen needle 33G x 4 mm miscIndications:Ty pe 2 diabetes mellitus with stage 3 chronic kidney disease, with long-term current use of insulin, unspecified whether stage 3a or 3b CKD (HCC) USE WITH LANTUS SOLOSTAR ONCE DAILY 100 each 11 025 2024 Discontinued(R eorder (will not trigger notification to Pharmacy)) Active Problems Problem Noted Date Diagnosed Date Renal calculi 03/09/2025 Overview (03/14/2025): Seen in ER 03/08/25 IMPRESSION: Right hydronephrosis and hydroureter due to 0.6 x 0.3 cm obstructing right ureterovesicular junction nephrolith. Right renal lower pole 0.2 cm nonobstructing nephrolith. Hepatic steatosis; nonalcoholic steatohepatitis versus viral hepatitis. Hiatal hernia. -03/09/25 s/p - cystoscopy, right retrograde - right dilatation of ureteric orifice under fluoroscopy - right ureteroscopy, laser lithotripsy, stone basketing - right stent placement with Dr. Fagan Right hip pain 12/15/2024 Overview (12/15/2024): -xray 12/14/24 with specialist IMPRESSION: Mild osteoarthrosis, right hip. Bilateral carpal tunnel syndrome 06/14/2024 Overview (06/14/2024): -nerve conduction study 06/2024 IMPRESSION: Rqsa-ox-chsqmdnb left median neuropathy across carpal tunnel. Mild left ulnar neuropathy across cubital tunnel. Cardiac risk counseling 02/09/2024 Overview (05/05/2024): The [...] study 05/05/24 -nerve conduction study 06/2024 IMPRESSION: Xpsy-jq-fvuaosvk left median neuropathy across carpal tunnel. Mild [...] due after 08/04/2025 -eye care facilitated by [facility] -health care proxy given and filed 02/09/24 Assessment & Plan (08/04/2024 12:49 PM EST): -next physical exam due after 08/04/2025 -eye care facilitated by [facility] -health care proxy given and filed 02/09/24 Assessment & Plan (02/09/2024 10:20 AM EDT): -next physical exam due after 06/26/2023 -eye care facilitated by [facility] is -health care proxy given and filed 02/09/24 Assessment & Plan (04/30/2023 3:36 PM EST): -next physical exam due after 06/26/2023 -[facility] [place] [facility] Stage 2 hypertension 06/06/2022 Overview (08/04/2024): [...] Plan (02/09/2024 9:59 AM EDT): MRI in 2008 revealed a R lacunar infarct without enhancement. [...] hallucinations (door knocking, felt presence of her iyvcpx-kf-dld). Anxious about medication side effects. After initial [...] hallucinations (door knocking, felt presence of her emomtg-vs-byj). Anxious about medication side effects. After initial [...] hallucinations (door knocking, felt presence of her hhidyt-zp-qto). Anxious about medication side effects. After initial [...] hallucinations (door knocking, felt presence of her hqmart-zu-pna). She is much improved, depression in remission. [...] fem-pop bypass if clinically required Seen by [facility] 10/30/23: In short her arterial [...] fem-pop bypass if clinically required Seen by [facility] 10/30/23: In short her arterial [...] weeks(05/05/24) due to skin irritation. Spoke with [facility] pharmacist and will change Triseba [...] our PharmD, SUE medina Assessment & Plan (11/04/2024 9:32 AM EDT): [...] [facility] 11/14/23, preop. -Diabetic foot exam: 02/09/24 -Continue lifestyle modifications -Continue current medications - Metformin ER 500mg take 2 tablets twice daily - Dulaglutide 1.5 MG/0.5ML solution auto-injector Self discontinued Triseba x3 weeks(05/05/24) due to skin irritation. Spoke with [facility] pharmacist and will change Triseba [...] weeks(05/05/24) due to skin irritation. Spoke with [facility] pharmacist and will change Triseba [...] in past including cardiology and most recently director of spa and guest experience on 12/14/2020 but referred back to PCP because patient didn't get her labs drawn. Discussed lipid clinic at [facility]. Pt agrees but would like to [...] in past including cardiology and most recently director of spa and guest experience on 12/14/2020 but referred back to PCP because patient didn't get her labs drawn. Discussed lipid clinic at [facility]. Pt agrees but would like to [...] in past including cardiology and most recently director of spa and guest experience on 12/14/2020 but referred back to PCP because patient didn't get her labs drawn. Discussed lipid clinic at [facility]. Pt agrees but would like to wait for her housing situation to improve. -continue lifestyle modification -continue fenofibrate 160mg daily -atorvastatin 80 -Lovaza 1gm 2 tabs bid Assessment & Plan (05/05/2024 10:05 AM EST): Pt has history of severe hyper triglycerides (>2000) currently we got it as low as 300s but she is not back to 1,550 range. -Seen by director of spa and guest experience on 12/14/2020 but referred back to PCP [...] not back to 1,550 range. -Seen by director of spa and guest experience on 12/14/2020 but referred back to PCP [...] not back to 1,550 range. -Seen by director of spa and guest experience on 12/14/2020 but referred back to PCP [...] not back to 1,550 range. -Seen by director of spa and guest experience on 12/14/2020 but referred back to PCP [...] Date Resolved Date Exercise counseling 08/04/2024 11/05/19 25 Dietary counseling 08/04/2024 Type 2 diabetes mellitus wit h hyperglycemia, without long-term current use of insulin 06/15/2024 06/15/2024 Type 2 diabetes mellitus wit h stage 3 chronic kidney disease, with long-term current use of insulin, unspecified whether stage 3a or 3b CKD 06/15/2024 06/15/2024 Encounter for screening mamm ogram for malignant neoplasm of breast 05/05/2024 03/14/2025 Overview (05/05/2024): 9/6/24 BIRADS 1, continue routine annual screening -next due 02/05/26 Calcific tendinitis of right shoulder 02/09/2024 12/15/2024 [...] about it. Hx of MH services at [facility], case ws closed because she missed appts.. Patient will benefit from Ind. Therapy and Med. management. At this time Armida Vega meets criteria for Visit Diagnoses: Problem List Items Addressed This Visit Other Depression, unspecified Patient ready to address current needs Yes Strengths include willing to seek help PLAN: 1. Follow up with [facility]: Not recommended for follow-up 2. Patient goal is to engage in MH services 3. Behavioral Recommendations a. Ind. Therapy b. Med. Management c. Use of coping Mechanisms provided. Encounters Date Type Department Care Team Description 03/10/2025 Patient Outreach [facility] [address] [place] [phone] Mitzi Cantu MD Transition Of Care (Tcm) (HDF scheduled ) 03/10/[address] [address] Mitzi Cantu MD Hospital Follow-up 03/10/2025 Refill [facility] [address] [place] [phone] Mitzi Cantu MD Hypokalemia 03/08/2025 Orders Only GENERIC EXTERNAL DATA DEPARTMENT Provider, Generic External Data Renal calculi (Primary Dx) 03/07/2025 9:45 AM EDT Office Visit [facility] [address] [place] [phone] Mitzi Cantu MD Type 2 diabetes mellitus with hyperglycemia, with long-term current use of insulin (HCC) (Primary Dx); Hypercholesterolemia ; Stage 2 hypertension; Type 2 diabetes mellitus with stage 3 chronic kidney disease, with long-term current use of insulin, unspecified whether stage 3a or 3b CKD (HCC); Tremor; Major depressive disorder, single episode with psychotic features (CMS/HCC) (HCC) 03/07/2025 Travel 03/04/2025 Telephone [facility] [address] [place] [phone] Mitzi Cantu MD chartprep 03/02/2025 Telephone [facility] [address] [place] [phone] Mitzi Cantu MD 03/02/2025 Refill [facility] [address] [place] [phone] Mitzi Cantu MD Stage 2 hypertension 02/28/2025 Patient Outreach [facility] [address] [place], [place] [phone] Mitzi Cantu MD Pre-visit Planning (SDOH was already completed ) 02/22/2025 Refill [facility] [address] [place] [phone] Mitzi Cantu MD Age related osteoporosis, unspecified pathological fracture presence 02/09/2025 Orders Only GENERIC EXTERNAL DATA DEPARTMENT Provider, Generic External Data 02/08/2025 Refill [facility] [address] [place] [phone] Mitzi Cantu MD Stage 2 hypertension 02/07/2025 Refill [facility] [address] [place] [phone] Mitzi Cantu MD Stage 2 hypertension 02/02/2025 Telephone [facility] [address] [place] [phone] Mitzi Cantu MD 01/28/2025 10:40 AM EDT Office Visit [facility] [address] [place] [phone] Deepa Streeter DO Left leg pain (Primary Dx); Peripheral arterial disease ([facility]/HCC) 01/28/2025 Travel 01/26/2025 Telephone [facility] [address] [place] [phone] Mitzi Cantu MD Medication Question; ER Follow-up 01/20/2025 Orders Only GENERIC EXTERNAL DATA DEPARTMENT Provider, Generic External Data Peripheral vascular disease ([facility]) (Primary Dx) 12/26/2024 Refill [facility] [address] [place] [phone] Mitzi Cantu MD Stage 2 hypertension 12/20/2024 Telephone [facility] [address] [facility] [facility] [place] [phone] Mitzi Cantu MD March12/15/2024 Telephone [facility] [address] [facility] [place] [address] Mitzi Cantu MD 12/14/2024 Orders Only [facility] External Provider, [facility] Right hip pain (Primary Dx); Peripheral vascular disease (CMS/HCC) from Last 3 Months Immunizations Immunization Administration [...] Description 03/23/2025 9:00 AM EDT Office Visit [facility] [address] [facility] [facility] [place] [address] Mitzi Cantu MD [address] [place] [address] Health Maintenance Due Date Last Done Comments [...] Procedure Name Priority Date/Time Associated Diagnosis Comments FL GUIDANCE IN OR Routine 03/09/2025 5:0 5 PM EDT URINALYSIS, COMPLETE, WITH REFLEX TO CULTURE Routine 03/08/2025 7:[address] ABDOMEN PELVIS W CONTRAST Routine 03/08/2025 7:26 PM EDT GLUCOSE, WHOLE BLOOD Routine 03/08/2025 5:58 PM [...] Recently Relevant to Health Maintenance Results * FL Guidance in OR (03/09/2025 5:05 PM EDT) Anatomical Region Laterality Modality X-Ray Angiograph y 03/09/2025 5:05 PM EDT Narrative 03/10/2025 7:06 AM EDT [place] [address] Fluoroscopy Report Signed Patient: Armida Olmstead MR#: [id number] : 1955 Acct:[id number] Age/Sex: 69 / F ADM Date: 03/08/25 Loc: [facility] 482-[address]: Pnig Nettles MD Ordering Physician: Jayden Fagan MD Date of Service: 03/09/25 Procedure(s): FL guidance in OR Accession Number(s): [id number] cc: Jayden Fagan MD; Mitzi Cantu MD Reason for Exam: Right ureteral stone EXAMINATION: FL GUIDANCE ONLY HISTORY: Right ureteral stone COMPARISON: Correlation is made with a CT of the abdomen dated 03/08/2025. TECHNIQUE: Fluoroscopy time: 16.8 seconds. Cumulative Dose: 3.8063 mGy. DAP: 1.6557 Gycm2 Images: 4. FINDINGS: Fluoroscopic spot films of the pelvis demonstrate placement of a right nephroureteral stent. The proximal region of the stent is not included. FL/FL guidance in OR IMPRESSION: Fluoroscopy during procedure. Please see procedure report for additional information. Electronically signed by: Luis Manuel Stanford MD 03/10/2025 07:03 AM EDT Dictated By: Luis Manuel Stanford MD Signed By: <Electronically signed by Luis Manuel Stanford MD in OV> 03/10/25 0703 DD/ 1705 TD/TT: 03/09/251717 Corporate Librarian: Procedure Note Donheberter, Image - 03/10/[address] [address] Fluoroscopy Report Signed Patient: Shaye Olmstead#: M [id number] : 4Acct:[id number] Age/Sex: 69 / FADM Date: 03/08/25 Loc: [facility] 482-[address]: Ping Nettles MD Ordering Physician: Jayden Fagan MD Date of Service: 03/09/25 Procedure(s): FL guidance in OR Accession Number(s): [id number] cc: Jayden Fagan MD; Mitzi Cantu MD Reason for Exam: Right ureteral stone EXAMINATION: FL GUIDANCE ONLY HISTORY: Right ureteral stone COMPARISON: Correlation is made with a CT of the abdomen dated 03/08/2025. TECHNIQUE: Fluoroscopy time: 16.8 seconds. Cumulative Dose: 3.8063 mGy. DAP: 1.6557 Gycm2 Images: 4. FINDINGS: Fluoroscopic spot films of the pelvis demonstrate placement of a right nephroureteral stent. The proximal region of the stent is not included. FL/FL guidance in OR IMPRESSION: Fluoroscopy during procedure. Please see procedure report for additional information. Electronically signed by: Luis Manuel Stanford MD 03/10/2025 07:03 AM EDT Dictated By: Luis Manuel Stanford MD Signed By: <Electronically signed by Luis Manuel Stanford MD in OV> 03/10/2503 DD/ 04 TD/TT: 03/09/251717 Corporate Librarian: us [facility] External Provider IMG IR PROCEDURES Final Result * (ABNORMAL) Urinalysis, Complete, with Reflex to Culture (03/08/2025 7:44 PM EDT) Color Urine Yellow [facility] Appearance Urine Clear [facility] PH 6.5 5.0 - 9.0 [facility] Glucose Urine UA >=1000(A) Negative mg/dL [facility] Urine Blood Large (3+)(A) Negative [facility] Specific [place] - Urine >=1.030(H) 1.005 - 1.025 [facility] Urine Protein Trace Neg-Trace mg/dL [facility] Urine Ketones 15 Negative mg/dL [facility] Nitrite Urine Negative Negative [facility] Leukocyte Esterase Urine Negative Negative [facility] RBC Urine >20(A) 0 - 2 /HPF [facility] Urine WBC 0-5 0 - 5 /HPF [facility] Urine Squamous Epithelial Cell 0-2 0 - 2 /HPF [facility] Urine Bacteria None Seen None Seen [facility] Hyaline Casts, Urine 0-2 0 - 2 /LPF [facility] 03/08/2025 7:44 PM EDT 03/08/2025 7:47 PM EDT Narrative [facility] - 03/08/2025 7:58 PM EDT [id number], [employer] us Generic External Data Provider LAB URINE ORDERAB LES Final Result Performing Organization Address City/State/[facility] Co de Phone Number [facility] [address] [place] [address] [phone] * CT Abdomen Pelvis w/ Contrast (03/08/2025 7:26 PM EDT) Anatomical Region Laterality Modality Body, Pelvis, Abdomen Computed T omography 03/08/2025 7:26 PM EDT Narrative 03/08/2025 7:39 PM EDT [address] [address] [address] Scan Report Signed with Nikolas Patient: Armida Olmstead MR#: [id number] : 1955 Acct:[id number] Age/Sex: 69 / F ADM Date: 03/08/25 Loc: [facility].ED Attending Dr: Ordering Physician: Lissa Law DO Date of Service: 03/08/25 Procedure(s): CT abdomen pelvis w IV con Accession Number(s): [id number] cc: Mitzi Cantu MD; Lissa Law DO Report Number: [id number]: Total DLP = 932.00 mGy-cm Reason for Exam: abdominal pain ADDENDUM This document has been electronically signed by: Jadiel Luong MD on 03/08/2025 19:26:19 ADDENDUM: This report was discussed with Thanh Talavera on Mar 08, 2025 19:29:00 EDT. This document has been electronically signed by: Chantell Jones on 03/08/2025 19:29:20 Addendum Dictated By: Jadiel Luong MD Addendum Signed By: <Electronically signed by Jadiel Luong MD in OV> 03/08/251937 Addendum Cosigned By: DD/ /24/1925 TD/TT: 03/08/2512/24/1928 CLINICAL HISTORY: abdominal pain CT abdomen and pelvis with contrast Comparison: None provided Findings: Hiatal hernia. Partial mineralization of the mitral valve. Hepatic steatosis. The spleen is homogeneous in attenuation. The pancreas is homogeneous in attenuation. The left and right kidney demonstrate symmetric corticomedullary enhancement. Right hydronephrosis and right hydroureter with right ureterovesicular junction obstructing nephrolith, 0.6 x 0.3 cm, axial image number 72 of 86 series 2. Right renal lower pole 0.2 cm nonobstructing nephrolith. No bowel obstruction, pneumoperitoneum, or pneumatosis. Calcified coronary atherosclerotic disease. The appendix is within normal limits. The uterus is moderately atrophic. The bones are intact. IMPRESSION: 1. Right hydronephrosis and hydroureter due to 0.6 x 0.3 cm obstructing right ureterovesicular junction nephrolith. 2. Right renal lower pole 0.2 cm nonobstructing nephrolith. 3. Hepatic steatosis; nonalcoholic steatohepatitis versus viral hepatitis. 4. Hiatal hernia. This document has been electronically signed by: Jadiel Luong MD on 03/08/2025 19:26:19 Dictated By: Jadiel Luong MD Signed By: <Electronically signed by Jadiel Luong MD in OV> 03/08/251937 DD/ 25 TD/TT: 03/08/251925 Corporate Librarian: Procedure Note Silvanacatherine, Image - 03/08/[address] [address] [address] Scan Report Signed with Addenda Patient: Shaye Olmstead#: M [id number] : 1955cct:[id number] Age/Sex: 69 / FADM Date: 03/08/25 Loc: [facility].ED Attending Dr: Ordering Physician: Lissa Law DO Date of Service: 03/08/25 Procedure(s): CT abdomen pelvis w IV con Accession Number(s): [id number] cc: Mitzi Cantu MD; Lissa Law DO Report Number: [id number]: Total DLP = 932.00 mGy-cm Reason for Exam: abdominal pain ADDENDUM This document has been electronically signed by: Jadiel Luong MD on 03/08/2025 19:26:19 ADDENDUM: This report was discussed with Thanh Talavera on Mar 08, 2025 19:29:00EDT. This document has been electronically signed by: Chantell Jones on 03/08/2025 19:29:20 Addendum Dictated By: Jadiel Luong MD Addendum Signed By: <Electronically signed by MD Aicha in OV> 03/08/251937 Addendum Cosigned By: DD/ /24/1925 TD/TT: 03/08/2512/24/1928 CLINICAL HISTORY: abdominal pain CT abdomen and pelvis with contrast Comparison: None provided Findings: Hiatal hernia. Partial mineralization of the mitral valve. Hepatic steatosis. The spleen is homogeneous in attenuation. The pancreas is homogeneous in attenuation. The left and right kidney demonstrate symmetric corticomedullary enhancement. Right hydronephrosis and right hydroureter with right ureterovesicular junction obstructing nephrolith, 0.6 x 0.3 cm, axial image number 72 of 86 series 2. Right renal lower pole 0.2 cm nonobstructing nephrolith. No bowel obstruction, pneumoperitoneum, or pneumatosis. Calcified coronary atherosclerotic disease. The appendix is within normal limits. The uterus is moderately atrophic. The bones are intact. IMPRESSION: 1. Right hydronephrosis and hydroureter due to 0.6 x 0.3 cm obstructing right ureterovesicular junction nephrolith. 2. Right renal lower pole 0.2 cm nonobstructing nephrolith. 3. Hepatic steatosis; nonalcoholic steatohepatitis versus viral hepatitis. 4. Hiatal hernia. This document has been electronically signed by: Jadiel Luong MD on 03/08/2025 19:26:19 Dictated By: Jadiel Luong MD Signed By: <Electronically signed by Jadiel Luong MD in OV> 03/08/251937 DD/ 25 TD/TT: 03/08/251925 Corporate Librarian: [facility] External Provider IMG CT PROCEDURES Edited Result - Final * (ABNORMAL) Glucose, Whole Blood (03/08/2025 5:58 PM EDT) Only the most recent of4 resultswithin the time period is included. Pathologist [facility] Glucose, Whole Blood 256(H) 60 - 115 mg/dL [facility] Comment:METER #: [id number] 03/08/2025 5:58 PM EDT 03/08/2025 6:02 PM EDT Generic External Data Provider LAB BLOOD ORDERAB LES Final Result [facility] [address] [place] [phone] * (ABNORMAL) CBC auto differential (03/08/2025 12:17 PM EDT) Only the most recent of4 resultswithin the time period is included. White Blood Count 9.7 4.8 - 10.8 X10*3/uL [facility] Red Blood Count 4.09(L) 4.20 - 5.50 X10*6/uL [facility] Hemoglobin 12.4 12.0 - 16.0 g/dl [facility] Hematocrit 34.9(L) 37.0 - 47.0 % [facility] Mean Corpuscular Volume 85.3 80.0 - 98.0 fL [facility] Mean Corpuscular Hemoglobin 30.3 27.0 - 33.0 pg [facility] Mean Corpuscular HGB Conc 35.5(H) 31.0 - 35.0 g/dl [facility] Red Cell Distribution Width 11.9 11.0 - 16.0 % [facility] Platelet Count 257 160 - 400 X10*3/uL [facility] Mean Platelet Volume 9.7 9.4 - 12.3 fL [facility] Neutrophils Percent Auto 71.8 45 - 73 % [facility] Imm Gran Pct Auto 0.4 0.0 - 0.4 % [facility] Lymphocytes Percent Auto 20.0 20 - 40 % [facility] Monocytes Percent Auto 6.4 2 - 11 % [facility] Eosinophils Percent Auto 1.0 0 - 4 % [facility] Basophils Percent Auto 0.4 0 - 2 % [facility] NRBC Pct Auto 0.0 0.0 - 0.2 /100WBC [facility] Neutrophils Absolute Auto 7.0 2.0 - 8.3 x10*3/uL [facility] Imm Gran Abs Auto 0.04(H) 0.00 - 0.03 X10*3/uL [facility] Lymphocytes Absolute Auto 1.9 1.2 - 4.9 X10*3/uL [facility] Monocytes Absolute Auto 0.6 0.1 - 1.2 X10*3/uL [facility] Eosinophils Absolute Auto 0.1 0.0 - 0.4 X10*3/uL [facility] Basophils Absolute Auto 0.0 0.0 - 0.2 X10*3/uL [facility] NRBC Abs Auto 0.000 0.0 - 0.012 X10*3/uL [facility] 03/08/2025 12:1 7 PM EDT 03/08/2025 12:20 PM EDT Generic External Data Provider LAB BLOOD ORDERAB LES Final Result Performing Organization Address [facility]/ZIP Co de Phone Number [facility] [address] [place] [address] [phone] * Lipase (03/08/2025 12:17 PM EDT) Only the most recent of2 resultswithin the time period is included. Lipase 55 8 - 78 U/L [facility] 03/08/2025 12:1 7 PM EDT 03/08/2025 12:20 PM EDT Generic External Data Provider LAB BLOOD ORDERAB LES Final Result Performing Organization Address [facility] de Phone Number [facility] [address] [place] [address] [phone] * (ABNORMAL) Comprehensive Metabolic Panel (03/08/2025 12:17 PM EDT) Only the most recent of3 resultswithin the time period is included. Sodium 139 135 - 145 mmol/L [facility] Potassium 3.8 3.3 - 5.1 mmol/L [facility] Chloride 103 96 - 108 mmol/L [facility] Carbon Dioxide 27 22 - 29 mmol/L [facility] Anion Gap 13 12 - 20 [facility] Urea Nitrogen (BUN) 24(H) 9 - 16 mg/dL [facility] Creatinine, Serum 0.68 0.5 - 1.4 mg/dL [facility] Creatinine Clr Calc Pharmacy 61.2 [facility] Comment:Provided height and weight: 149.86 cm,61.235 kg.eGFR (calculated from the MDRD study equation) and eCrCl(calculated from the Cockcroft-Gault equation) are based ondifferent parameters and may not yield comparable results.If eCrCl result is absurd, please check patient'sheight/weight. Estimated Glomerular Filt Rate >60 [facility] Comment:Chronic Kidney Disea se: Estimated GFR < 60 mL/min/1.17d1Liqlxv Kidney Disease: Estimated GFR < 15 mL/min/1.73m2 Glucose 255(H) 60 - 115 mg/dL [facility] Calcium 9.4 8.4 - 10.2 mg/dL [facility] Bilirubin, Total 0.2 0.0 - 1.0 mg/dL [facility] Aspartate Amino Transferase 15 5 - 31 U/L [facility] Alanine Aminotransferase 16 0 - 31 U/L [facility] Total Protein 7.2 6.5 - 8.0 g/dL [facility] Albumin Level 4.5 3.5 - 5.0 g/dL [facility] Alkaline Phosphatase 85 39 - 117 U/L [facility] 03/08/2025 12:1 7 PM EDT 03/08/2025 12:20 PM EDT us Generic External Data Provider LAB BLOOD ORDERAB LES Final Result [facility] [address] [place] [phone] * (ABNORMAL) Albumin, Random Urine W/Creatinine (03/04/2025 9:08 AM EDT) Creatinine, Urine 106.69 mg/dL [facility] Microalbumin Urine 54.0 mg/L [facility] Microalbum Creatinine Ratio Ur 50.6(H) <30 ug/mg cr [facility] Comment:Albumin/Creatinine R atio Reference Ranges: Normal: < 30 ug/mg creatinine Microalbuminuria: 30 - 300 ug/mg creatinineClinical Albuminuria: > 300 ug/mg creatinine Urine 03/04/2025 9:08 AM EDT 03/04/2025 11:17 AM EDT us Mitzi Cantu MD LAB URINE ORDERABLES Final Result [facility] [address] [place] [phone] [phone] * (ABNORMAL) Hemoglobin A1c (03/04/2025 9:08 AM EDT) Hemoglobin A1c 9.1(H) <6.0 % [facility] Comment:Hemoglobin A1C Refer ence Range Adults: 4.8 - 6.0 % Non diabetic: < 6.0 % Goal: < 7.0 %Additional Action Suggested: > 8.0 %Note: Hemoglobin A1c results are invalid for patients with abnormal amounts of HbF. Blood transfusions may impact the HbA1c concentration in the patient sample. Estimated Average Glucose 214 mg/dL [facility] Comment:eAG = Estimated ave rage glucose which is %A1C expressed asaverage glucose, using the formula of the B1F-FvbmyczMvlezmk Glucose study (ADAG), Diabetes Care, Vol.31,#8,Dec. 2007 Blood Venous blood specimen / Unknown 03/04/2025 9:08 AM EDT 03/04/2025 11:26 AM EDT us Mitzi Cantu MD LAB BLOOD ORDERABLES Final Result Performing Organization Address [facility] Co de Phone Number [facility] [address] [place] [phone] * Hepatic Function Panel (03/04/2025 9:08 AM EDT) Bilirubin, Total 0.3 0.0 - 1.0 mg/dL [facility] Bilirubin, Direct 0.1 0.0 - 0.5 mg/dL [facility] Aspartate Amino Transferase 21 5 - 31 U/L [facility] Alanine Aminotransferase 19 0 - 31 U/L [facility] Total Protein 7.7 6.5 - 8.0 g/dL [facility] Albumin Level 4.6 3.5 - 5.0 g/dL [facility] Alkaline Phosphatase 85 39 - 117 U/L [facility] Blood Venous blood specimen / Unknown 03/04/2025 9:08 AM EDT 03/04/2025 11:26 AM EDT Mitzi Cantu MD LAB BLOOD ORDERABLES Final Result Performing Organization Address [facility]/ZIP Co de Phone Number [facility] [address] [place] [address] [phone] * (ABNORMAL) Lipid Panel, Standard (03/04/2025 9:08 AM EDT) Triglycerides 658(H) <150 mg/dL [facility] Comment:Desirable Triglyceri de: less than 150 mg/dLBorderline High Triglyceride 150-199 mg/dLHigh Triglyceride: 200-499 mg/dLVery High Triglyceride: greater than or equal to 5OO mg/dL Cholesterol 278(H) <200 mg/dL [facility] Comment:Desirable Cholestero l: less than 200 mg/dLBorderline High Cholesterol: 200-239 mg/dLHigh Cholesterol: greater than 239 mg/dL LDL Cholesterol Calculated TNP <100 mg/dL [facility] Comment:Unable to calculate the LDL. The formula of Friedwald,Negrete, and Ruddy is only valid if the triglycerides areless than 400 mg/dl. HDL Cholesterol 34(L) >40 mg/dL [facility] Comment:Desirable HDL: great er than 40 mg/dL Note: This HDL assay may give artificially low results in patients with liver disease. Blood Venous blood specimen / Unknown 03/04/2025 9:08 AM EDT 03/04/2025 11:26 AM EDT Mitzi Cantu MD LAB BLOOD ORDERABLES Final Result Performing Organization Address City/[facility]/ZIP Co de Phone Number [facility] [address] [place] [address] [phone] * (ABNORMAL) Basic Metabolic Panel (03/04/2025 9:08 AM EDT) Sodium 138 135 - 145 mmol/L [facility] Potassium 4.4 3.3 - 5.1 mmol/L [facility] Chloride 101 96 - 108 mmol/L [facility] Carbon Dioxide 30(H) 22 - 29 mmol/L [facility] Anion Gap 11(L) 12 - 20 [facility] Urea Nitrogen (BUN) 20(H) 9 - 16 mg/dL [facility] Creatinine, Serum 0.60 0.5 - 1.4 mg/dL [facility] Estimated Glomerular Filt Rate >60 [facility] Comment:Chronic Kidney Disea se: Estimated GFR < 60 mL/min/1.74l8Tsjjel Kidney Disease: Estimated GFR < 15 mL/min/1.73m2 Glucose 217(H) 60 - 115 mg/dL [facility] Calcium 9.7 8.4 - 10.2 mg/dL [facility] Blood Venous blood specimen / Unknown 03/04/2025 9:08 AM EDT 03/04/2025 11:26 AM EDT Mitzi Cantu MD LAB BLOOD ORDERABLES Final Result [facility] [address] [place] [phone] * Creatinine, Serum (02/09/2025 6:56 AM EDT) Creatinine, Serum 0.60 0.5 - 1.4 mg/dL [facility] Creatinine Clr Calc Pharmacy 70.1 [facility] Comment:Provided height and weight: 149.86 cm,62.5 kg.eGFR (calculated from the MDRD study equation) and eCrCl(calculated from the Cockcroft-Gault equation) are based ondifferent parameters and may not yield comparable results.If eCrCl result is absurd, please check patient'sheight/weight. Estimated Glomerular Filt Rate >60 [facility] Comment:Chronic Kidney Disea se: Estimated GFR < 60 mL/min/1.81a8Cuwles Kidney Disease: Estimated GFR < 15 mL/min/1.73m2 02/09/2025 6:56 AM EDT 02/09/2025 6:58 AM EDT us Generic External Data Provider LAB BLOOD ORDERAB LES Final Result Performing Organization Address [facility] Co de Phone Number [facility] [address] [place] [phone] * BUN (Blood Urea Nitrogen) (02/09/2025 6:56 AM EDT) Urea Nitrogen (BUN) 14 9 - 16 mg/dL [facility] 02/09/2025 6:56 AM EDT 02/09/2025 6:58 AM EDT Generic External Data Provider LAB BLOOD ORDERAB LES Final Result Performing Organization Address [facility] Phone Number [facility] [address] [place] [phone] * XR Hip left with Pelvis 1 view (01/20/2025 12:01 PM EDT) Anatomical Region Laterality Modality Lower Extremities, Hip Bilateral Radiograp hic Imaging 01/20/2025 12:0 1 PM EDT Narrative 01/20/2025 1:16 PM EDT [address] [address] XRay Report Signed Patient: Armida Olmstead MR#: [id number] : 1955 Acct:[id number] Age/Sex: 69 / F ADM Date: 01/20/25 Loc: HO.ED Attending Dr: Ordering Physician: Jaren Gibson Date of Service: 01/20/25 Procedure(s): XR hip LT w PEL1V Accession Number(s): [id number] cc: Jaren Gibson; Mitzi Cantu MD EXAMINATION: [...] 01/20/25 1313 DD/ 1201 TD/TT: 01/20/25 1308 Corporate Librarian: Procedure Note Donotuseinterpreter, Image - 01/20/2025 [place] [address] XRay Report Signed Patient: Shaye Olmstead#: M [id number] : 1955cct:[id number] Age/Sex: 69 / FADM Date: 01/20/25 Loc: .ED Attending Dr: Ordering Physician: Jaren Gibson Date of Service: 01/20/25 Procedure(s): XR hip LT w PEL1V Accession Number(s): [id number] cc: Jaren Gibson; Mitzi Cantu MD EXAMINATION: [...] 01/20/25 1313 DD/ 1201 TD/TT: 01/20/25 1308 Corporate Librarian: us [facility] External Provider IMG XR PROCEDURES Final Result * US ARTERIAL DUPLEX LE LT (01/20/2025 12:00 PM EDT) Anatomical Region Laterality Modality Abdomen Ultrasound 01/20/2025 12:0 0 PM EDT Narrative 01/20/2025 12:57 PM EDT [address] [address] Ultrasound Report Signed Patient: Armida Olmstead MR#: [id number] : 1955 Acct:[id number] Age/Sex: 69 / F ADM Date: 01/20/25 Loc: HO.ED Attending Dr: Ordering Physician: Jaren Gibson Date of Service: 01/20/25 Procedure(s): US arterial duplex LE LT Accession Number(s): [id number] cc: Jaren Gibson; Mitzi Cantu MD EXAMINATION: [...] 01/20/25 1254 DD/ 1200 TD/TT: 01/20/25 1225 Corporate Librarian: Procedure Note Donotuseinterpreter, Image - 01/20/2025 [place] [address] Ultrasound Report Signed Patient: Shaye Olmstead#: M [id number] : 1955cct:[id number] Age/Sex: 69 / FADM Date: 01/20/25 Loc: .ED Attending Dr: Ordering Physician: Jaren Gibson Date of Service: 01/20/25 Procedure(s): US arterial duplex LE LT Accession Number(s): [id number] cc: Jaren Gibson; Mitzi Cantu MD EXAMINATION: [...] 01/20/25 1254 DD/ 1200 TD/TT: 01/20/25 1225 Corporate Librarian: us [facility] External Provider IMG US PROCEDURES Final Result * Lower Extremity Venous Duplex (01/20/2025 12:00 PM EDT) 01/20/2025 12:0 0 PM EDT Narrative [facility] - 01/20/2025 12:51 PM EDT [place] [address] Ultrasound Report Signed Patient: Armida Olmstead MR#: [id number] : 1955 Acct:[id number] Age/Sex: 69 / F ADM Date: 01/20/25 Loc: HO.ED Attending Dr: Ordering Physician: Jaren Gibson Date of Service: 01/20/25 Procedure(s): US venous duplex LE LT Accession Number(s): [id number] cc: Jaren Gibson; Mitzi Cantu MD EXAMINATION: [...] 01/20/25 1248 DD/ 1200 TD/TT: 01/20/25 1225 Corporate Librarian: Procedure Note Donotuseinterpreter, Image - 01/20/2025 [place] [address] Ultrasound Report Signed Patient: Shaye Olmstead#: M [id number] : 4Acct:[id number] Age/Sex: 69 / FADM Date: 01/20/25 Loc: .ED Attending Dr: Ordering Physician: Jaren Gibson Date of Service: 01/20/25 Procedure(s): US venous duplex LE LT Accession Number(s): [id number] cc: Jaren Gibson; Mitzi Cantu MD EXAMINATION: [...] 01/20/25 1248 DD/ 1200 TD/TT: 01/20/25 1225 Corporate Librarian: [facility] External Provider CV VASC ULAR PROCEDURES Final Result Performing Organization Address [facility] Co de Phone Number [facility] [address] [place] [phone] * Partial Thromboplastin Time, Activated (APTT) (01/20/2025 10:36 AM EDT) Only the most recent of2 resultswithin the time period is included. Partial Thromboplastin Time 28.3 26.7 - 34.1 SEC [facility] 01/20/2025 10:3 6 AM EDT 01/20/2025 10:39 AM EDT Generic External Data Provider LAB BLOOD ORDERAB LES Final Result Performing Organization Address [facility] de Phone Number [facility] [address] [place] [phone] * Prothrombin Time-INR (01/20/2025 10:36 AM EDT) Only the most recent of2 resultswithin the time period is included. Prothrombin Time 11.4 10.9 - 12.4 SEC [facility] INTERNATIONAL NORM RATIO 1.0 0.9 - 1.1 [facility] Comment:INTERNATIONAL NORMAL IZED RATIO (INR) REFERENCE [...] ORDERAB LES Final Result Performing Organization Address [facility] de Phone Number [facility] [address] [place] [phone] * (ABNORMAL) Creatine Kinase, Total (01/20/2025 10:36 AM EDT) Creatine Kinase Total 23(L) 26 - 140 U/L [facility] 01/20/2025 10:3 6 AM EDT 01/20/2025 10:39 AM EDT Generic External Data Provider LAB BLOOD ORDERAB LES Final Result Performing Organization Address [facility] de Phone Number [facility] [address] [place] [phone] * CTA Abdomen aorta runoff (12/14/2024 7:20 PM EDT) Anatomical Region Laterality Modality Body, Pelvis, Abdomen Computed T omography 12/14/2024 7:20 PM EDT Narrative 12/14/2024 7:22 PM EDT [address] [address] [address] Scan Report Signed with Addenda Patient: Armida Vega MR#: [id number] : 1955 Acct:[id number] Age/Sex: 69 / F ADM Date: 12/14/24 Loc: .ED Attending Dr: Ordering Physician: Gal Good MD Date of Service: 12/14/24 Procedure(s): CT angio abd aorta runoff Accession Number(s): [id number] cc: Mitzi Cantu MD; Gal Good MD Report Number: [id number]: Total DLP = 310.00 mGy-cm ADDENDUM This [...] of the urinary bladder. No adnexal mass. Dkew-bs-skasufww spondylosis. No acute fracture or suspicious bone [...] in OV> 12/14/241920 DD/ 19 TD/TT: 12/14/241919 Corporate Librarian: Procedure Note Donotuseinterpreter, Image - 12/14/[address] [place] [address] [address] Scan Report Signed with Addenda Patient: Shaye Vega#: [id number] : 4Acct:[id number] Age/Sex: 69 / FADM Date: 12/14/24 Loc: .ED Attending Dr: Ordering Physician: Gal Good MD Date of Service: 12/14/24 Procedure(s): CT angio abd aorta runoff Accession Number(s): [id number] cc: Mitzi Cantu MD; Gal Good MD Report Number: [id number]: Total DLP = 310.00 mGy-cm ADDENDUM This [...] of the urinary bladder. No adnexal mass. Ueen-pq-upuwjtsp spondylosis. No acute fracture or suspicious bone [...] in OV> 12/14/241920 DD/ 19 TD/TT: 12/14/241919 Corporate Librarian: [facility] External Provider IMG CT PROCEDURES Edited Result - Final * Hold Red (12/14/2024 4:39 PM EDT) [facility] Hold Red See Note [facility] Comment:Specimen held untest ed for 24 hours; Call to requestChemistry testing. 12/14/2024 4:39 PM EDT 12/14/2024 4:45 PM EDT Generic External Data Provider LAB BLOOD ORDERAB LES Final Result Performing Organization Address [facility] de Phone Number [facility] [address] [place] [phone] * (ABNORMAL) Sed Rate by Modified Miguelergren (12/14/2024 4:39 PM EDT) Pathologist [facility] Erythrocyte Sedimentation Rate 59(H) 0 - 20 MM/HR [facility] Comment:Patients with polycy themia and many hemoglobin abnormalitiesmay have depressed sed rates whereas patients with anemiamay have elevated sed rates. 12/14/2024 4:39 PM EDT 12/14/2024 4:44 PM EDT Generic External Data Provider LAB BLOOD ORDERAB LES Final Result Performing Organization Address [facility] Co de Phone Number [facility] [address] [place] [phone] * (ABNORMAL) C-reactive Protein (12/14/2024 4:39 PM EDT) C Reactive Protein 9.68(H) < or = 0.50 mg/dL [facility] 12/14/2024 4:39 PM EDT 12/14/2024 4:44 PM EDT Generic External Data Provider LAB BLOOD ORDERAB LES Final Result Performing Organization Address [facility] Co de Phone Number [facility] [address] [place] [phone] * Lactic Acid (12/14/2024 4:39 PM EDT) Lactic Acid 1.0 0.5 - 2.0 mmol/L [facility] 12/14/2024 4:39 PM EDT 12/14/2024 4:44 PM EDT Generic External Data Provider LAB BLOOD ORDERAB LES Final Result Performing Organization Address [facility] de Phone Number [facility] [address] [place] [phone] * XR Hip right with Pelvis 1 view (12/14/2024 11:40 AM EDT) Anatomical Region Laterality Modality Lower Extremities, Hip Bilateral Radiograp hic Imaging 12/14/2024 11:4 0 AM EDT Narrative 12/14/2024 12:09 PM EDT [address] [address] XRay Report Signed Patient: Armida Vega MR#: [id number] : 1955 Acct:[id number] Age/Sex: 69 / F ADM Date: 12/14/24 Loc: HO.ED Attending Dr: Ordering Physician: Tenisha Castellano Date of Service: 12/14/24 Procedure(s): XR hip RT w PEL1V Accession Number(s): [id number] cc: Mitzi Cantu MD; Tenisha Castellano EXAMINATION: [...] David Floyd MD 12/14/2024 12:06 PM EDT Dictated By: David De Santiago MD Signed By: <Electronically signed by David Souza MD in OV> 12/14/24 1206 DD/ 1140 TD/TT: 12/14/24 1150 Corporate Librarian: Procedure Note Donotuseinterpreter, Image - 12/14/2024 [place] [address] XRay Report Signed Patient: Shaye Vega#: [id number] : 1955cct:[id number] Age/Sex: 69 / FADM Date: 12/14/24 Loc: HO.ED Attending Dr: Ordering Physician: Tenisha Castellano Date of Service: 12/14/24 Procedure(s): XR hip RT w PEL1V Accession Number(s): [id number] cc: Mitzi Cantu MD; Tenisha Castellano EXAMINATION: [...] 12/14/24 1206 DD/ 1140 TD/TT: 12/14/24 1150 Corporate Librarian: [facility] External Provider IMG XR PROCEDURES Final [...] PCR <15 NOT DETECTED NOT DETECTED IU/mL [facility] [email or web address] HCV RNA QN Real Time PCR <1.18 NOT DETECTED NOT DETECTED Log IU/mL [email or web address] Comment: This test was performed using Real-Time Polymerase Chain Reaction. Reportable Range: 15 IU/mL to 100,000,000 IU/mL (1.18 Log IU/mL to 8.00 Log IU/mL). The analytical performance characteristics of this assay have been determined by [facility]. The modifications have not been cleared or approved by the FDA. This assay has been validated pursuant to the CLIA regulations and is used for clinical purposes. For more information on this test, go to: http://education.hipix/faq/WTI62v6 (This link is being provided for informational/ educational purposes only.) 06/24/2022 8:19 AM EST 06/24/2022 8:19 AM EST Narrative [facility] - 06/27/2022 5:25 PM EST FASTING:YES FASTING: YES Mitzi Cantu MD LAB BLOOD ORDERABLES Final Result [facility] [address] [facility], [facility], [place] [address] [facility] [address] [facility], ([address]) [place] [address] * Hm Colonoscopy (10/31/2018 12:37 PM EDT) Mitzi Cantu MD HEALTH MAINTENANCE Final R esult from Last 3 Months or Most Recently Relevant to Health Maintenance Insurance [facility] [employer] OPT[employer] (HMO D-SNP) [place] [id number] Advance Directives Documents on File Type Date Recorded Patient Environmental Field Services Technician Expl anation Advance Directives and Living Will 02/09/2024 Health Care Proxy 02/09/24 Care Teams Transcription Specialist Relationship Specialty Start Date End Date Issaquena, MD [address] [place] [address] PCP - General Family Medicine 06/02/18 Christa Kwan, CrisD [address] [place] [address] Pharmacist Internal Medicine 07/16/22 Zi Cotton MD [address] [place] [address] Vascular Surgery 04/22/24 Gamal Quiñonez MD [address] [place] [address] Cardiology 04/28/24
--- OUTSIDE RECORDS SUMMARY | 2025-03-15 15:27 | XMS_ITS | Encounter Summary ---
Author Organization [employer] Address [address] [facility] 7t [place] [address] Care Team Providers Care Business Support Name Role Phone Mitzi Cantu MD Primary Care Provider + [phone] Christa Kwan PharmD Unavailable [phone]- [phone] Zi Cotton MD Unavailable Gamal Quiñonez MD Unavailable [phone] Reason for Visit * Reason Onset Date Comments Med Refill 08/04/2024 Encounter Details Date Type Department Care Team (Late st Contact Info) Description 08/04/2024 Refill [facility] 230 [place], [place] [phone] Mitzi Cantu MD [address] [employer], [place] [phone] Stage 2 hypertension Social History Tobacco Use [...] the past 12 months, has t he [employer], gas, oil or water company threatened to [...] Description 03/23/2025 9:00 AM EDT Office Visit [facility] [address] [place] [address] Mitzi Cantu MD [address] [place] [address] documented as of this encounter Goals Goal [...] as of this encounter Care Teams Business Support Relationship Specialty Start Date End Date Mitzi Cantu MD [address] [place] [address] PCP - General Family Medicine 06/02/18 Christa Kwan, Bindu [address] [place] [address] Pharmacist Internal Medicine 07/16/22 Zi Cotton MD [address] [place] [address] Vascular Surgery 04/22/24 Gamal Quiñonez MD [address] 3rd [place] [address] Cardiology 04/28/24 documented as of this encounter
--- OUTSIDE RECORDS SUMMARY | 2025-03-15 15:27 | XMS_ITS | Encounter Summary ---
Author Organization [employer] Address 75 [facility] 7t [place] [address] Care Team Providers Care Stock Raiser Name Role Phone Mitzi Cantu MD Primary Care Provider + [phone] Christa Kwan PharmD Unavailable [phone]- [phone] Zi Cotton MD Unavailable Gamal Quiñonez MD Unavailable [phone] Reason for Visit * Reason Comments Med Refill Encounter Details Date Type Department Care Team (Late st Contact Info) Description 02/07/2025 Refill [facility] 230 [place], [place] [phone] Mitzi Cantu MD 230 [place], [place] [phone] Stage 2 hypertension Social History Tobacco Use [...] Description 03/23/2025 9:00 AM EDT Office Visit [facility]INE [address] [place] [address] Mitzi Cantu MD [address] [place] [address] documented as of this encounter Goals Goal [...] documented as of this encounter Care Teams Stock Raiser Relationship Specialty Start Date End Date Mitzi Cantu MD [address] [place] [address] PCP - General Family Medicine 06/02/18 Christa Kwan, CrisD 230 [place] [address] Pharmacist Internal Medicine 07/16/22 Zi Cotton MD [address] [place] [address] Vascular Surgery 04/22/24 Gamal Quiñonez MD [address] 3rd [place] [address] Cardiology 04/28/24 documented as of this encounter
--- OUTSIDE RECORDS SUMMARY | 2025-03-15 15:27 | XMS_ITS | Encounter Summary ---
Author Organization [employer] Address [address] [place] [address] 7t [place] [address] Care Team Providers Care Rn Neurology Name Role Phone [place], Mitzi RODAS Primary Care Provider + [phone] Christa Kwan PharmD Unavailable Zi Cotton MD Unavailable Gamal Quiñonez MD Unavailable [phone] Reason for Visit * Reason Comments Med Refill Encounter Details Date Type Department Care Team (Late st Contact Info) Description 01/03/2023 Refill [facility] MED[facility]INE 230 [place], [place] [phone] Christa Kwan, PharmD 230 [place] [address] Type II diabetes mellitus with neurological manifestations [...] Description 03/23/2025 9:00 AM EDT Office Visit [facility] [place] [address] Mitzi Cantu MD 230 [facility] [place] [address] documented as of this encounter Goals Goal [...] as of this encounter Care Teams Rn Neurology Relationship Specialty Start Date End Date Mitzi Cantu MD 230 [place] [address] PCP - General Family Medicine 06/02/18 Christa Kwan, PharmD 230 [place] [address] Pharmacist Internal Medicine 07/16/22 Zi Cotton MD [address] [place] [address] Vascular Surgery 04/22/24 Gamal Quiñonez MD [address] 3rd [place] [address] Cardiology 04/28/24 documented as of this encounter
--- OUTSIDE RECORDS SUMMARY | 2025-03-15 15:27 | XMS_ITS | Encounter Summary ---
Author Organization [employer] Address 75 [facility] 7t [place] [address] Care Team Providers Care Operating Room Orderly Name Role Phone Mitzi Cantu MD Primary Care Provider + [phone] Christa Kwan PharmD Unavailable [phone]- [phone] Zi Cotton MD Unavailable Gamal Quiñonez MD Unavailable [phone] Encounter Details Date Type Department Care Team (Late st Contact Info) Description 03/10/2025 Refill [facility] 230 [place], [place] [phone] Mitzi Cantu MD 230 [place] [address] Hypokalemia Social History Tobacco Use Types Packs/Day Years [...] Description 03/23/2025 9:00 AM EDT Office Visit [facility] [address] [place] [address] Mitzi Cantu MD [address] [place] [address] documented as of this encounter Goals Goal Patient Goal Type Associated Problems Recent Progress Patient-Stated? Author Hemoglobin A1c < 7 Result Component 9.1(03/04/2025 9:08 AM EDT) No Christa Kwan, PharmD documented as of this encounter Visit Diagnoses Diagnosis Hypokalemia Hypopotassemia documented in this encounter Additional Health Concerns Assessment Noted Time PHQ-9 Depression Total Score: 8 03/07/20 25 9:56 AM EDT documented as of this encounter Care Teams Operating Room Orderly Relationship Specialty Start Date End Date Mitzi Cantu MD [address] [place] [address] PCP - General Family Medicine 06/02/18 Christa Kwan, CrisD 230 [place] [address] Pharmacist Internal Medicine 07/16/22 Zi Cotton MD [address] [place] [address] Vascular Surgery 04/22/24 Gamal Quiñonez MD [address] 3rd [place] [address] Cardiology 04/28/24 documented as of this encounter
--- OUTSIDE RECORDS SUMMARY | 2025-03-15 15:27 | XMS_ITS | Encounter Summary ---
Author Organization [employer] Address 75 [facility] 7t [place] [address] Care Team Providers Care Folding Machine Setter Name Role Phone Mitzi Cantu MD Primary Care Provider + [phone] Christa Kwan PharmD Unavailable [phone]- [phone] Zi Cotton MD Unavailable Gamal Quiñonez MD Unavailable [phone] Reason for Visit * Reason Onset Date Comments Pre-op Exam 11/20/2023 Encounter Details Date Type Department Care Team (Late st Contact Info) Description 11/20/2023 Telephone [facility] 230 [place], [place] [phone] Mitzi Cantu MD 230 [place], [place] [phone] Pre-op Exam Social History Tobacco Use Types [...] [facility] Surgeon's office number: [phone] Surgeon's office fax number: [phone] Contact name (person you spoke with): Janki Last office note from surgeon requested: Pre-Op notes documented in this encounter Plan of Treatment Upcoming Encounters Date Type Department Care Team ([facility] st Contact Info) Description 03/23/2025 9:00 AM EDT Office Visit [facility] 230 [place] [address] Mitzi Cantu MD 230 [place] [address] documented as of this encounter Goals Goal [...] documented as of this encounter Care Teams Folding Machine Setter Relationship Specialty Start Date End Date Mitzi Cantu MD 230 [place] [address] PCP - General Family Medicine 06/02/18 Christa Kwan, PharmD [address] [place] [address] Pharmacist Internal Medicine 07/16/22 Zi Cotton MD [address] [place] [address] Vascular Surgery 04/22/24 Gamal Quiñonez MD [address] 3rd [place] [address] Cardiology 04/28/24 documented as of this encounter
--- OUTSIDE RECORDS SUMMARY | 2025-03-15 15:27 | XMS_ITS | Encounter Summary ---
Author Organization [employer] Address 75 [facility] 7t [place] [address] Care Team Providers Care Medical Equipment Repairer Name Role Phone Mitzi Cantu MD Primary Care Provider + [phone] Christa Kwan PharmD Unavailable [phone] Zi Cotton MD Unavailable Gamal Quiñonez MD Unavailable [phone] Reason for Visit * Reason Comments Transition Of Care (Tcm) HDF scheduled Encounter Details Date Type Department Care Team (Late st Contact Info) Description 03/10/2025 Patient Outreach [facility]INE 230 [place], [place] [phone] Mitzi Cantu MD 230 [place] [address] Transition Of Care (Tcm) (HDF scheduled ) Social History Tobacco Use Types Packs/Day [...] the past 12 months, has t he [employer], gas, oil or water company threatened to [...] as of this encounter Miscellaneous Notes * Significant Event - Bravo Ryan - 03/10/2025 3:15 PM EDT 03/10/25 1509 Hospital Discharges and Admission for [facility] Type of Visit Hospital Admission Date of Admission/Visit 03/08/25 Date of Discharge 03/10/25 Facility [facility] Diagnosis Ureterovesical junction (UVJ) obstruction, Nephrolithiasis Disposition Discharged Home Follow-Up Actions Follow-Up Needed Provider appointment Follow-Up Outcome Spoke to Patient;Booked Appointment Initial Contact Date 03/10/25 RODGER Paez placed outbound call to patient for HDF outreach. Patient's name and were confirmed. Patient educated on the importance of follow up with provider following inpatient admission. Patient offered an HDF appt. Patient is agreeable to an appointment and has been scheduled for 03/23/[address] Cantu. Insurance verified prior to scheduling. Patient also notified that a healthcenter pharmacist will be reaching out to them via telephone prior to their scheduled appointment in order to review their medications in preparation for their appointment. Patient advised to bring to appointment a photo id and insurance card. Patient provided with education on contacting the Health Center with any questions or concerns prior to the scheduled appointment. Patient educated on extended clinic hours on Mondays and Wednesdays, and Walk-In Urgent Care Located in [facility]. Patient provided with after-hours line for [facility], , which offer night time triage service and option to transfer to water conservation specialist provider if needed. CC scanned discharge summary into patient's chart. Bi ggest concern for appointment at this time is no concerns. Appropriate screenings completed in anticipation of appointment. documented in this encounter Plan of Treatment Upcoming Encounters Date Type Department Care Team (Late st Contact Info) Description 03/23/2025 9:00 AM EDT Office Visit [facility] 230 [place], [place] [phone] Mitzi Cantu MD [address] [place] [address] documented as of this encounter Goals Goal [...] documented as of this encounter Care Teams Medical Equipment Repairer Relationship Specialty Start Date End Date Mitzi Cantu MD [address] [place] [address] [phone] PCP - General Family Medicine 06/02/18 Christa Kwan, CrisD [address] [place] [address] Pharmacist Internal Medicine 07/16/22 Zi Cotton MD [address] [place] [address] Vascular Surgery 04/22/24 Gamal Quiñonez MD [address] 3rd Floor [place] [address] Cardiology 04/28/24 documented as of this encounter
--- OUTSIDE RECORDS SUMMARY | 2025-03-15 15:27 | XMS_ITS | Encounter Summary ---
Author Organization [employer] Address 75 [facility] 7t [place] [address] Care Team Providers Care Clinical Quality Analyst Name Role Phone [place], Mitzi RODAS Primary Care Provider + [phone] Christa Kwan PharmD Unavailable [phone] Zi Cotton MD Unavailable Gamal Quiñonez MD Unavailable [phone] Reason for Visit * Reason Comments Med Refill Encounter Details Date Type Department Care Team (Late st Contact Info) Description 05/11/2024 Refill [facility] MED[facility]INE 230 [place], [place] [phone] Christa Kwan, PharmD 230 [place] [address] Social History Tobacco Use Types Packs/Day Years [...] Description 03/23/2025 9:00 AM EDT Office Visit [facility] MED[facility]INE [address] [place] [address] Mitzi Cantu MD [address] [place] [address] documented as of this encounter Goals Goal [...] documented as of this encounter Care Teams Clinical Quality Analyst Relationship Specialty Start Date End Date Mitzi Cantu MD [address] [place] [address] PCP - General Family Medicine 06/02/18 Christa Kwan, CrisD [address] [place] [address] Pharmacist Internal Medicine 07/16/22 Zi Cotton MD [address] [place] [address] Vascular Surgery 04/22/24 Gamal Quiñonez MD [address] 3rd [place] [address] Cardiology 04/28/24 documented as of this encounter
--- OUTSIDE RECORDS SUMMARY | 2025-03-15 15:27 | XMS_ITS | Encounter Summary ---
Author Organization [employer] Address [address] [place] [address] 7t [place] [address] Care Team Providers Care Electronic Integrated Systems Mechanic Name Role Phone [place], Mitzi RODAS Primary Care Provider + [phone] Christa Kwan PharmD Unavailable Zi Cotton MD Unavailable Gamal Quiñonez MD Unavailable [phone] Reason for Visit * Reason Comments Med Refill Encounter Details Date Type Department Care Team (Late st Contact Info) Description 05/20/2022 Refill [facility]INE 230 [place], [place] [phone] Christa Kwan PharmD 230 [place] [address] Type II diabetes mellitus with neurological manifestations [...] Description 03/23/2025 9:00 AM EDT Office Visit [facility] MED[facility]INE 230 [place] [address] Mitzi Cantu MD 230 [place] [address] documented as of this encounter Visit Diagnoses Diagnosis 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
--- OUTSIDE RECORDS SUMMARY | 2025-03-15 15:27 | XMS_ITS | Encounter Summary ---
Author Organization [employer] Address [address] [place] [address] 7t [place] [address] Care Team Providers Care Production Welder Name Role Phone Mitzi Cantu MD Primary Care Provider +- [phone] Christa Kwan PharmD Unavailable [phone] Zi Cotton MD Unavailable Gamal Quiñonez MD Unavailable [phone] Encounter Details Date Type Department Care Team (Late st Contact Info) Description 02/05/2023 Orders Only [facility] MEDICINE [address] [place] [address] Mitzi Cantu MD 230 [place], [place] [phone] Social History Tobacco Use Types Packs/Day Years [...] Description 03/23/2025 9:00 AM EDT Office Visit [facility] MED[facility] [address] [place] [address], [place] [address] Mtizi Cantu MD 230 [place] [address] documented as of this encounter Goals Goal [...] documented as of this encounter Care Teams Production Welder Relationship Specialty Start Date End Date Mitzi Cantu MD [address] [place] [address] PCP - General Family Medicine 06/02/18 Christa Kwan, PharmD [address] [place] [address] Pharmacist Internal Medicine 07/16/22 Zi Cotton MD [address] [place] [address] Vascular Surgery 04/22/24 Gamal Quiñonez MD [address] 3rd [place] [address] Cardiology 04/28/24 documented as of this encounter
--- OUTSIDE RECORDS SUMMARY | 2025-03-15 15:27 | XMS_ITS | Encounter Summary ---
Author Organization [employer] Address [address] [place] [address] 7t [place] [address] Care Team Providers Care Magician/Illusionist Name Role Phone Mitzi Cantu MD Primary Care Provider +- [phone] Christa Kwan PharmD Unavailable [phone] Zi Cotton MD Unavailable Gamal Quiñonez MD Unavailable [phone] Encounter Details Date Type Department Care Team (Latest Contact Info) Description 12/02/2022 Orders Only [facility] MEDICINE 230 [place], [place] [phone] Mitzi Cantu MD 230 [place] [address] Hypercholesterolemia (Primary Dx) Social History Tobacco Use [...] Description 03/23/2025 9:00 AM EDT Office Visit [facility] MEDICINE 230 [place] [address] Mitzi Cantu MD 230 [place] [address] documented as of this encounter Goals Goal [...] documented as of this encounter Care Teams Magician/Illusionist Relationship Specialty Start Date End Date Mitzi Cantu MD 230 [place] [address] PCP - General Family Medicine 06/02/18 Christa Kwan, PharmD [address] [place] [address] Pharmacist Internal Medicine 07/16/22 Zi Cotton MD [address] [place] [address] Vascular Surgery 04/22/24 Gamal Quiñonez MD [address] 3rd [place] [address] Cardiology 04/28/24 documented as of this encounter
--- OUTSIDE RECORDS SUMMARY | 2025-03-15 15:27 | XMS_ITS | Encounter Summary ---
Author Organization [employer] Address [address] [place] [address] 7t [place] [address] Care Team Providers Care Remote Broadcast Technician Name Role Phone Mitzi Cantu MD Primary Care Provider + [phone] Christa Kwan PharmD Unavailable Zi Cotton MD Unavailable Gamal Quiñonez MD Unavailable [phone] Encounter Details Date Type Department Care Team (Late st Contact Info) Description 05/20/2022 Orders Only [facility] [address] [place], [place] [phone] Deepa Henao LPN Social History Tobacco Use [...] Description 03/23/2025 9:00 AM EDT Office Visit [facility] MEDICINE 230 [place] [address] Mitzi Cantu MD 230 [place] [address] documented as of this encounter Visit Diagnoses Not on filedocumented in this encounter Care Teams Remote Broadcast Technician Relationship Specialty Start Date End Date Mitzi Cantu MD 230 [place] [address] PCP - General Family Medicine 06/02/18 Christa Kwan, Bindu 230 [place] [address] Pharmacist Internal Medicine 07/16/22 Zi Cotton MD [address] [place] [address] Vascular Surgery 04/22/24 Gamal Quiñonez MD [address] 3rd [place] [address] Cardiology 04/28/24 documented as of this encounter
--- OUTSIDE RECORDS SUMMARY | 2025-03-15 15:27 | XMS_ITS | Encounter Summary ---
Author Organization [employer] Address 75 [facility] 7t [place] [address] Care Team Providers Care Director Athletic Name Role Phone Mitzi Cantu MD Primary Care Provider + [phone] Christa Kwan PharmD Unavailable [phone] Zi Cotton MD Unavailable Gamal Quiñonez MD Unavailable [phone] Encounter Details Date Type Department Care Team (Late st Contact Info) Description 02/06/2024 Abstract [facility] MEDICINE 230 [place], [place] [phone] Mitzi Cantu MD 230 [place], [place] [phone] Social History Tobacco Use Types Packs/Day Years [...] Description 03/23/2025 9:00 AM EDT Office Visit [facility] MEDICINE [address] [place] [address] Mitzi Cantu MD 230 [place] [address] documented as of this encounter Goals Goal [...] as of this encounter Care Teams Director Athletic Relationship Specialty Start Date End Date Mitzi Cantu MD 230 [place] [address] PCP - General Family Medicine 06/02/18 Christa Kwan, Bindu [address] [place] [address] Pharmacist Internal Medicine 07/16/22 Zi Cotton MD [address] [place] [address] Vascular Surgery 04/22/24 Gamal Quiñonez MD [address] 3rd [place] [address] Cardiology 04/28/24 documented as of this encounter
--- OUTSIDE RECORDS SUMMARY | 2025-03-15 15:28 | XMS_ITS | Clinical Summary ---
Author Organization [facility] Address [address] [place] [address] Care Team Providers Care Sole Trimmer Name Role Phone Unavailable Primary Care Provider Unavailabl e Social History Tobacco Use Types Packs/Day Years Used Date Smoking Tobacco: Never Assessed Sex and Gender Information Value Date Recorded Sex Assigned at Not on file Gender Identity Not on file Sexual Orientation Not on file Plan of Treatment Not on file
--- OUTSIDE RECORDS SUMMARY | 2025-03-15 15:28 | XMS_ITS | Patient Health Record ---
Author Organization [facility] Address [address] [place] [address] Care Team Providers Care Draw Furnace Tender Name Role Phone Mitzi Cantu MD Primary Care Provider Coleen Shaheen Shannon Jr Unavailable [phone] Reason For Referral No Information Plan Of Treatment No Information Insurance Providers Payer Name Payer Address Payer Phone Subscriber Number Group Number Insured Name Patient Relationship to Insured Coverage Start Date Coverage End Date MED[employer] OF [facility] [address] [place] [phone] [id number] REMY BALDWIN Self - patient is the insured
== END 2025-03-15 14:14 | disposition home or self-care (01) ==
LOC: HO.HUSH 12:47
PROVIDERS: PCP Family Medicine; Visit Provider Urology
DX: N20.0 Calculus of kidney (principal); N13.5 Crossing vessel and stricture of ureter without hydronephrosis
CPT/HCPCS: 52310; 99213

== ENCOUNTER → 2025-03-15 12:46 | Outpatient (BNVA) | payer OTHER, SELFPAY | PROVIDERS: PCP Family Medicine; Visit Provider Urology | DX: N20.0 Calculus of kidney (principal) | CPT/HCPCS: 52310; 81003; 99212 ==